=== PATIENT | female | born 1990 | race Caucasian/White ===

== ENCOUNTER 2024-04-06 14:04 | Outpatient (CLI) | payer BC, SELFPAY ==
[2024-04-06 16:03] LABS: Toxigenic C. Diff NEGATIVE (NEGATIVE)
[2024-04-13 20:09] LABS: Calprotectin, Stool 553 mcg/g
== END 2024-04-06 14:05 | disposition home or self-care (01) ==
PROVIDERS: Visit Provider Internal Medicine Gastroenterology
DX: R19.7 Diarrhea, unspecified (principal)
CPT/HCPCS: 83993; 87269; 87493

== ENCOUNTER 2024-07-29 10:24 | Emergency (ER) | payer OTHER, SELFPAY ==
--- NOTE | ~2024-07-29 | CT_ITS ---
EXAMINATION: CT abdomen pelvis w con DATE: 07/29/2024 11:33 INDICATION: Left upper quadrant abdominal pain TECHNIQUE: Computed tomography (CT) of the abdomen and pelvis was performed with 100 mL Omnipaque-350 intravenous contrast. Automated exposure control and iterative reconstruction technique were employe d. The dose-length product was 420.18 mGy-cm. COMPARISON: None FINDINGS: Lung bases are clear. Heart size is normal. No pericardial or pleural effusion. Liver, gallbladder, s pleen, pancreas, bilateral adrenal glands and right kidney are normal. Couple small regions of cortic al scarring at the posterior left kidney likely sequela prior infection or less likely infarction. Robin wels including the appendix are normal. Bladder, anteverted uterus and right adnexa are normal. 1.9 c m peripherally enhancing likely corpus luteum cyst at the left ovary. Minimal amount of likely physio logic free fluid at the cul-de-sac. No abscess or free intraperitoneal gas. Small fat-containing umbi lical hernia. No pathologically enlarged abdominal or pelvic lymphadenopathy. Small bone island at th e intratrochanteric right femur. IMPRESSION: 1. 1.9 cm likely corpus luteum cyst at the left ovary and minimal likely physiologic free fluid in th e cul-de-sac. No other acute intra-abdominal/pelvic process. Reviewed, dictated and finalized at location A. IMPRESSION: 1. 1.9 cm likely corpus luteum cyst at the left ovary and minimal likely physio logic free fluid in the cul-de-sac. No other acute intra-abdominal/pelvic proce ss.
[2024-07-29 10:27] VITALS: BP 150/84; PULSE 88; RESP 18; TEMP 36.9; O2SAT 100
[2024-07-29 10:49] LABS: BEDSIDEPREGUCG Negative (Negative)
[2024-07-29 10:57] LABS: Basophils Percent Auto 1.1 % (0.2-1.2); Eosinophils Percent Auto 0.5 % (0-4.4); Hematocrit 37.7 % (37.0-47.0); Immature Granulocyte Absolute 0.01 K/mm3 (0.00-0.031); Immature Granulocyte Percent A 0.3 % (0-0.5); Lymphocytes Absolute Auto 1.01 K/mm3 (0.9-3.2); Lymphocytes Percent Auto 27.4 % (18.3-44.2); Mean Corpuscular HGB Conc 31.8 g/dl (32-36); Mean Corpuscular Hemoglobin 25.5 pg (26-34); Mean Corpuscular Volume 80.2 fl (80-100); Mean Platelet Volume 11.5 fl (7.4-10.4); Monocytes Absolute Auto 0.3 K/mm3 (0.1-0.6); Monocytes Percent Auto 8.4 % (2.6-8.5); Neutrophils Absolute Auto 2.3 K/mm3 (1.3-6.7); Neutrophils Percent Auto 62.3 % (45.5-73.1); Platelet Count Result 230 k/mm3 (150-375); Red Cell Distribution Width 13.2 % (11.5-14.5); White Blood Count 3.7 K/mm3 (4.5-10.0)
[2024-07-29] MEDS: BELLADONNA ALK/PHENOB ELIX 10 ML, MAG HYDROX/ALUMINUM HYD/SIMETH 30 ML, LIDOCAINE 2% VI... PO (10:57)
--- NOTE | 2024-07-29 10:58 | ED_ITS ---
HPI - General Adult General Chief complaint: Abdominal Pain Stated complaint: RUQ pain Time Seen by Provider: 07/29/24 10:35 History of Present Illness HPI narrative: 34-year-old female presents to the emergency department for evaluation for left upper quadrant abdominal pain. Patient does have history of H pylori for which she was treated. Patient states that she began having some left upper quadrant abdominal pain. Patient describes nausea without vomiting. Patient denies any prior history of kidney stones and denies any pain with urination. Patient does have a prior history kidney infection. Patient is a type 1 diabetic and blood sugars are well controlled. Related Data Home Medications ?Medication ?Instructions ?Recorded ?Confirmed ?Last Taken ?Type insulin aspart U-100 100 unit/mL 1 sliding scale dose subcut 04/06/24 04/06/24 Unknown History (3 mL) subcutaneous pen (Novolog USEASDIRECTD FlexPen U-100 Insulin aspart) Allergies Allergy/AdvReac Type Severity Reaction Status Date / Time No Known Allergies Allergy Verified 07/29/24 10:24 Review of Systems 2 Review of Systems: All systems reviewed & are unremarkable except as noted in HPI and below PMFSH Past Medical History Medical History Diabetes type 1 Surgical History Surgical History H/O shoulder surgery Family History Family History Father Heart disease Hypertension Social History Social History Smoking status: Never smoker Alcohol intake: never Substance use: never Substance use type: does not use Exam 2 Narrative: APPEARANCE: Well appearing, no pain, no distress, well-nourished. HEAD: normocephalic, atraumatic. EYES: PERRLA/EOMI, conjunctivae clear. NOSE: Normal no drainage EARS:TMS clear with good light reflex. THROAT: Pharynx clear, no exudate. NECK: Supple. No adenopathy, no masses. RESPIRATORY: Airway patent, respirations nonlabored. Clear to auscultation bilaterally, no rales, rhonchi, wheezing. CARDIOVASCULAR: Regular rate and rhythm without murmurs rubs or gallops. ABDOMINAL: Mild left upper quadrant tenderness to palpation, no rebound or guarding. No epigastric tenderness, no right upper quadrant tenderness MUSCULOSKELETAL: Moves all extremities. Strength/ROM intact, No edema, No calf tenderness. NEURO: Alert. Cranial nerves II through XII intact. Grossly intact SKIN: Warm, dry. Normal Color Course Vital Signs Vital signs: Vital Signs Temperature 98.5 F 07/29/24 10: Pulse Rate 88 07/29/24 10:27 Respiratory Rate 18 07/29/24 10:27 Blood Pressure 150/84 H 07/29/24 10:27 Pulse Oximetry 100 07/29/24 10:27 Oxygen Delivery Room Air 07/29/24 10:27 Temperature 98.1 F 07/29/24 13:25 Pulse Rate 77 07/29/24 13:25 Respiratory Rate 16 07/29/24 13:25 Blood Pressure 134/87 07/29/24 13:25 Pulse Oximetry 100 07/29/24 13:25 Oxygen Delivery Room Air 07/29/24 10:27 Medical Decision Making [facility] Narrative Medical decision making narrative: 34-year-old female presents emergency department for evaluation for left upper quadrant abdominal pain. Patient is afebrile with leukocytosis hemoglobin of 12. Patient has an INR of 1.0. Patient has no anion gap a glucose of 139. Lipase is normal. No acute abnormalities on her UA. CT abdomen pelvis does show a possible luteal cyst on the left ovary but no etiology for the patient's symptoms. Patient did feel mildly improved with IV Protonix, IV famotidine and a GI cocktail. Patient was advised to avoid alcohol, avoid NSAIDs to start omeprazole and has being provided his Zofran nausea control. Patient was encouraged to have close follow-up with GI again. Differential Diagnosis Differential Diagnosis: Esophagitis, gastritis, colitis, diverticulitis, UTI, ovarian cyst Vital Signs Vital Signs: Vital Signs Temperature 98.5 F 07/29/24 10:27 Pulse Rate 88 07/29/24 10:27 Respiratory Rate 18 07/29/24 10:27 Blood Pressure 150/84 H 07/29/24 10:27 Pulse Oximetry 100 07/29/24 10:27 Oxygen Delivery Room Air 07/29/24 10:27 Temperature 98.1 F 07/29/24 13:25 Pulse Rate 77 07/29/24 13:25 Respiratory Rate 16 07/29/24 13:25 Blood Pressure 134/87 07/29/24 13:25 Pulse Oximetry 100 07/29/24 13:25 Oxygen Delivery Room Air 07/29/24 10:27 Lab Data Lab results reviewed: Yes I reviewed the patient's lab results. 07/29/24 10:42 07/29/24 10:42 Labs: Lab Results 07/29/24 07/29/24 07/29/24 Range/Units 10:42 10:46 10:49 WBC 3.7 L (4.5-10.0) K/mm3 RBC 4.70 (4.2-5.4) M/mm3 Hgb 12.0 (12.0-15.0) g/dL Hct 37.7 (37.0-47.0) % MCV 80.2 (80-100) fl MCH 25.5 L (26-34) pg MCHC 31.8 L (32-36) g/dl RDW 13.2 (11.5-14.5) % Plt Count 230 (150-375) k/mm3 MPV 11.5 H (7.4-10.4) fl Immature Gran % (Auto) 0.3 (0-0.5) % Neut % (Auto) 62.3 (45.5-73.1) % Lymph % (Auto) 27.4 (18.3-44.2) % [place] % (Auto) 8.4 (2.6-8.5) % Eos % (Auto) 0.5 (0-4.4) % Baso % (Auto) 1.1 (0.2-1.2) % Lymph # (Auto) 1.01 (0.9-3.2) K/mm3 [place] # (Auto) 0.3 (0.1-0.6) K/mm3 Eos # (Auto) 0.0 (0-0.3) K/mm3 Baso # (Auto) 0.0 (0.0-0.1) K/mm3 Abs Immat Gran (auto) 0.01 (0.00-0.031) K/mm3 Absolute Neuts (auto) 2.3 (1.3-6.7) K/mm3 Absolute Nucleated RBC 0.000 (0.0-0.012) K/mm3 Nucleated RBC % 0.0 (0.0-0.2) % PT 13.2 (11.1-14.7) Seconds INR 1.0 APTT 28.5 (22.3-36.8) Seconds Sodium 140 (137-145) mmol/L Potassium 4.1 (3.4-5.0) mmol/L Chloride 106 (98-107) mmol/L Carbon Dioxide 22 (22-30) mmol/L Anion Gap 12 (4-12) mmol/L BUN 9 (7-17) mg/dL Creatinine 0.62 L (0.7-1.0) mg/dL Estim Creat Clear Calc 105 ml/min Estimated GFR > 60 (59 - ) Glucose 139 H (65-110) mg/dL Calcium 9.1 (8.4-10.2) mg/dL Total Bilirubin 1.0 (0.2-1.3) mg/dL AST 21 (14-36) U/L ALT 15 (6-35) U/L Alkaline Phosphatase 63 (38-126) U/L Total Protein 8.0 (6.3-8.2) g/dL Albumin 4.6 (3.5-5.1) g/dL Lipase 44 (23-300) U/L Urine Color Yellow (Yellow) Urine Appearance Clear (Clear) Urine pH 6.5 (5.0-9.0) Ur Specific [place] 1.013 (1.001-1.035) Urine Protein Negative (Negative) mg/dL Urine Glucose (UA) Negative (Negative) mg/dL Urine Ketones 2+ H (Negative) mg/dL Ur Blood (Man) Negative (Negative) Urine Nitrate Negative (Negative) Urine Bilirubin Negative (Negative) Urine Urobilinogen 0.2 (<2.0) mg/dL Leukocyte Esterase Rfl Negative (Negative) WILDER/UL POC Urine HCG, Qual Negative (Negative) Discharge Plan Discharge Clinical Impression: Abdominal pain, left upper quadrant Patient Disposition: Home, Self-Care Condition: Stable Instructions: Antibiotic Form, Diet for Stomach Ulcers and Gastritis (ED) Additional Instructions: Follow a clear liquid diet or bland diet for the next few days. Avoid NSAIDs and avoid alcohol. Omeprazole as directed for the next 14 days. Zofran as needed for nausea control. Continue the have close follow-up with GI. If you have any worsening symptoms please call or return to the emergency department. Patient Language: Nauruan Prescriptions: New omeprazole 20 mg capsule,delayed release(DR/EC) 20 mg PO DAILY 14 Days Qty: 14 0RF ondansetron 4 mg tablet,disintegrating 4 mg PO Q8H PRN (Reason: nausea and vomiting) Qty: 14 0RF No Action insulin aspart U-100 [Novolog FlexPen U-100 Insulin] 100 unit/mL (3 mL) insulin pen 1 sliding scale dose subcut USEASDIRECTD Follow-up/Referrals: UNKNOWN,DOCTOR [Primary Care Provider] -
[2024-07-29] MEDS: PANTOPRAZOLE SODIUM IV 40 MG VIAL IV PUSH (11:01)
[2024-07-29] MEDS: SODIUM CHLORIDE 0.9% IV 1,000 ML 999 ML IV CONT (11:01)
[2024-07-29] MEDS: FAMOTIDINE 20 MG/2 ML VIAL IV PUSH (11:04)
[2024-07-29 11:06] LABS: Alanine Aminotransferase 15 U/L (6-35); Albumin Level 4.6 g/dL (3.5-5.1); Alkaline Phosphatase 63 U/L (38-126); Anion Gap 12 mmol/L (4-12); Aspartate Amino Transferase 21 U/L (14-36); Blood Urea Nitrogen 9 mg/dL (7-17); Calcium 9.1 mg/dL (8.4-10.2); Carbon Dioxide 22 mmol/L (22-30); Chloride 106 mmol/L (98-107); Estimated CRCL calculation 105 ml/min; Estimated Glomerular Filt Rate > 60; Glucose 139 mg/dL (65-110); Lipase 44 U/L (23-300); Potassium 4.1 mmol/L (3.4-5.0); Sodium 140 mmol/L (137-145)
--- OUTSIDE RECORDS SUMMARY | 2024-07-29 11:12 | XMS_ITS | Encounter Summary ---
Author Organization [facility] Address [address] [place] [id number] Care Team Providers Care Die Repair Machinist Name Role Phone Nas Baca DO Primary Care Provider [phone] Encounter Details Date Type Department Care Team (Late st Contact Info) Description 07/23/2023 [email or web address] Message Enc [facility] Family Medicine [facility] [address] [place] [address] [place] [address] Following Yesterday s Visit Social History Tobacco Use Types Packs/Day Years Used Date Smoking Tobacco: Former Cigarettes Smokeless Tobacco: Never Alcohol Use Standard Drinks/Week Comments Not Currently 0 (1 standard drink = 0.6 oz pur e alcohol) occas. 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
--- OUTSIDE RECORDS SUMMARY | 2024-07-29 11:12 | XMS_ITS | Encounter Summary ---
Author Organization [facility] Address [address] [place] [address] Care Team Providers Care Vehicle Body Builder Name Role Phone Nas Baca DO Primary Care Provider [phone] Encounter Details Date Type Department Care Team (Late st Contact Info) Description 12/04/2023 [employer] Message Enc [facility] Family Medicine [address] [address] Nas Baca DO [address] [place] [address] Positive Covid Social History Tobacco Use Types Packs/Day Years Used Date Smoking Tobacco: Former Cigarettes Smokeless Tobacco: Never Alcohol Use Standard Drinks/Week Comments Not Currently 0 (1 standard drink = 0.6 oz pur e alcohol) occas. 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 Baca, he spoke to this patient . No V V needed. documented in this encounter Plan of Treatment Not on file documented as of this encounter Visit Diagnoses Not on filedocumented in this encounter Care Teams Vehicle Body Builder Relationship Specialty Start Date End Date Nas Baca DO [address] [place] [address] PCP - General FAMILY PRACTICE 01/30/23 documented as of this encounter
--- OUTSIDE RECORDS SUMMARY | 2024-07-29 11:12 | XMS_ITS | Clinical Summary ---
Author Organization [facility] Address [address] [place] [address] Care Team Providers Care Statue Carver Name Role Phone Keven, Nas Anival Primary Care Provide r Allergies Active Allergy Reactions Criticality Noted Date Comments Metronidazole Itching Low 04/01/2024 Itching of face, mouth, chest and whole body per patient Succinylcholine Other (See comments) High 09/04/2018 Family history of pseudocholinesterase deficiency, so prolonged time of action with succinylcholine administration for her, if given. Medications blood-glucose meter,continuous (Dexcom G6 Japanese Professor) misc 1 Device by Not Applicable route 0 Active blood-glucose transmitter (Dexcom G6 Transmitter) device 1 Units by Not Applicable route every 3 (three) months 0 Active INSULIN SUBCUTANEOUS PUMP, HUMALOG, 100 UNITS/ML INSULIN PUMP INFUSION (HumaLOG) Active pen needle, diabetic 31 gauge x 3/16 needle 1 each 0 Active Omnipod 5 G6 Pods, Gen 5, cartridge 4 Active insulin aspart (NovoLOG) 100 unit/mL vial for injection Inject under the skin continuous (use w/insulin pump) Active colestipoL (COLESTID) 1 gram tablet Take 1 tablet (1 g total) by mouth daily with dinner Active prochlorperazine (COMPAZINE) 10 mg tablet Take 1 tablet (10 mg total) by mouth 3 (three) times a day as needed for nausea or vomiting Active metoclopramide (REGLAN) 10 mg tablet Take 1 tablet (10 mg total) by mouth every 6 (six) hours as needed (nausea) 30 tablet 4 Active scopolamine 1 mg over 3 days patch [address] 1 patch on the skin every third day 10 patch 4 Active Active Problems Problem Noted Date Diagnosed Date Intractable nausea and vomiting 04/09/2024 Nausea and vomiting 04/09/2024 Nausea & vomiting 04/09/2024 Irritable bowel syndrome with diarrhea Colitis 04/02/2024 Moderate protein-calorie malnutrition 04/02/2024 Diarrhea 04/01/2024 Nausea vomiting and diarrhea 04/01/2024 Generalized abdominal cramping 04/01/2024 Abdominal discomfort 03/30/2024 History of diarrhea 03/30/2024 Childhood asthma 08/18/2023 Overview (08/18/2023): as a toddler, none since Iron deficiency anemia 07/11/2023 Adhesive capsulitis of right shoulder 01/30/2023 Allergic rhinitis due to allergen 01/30/2023 Chronic right shoulder pain 01/30/2023 Chronic sinusitis 01/30/2023 Breast pain, right 06/29/2020 Overview (08/18/2023): Last Assessment & Plan: Exam is normal. I discussed that breast pain is nearly never the presenting complaint of breast cancer. There are no specific masses that I can palpate on exam, just normal breast tissue. Will obtain breast ultrasound to ensure no small cysts or fibroadenomas. A common cause of breast pain in her age group is fibrocystic breast disease. First line treatment is acetaminophen or ibuprofen as needed. Further recommendations based on severity of pain (currently not severe) and ultrasound findings. Insulin pump status 04/17/2018 Overview (08/18/2023): Since 2000. Since 2000. Nausea and vomiting during 04/17/2018 Overview (08/18/2023): All day nausea. 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 No 04/09/2024 Social Connection and Isolat ion Panel [NHANES] Answer Date Recorded In a typical week, how many times do you talk on the phone with family, friends, or neighbors? More than three times a week 04/09/2024 How often do you get togethe r with friends or relatives? More than three times a week 04/09/2024 How often do you attend chur ch or sikhism services? Never 04/09/2024 Do you belong to any clubs o r organizations such as quaker groups, unions, fraternal or athletic groups, or school groups? No 04/09/2024 How often do you attend meet ings of the clubs or organizations you belong to? Never 04/09/2024 Are you , , di vorced, , never , or living with a partner? 04/09/2024 Overall Financial Resource Strain (CARDIA) Answe r Date Recorded How hard is it for you to pa y for the very basics like food, housing, medical care, and heating? Not hard at all 04/09/2024 Hunger Vital Sign Answer Date Recorded Within the past 12 months, y ou worried that your food would run out before you got the money to buy more. Never true 04/09/20 24 Within the past 12 months, t he food you bought just didn't last and you didn't have money to get more. Never true 04/09/2024 PRAPARE - Transportation Answer Date Re corded In the past 12 months, has l ack of transportation kept you from medical appointments or from getting medications? No 03/28 In the past 12 months, has l ack of transportation kept you from meetings, work, or from getting things needed for daily living? No 04/09/2024 Housing Stability Vital Sign Answer Capo e Recorded In the last 12 months, was t here a time when you were not able to pay the mortgage or rent on time? No 04/09/2024 In the past 12 months, how m any times have you moved where you were living? 0 04/09/2024 At any time in the past [address] [facility], were you homeless or living in a halfway (including now)? No 04/09/2024 Personal Safety Answer Date Recorded Have you ever been in or are you currently in a harmful physical or emotional relationship or is someone making you feel afraid or unsafe? Denies 04/08/2024 Comments No Sex and Gender Information Value Date Recorded Sex Assigned at Not on file Legal Sex Female 9:33 AM CDT Gender Identity Female 05/19/2024 6:51 AM DIE REPAIR Sexual Orientation Straight 05/19/2024 6: 51 AM DIE REPAIR Obstetrics History Para Term AB IAB SAB Ectopic Multiple Livin g Live Births 2 2 1 1 Date Outcome GA Total Labor Labor/2nd/3rd Weight Sex Type Anes PTL Rosangela A1 A5 Name Clin Term 019 34w 5d 4h 56m 4h 51m/0h 05m 3.975 kg (8 lb 12.2 oz) F Vag-S pont Epidur al Y 5 9 Estrellita Ornelas MD Complications:Intraamniotic Infection Delivery Location:[facility] Comments:Heart murmur Last Filed Vital Signs Vital Sign Reading Time Taken Comments Blood Pressure 126/78 04/10/2024 4:05 AM DIE REPAIR Pulse 70 04/10/2024 4:05 AM DIE REPAIR Temperature 36.9 C (98.4 F) 04/10/2024 4:05 AM DIE REPAIR Respiratory Rate 16 04/10/2024 4:05 AM DIE REPAIR Oxygen Saturation 99% 04/10/2024 4:05 AM DIE REPAIR Inhaled Oxygen Concentration - - Weight 77.1 kg (170 lb) 04/08/2024 7:50 PM DIE REPAIR Height 170.2 cm (5' 7 ) 04/08/2024 7:50 PM DIE REPAIR Body Mass Index 26.63 04/08/2024 7:50 PM DIE REPAIR Plan of Treatment Health Maintenance Due Date Last Done Comments Albumin Creatinine Ratio, Urine 1989 Depression Screening 1989 Foot Exam 1989 Hepatitis C Screening 1989 Dilated Eye Exam 1999 Varicella Vaccines (1 of 2 - 13+ 2-dose series) 2002 Hepatitis B Screening 2007 Pneumococcal vaccine <65 (1 of 2 - PCV) 02/09/2008 Hemoglobin A1C 08/21/2020 02/21/2020 Cervical Cancer Screening 11/15/2023 11/14/2022 Regular Well Visit/Exam 18-64 11/15/2023 11/14/2022 Covid-19 Vaccine (3 - season) 2023 07/19/2020, 06/30/2020 Lipid Panel 07/27/2024 07/28/2023 TSH Level 07/27/2024 07/28/2023 Influenza Vaccine (Season Ended) 2024 05/18/2020 eGFR 04/08/2025 04/08/2024, 12/09/2023, 04/01/2024, Additional history exists DTaP/Tdap/Td Vaccine (3 - Td or Tdap) 06/02/2032 06/02/2022, 09/18/2018 HPV Vaccines Aged Out No longer eligi ble based on patient's age to complete this topic Procedures Procedure Name Priority Date/Time Associated Diagnosis Comments EGFR STAT 04/08/2024 12:59 PM DIE REPAIR PAP WITH REFLEX TO HIGH RISK HPV Routine 11/14/2022 11:49 AM CDT Well female exam with routine gynecological exam from Last 3 Months or Most Recently Relevant to Health Maintenance Results * eGFR (04/08/2024 12:59 PM DIE REPAIR) eGFR >90 >=60 mL/min/1. 73 m2 Comment: Interpretive Data Reference Interval Normal >/= 90 mL/min/1.73m2 Mildly decreased* 60 - 89 mL/min/1.73m2 Mildly to moderately decreased 45 - 59 mL/min/1.73m2 Moderately to severely decreased 30 - 44 mL/min/1.73m2 Severely decreased 15 - 29 mL/min/1.73m2 Kidney Failure < 15 mL/min/1.73m2 *Relative to young adult level Estimated glomerular filtration rate is determined by the 2020 CKD-EPI equation recommended by the National Kidney Foundation (A Unifying Approach to GFR Estimation: Recommendations of the NKF-ASK Task Force on Reassessing the Inclusion of Race in Diagnosing Kidney Disease, JASN 2020). The CKD-EPI equation should not be used for patients with unstable renal function and has not been validated in children and those over 70. Current interpretive data was last reviewed 2021. Blood 04/08/2024 12:5 9 PM DIE REPAIR 04/08/2024 1:30 PM DIE REPAIR us Michelle Pantoja MD LAB BLOOD ORDERABLES Final Result [facility] [address] Department [place] [address] * Pap with reflex to High Risk HPV and Genotyping (Cytology Component) (11/14/2022 11:49 AM CDT) Thin prep (Pap test) 11/14/2022 11:49 AM CDT 11/18/2022 11:49 AM CDT Narrative PATHOLOGY [facility] - 11/21/2022 1:17 PM CDT [facility] Department of Pathology [address] [place] [address] Final Report Note to Patients: This report may contain a detailed description of human tissue sent by a health care provider to the laboratory for pathologic evaluation. The content of this report is essential for diagnosis and may provide important critical findings. This information may be unfamiliar to patients to review without a medical professional present. It is advised that the patient review this report in the presence of a health care provider who can answer questions and explain the details. Patient Name: KHALIF RIVERA [address] [place] [address] Gender: F : 1990 (Age: 32) Service: Location: N : [id number] [facility] #: [id number] Patient Type: E SPECIMEN Taken: 11/14/2022 Received: 11/18/2022 Accessioned:: 11/19/2022 Reported: 11/21/2022 Physician(s): Jocelyn Flores, [facility] Diagnosis: SOURCE OF SPECIMEN Imaged Thinprep Pap Test w/ Reflex HPV - It Sales Consultant Cytologic Material: STATEMENT OF ADEQUACY - Satisfactory for evaluation; endocervical/transformation zone component present GENERAL CATEGORIZATION: - Negative for intraepithelial lesion or malignancy MARLINE Christianson(ASCP) Report Electronically Reviewed and Signed Out By MARLINE Christianson(ASCP) 11/21/2022 13:17:29Specimen(s) Received: A: Imaged Thinprep Pap Test w/ Reflex HPV - It Sales Consultant Cytologic Material Clinical History: Last Menstrual Period: 10/19/22 The Pap test is a screening test used to aid in the detection of cervical cancer and its precursors. It should not be the sole means by which malignant and premalignant lesions are diagnosed. Both false negative and false positive results may occur. It also has poor sensitivity for the detection of endometrial lesions and should not be used to evaluate suspected endometrial abnormalities. For these reasons it is most important to obtain Pap tests at regular intervals. The performance characteristics of some immunohistochemical stains, fluorescence in-situ hybridization tests and immunophenotyping by flow cytometry cited in this report (if any) were determined by the Surgical Pathology Department at [facility] as part of an ongoing director quality systems program and in compliance with federally mandated regulations drawn from the Clinical Laboratory Improvement Act of 1988 (CLIA '88). Some of these tests rely on the use of analyte specific reagents and are subject to specific labeling requirements by the US Food and Drug Administration. Such diagnostic tests may only be performed in a facility that is certified by the Department of Health and Human Services as a high complexity laboratory under CLIA '88. The FDA has determined that such clearance or approval is not necessary. This test is used for clinical purposes. It should not be regarded as investigational or for research. Nevertheless, federal rules concerning the medical use of analyte specific reagents require that the following disclaimer be attached to the report: This test was developed and its performance characteristics determined by the Surgical Pathology Department [facility]. It has not been cleared or approved by the U. S. Food and Drug Administration. Jocelyn Flores CNM LAB CYTOLOGY ORDERABLES Final Result [facility] from Last 3 Months or Most Recently Relevant to Health Maintenance Insurance [employer] [place] [employer] [place] Advance Directives For more information, please contact: [phone] * Full Code (Latest Code Status on File) Date Activated Date Inactivated Comments 04/08/2024 7:40 PM 04/10/2024 5:40 PM * Full Code Date Activated Date Inactivated Comments 04/01/2024 1:49 PM 04/04/2024 7:09 PM Care Teams Statue Carver Relationship Specialty Start Date End Date Nas Baca DO [address] [place] [address] PCP - General Family Medicine 06/27/23
--- OUTSIDE RECORDS SUMMARY | 2024-07-29 11:12 | XMS_ITS | Encounter Summary ---
Author Organization [facility] Health Address [address] [facility] [place] [address] Care Team Providers Care President & Founder Name Role Phone Dewayne Weathers MD Primary Care Provider [phone] Kaleb Mccurdy MD Primary Care Provider Breanna laura López Jr., MD, Willis Randle Primary Care Provid er Nas Baca DO Primary Care Provider [phone] Encounter Details Date Type Department Care Team (Late st Contact Info) Description 01/19/2008 [facility] Outpatient Visit [facility] DEFAULT [address] [place] [address] [place] [address] [place] [address] Social History Tobacco Use Types Packs/Day Years Used Date Smoking Tobacco: Never Assessed Sex and Gender Information Value Date Recorded Sex Assigned at Not on file Gender Identity Not on file Sexual Orientation Not on file documented as of this encounter Plan of Treatment Upcoming Encounters Date Type Department Care Team (Late Contact Info) Description 08/30/2024 2:20 PM CDT Office Visit [facility] Medical Group - Endocrinology [address] [facility], [address] [place] [phone] Sool Garcia MD [address] [facility] [address] [place] [address] documented as of this encounter Visit Diagnoses Not on filedocumented in this encounter Care Teams President & Founder Relationship Specialty Start Date End Date Dewayne Weathers MD [address] [place], [place] [id number] PCP - General 03/28/08 08/18/10 Kaleb Mccurdy MD PCP - General 08/19/10 05/06/17 Willis Ló[place] [address] [address] [facility] [address] [place] [address] PCP - General 03/30/18 12/03/22 Nas Baca DO [address] [phone] PCP - General Family Medicine 07/28/23 documented as of this encounter
--- OUTSIDE RECORDS SUMMARY | 2024-07-29 11:12 | XMS_ITS | Referral Summary ---
Author Organization [facility] Address [address] [place] [address] Care Team Providers Care Esthetician Spa Name Role Phone Keven, Nas Anival Primary Care Provide r Allergies Active Allergy Reactions Criticality Noted Date Comments Metronidazole Itching Low 04/01/2024 Itching of face, mouth, chest and whole body per patient Succinylcholine Other (See comments) High 09/04/2018 Family history of pseudocholinesterase deficiency, so prolonged time of action with succinylcholine administration for her, if given. Medications blood-glucose meter,continuous (Dexcom G6 Frog Catcher) misc 1 Device by Not Applicable route [...] Immunization Administration Dates Next Due Tdap 06/02/2022 Social History Tobacco Use Types Packs/Day Years Used Date Smoking Tobacco: Never Tobacco Cessation:Counseling Given: Not Answered [facility] Utilities Answer Date Recorded In the past 12 months has th e [employer], gas, oil, or water milog threatened to shut off services in your [...] often do you attend chur ch or orthodox services? Never 04/09/2024 Do you belong to any clubs o r organizations such as congregational groups, unions, fraternal or athletic groups, or [...] any time in the past 12 m [facility], were you homeless or living in a half-way (including now)? No 04/09/2024 Personal Safety Answer Date Recorded Have you ever been in or are you currently in a harmful physical or emotional relationship or is someone making you feel afraid or unsafe? Denies 04/08/2024 Comments No Sex and Gender Information Value Date Recorded Sex Assigned at Not on file Legal Sex Female 9:33 AM CDT Gender Identity Female 05/19/2024 6:51 AM SPECIAL EDUCATION SECRETARY Sexual Orientation Straight 05/19/2024 6: 51 AM SPECIAL EDUCATION SECRETARY Last Filed Vital Signs Vital Sign Reading Time Taken Comments Blood Pressure 126/78 04/10/2024 4:05 AM SPECIAL EDUCATION SECRETARY Pulse 70 04/10/2024 4:05 AM SPECIAL EDUCATION SECRETARY Temperature 36.9 C (98.4 F) 04/10/2024 4:05 AM SPECIAL EDUCATION SECRETARY Respiratory Rate 16 04/10/2024 4:05 AM SPECIAL EDUCATION SECRETARY Oxygen Saturation 99% 04/10/2024 4:05 AM SPECIAL EDUCATION SECRETARY Inhaled Oxygen Concentration - - Weight 77.1 kg (170 lb) 04/08/2024 7:50 PM SPECIAL EDUCATION SECRETARY Height 170.2 cm (5' 7 ) 04/08/2024 7:50 PM SPECIAL EDUCATION SECRETARY Body Mass Index 26.63 04/08/2024 7:50 PM SPECIAL EDUCATION SECRETARY Plan of Treatment Not on file Procedures Procedure Name Priority Date/Time Associated Diagnosis Comments EGFR STAT 04/08/2024 12:59 PM SPECIAL EDUCATION SECRETARY PAP WITH REFLEX TO HIGH RISK HPV Routine 11/14/2022 11:49 AM CDT Well female exam with routine gynecological exam from Last 3 Months or Most Recently Relevant to Health Maintenance Results * eGFR (04/08/2024 12:59 PM SPECIAL EDUCATION SECRETARY) eGFR >90 >=60 mL/min/1. 73 m2 Comment: [...] reviewed 2021. Blood 04/08/2024 12:5 9 PM SPECIAL EDUCATION SECRETARY 04/08/2024 1:30 PM SPECIAL EDUCATION SECRETARY us Michelle Pantoja MD LAB BLOOD ORDERABLES Final Result [facility] [address] Department [place] [address] * Pap with reflex to High Risk HPV and Genotyping (Cytology Component) (11/14/2022 11:49 AM CDT) Thin prep (Pap test) 11/14/2022 11:49 AM CDT 11/18/2022 11:49 AM CDT Narrative PATHOLOGY [facility] - 11/21/2022 1:17 PM CDT [facility] Department of Pathology [address] [place] [address] Final Report Note to Patients: This [...] questions and explain the details. Patient Name: INNA RIVERA Address: [facility] [address], [place] [address] Gender: F : 1990 (Age: 32) Service: Location: [facility] #: [id number] Patient Type: MHE SPECIMEN Taken: 11/14/2022 Received: 11/18/2022 Accessioned:: 11/19/2022 Reported: 11/21/2022 Physician(s): Jocelyn Flores [facility] Diagnosis: SOURCE OF SPECIMEN Imaged Thinprep Pap Test w/ Reflex HPV - Bar Tender Cytologic Material: STATEMENT OF ADEQUACY - Satisfactory for evaluation; endocervical/transformation zone component present GENERAL CATEGORIZATION: - Negative for intraepithelial lesion or malignancy MARLINE Christianson(ASCP) Report Electronically Reviewed and Signed Out By MARLINE Christianson(ASCP) 11/21/2022 13:17:29Specimen(s) Received: A: Imaged Thinprep Pap Test w/ Reflex HPV - Bar Tender Cytologic Material Clinical History: Last Menstrual Period: [...] determined by the Surgical Pathology Department at [facility] as part of an ongoing construction quality control manager program and in compliance with federally mandated [...] characteristics determined by the Surgical Pathology Department [facility]. It has not been cleared or approved by the U. S. Food and Drug Administration. Jocelyn DURON LAB CYTOLOGY ORDERABLES Final Result [facility] from Last 3 Months or Most Recently Relevant to Health Maintenance Insurance [place] [place] [place] Advance Directives For more information, please contact: [phone] * Full Code (Latest Code Status on File) Date Activated Date Inactivated Comments 04/08/2024 7:40 PM 04/10/2024 5:40 PM * Full Code Date Activated Date Inactivated Comments 04/01/2024 1:49 PM 04/04/2024 7:09 PM Care Teams Esthetician Spa Relationship Specialty Start Date End Date Nas [place] [address] [place] [address] PCP - General Family Medicine 06/27/23
--- OUTSIDE RECORDS SUMMARY | 2024-07-29 11:12 | XMS_ITS | Clinical Summary ---
Author Organization [facility] Address [facility] [place] [address] Care Team Providers Care Engineer Assistant Name Role Phone Keven, Nas Resendez DO Primary Care Provider [phone] Allergies Active Allergy Reactions Criticality Noted Date Comments Metronidazole Itching Low 04/01/2024 Itching of face, mouth, chest and whole body per patient Succinylcholine Other (see comment) High 09/04/2018 Family history of malignant hyperthermia Medications glucagon 1 mg/mL injection Inject 1 mg into the skin as needed. 1 each 1 2 Active insulin aspart (NOVOLOG) 100 UNIT/ML injection (VIAL) USE 60 UNITS DAILY PER INSULIN PUMP 3 Active Insulin Disposable Pump (OMNIPOD 5 G6 PODS, GEN 5,) [facility] 4 Active Iron, Ferrous Sulfate, 325 (65 Fe) MG TabIndications:Iron deficiency anemia, unspecified iron deficiency anemia type Take 1 tablet by mouth daily. May take every other day if constipating . 90 tablet 3 4 Active ondansetron (ZOFRAN-ODT) 4 MG disintegrating tabletIndications:A cute diverticulitis,Naus ea Take 1 tablet (4 mg total) by mouth every 8 (eight) hours as needed for Nausea. 20 tablet 4 Active metoclopramide (REGLAN) 10 MG tablet Take 1 tablet (10 mg total) by mouth every 6 (six) hours as needed. 4 Active scopolamine (TRANSDERM-SCOP) 1 MG/3DAYS patch Place 1 patch onto the skin every third day. 4 Active Active Problems Problem Noted Date Diagnosed Date Iron deficiency anemia, unsp ecified iron deficiency anemia type 07/11/2023 Chronic sinusitis, unspecified location 01/31/20 Seasonal allergic rhinitis due to other allergic trigger 01/30/2023 Adhesive capsulitis of right shoulder 01/30/2023 Chronic right shoulder pain 01/30/2023 Insulin pump status 04/17/2018 Overview (07/09/2023): Since 2000. Type 1 diabetes mellitus wit hout complication ([facility]) 05/07/2017 Overview (07/09/2023): Diagnosed at age 2 On pump since 2000 Diagnosed at age 2 On pump since 2000 Class D EKG wnl, echo not able to be done due to insurance Resolved Problems Problem Noted Date Diagnosed Date Resolved Date Type 1 diabetes mellitus wit hout complication ([facility]) 07/09/2023 07/09/2023 Encounters Date Type Department Care Team Description 07/08/2024 Telephone [facility] [address] [phone] Nas Baca, DO Information 06/18/2024 12:38 PM SULFURIC ACID PLANT OPERATOR - 06/18/2024 11:59 PM SULFURIC ACID PLANT OPERATOR Hospital Encounter [facility] [place] [address] Nas Baca, DO Discharge Disposition: Home or Self Care (Routine Discharge) 06/18/2024 Travel 06/11/2024 MyChart Message Enc [address] [phone] Nas Baca, DO FMLA Release 05/13/2024 MyChart Message Enc [address] [address] Nas Baca DO [facility] Paperwork from Last 3 Months Immunizations Name Administration Dates Next Due Influenza Adult (Generic) 05/18/2020 PFIZER COVID-19 (ORIGINAL FO RMULATION, PURPLE CAP) mRNA, LNP-S, PF, 30 MCG/0.3 ML DOSE 07/19/2020,06/30/2020 Tdap (Generic) 06/02/2022,09/18/2018 Family History Relation Status Comments Brother Alive Daughter Alive Father Alive Maternal Grandfather Maternal Grandmother Mother Alive Paternal Grandfather Paternal Grandmother Sister Alive Social History Tobacco Use Types Packs/Day Years Used Date Smoking Tobacco: Former Cigarettes Passive Smoke Exposure: Past Smokeless Tobacco: Never Tobacco Cessation:Counseling Given: No Alcohol Use Standard Drinks/Week Comments Not Currently 0 (1 standard drink = 0.6 oz pur e alcohol) occas. PHQ-2 Answer Date Recorded Patient Health Questionnaire-2 Score 0 04/16/2024 Comments No Sex and Gender Information Value Date Recorded Sex Assigned at Female 06/18/2024 12:33 PM SULFURIC ACID PLANT OPERATOR Legal Sex Female 11:47 AM CDT Gender Identity Not on file Sexual Orientation Not on file Last Filed Vital Signs Vital Sign Reading Time Taken Comments Blood Pressure 118/77 04/16/2024 1:35 PM SULFURIC ACID PLANT OPERATOR Pulse 79 04/16/2024 1:35 PM SULFURIC ACID PLANT OPERATOR Temperature 37.3 C (99.2 F) 04/16/2024 1:35 PM SULFURIC ACID PLANT OPERATOR Respiratory Rate 18 07/22/2023 11:43 AM CDT Oxygen Saturation 100% 04/16/2024 1:35 PM SULFURIC ACID PLANT OPERATOR Inhaled Oxygen Concentration - - Weight 76.5 kg (168 lb 9.6 oz) 04/16/2024 1:35 P M SULFURIC ACID PLANT OPERATOR Height 171.9 cm (5' 7.68 ) 04/16/2024 1:35 PM CS T Body Mass Index 25.88 04/16/2024 1:35 PM SULFURIC ACID PLANT OPERATOR Plan of Treatment Health Maintenance Due Date Last Done Comments Kidney Health Evaluation 1989 Annual Physical 02/09/1992 Pneumococcal Vaccine: Pediatrics (0 to 5 Years) and At-Risk Patients (6 to 64 Years) (1 of 2 - PCV) 1995 Diabetes: Retinopathy Eye Exam 2007 Hepatitis C 2007 Hepatitis B Vaccines (1 of 3 - 19+ 3-dose series) 02/09/2008 Cervical Cancer Screening Pap with HPV Testing (Age 30 to 64) Every 5 Years 2019 04/24/2018 Lipid Panel 05/22/2022 05/22/2021 COVID-19 Vaccine ( season) 2023 07/19/2020, 06/30/2020 PHQ-2 (Physician [place]) 04/28/2024 04/16/2024 Hemoglobin A1C 06/30/2024 01/01/2024, 0908/2023, 07/28/2023, Additional history exists Cervical Cancer Screening Pap Smear (Age 30 to 64) Every 3 Years 11/14/2025 11/14/2022, 04/24/2018 Cervical Cancer Screening with HPV 11/14/2025 DTaP, Tdap and Td Vaccines (3 - Td or Tdap) 06/02/2032 06/02/2022, 09/18/2018 HPV Vaccines Aged Out No longer eligi ble based on patient's age to complete this topic Meningococcal B Vaccine Aged Out No l onger eligible based on patient's age to complete this topic Meningococcal Vaccine Aged Out No norma machelle eligible based on patient's age to complete this topic RSV Immunizations Under 20 Months Aged Out No longer eligible based on patient's age to complete this topic Procedures Procedure Name Priority Date/Time Associated Diagnosis Comments H. PYLORI UREA BREATH TEST Routine 06/18/2024 12:52 PM SULFURIC ACID PLANT OPERATOR Helicobacter pylori infection HEMOGLOBIN, GLYCOSYLATED Routine 01/01/2024 from Last 3 Months or Most Recently Relevant to Health Maintenance Results * H. PYLORI UREA BREATH TEST (06/18/2024 12:52 PM SULFURIC ACID PLANT OPERATOR) H. PYLORI UREA BREATH TEST NOT DETECTED NOT DETECTED 06/21/2024 1:41 PM SULFURIC ACID PLANT OPERATOR [facility] ELSI HAYWARD Comment: Antimicrobials, proton pump inhibitors, and bismuth preparations are known to suppress H. pylori, and ingestion of these prior to H. pylori diagnostic testing may lead to false negative results. If clinically indicated, the test may be repeated on a new specimen obtained two weeks after discontinuing treatment. However, a positive result is still clinically valid. Test Performed by [facility] [employer] [place], [address] [place], [place] Jeet Thomason M.D., Ph.D., Director of Laboratories , CLIA [id number] 06/18/2024 12:5 2 PM SULFURIC ACID PLANT OPERATOR Nas Baca DO LABORATORY Final Resul t [facility] [address] [place], [place] , [place] [phone] * HEMOGLOBIN, GLYCOSYLATED (01/01/2024) HGB A1C 7.4 % 01/01/2024 [facility] Abstract LABORATORY Final Res ult from Last 3 Months or Most Recently Relevant to Health Maintenance Insurance [facility] Care Teams Engineer Assistant Relationship Specialty Start Date End Date [place] [address] [place] [address] PCP - General FAMILY PRACTICE 01/30/23
--- OUTSIDE RECORDS SUMMARY | 2024-07-29 11:12 | XMS_ITS | Encounter Summary ---
Author Organization [facility] Address [address] [place] [address] Care Team Providers Care Computator Name Role Phone Nas Baca DO Primary Care Provider [phone] Encounter Details Date Type Department Care Team (Late st Contact Info) Description 07/14/2023 MyChart Message Enc [facility] Medical Group Family Medicine [facility] [address] [place] [address] Nas Baca DO [address] [place] [address] EBV Results Social History Tobacco Use Types Packs/Day Years Used Date Smoking Tobacco: Former Cigarettes Smokeless Tobacco: Never Alcohol Use Standard Drinks/Week Comments Not Currently 0 (1 standard drink = 0.6 oz pur e alcohol) PHQ-2 Answer Date Recorded Patient Health Questionnaire-2 Score 0 01/30/2023 Comments No Sex and Gender Information Value Date Recorded Sex Assigned at Female 06/18/2024 12:33 PM CYBER SYSTEMS ADMINISTRATOR Legal Sex Female 11:47 AM CDT Gender Identity Not on file Sexual Orientation Not on file documented as of this encounter Plan of Treatment Not on file documented as of this encounter Visit Diagnoses Not on filedocumented in this encounter Care Teams Computator Relationship Specialty Start Date End Date [place] [address] PCP - General FAMILY PRACTICE 01/30/23 documented as of this encounter
--- OUTSIDE RECORDS SUMMARY | 2024-07-29 11:12 | XMS_ITS | Encounter Summary ---
Author Organization [facility] Address [address] [facility] [place] [address] Care Team Providers Care Bioassayist Name Role Phone Dewayne Weathers MD Primary Care Provider [phone] Kaleb Mccurdy MD Primary Care Provider Breanna laura López Jr., MD, Willis Randle Primary Care Provid er Nas Baca DO Primary Care Provider [phone] Encounter Details Date Type Department Care Team (Late Contact Info) Description 05/06/2007 [facility] Outpatient Visit [facility] - [address] [address] Roxanna Glover MD Social History Tobacco Use Types Packs/Day Years Used Date Smoking Tobacco: Never Assessed Sex and Gender Information Value Date Recorded Sex Assigned at Not on file Gender Identity Not on file Sexual Orientation Not on file documented as of this encounter Plan of Treatment Upcoming Encounters Date Type Department Care Team (Late Contact Info) Description 08/30/2024 2:20 PM CDT Office Visit [facility] - Endocrinology [address] [facility], [address] [place] [address] Solo Garcia MD [address] [facility] [address] [place] [address] documented as of this encounter Visit Diagnoses Not on filedocumented in this encounter Care Teams Bioassayist Relationship Specialty Start Date End Date Dewayne Weathers MD [address] [place] [address] PCP - General 03/28/08 08/18/10 Kaleb Mccurdy MD PCP - General 08/19/10 05/06/17 Willis López Jr[place] [address] [address] [facility] [address] [place] [address] PCP - General 03/30/18 12/03/22 Nas Baca DO [address] [facility] [address] [place] [phone] PCP - General Family Medicine 07/28/23 documented as of this encounter
--- OUTSIDE RECORDS SUMMARY | 2024-07-29 11:12 | XMS_ITS | Encounter Summary ---
Author Organization [facility] Address [address] [place] [address] Care Team Providers Care Tennis Racket Repairer Name Role Phone Dewayne Weathers MD Primary Care Provider Kaleb Mccurdy MD Primary Care Provider Breanna laura López Jr., MD, Willis Randle Primary Care Provid er Nas Baca DO Primary Care Provider [phone] Encounter Details Date Type Department Care Team (Late Contact Info) Description 09/25/[address] [facility] - [address] [address] Roxanna Glover MD Social History [...] Description 08/30/2024 2:20 PM CDT Office Visit [facility] - Endocrinology [address] [facility], [address] [place] [address] Solo Garcia MD [address] [facility] [address] [place] [address] documented as of this encounter Visit Diagnoses Not on filedocumented in this encounter Care Teams Tennis Racket Repairer Relationship Specialty Start Date End Date Dewayne Weathers MD [address] [place] [address] PCP - General 03/28/08 08/18/10 Kaleb Mccurdy MD PCP - General 08/19/10 05/06/17 Willis López [place] [address] [address]jand[address] [facility] [address] [place] [address] PCP - General 03/30/18 12/03/22 Nas Baca DO [address] [facility] [address] [place] [phone] PCP - General Family Medicine 07/28/23 documented as of this encounter
--- OUTSIDE RECORDS SUMMARY | 2024-07-29 11:12 | XMS_ITS | Encounter Summary ---
Author Organization [facility] Address [address] [place] [address] Care Team Providers Care Record Tester Name Role Phone Nas Baca DO Primary Care Provider [phone] Encounter Details Date Type Department Care Team (Late st Contact Info) Description 07/09/2023 MyCLogant Message Enc [facility] Medical Group Family Medicine - [place] [address] [place] [address] [place] [address] Todays Visit/Lab Visit Social History Tobacco Use Types Packs/Day Years Used Date Smoking Tobacco: Former Cigarettes Smokeless Tobacco: Never Alcohol Use Standard Drinks/Week Comments Not Currently 0 (1 standard drink = 0.6 oz pur e alcohol) PHQ-2 Answer Date Recorded Patient Health Questionnaire-2 Score 0 01/30/2023 Comments No Sex and Gender Information Value Date Recorded Sex Assigned at Female 06/18/2024 12:33 PM FREIGHT RATE ANALYST Legal Sex Female 11:47 AM CDT Gender Identity Not on file Sexual Orientation Not on file documented as of this encounter Plan of Treatment Not on file documented as of this encounter Visit Diagnoses Not on filedocumented in this encounter Care Teams Record Tester Relationship Specialty Start Date End Date Nas Baca DO [address] [place], [place] [id number] PCP - General FAMILY PRACTICE 01/30/23 documented as of this encounter
--- OUTSIDE RECORDS SUMMARY | 2024-07-29 11:12 | XMS_ITS | Encounter Summary ---
Author Organization [facility] Address [address] [facility] [place] [address] Care Team Providers Care Hob Machine Operator Name Role Phone Dewayne Weathers MD Primary Care Provider [phone] Kaleb Mccurdy MD Primary Care Provider Breanna laura López Jr., MD, Willis Randle Primary Care Provid er Nas Baca DO Primary Care Provider Encounter Details Date Type Department Care Team (Late Contact Info) Description 01/13/2008 [facility] Outpatient Visit [facility] DEFAULT [address] [place] [address] Ru Shelton MD Retired Social History Tobacco Use Types Packs/Day Years Used Date Smoking Tobacco: Never Assessed Sex and Gender Information Value Date Recorded Sex Assigned at Not on file Gender Identity Not on file Sexual Orientation Not on file documented as of this encounter Plan of Treatment Upcoming Encounters Date Type Department Care Team (Late Contact Info) Description 08/30/2024 2:20 PM CDT Office Visit [facility] Medical Group - Endocrinology [facility] [address] [place] [address] Solo Garcia MD [facility] [address] [facility] [address] [place] [address] documented as of this encounter Visit Diagnoses Not on filedocumented in this encounter Care Teams Hob Machine Operator Relationship Specialty Start Date End Date Dewayne Weathers MD [address] [place], [place] [phone] PCP - General 03/28/08 08/18/10 Kaleb Mccurdy MD PCP - General 08/19/10 05/06/17 Willis López [place] [address] Elsy Alejandre [facility] [address] [place] [address] PCP - General 03/30/18 12/03/22 Nas Baca DO 3 [facility] [address] [place] [address] PCP - General Family Medicine 07/28/23 documented as of this encounter
--- OUTSIDE RECORDS SUMMARY | 2024-07-29 11:12 | XMS_ITS | Data Portability ---
Author Organization [employer], [facility] Address [address] [address] Assessment No assessment recorded. Plan of Treatment Reminders Order Date Submit Date Provider Last Modified By Organization Details Last Modified Time Details Appointments None record ed. Lab None record ed. Referral None record ed. Procedures None record ed. Surgeries None record ed. Imaging None record ed. Medication Orders None record ed. Patient TargetsNo targets recorded. Patient InstructionsNo instructions recorded. Reason for Referral None Reported. Problems No Known Problems Medical Equipment None Reported. Allergies No known drug allergies Medications Name Sig Start Date Stop Date Status Note LastModified by Organization Details LastModified Time id now covid19 2.0 diagnostic test TEST DIRECTED TODAY 08/06 completed Not Available Not Available Not Available id now influenza a & b 2 test kit TEST DIRECTED TODAY 08/06 completed Not Available Not Available Not Available naproxen 375 mg tablet active Not Available Not Available Not Available hydrocodone 5 mg-acetamin ophen 325 mg tablet TAKE 1 TABLET BY MOUTH EVERY 6 HOURS NEEDED FOR PAIN active Not Available Not Available No t Available ondansetron HCl 4 mg tablet TAKE 1 TABLET BY MOUTH EVERY 8 HOURS FOR NAUSEA 05/08 completed Not Available Not Available Not Available prednisone 20 mg tablet TAKE 1 TABLET BY MOUTH ONCE DAILY FOR 5 DAYS 05/08 completed Not Available Not Available Not Available amoxicillin 500 mg tablet 05/08 completed Not Available Not Available Not Available amoxicillin 875 mg tablet TAKE 1 TABLET BY MOUTH TWICE DAILY FOR 10 DAYS 08/06 completed Not Available Not Available Not Available Humalog U-100 Insulin 100 unit/mL subcutaneou s solution INJECT 180 UNITS VIA INSULIM PUMP DAILY DIRECTED active Not Available Not Available No t Available benzonatate 100 mg capsule TAKE 1 CAPSULE BY MOUTH THREE TIMES DAILY FOR 10 DAYS 08/06 completed Not Available Not Available Not Available hydrocodone 7.5 mg-acetamin ophen 325 mg tablet TAKE 1 TO 2 TABLETS BY MOUTH EVERY 4 TO 6 HOURS NEEDED FOR PAIN 08/06 completed Not Available Not Available Not Available azelastine 137 mcg (0.1 %) nasal spray USE 1 SPRAY IN EACH NOSTRIL TWICE DAILY FOR 5 DAYS NEEDED 08/06 completed Not Available Not Available Not Available methylpredn isolone 4 mg tablets in a dose pack TAKE DIRECTED active Not Available Not Available No t Available albuterol sulfate HFA 90 mcg/actuati on aerosol inhaler INHALE 1 TO 2 PUFFS BY MOUTH EVERY 4 TO 6 HOURS NEEDED FOR COUGH active Not Available Not Available No t Available ondansetron 4 mg disintegrat ing tablet DISSOLVE 1 TABLET ON THE TONGUE EVERY 6 HOURS NEEDED FOR NAUSEA active Not Available Not Available No t Available amoxicillin 875 mg-potassiu m clavulanate 125 mg tablet TAKE 1 TABLET BY MOUTH EVERY 12 HOURS FOR 7 DAYS active Not Available Not Available No t Available Vitals Date Recorded Body height Body mass index (BMI) Body weight Heart rate Systolic blood pressure Diastolic blood pressure Provider Name and Address Organization Details Last Updated DateTime 3 170.18 cm 26.6 kg/m2 98682.7 g 80 /min 147 mm[Hg] 82 mm[Hg] [facility] [employer] 3 14:10:24 Date Recorded Body height Body mass index (BMI) Body weight Heart rate Systolic blood pressure Diastolic blood pressure Provider Name and Address Organization Details Last Updated DateTime 3 170.18 cm 26.6 kg/m2 64860.7 g 93 /min 148 mm[Hg] 84 mm[Hg] [employer] [facility] 3 16:10:55 Date Recorded Body height Body mass index (BMI) Body weight Heart rate Systolic blood pressure Diastolic blood pressure Provider Name and Address Organization Details Last Updated DateTime 3 170.18 cm 26.6 kg/m2 56889.7 g 73 /min 139 mm[Hg] 85 mm[Hg] Michael [facility], [facility] 12:26:33 Social History None recorded. Functional Status None recorded. Mental Status None recorded. Family History Nothing Reported. Medical History Condition Response Other Cancer N HIV or AIDS N Coronary Artery Disease N Gout N Kidney Stones N Hyperthyroidism N Breast Cancer N Hernia N Head Trauma/Injury N Lung Cancer N Hypothyroidism N Lung Disease N Depression N Blood Clots N COPD N Pacemaker N Parkinson's N Anxiety Disorder N Multiple Sprains N Arthritis N Alcohol / Substance Abuse N Kidney Cancer N Cancer N Stroke N Melanoma N Neck Injury N Leg or Foot Ulcers N High Cholesterol N Skin Cancer N Liver Disease N Rheumatoid Arthritis N Headaches N Fibromyalgia N Concussion N Kidney Disease N Heart Problems N Scoliosis N Chronic use of Pain Medication N Prostate Cancer N Migraines N Thyroid Problems N Alzheimers N Autoimmune Disorder N Anemia N Multiple Sclerosis N Tendon Tear N Ulcers N Heart Attack (CT) N Osteopenia N Diabetes Y Bleeding Disorder N Seizures/Epilepsy N Cardiac Stent N Tuberculosis N A-FIB N Lymphoma N Urinary Tract Infection N Back Problems N Diverticulitis N Asthma N Lupus N Peripheral Vascular Disease N Sleep Apnea N Sleep Disorder N GERD/Reflux N Hepatitis N Aneurysm N Thyroid Cancer N Heart Disease N Pulmonary Embolism N Hypertension N Osteoporosis N Gynecological HistoryNo gynecological history recorded. Obstetrics History GPAL:G 0 P 0 0 0 0 Past Encounters Encounter ID Performer Location Encounter Start Date Encounter Closed Date Diagnosis/Indication Diagnosis SNOMED-CT Code Diagnosis ICD10 Code Diagnosis Note [id number] [facility] [address] [place] [address] 05/08/2022 13:47:09 05/08/2022 15:50:37 [id number] [facility] [address] [place] [address] 08/06/2022 16:01:17 08/07/2022 10:28:52 [id number] [facility] [address] [place] [address] 08/27/2022 12:00:43 08/27/2022 15:23:37 Health Concerns Section Related Observation LastModified by Organization Detai ls LastModified Time None Recorded Concern Status LastModified by Organization Details LastModified Time None Recorded Advance Directives Directive None Recorded Payers Encounter Date Sequence Insurance Name Policy Number Policy Alves Covered Member ID Alves Member ID Guarantor Name 05/08/2022 1 [employer]: [employer] OF [facility] CARE BLUE (PPO) [id number] Reginald Werner [id number] Kourtny Werner 08/06/2022 1 [employer]: [employer] OF [facility] CARE BLUE (PPO) [id number] Reginald Werner [id number] Kourtny Werner 08/27/2022 1 [employer]: [employer] OF [facility] CARE BLUE (PPO) [id number] Reginald Guidow [id number] Kourtny Werner OBGyn Episode No OBEpisode recorded.
--- OUTSIDE RECORDS SUMMARY | 2024-07-29 11:12 | XMS_ITS | Clinical Summary ---
Author Organization [employer] [address] [place] [address] [place] [phone] Care Team Providers Care Calender Tender Name Role Phone Leena Mathur DO Primary Care Provid er Unavailable Allergies Active Allergy Reactions Criticality Noted Date Comments Succinylcholine Other (See Comments) High 09/04/2018 Family history of malignant hyperthermia Medications Dexcom G6 Ingot Buggy Operator USE DEVICE UTD 0 Active Blood-Glucose Meter,Continuous (Dexcom G6 Ingot Buggy Operator) 1 Device by NOT APPLICABLE route. 0 Active Insulin [place], Disposable, (Pen Needle) 31 gauge x 3/16 Needle 1 Each. 0 Active Blood-Glucose Transmitter (Dexcom G6 Transmitter) Device 1 Units by NOT APPLICABLE route every 90 days. 0 Active ferrous sulfate (SLOW RELEASE IRON ORAL) Take by mouth. Acti ve HumaLOG U-100 Insulin 100 unit/mL vial 1 Active HYDROcodone-acet aminophen (NORCO) 5-325 mg tabletIndication s:Sprain of right ankle, unspecified ligament, initial encounter,Closed avulsion fracture of right ankle, initial encounter Take 1 Tablet by mouth every 4 hours as needed for Pain. Max Daily Amount: 6 Tablets 12 Tablet 07/13/2022 7:06 PM CDT 3 Active naproxen (NAPROSYN) 375 mg tablet Take 1 Tablet (375 mg) by mouth 2 times daily with meals. 14 Tablet 07/13/2022 7:06 PM CDT 3 Active ondansetron (ZOFRAN ODT) 4 mg Tablet, Rapid Dissolve Take 1 Tablet (4 mg) by mouth every 8 hours as needed for Nausea/Emesis. Dissolve tablet on top of tongue, then swallow with saliva. 15 Tablet 07/13/2022 7:06 PM CDT 3 Active Active Problems Problem Noted Date Diagnosed Date Type 1 diabetes mellitus with other specified co mplication 05/18/2020 Immunizations Immunization Administration Dates Next Due (ADACEL/BOOSTRIX)(10 YR UP) TDAP VACCINE, 0.5ML, IM 09/18/2018 (PFIZER)(12 YR UP) COVID-19 VACCINE - EMERGENCY USE AUTHORIZATION, MRNA, [id number](PF) 30 MCG/0.3 ML IM SUSP 07/19/2020,06/30/2020 INFLUENZA VACCINE QUADRIVALENT 6 MOS UP PF IM Family History Medical History Relation Name Comments Heart Disease Father Heart Disease Maternal Grandfather Melanoma Maternal Grandfather Stroke Maternal Grandmother Healthy Mother Colon Cancer Paternal Grandfather Healthy Paternal Grandmother Relation Name Status Comments Father Alive Maternal Grandfather Maternal Grandmother Mother Alive Paternal Grandfather Alive Paternal Grandmother Alive Social History Tobacco Use Types Packs/Day Years Used Date Smoking Tobacco: Former Cigarettes 2017 Smokeless Tobacco: Never Alcohol Use Standard Drinks/Week Comments Yes 0 (1 standard drink = 0.6 oz pur e alcohol) occ Feeling Safe Answer Date Recorded Are you in a relationship wi th someone who hurts you emotionally and/or physically? No 07/13/2022 Comments No Sex and Gender Information Value Date Recorded Sex Assigned at Not on file Legal Sex Female 11:26 PM CDT Gender Identity Not on file Sexual Orientation Not on file Last Filed Vital Signs Vital Sign Reading Time Taken Comments Blood Pressure 156/80 07/13/2022 4:29 PM CDT Pulse 88 07/13/2022 4:29 PM CDT Temperature 37.1 C (98.8 F) 07/13/2022 4:29 PM CDT Respiratory Rate 17 07/13/2022 4:29 PM CDT Oxygen Saturation 100% 07/13/2022 4:29 PM CDT Inhaled Oxygen Concentration - - Weight 79.4 kg (175 lb) 07/13/2022 4:29 PM CDT Height 170.2 cm (5' 7 ) 07/13/2022 4:29 PM CDT Body Mass Index 27.41 07/13/2022 4:29 PM CDT Plan of Treatment Health Maintenance Due Date Last Done Comments DIABETES ANNUAL RETINAL EXAM 2007 DIABETES MICROALBUMIN ANNUAL SCREEN 2007 LDL CHOLESTEROL ANNUAL 2007 HEPATITIS B VACCINES (1 of 3 - 19+ 3-dose series) 02/09/2008 HPV/Cotest (30-65) 2019 CERVICAL CANCER SCREENING 04/24/2021 PAP SMEAR 04/24/2021 04/24/2018 PAP SMEAR 04/24/2021 04/24/2018 INFLUENZA VACCINE (#1) 2023 05/18/2020 COVID-19 Vaccine (2023- season) 2023 07/19/2020, 06/30/2020 DIABETES HBA1C Q 6 MONTHS 06/30/20242023, 07/28/2023, 12/04/2022, Additional history exists DIABETES ANNUAL FOOT EXAM 12/31/2024 01/01/2024 DTAP/TDAP/TD VACCINES (3 - Td or Tdap) 06/02/2032 06/02/2022, 09/18/2018 HPV VACCINES Aged Out No longer eligi ble based on patient's age to complete [place] [address] [facility] Member Subscriber Plan / Payer (Ef fective 2022-Present) Name:Inna Werner Relation to Subscriber:Self Name:Inna Werner Subscriber ID:Not on file Payer ID:Not on file Group ID:[id number] Type:RX Commercial [facility] Care Teams Calender Tender Relationship Specialty Start Date End Date Leena Mathur DO PCP - General Family Practice 05/18/20
--- OUTSIDE RECORDS SUMMARY | 2024-07-29 11:12 | XMS_ITS | Clinical Summary ---
Author Organization [facility] [employer] Address [address] [facility] [place] [address] Care Team Providers Care Project Economist Name Role Phone KevenNas DO Primary Care Provider Source Comments [facility] [employer],non-owned Affiliates and Associated Physician Practices is amultiple site organization consisting of ambulatory clinics and hospital sitesin [place], [place], [place] and [place]. This disclosure is being madepursuant to the Care Everywhere program and may not contain all information available regarding this patient. Last updated 18.[facility] [employer] Allergies No known active allergies Medications * Be aware that medications may not be up to date on this document. Alwaysverify current medications with the patient. Medication Sig Dispensed Refills Start Date End Date Status insulin glargine (LANTUS SOLOSTAR) pen Inject 16 Units subcutaneously at bedtime 2 Pen 1 11/09/2019 Active Additional Information Patient not taking.Reported on 05/04/2024 insulin pen needle (NOVOFINE 31) 31G X 5 MM needle 1 Each 4 times daily 50 Each 11/09/2019 Active Needle, Disp, (HYPODERMIC NEEDLE 26GX1/2 ) 26G X 1/2 MISCIndications:Ty pe 1 diabetes mellitus on insulin therapy (HCC),Insulin pump status Use 1 Each once daily 90 Each 3 04/30/2021 Active OneTouch Ultra test strip USE FOUR TIMES DAILY 400 strip 04/17/2022 Active Continuous Glucose Sensor (Dexcom G7 Sensor) MISCIndications:Ty pe 1 diabetes mellitus without complication (HCC) Use 1 Each every 10 days 9 Each 3 01/01/2024 Active Insulin Disposable Pump (Omnipod 5 [id number] Pods Gen 5) MISCIndications:Ty pe 1 diabetes mellitus without complication (HCC) Use 1 Each every 2 days 15 Each 2 03/18/2024 Active insulin aspart (NovoLOG) vial Inject up to 60 units daily via insulin pump 20 mL 2 06/28/2024 Active Active Problems Problem Noted Date Diagnosed Date Breast pain, right 06/29/2020 Assessment & Plan (06/29/2020 4:48 PM CLASS 1 OWNER OPERATOR): Exam is normal. I discussed that breast [...] pain (currently not severe) and ultrasound findings. Type 1 diabetes mellitus during 2017 Overview (05/08/2018): Class D EKG wnl, echo not able to be done due to insurance Personal history of asthma 04/17/2018 Overview (04/17/2018): As a child History of pyelonephritis 04/17/2018 Overview (04/17/2018): X 2 in non- state. 2018 most recent episode. Insulin pump status 04/17/2018 Overview (04/17/2018): Since 2000. Family history of anesthetic complications 04/17 Overview (04/17/2018): In mother and maternal grandfather. Not sure of name of condition - stopped their heart. Nausea and vomiting during 04/17/2018 Overview (04/17/2018): All day nausea. Type 1 diabetes mellitus 05/07/2017 Overview (05/07/2017): Diagnosed at age 2 On pump since 2000 Childhood asthma Overview (06/04/2018): as a toddler, none since Resolved Problems Problem Noted Date Diagnosed Date Resolved Date Encounter for induction of labor 10/30/2018 11/06/2018 Swelling 09/04/2018 11/06/2018 Decreased movement, antepartum 08/27/2018 11/06/2018 Tachycardia 06/04/2018 11/23/2018 Former smoker 04/17/2018 11/08/2019 Overview (04/17/2018): Quit November 2017. 5-10 cig/d x 8 years Heartburn 04/17/2018 11/23/2018 Overview (04/17/2018): Occasional, responds to Tums. Supervision of high-risk 04/17/2018 11/23/2018 Overview (05/04/2018): 04/14- pap negative Bartholin gland cyst 03/04/2008 008 Encounters Date Type Department Care Team Description 07/09/2024 Telephone [facility] - Endocrinology [address] [place] [address], [address] [place] [address] Solo Garcia MD Medication Prior Auth Request 06/28/2024 Refill [facility] - Endocrinology [address] [place] [address], [address] [place] [address] Solo Garcia MD MEDICATION REFILL 05/19/2024 10:00 AM CLASS 1 OWNER OPERATOR Clinical Support [facility] Endocrinology [address] [place] [address], [address] [place] [address] Type 1 diabetes mellitus without complication ; Insulin pump status 05/19/2024 Travel 05/04/2024 3:20 PM CLASS 1 OWNER OPERATOR Video Visit [facility] - Endocrinology [address] [facility], [address] [place] [address] Solo Garcia MD Type 1 diabetes mellitus without complication ; Insulin pump status; Dyslipidemia from Last 3 Months Immunizations Name Administration Dates Next Due Covid Pfizer primary monoval ent 12+ yr 0.3mL Purple cap 07/19/2020,06/30/2020 INFLUENZA VACCINE, QUADR. (F LUZONE; FLULAVAL; FLUARIX; AFLURIA QUADRIVALENT; 6MO+), 0.5 ML (IIV4) 05/18/2020 TDAP (7yrs+) 09/18/2018,09/18/2018 Family History Medical History Relation Name Comments CAD (Coronary Artery Disease) Father heart attack CAD (Coronary Artery Disease) Maternal Grandfather CAD (Coronary Artery Disease) Maternal Grandmother CVA Maternal Grandmother Relation Name Status Comments Father Alive Maternal Grandfather Maternal Grandmother Mother Alive Social History Tobacco Use Types Packs/Day Years Used Date Smoking Tobacco: Former Cigarettes 1 8 2 2017 Smokeless Tobacco: Never Tobacco Cessation:Counseling Given: Not Answered Alcohol Use Standard Drinks/Week Comments Yes 0 (1 standard drink = 0.6 oz pur e alcohol) once weekly Sex and Gender Information Value Date Recorded Sex Assigned at Not on file Gender Identity Not on file Sexual Orientation Not on file Last Filed Vital Signs Vital Sign Reading Time Taken Comments Blood Pressure 124/78 01/01/2024 9:44 AM CDT Pulse 88 09/02/2019 1:05 PM CDT Temperature 37.1 C (98.7 F) 11/23/2018 11:02 AM CDT Respiratory Rate 18 11/02/2018 12:05 PM CDT Oxygen Saturation 98% 11/02/2018 12:05 PM CDT Inhaled Oxygen Concentration - - Weight 83.9 kg (185 lb) 01/01/2024 9:44 AM CDT Height 170.2 cm (5' 7 ) 01/01/2024 9:44 AM CDT Body Mass Index 28.98 01/01/2024 9:44 AM CDT Plan of Treatment Upcoming Encounters Date Type Department Care Team (Late st Contact Info) Description 08/30/2024 2:20 PM CDT Office Visit [facility] - Endocrinology [address] [facility], [address] [place] [address] Solo Garcia MD [address] [place] [address] Health Maintenance Due Date Last Done Comments HEPATITIS C SCREENING 02/04/2007 HEPATITIS B VACCINE (1 of 3 - 19+ 3-dose series) 02/09/2008 PNEUMOCOCCAL VACCINE (1 of 2 - PCV) 02/09/2008 DIABETES RETINOPATHY SCREENING 05/07/2017 PAP SMEAR 04/24/2021 04/24/2018 COVID-19 VACCINE ( season) 2023 07/19/2020, 06/30/2020 DEPRESSION SCREENING 04/28/2024 DIABETES - URINE PROTEIN SCREENING 04/28/2024 07/28/2023, 05/22/2021, 02/21/2020, Additional history exists DIABETES-HGB A1C 06/30/2024 01/01/2024, 08/2023, 07/28/2023, Additional history exists INFLUENZA VACCINE (Season Ended) 2024 05/18/2020 DIABETES-FOOT EXAM WITH MONOFILAMENT 12/31/2024 01/01/2024 DIABETES-SERUM CREATININE 03/09/20252023, 03/09/2024, 07/28/2023, Additional history exists DTAP/TDAP/TD VACCINES (3 - Td or Tdap) 09/18/2028 09/18/2018, 09/18/2018 ZOSTER VACCINE (1 of 2) 2039 HIV SCREENING Completed 09/18/2018, 04/24/2018 HIB VACCINE Aged Out No longer eligi ble based on patient's age to complete this topic HPV VACCINE Aged Out No longer eligi ble based on patient's age to complete this topic MENINGOCOCCAL (Group B) VACCINE SHARED DECISION-MAKING Aged Out No longer eligible based on patient's age to complete this topic MENINGOCOCCAL GROUPS A/C/Y/W VACCINE Aged Out No longer eligible based on patient's age to complete this topic Procedures Procedure Name Priority Date/Time Associated Diagnosis Comments HEMOGLOBIN A1C - POINT OF CARE (AMB) Routine 01/01/2024 9:52 AM CDT Type 1 diabetes mellitus without complication MICROALB/CREAT RATIO URINE RANDOM PANEL Routine 07/28/2023 11:21 AM CDT Type 1 diabetes mellitus without complication COMPREHENSIVE METABOLIC PANEL Routine 07/28/2023 11:21 AM CDT Type 1 diabetes mellitus without complication HIV-1 HIV-2 ANTIBODY + HIV P24 AG PANEL Routine 09/18/2018 11:03 AM CDT , unspecified gestational age PAP IMAGE-GUIDED RFLX HPV+CT/NG Routine 04/24/2018 11:22 AM CLASS 1 OWNER OPERATOR , unspecified gestational age Screening for cervical cancer from Last 3 Months or Most Recently Relevant to Health Maintenance Results * (ABNORMAL) HEMOGLOBIN A1C - POINT OF CARE (AMB) (01/01/2024 9:52 AM CDT) Hemoglobin A1c POCT 7.4(H) % [facility] Expiration Date [address] [facility] [address] [facility] Lot # [id number] [facility] QC Verified Yes Yes [facility] Blood BLOOD SPECIMEN / Unknown 01/01/2024 9:52 AM CDT Solo Garcia MD LAB - POINT OF CARE ORDERABLES [facility] [address] [facility] [address] [phone] * MICROALB/CREAT RATIO URINE RANDOM PANEL (07/28/2023 11:21 AM CDT) Creatinine Urine 128.52 mg/dL [facility] ACCOUNT BILL Microalbumin Urine 1.1 mg/dL [facility] ACCOUNT BILL Microalbumin/Crea tinine Ratio 8 <30 mg/g [facility] ACCOUNT BILL Urine URINE SPECIMEN OBTAINED BY CLEAN CATCH PROCEDURE / Unknown 07/28/2023 11:21 AM CDT 07/28/2023 Narrative Resulting Agency Comment Lab Testing performed at: [facility] [address] [place] [phone] Solo Garcia MD LAB - URINE POLICE OFFICER RY ORDERABLES [facility] ACCOUNT BILL [address] [place] [address] * (ABNORMAL) COMPREHENSIVE METABOLIC PANEL (07/28/2023 11:21 AM CDT) Glucose 130(H) 70 - 105 mg/dL [facility] ACCOUNT BILL BUN 9 5.3 - 18.7 mg/dL [facility] ACCOUNT BILL Creatinine 0.75 0.57 - 1.11 mg/dL [facility] ACCOUNT BILL eGFR by CKD-EPI >90 >=90 mL/min/1.7 3 m2 [facility] ACCOUNT BILL Sodium 140 136 - 145 mmol/L [facility] ACCOUNT BILL Potassium 4.1 3.5 - 5.1 mmol/L [facility] ACCOUNT BILL Chloride 106 98 - 107 mmol/L [facility] ACCOUNT BILL CO2 27 22 - 29 mmol/L [facility] ACCOUNT BILL Calcium 8.9 8.4 - 10.4 mg/dL [facility] ACCOUNT BILL Protein Total 6.9 6.4 - 8.3 gm/dL [facility] ACCOUNT BILL Albumin 3.9 3.4 - 5.0 gm/dL [facility] ACCOUNT BILL Bilirubin Total 0.3 0.2 - 1.2 mg/dL [facility] ACCOUNT BILL Alkaline Phosphatase 85 40 - 150 U/L [facility] ACCOUNT BILL AST 15 5 - 34 U/L [facility] ACCOUNT BILL ALT 17 0 - 55 U/L [facility] ACCOUNT BILL Blood BLOOD SPECIMEN / Unknown 07/28/2023 11:21 AM CDT 07/28/2023 Narrative Resulting Agency Comment Lab Testing performed at: [address] [phone] Solo Garcia MD LAB - CHEMISTRY ORD ERABLES [facility] ACCOUNT BILL [address] [place] [address] * HIV-1 HIV-2 ANTIBODY + HIV P24 AG PANEL (09/18/2018 11:03 AM CDT) HIV Screen 4th Generation w Reflex NON-REACT ROSIBEL NON-REACT ROSIBEL [employer] Comment: HIV-1 antigen and HIV-1/HIV-2 antibodies were not detected. There is no laboratory evidence of HIV infection. PLEASE NOTE: This information has been disclosed to you from records whose confidentiality may be protected by state law. If your state requires such protection, then the state law prohibits you from making any further disclosure of the information without the specific written consent of the person to whom it pertains, or as otherwise permitted by law. A general authorization for the release of medical or other information is NOT sufficient for this purpose. For additional information please refer to http://education.[employer]/faq/VAR655 (This link is being provided for informational/ educational purposes only.) The performance of this assay has not been clinically validated in patients less than 2 years old. Test Performed at: [facility] [address] [place] [address] DALTON WOOD DO,MPH Blood BLOOD SPECIMEN / Unknown 09/18/2018 11:03 AM CDT 09/18/2018 11:04 AM CDT Iain Rosenbaum MD LAB - CHEMISTRY GRACY [facility] Organization Address City/State/ZIP Co de Phone Number [facility] [address] [place] [address] * PAP IMAGE-GUIDED LIQUID BASE RFLX HPV+CT/NG (04/24/2018 11:22 AM CLASS 1 OWNER OPERATOR) Pathologist [facility] Case Report Gynecologic Cytology Report Case: [id number] Authorizing Provider: Jocelyn Sharma MD Collected: 04/24/2018 11:22 AM Ordering Location: [facility] Obstetrics Received: 04/27/2018 11:22 AM [facility] First Screen: Dewayne Perez Specimen: THINPREP - IMAGE GUIDED, Cervix/Endocervix 04/29/2018 1:22 PM CLASS 1 OWNER OPERATOR [facility] LMP 04/29/2018 1:22 PM CLASS 1 OWNER OPERATOR [facility] Menstrual Status 04/29/19 19 1:22 PM CLASS 1 OWNER OPERATOR [facility] Specimen Adequacy Satisfactory for evaluation, endocervical/trans formation zone component present. 04/29/2018 1:22 PM CLASS 1 OWNER OPERATOR [facility] Categorization Negative for intraepithelial lesion or malignancy. 04/29/2018 1:22 PM CLASS 1 OWNER OPERATOR [facility] Interpretation REFINERY OPERATOR ALKYLATION Negative for intraepithelial lesion or malignancy. 04/29/2018 1:22 PM CLASS 1 OWNER OPERATOR [facility] Pap Footnote This specimen was evaluated by the [employer] [facility] along with the an additional manual rescreening by a summer intern and/or pathologist. 04/29/2018 1:22 PM [facility] Embedded Images 1:22 PM [facility] LAB Pathology/Cytolo gy MISCELLANEOUS SAMPLES / Unknown 04/24/2018 11:22 AM CLASS 1 OWNER OPERATOR 04/27/2018 11:22 AM CLASS 1 OWNER OPERATOR Jocelyn Sharma MD LAB - PATHOLOGY/CYT OLOGY ORDERABLES Performing Organization Address City/State/[facility] Co de Phone Number [facility] LAB [address] [facility]. [address] [phone] from Last 3 Months or Most Recently Relevant to Health Maintenance Advance Directives * Full Code (Latest Code Status on File) Date Activated Date Inactivated Comments 10/30/2018 12:56 PM 11/02/2018 5:30 PM * Full Code Date Activated Date Inactivated Comments 09/04/2018 3:48 PM 09/05/2018 10:56 PM Care Teams Project Economist Relationship Specialty Start Date End Date Nas Baca DO [address] [phone] PCP - General Family Medicine 07/28/23
--- OUTSIDE RECORDS SUMMARY | 2024-07-29 11:13 | XMS_ITS | Encounter Summary ---
Author Organization [facility] Address [address] [facility] [place] [address] Care Team Providers Care Junior Assistant Manager Name Role Phone Dewayne Weathers MD Primary Care Provider Kaleb Mccurdy MD Primary Care Provider Breanna laura López Jr., MD, Willis Randle Primary Care Provid er Nas Baca DO Primary Care Provider Encounter Details Date Type Department Care Team (Late Contact Info) Description 11/16/2007 [facility] Outpatient Visit [facility] - [address] [address] Roxanna Glover MD Social History [...] Description 08/30/2024 2:20 PM CDT Office Visit [facility] - Endocrinology [address] [facility], [address] [place] [address] Solo Garcia MD [address] [facility] [address] [place] [address] documented as of this encounter Visit Diagnoses Not on filedocumented in this encounter Care Teams Junior Assistant Manager Relationship Specialty Start Date End Date Dewayne Weathers MD [address] [place] [address] PCP - General 03/28/08 08/18/10 Kaleb Mccurdy MD PCP - General 08/19/10 05/06/17 Willis López [place] [address] [address] [facility] [address] [place] [address] PCP - General 03/30/18 12/03/22 Nas Baca DO 3 [facility] [address] [place] [phone] PCP - General Family Medicine 07/28/23 documented as of this encounter
--- OUTSIDE RECORDS SUMMARY | 2024-07-29 11:13 | XMS_ITS | Encounter Summary ---
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 Social History Tobacco Use Types Packs/Day Years Used Date Smoking Tobacco: Never Assessed Sex and Gender Information Value Date Recorded Sex Assigned at Not on file Gender Identity Not on file Sexual Orientation Not on file documented as of this encounter Plan of Treatment Upcoming Encounters Date Type Department Care Team (Late Contact Info) Description 08/30/2024 2:20 PM CDT Office Visit [facility] - Endocrinology [address], [address] [place] [address] Solo Garcia MD [address] [facility] [address] [place] [address] documented as of this encounter Visit Diagnoses Not on filedocumented in this encounter Care Teams Order Booker Relationship Specialty Start Date End Date Dewayne Weathers MD [address] [place], [place] [phone] PCP - General 03/28/08 08/18/10 Kaleb Mccurdy MD PCP - General 08/19/10 05/06/17 Willis López Jr[place] [address] [address] [facility] [address] [place] [address] PCP - General 03/30/18 12/03/22 Nas Baca DO [address] [phone] PCP - General Family Medicine 07/28/23 documented as of this encounter
--- OUTSIDE RECORDS SUMMARY | 2024-07-29 11:13 | XMS_ITS | Encounter Summary ---
Author Organization [facility] Address [address] [facility] [place] [address] Care Team Providers Care Stone Decorator Name Role Phone Dewayne Weathers MD Primary Care Provider [phone] Kaleb Mccurdy MD Primary Care Provider Breanna laura López Jr., MD, Willis Randle Primary Care Provid er Nas Baca DO Primary Care Provider Encounter Details Date Type Department Care Team (Late Contact Info) Description 01/13/2008 [facility] Outpatient Visit [facility] DEFAULT [address] [place] [address] Nasrin Matthews APRN-LASHAE Social History Tobacco Use Types Packs/Day Years Used Date Smoking Tobacco: Never Assessed Sex and Gender Information Value Date Recorded Sex Assigned at Not on file Gender Identity Not on file Sexual Orientation Not on file documented as of this encounter Plan of Treatment Upcoming Encounters Date Type Department Care Team (Late Contact Info) Description 08/30/2024 2:20 PM CDT Office Visit [facility] - Endocrinology [address] [place] [address], [address] [place] [phone] Solo Garcia MD [address] [facility] [address] [place] [address] documented as of this encounter Visit Diagnoses Not on filedocumented in this encounter Care Teams Stone Decorator Relationship Specialty Start Date End Date Dewayne Weathers MD [address] [place], [place] [phone] PCP - General 03/28/08 08/18/10 Kaleb Mccurdy MD PCP - General 08/19/10 05/06/17 Willis Ló[place] [address] [address] [facility] [address] [place] [address] PCP - General 03/30/18 12/03/22 Nas Baca DO 3 [facility] [address] [place] [phone] PCP - General Family Medicine 07/28/23 documented as of this encounter
[2024-07-29 11:24] LABS: Partial Thromboplastin Time 28.5 Seconds (22.3-36.8); Prothrombin Time 13.2 Seconds (11.1-14.7)
--- OUTSIDE RECORDS SUMMARY | 2024-07-29 11:39 | XMS_ITS | Encounter Summary ---
Author Organization [facility] Address [address] [place] [address] Care Team Providers Care Web Marketing Assistant Name Role Phone Nas Baca DO Primary Care Provider [phone] Encounter Details Date Type Department Care Team (Late st Contact Info) Description 12/04/2023 [employer] Message Enc [facility] Family Medicine [address] [address] Nas Baca DO [address] [place] [address] Positive Covid Social History Tobacco Use Types Packs/Day Years Used Date Smoking Tobacco: Former Cigarettes Smokeless Tobacco: Never Alcohol Use Standard Drinks/Week Comments Not Currently 0 (1 standard drink = 0.6 oz pur e alcohol) occas. 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
--- OUTSIDE RECORDS SUMMARY | 2024-07-29 11:39 | XMS_ITS | Clinical Summary ---
Author Organization [facility] [address] [place] [address] [place] [address] Care Team Providers Care Asset Protection Detective Name Role Phone Leena Mathur DO Primary Care Provid er Unavailable Allergies Active Allergy Reactions Criticality Noted Date Comments Succinylcholine Other (See Comments) High 09/04/2018 Family history of malignant hyperthermia Medications Dexcom G6 Machine Silk Screen Printer USE DEVICE UTD 0 Active Blood-Glucose Meter,Continuous (Dexcom G6 Machine Silk Screen Printer) 1 Device by NOT APPLICABLE route. 0 Active Insulin [place], Disposable, (Pen Needle) 31 gauge x 3/16 [...] COVID-19 VACCINE - EMERGENCY USE AUTHORIZATION, MRNA, [id number]) 30 MCG/0.3 ML IM SUSP 07/19/2020,06/30/2020 INFLUENZA [...] patient's age to complete [place] [address] [facility] PREFERRED RX [facility] Member Subscriber Plan / Payer (Ef fective 2022-Present) Name:Inna Werner Relation to Subscriber:Self Name:Inna Werner Subscriber ID:Not on file Payer ID:Not on file Group ID:[id number] Type:RX Commercial Address: [facility] Care Teams Asset Protection Detective Relationship Specialty Start Date End Date Leena Mathur DO PCP - General Family Practice 05/18/20
--- OUTSIDE RECORDS SUMMARY | 2024-07-29 11:39 | XMS_ITS | Clinical Summary ---
Author Organization [facility] Address [address] [place] [address] Care Team Providers Care See Supervisor Name Role Phone Keven, Nas Anival Primary Care Provide r Allergies Active Allergy Reactions Criticality Noted Date Comments Metronidazole Itching Low 04/01/2024 Itching of face, mouth, chest and whole body per patient Succinylcholine Other (See comments) High 09/04/2018 Family history of pseudocholinesterase deficiency, so prolonged time of action with succinylcholine administration for her, if given. Medications blood-glucose meter,continuous (Dexcom G6 Housekeeping Coordinator) misc 1 Device by Not Applicable route [...] Tobacco: Never Tobacco Cessation:Counseling Given: Not Answered [facility] Utilities Answer Date Recorded In the past 12 months has [employer], gas, oil, or water [employer] threatened to shut off services in your [...] often do you attend chur ch or sabianist services? Never 04/09/2024 Do you belong to any clubs o r organizations such as mosque groups, unions, fraternal or athletic groups, or [...] any time in the past 12 m [facility], were you homeless or living in a nursing home (including now)? No 04/09/2024 Personal Safety Answer Date Recorded Have you ever been in or are you currently in a harmful physical or emotional relationship or is someone making you feel afraid or unsafe? Denies 04/08/2024 Comments No Sex and Gender Information Value Date Recorded Sex Assigned at Not on file Legal Sex Female 9:33 AM CDT Gender Identity Female 05/19/2024 6:51 AM ELECTRICAL TECHNOLOGY INSTRUCTOR Sexual Orientation Straight 05/19/2024 6: 51 AM ELECTRICAL TECHNOLOGY INSTRUCTOR Obstetrics History Para Term AB IAB SAB Ectopic Multiple Livin g Live Births 2 2 1 1 Date Outcome GA Total Labor Labor/2nd/3rd Weight Sex Type Anes PTL Rosangela A1 A5 Name Clin Term 019 34w 5d 4h 56m 4h 51m/0h 05m 3.975 kg (8 lb 12.2 oz) F Vag-S pont Epidur al Y 5 9 Estrellita Ornelas MD Complications:Intraamniotic Infection Delivery Location:[facility] Comments:Heart murmur Last Filed Vital Signs Vital Sign Reading Time Taken Comments Blood Pressure 126/78 04/10/2024 4:05 AM ELECTRICAL TECHNOLOGY INSTRUCTOR Pulse 70 04/10/2024 4:05 AM ELECTRICAL TECHNOLOGY INSTRUCTOR Temperature 36.9 C (98.4 F) 04/10/2024 4:05 AM ELECTRICAL TECHNOLOGY INSTRUCTOR Respiratory Rate 16 04/10/2024 4:05 AM ELECTRICAL TECHNOLOGY INSTRUCTOR Oxygen Saturation 99% 04/10/2024 4:05 AM ELECTRICAL TECHNOLOGY INSTRUCTOR Inhaled Oxygen Concentration - - Weight 77.1 kg (170 lb) 04/08/2024 7:50 PM ELECTRICAL TECHNOLOGY INSTRUCTOR Height 170.2 cm (5' 7 ) 04/08/2024 7:50 PM ELECTRICAL TECHNOLOGY INSTRUCTOR Body Mass Index 26.63 04/08/2024 7:50 PM ELECTRICAL TECHNOLOGY INSTRUCTOR Plan of Treatment Health Maintenance Due Date [...] Diagnosis Comments EGFR STAT 04/08/2024 12:59 PM ELECTRICAL TECHNOLOGY INSTRUCTOR PAP WITH REFLEX TO HIGH RISK HPV Routine 11/14/2022 11:49 AM CDT Well female exam with routine gynecological exam from Last 3 Months or Most Recently Relevant to Health Maintenance Results * eGFR (04/08/2024 12:59 PM ELECTRICAL TECHNOLOGY INSTRUCTOR) eGFR >90 >=60 mL/min/1. 73 m2 Comment: [...] reviewed 2021. Blood 04/08/2024 12:5 9 PM ELECTRICAL TECHNOLOGY INSTRUCTOR 04/08/2024 1:30 PM ELECTRICAL TECHNOLOGY INSTRUCTOR us Michelle Pantoja MD LAB BLOOD ORDERABLES Final Result [facility] [address] Department [place] [address] * Pap with reflex to High Risk HPV and Genotyping (Cytology Component) (11/14/2022 11:49 AM CDT) Thin prep (Pap test) 11/14/2022 11:49 AM CDT 11/18/2022 11:49 AM CDT Narrative PATHOLOGY [facility] - 11/21/2022 1:17 PM CDT [facility] Department of Pathology [address] [place] [address] Final Report Note to Patients: [...] the details. Patient Name: KHALIF RIVERA [address] [place] [address] Gender: F : 1990 (Age: 32) Service: Location: N : [id number] [facility] #: [id number] Patient Type: E SPECIMEN Taken: 11/14/2022 Received: 11/18/2022 Accessioned:: 11/19/2022 Reported: 11/21/2022 Physician(s): Jocelyn Flores, [facility] Diagnosis: SOURCE OF SPECIMEN Imaged Thinprep Pap Test w/ Reflex HPV - Passenger Service Agent Cytologic Material: STATEMENT OF ADEQUACY - Satisfactory for evaluation; endocervical/transformation zone component present GENERAL CATEGORIZATION: - Negative for intraepithelial lesion or malignancy MARLINE Christianson(ASCP) Report Electronically Reviewed and Signed Out By MARLINE Christianson(ASCP) 11/21/2022 13:17:29Specimen(s) Received: A: Imaged Thinprep Pap Test w/ Reflex HPV - Passenger Service Agent Cytologic Material Clinical History: Last Menstrual Period: [...] determined by the Surgical Pathology Department at [facility] as part of an ongoing air quality manager program and in compliance with federally [...] characteristics determined by the Surgical Pathology Department [facility]. It has not been cleared or approved by the U. S. Food and Drug Administration. Jocelyn Flores CNM LAB CYTOLOGY ORDERABLES Final Result [facility] from Last 3 Months or Most Recently Relevant to Health Maintenance Insurance [employer] [place] [employer] [place] Advance Directives For more information, please contact: [phone] * Full Code (Latest Code Status on File) Date Activated Date Inactivated Comments 04/08/2024 7:40 PM 04/10/2024 5:40 PM * Full Code Date Activated Date Inactivated Comments 04/01/2024 1:49 PM 04/04/2024 7:09 PM Care Teams See Supervisor Relationship Specialty Start Date End Date Nas Baca DO [address] [place] [address] PCP - General Family Medicine 06/27/23
--- OUTSIDE RECORDS SUMMARY | 2024-07-29 11:39 | XMS_ITS | Encounter Summary ---
Author Organization [facility] Address [address] [place] [address] Care Team Providers Care Lockstitch Tunnel Elastic Operator Name Role Phone Nas Baca DO Primary Care Provider [phone] Encounter Details Date Type Department Care Team (Late st Contact Info) Description 07/23/2023 MyCWeather Decision Technologiest Message Enc [facility] Family Medicine [facility] [address] [place] [address] [place] [address] Following Yesterday s Visit Social History Tobacco [...] Sex Assigned at Female 06/18/2024 12:33 PM CLINIC ADMINISTRATOR Legal Sex Female 11:47 AM CDT Gender Identity Not on file Sexual Orientation Not on file documented as of this encounter Plan of Treatment Not on file documented as of this encounter Visit Diagnoses Not on filedocumented in this encounter Care Teams Lockstitch Tunnel Elastic Operator Relationship Specialty Start Date End Date Nas Baca DO [address] [place], [place] [id number] PCP - General FAMILY PRACTICE 01/30/23 documented as of this encounter
--- OUTSIDE RECORDS SUMMARY | 2024-07-29 11:39 | XMS_ITS | Encounter Summary ---
Author Organization [facility] Address [address] [place] [address] Care Team Providers Care Hydrodynamics Professor Name Role Phone Nas Baca DO Primary Care Provider [phone] Encounter Details Date Type Department Care Team (Late st Contact Info) Description 07/14/2023 MyChart Message Enc [facility] Family Medicine [facility] [address] [place] [address] Nas Baca DO [address] [place] [address] EBV Results Social History Tobacco Use Types Packs/Day Years Used Date Smoking Tobacco: Former Cigarettes Smokeless Tobacco: Never Alcohol Use Standard Drinks/Week Comments Not Currently 0 (1 standard drink = 0.6 oz pur e alcohol) PHQ-2 Answer Date Recorded Patient Health Questionnaire-2 Score 0 01/30/2023 Comments No Sex and Gender Information Value Date Recorded Sex Assigned at Female 06/18/2024 12:33 PM BOWLING ALLEY MECHANIC Legal Sex Female 11:47 AM CDT Gender Identity Not on file Sexual Orientation Not on file documented as of this encounter Plan of Treatment Not on file documented as of this encounter Visit Diagnoses Not on filedocumented in this encounter Care Teams Hydrodynamics Professor Relationship Specialty Start Date End Date [place] [address] PCP - General FAMILY PRACTICE 01/30/23 documented as of this encounter
--- OUTSIDE RECORDS SUMMARY | 2024-07-29 11:39 | XMS_ITS | Clinical Summary ---
Author Organization [facility] Address [facility] [place] [address] Care Team Providers Care Mixed Crop And Livestock Farmer Name Role Phone Keven, Nas Resendez DO Primary Care Provider [phone] Allergies Active Allergy Reactions Criticality Noted Date [...] Pump (OMNIPOD 5 G6 PODS, GEN 5,) [facility] Active Iron, Ferrous Sulfate, 325 (65 [...] Type 1 diabetes mellitus wit hout complication ([facility]) 05/07/2017 Overview (07/09/2023): Diagnosed at age 2 On pump since 2000 Diagnosed at age 2 On pump since 2000 Class D EKG wnl, echo not able to be done due to insurance Resolved Problems Problem Noted Date Diagnosed Date Resolved Date Type 1 diabetes mellitus wit hout complication ([facility]) 07/09/2023 07/09/2023 Encounters Date Type Department Care Team Description 07/08/2024 Telephone [facility] Family [address] [phone] Nas Baca, DO Information 06/18/2024 12:38 PM REGISTERED PHYSICAL THERAPIST - 06/18/2024 11:59 PM REGISTERED PHYSICAL THERAPIST Hospital Encounter [facility] [place] [address] Nas Baca, DO Discharge Disposition: Home or Self Care (Routine Discharge) 06/18/2024 Travel 06/11/2024 MyChart Message Enc [address] [phone] Nas Baca, DO FMLA Release 05/13/2024 MyChart Message Enc [address] [address] Nas Baca DO [facility] Paperwork from Last 3 Months Immunizations [...] Sex Assigned at Female 06/18/2024 12:33 PM REGISTERED PHYSICAL THERAPIST Legal Sex Female 11:47 AM CDT Gender Identity Not on file Sexual Orientation Not on file Last Filed Vital Signs Vital Sign Reading Time Taken Comments Blood Pressure 118/77 04/16/2024 1:35 PM REGISTERED PHYSICAL THERAPIST Pulse 79 04/16/2024 1:35 PM REGISTERED PHYSICAL THERAPIST Temperature 37.3 C (99.2 F) 04/16/2024 1:35 PM REGISTERED PHYSICAL THERAPIST Respiratory Rate 18 07/22/2023 11:43 AM CDT Oxygen Saturation 100% 04/16/2024 1:35 PM REGISTERED PHYSICAL THERAPIST Inhaled Oxygen Concentration - - Weight 76.5 kg (168 lb 9.6 oz) 04/16/2024 1:35 P M REGISTERED PHYSICAL THERAPIST Height 171.9 cm (5' 7.68 ) 04/16/2024 1:35 PM CS T Body Mass Index 25.88 04/16/2024 1:35 PM REGISTERED PHYSICAL THERAPIST Plan of Treatment Health Maintenance Due Date [...] ( season) 2023 07/19/2020, 06/30/2020 PHQ-2 (Physician Buchanan) 04/28/2024 04/16/2024 Hemoglobin A1C 06/30/2024 01/01/2024, 0908/2023, [...] UREA BREATH TEST Routine 06/18/2024 12:52 PM REGISTERED PHYSICAL THERAPIST Helicobacter pylori infection HEMOGLOBIN, GLYCOSYLATED Routine 01/01/2024 from Last 3 Months or Most Recently Relevant to Health Maintenance Results * H. PYLORI UREA BREATH TEST (06/18/2024 12:52 PM REGISTERED PHYSICAL THERAPIST) H. PYLORI UREA BREATH TEST NOT DETECTED NOT DETECTED 06/21/2024 1:41 PM REGISTERED PHYSICAL THERAPIST [employer] [facility] ELSI HAYWARD Comment: Antimicrobials, proton pump inhibitors, and bismuth preparations are known to suppress H. pylori, and ingestion of these prior to H. pylori diagnostic testing may lead to false negative results. If clinically indicated, the test may be repeated on a new specimen obtained two weeks after discontinuing treatment. However, a positive result is still clinically valid. Test Performed by [facility] [place], [facility] [place], [address] [place], [place] Jeet Thomason M.D., Ph.D., Director of Laboratories , CLIA [id number] 06/18/2024 12:5 2 PM REGISTERED PHYSICAL THERAPIST Nas Baca DO LABORATORY Final Resul t [facility] [address] [place], [place] , [place] [phone] * HEMOGLOBIN, GLYCOSYLATED (01/01/2024) HGB A1C 7.4 % 01/01/2024 us [facility] Abstract LABORATORY Final Res ult from Last 3 Months or Most Recently Relevant to Health Maintenance Insurance [facility] Care Teams Mixed Crop And Livestock Farmer Relationship Specialty Start Date End Date Nas [place] [place] [address] PCP - General FAMILY PRACTICE 01/30/23
--- OUTSIDE RECORDS SUMMARY | 2024-07-29 11:39 | XMS_ITS | Encounter Summary ---
Author Organization [facility] Address [address] [place] [address] Care Team Providers Care Steward Racetrack Name Role Phone Nas Baca DO Primary Care Provider [phone] Encounter Details Date Type Department Care Team (Late st Contact Info) Description 07/09/2023 MyCLatest Medicalt Message Enc [facility] Family Medicine - [facility] [address] [place] [address] [place] [address] Todays Visit/Lab Visit Social History Tobacco Use Types Packs/Day Years Used Date Smoking Tobacco: Former Cigarettes Smokeless Tobacco: Never Alcohol Use Standard Drinks/Week Comments Not Currently 0 (1 standard drink = 0.6 oz pur e alcohol) PHQ-2 Answer Date Recorded Patient Health Questionnaire-2 Score 0 01/30/2023 Comments No Sex and Gender Information Value Date Recorded Sex Assigned at Female 06/18/2024 12:33 PM MANAGEMENT TRAINEE MARKETING Legal Sex Female 11:47 AM CDT Gender Identity Not on file Sexual Orientation Not on file documented as of this encounter Plan of Treatment Not on file documented as of this encounter Visit Diagnoses Not on filedocumented in this encounter Care Teams Steward Racetrack Relationship Specialty Start Date End Date Nas Baca DO [address] [place], [place] [phone] PCP - General FAMILY PRACTICE 01/30/23 documented as of this encounter
--- OUTSIDE RECORDS SUMMARY | 2024-07-29 11:39 | XMS_ITS | Referral Summary ---
Author Organization [facility] Address [address] [place] [address] Care Team Providers Care Cloth Checker Name Role Phone Keven, Nas Anival Primary Care Provide r Allergies Active Allergy Reactions Criticality Noted Date Comments Metronidazole Itching Low 04/01/2024 Itching of face, mouth, chest and whole body per patient Succinylcholine Other (See comments) High 09/04/2018 Family history of pseudocholinesterase deficiency, so prolonged time of action with succinylcholine administration for her, if given. Medications blood-glucose meter,continuous (Dexcom G6 Mallet And Die Cutter) misc 1 Device by Not Applicable route [...] Tobacco: Never Tobacco Cessation:Counseling Given: Not Answered [facility] Utilities Answer Date Recorded In the past 12 months has th e [employer], gas, oil, or water [employer] threatened to shut off services in your [...] often do you attend chur ch or episcopal services? Never 04/09/2024 Do you belong to any clubs o r organizations such as baptist groups, unions, fraternal or athletic groups, or [...] any time in the past 12 m [facility], were you homeless or living in a skilled nursing (including now)? No 04/09/2024 Personal Safety Answer Date Recorded Have you ever been in or are you currently in a harmful physical or emotional relationship or is someone making you feel afraid or unsafe? Denies 04/08/2024 Comments No Sex and Gender Information Value Date Recorded Sex Assigned at Not on file Legal Sex Female 9:33 AM CDT Gender Identity Female 05/19/2024 6:51 AM DOWNSTAIRS MAID Sexual Orientation Straight 05/19/2024 6: 51 AM DOWNSTAIRS MAID Last Filed Vital Signs Vital Sign Reading Time Taken Comments Blood Pressure 126/78 04/10/2024 4:05 AM DOWNSTAIRS MAID Pulse 70 04/10/2024 4:05 AM DOWNSTAIRS MAID Temperature 36.9 C (98.4 F) 04/10/2024 4:05 AM DOWNSTAIRS MAID Respiratory Rate 16 04/10/2024 4:05 AM DOWNSTAIRS MAID Oxygen Saturation 99% 04/10/2024 4:05 AM DOWNSTAIRS MAID Inhaled Oxygen Concentration - - Weight 77.1 kg (170 lb) 04/08/2024 7:50 PM DOWNSTAIRS MAID Height 170.2 cm (5' 7 ) 04/08/2024 7:50 PM DOWNSTAIRS MAID Body Mass Index 26.63 04/08/2024 7:50 PM DOWNSTAIRS MAID Plan of Treatment Not on file Procedures Procedure Name Priority Date/Time Associated Diagnosis Comments EGFR STAT 04/08/2024 12:59 PM DOWNSTAIRS MAID PAP WITH REFLEX TO HIGH RISK HPV Routine 11/14/2022 11:49 AM CDT Well female exam with routine gynecological exam from Last 3 Months or Most Recently Relevant to Health Maintenance Results * eGFR (04/08/2024 12:59 PM DOWNSTAIRS MAID) eGFR >90 >=60 mL/min/1. 73 m2 Comment: [...] reviewed 2021. Blood 04/08/2024 12:5 9 PM DOWNSTAIRS MAID 04/08/2024 1:30 PM DOWNSTAIRS MAID us Michelle Pantoja MD LAB BLOOD ORDERABLES Final Result [facility] [address] Department [place] [address] * Pap with reflex to High Risk HPV and Genotyping (Cytology Component) (11/14/2022 11:49 AM CDT) Thin prep (Pap test) 11/14/2022 11:49 AM CDT 11/18/2022 11:49 AM CDT Narrative PATHOLOGY [facility] - 11/21/2022 1:17 PM CDT [facility] Department of Pathology [address] [place] [address] Final Report Note to Patients: This [...] the details. Patient Name: INNA RIVERA Address: [facility] [address], [place] [address] Gender: F : 1990 (Age: 32) Service: Location: [facility] #: [id number] Patient Type: MHE SPECIMEN Taken: 11/14/2022 Received: 11/18/2022 Accessioned:: 11/19/2022 Reported: 11/21/2022 Physician(s): Jocelyn Flores [facility] Diagnosis: SOURCE OF SPECIMEN Imaged Thinprep Pap Test w/ Reflex HPV - Clay Dry Press Mixer Operator Cytologic Material: STATEMENT OF ADEQUACY - Satisfactory for evaluation; endocervical/transformation zone component present GENERAL CATEGORIZATION: - Negative for intraepithelial lesion or malignancy MARLINE Christianson(ASCP) Report Electronically Reviewed and Signed Out By MARLINE Christianson(ASCP) 11/21/2022 13:17:29Specimen(s) Received: A: Imaged Thinprep Pap Test w/ Reflex HPV - Clay Dry Press Mixer Operator Cytologic Material Clinical History: Last Menstrual Period: [...] determined by the Surgical Pathology Department at [facility] as part of an ongoing type disk quality control supervisor program and in compliance with federally mandated [...] determined by the Surgical Pathology Department [facility]. It has not been cleared or approved by the U. S. Food and Drug Administration. Jocelyn DURON LAB CYTOLOGY ORDERABLES Final Result [facility] from Last 3 Months or Most Recently Relevant to Health Maintenance Insurance [employer] [place] [employer] Advance Directives For more information, please contact: [phone] * Full Code (Latest Code Status on File) Date Activated Date Inactivated Comments 04/08/2024 7:40 PM 04/10/2024 5:40 PM * Full Code Date Activated Date Inactivated Comments 04/01/2024 1:49 PM 04/04/2024 7:09 PM Care Teams Cloth Checker Relationship Specialty Start Date End Date Nas [place] [address] PCP - General Family Medicine 06/27/23
--- OUTSIDE RECORDS SUMMARY | 2024-07-29 11:40 | XMS_ITS | Encounter Summary ---
Author Organization [facility] Address [address] [facility] [address] Care Team Providers Care Client Portfolio Manager Name Role Phone Dewayne Weathers MD Primary Care Provider Kaleb Mccurdy MD Primary Care Provider Breanna laura López Jr., MD, Willis Randle Primary Care Provid er Nas Baca DO Primary Care Provider Encounter Details Date Type Department Care Team (Late Contact Info) Description 09/25/2006 SS Outpatient Visit [facility] - [address] [address] Roxanna Glover MD Social History [...] Description 08/30/2024 2:20 PM CDT Office Visit [facility] - Endocrinology [address] [facility], [address] [place] [address] Solo Garcia MD [address] [facility] [address] [place] [address] documented as of this encounter Visit Diagnoses Not on filedocumented in this encounter Care Teams Client Portfolio Manager Relationship Specialty Start Date End Date Dewayne Weathers MD [address] [place] [address] PCP - General 03/28/08 08/18/10 Kaleb Mccurdy MD PCP - General 08/19/10 05/06/17 Willis Ló[place] [address] [address] [facility] [address] [place] [address] PCP - General 03/30/18 12/03/22 Nas Baca DO [address] [facility] [address] [place] [phone] PCP - General Family Medicine 07/28/23 documented as of this encounter
--- OUTSIDE RECORDS SUMMARY | 2024-07-29 11:40 | XMS_ITS | Clinical Summary ---
Author Organization [facility] ServiceRelated Address [address] [place] [address] Care Team Providers Care Oceanic Sciences Professor Name Role Phone KevenNas DO Primary Care Provider Source Comments [facility] ServiceRelated,non-owned Affiliates and Associated Physician Practices is amultiple site organization consisting of ambulatory clinics and hospital sitesin [place], [place], [place] and [place]. This disclosure is being madepursuant to the Care Everywhere program and may not contain all information available regarding this patient. Last updated 18.[facility] ServiceRelated Allergies No known active allergies Medications * [...] 01/01/2024 Active Insulin Disposable Pump (Omnipod 5 NcpB1C8 Pods Gen 5) MISCIndications:Ty pe 1 diabetes mellitus without complication (HCC) Use 1 Each every 2 days 15 Each 2 03/18/2024 Active insulin aspart (NovoLOG) vial Inject up to 60 units daily via insulin pump 20 mL 2 06/28/2024 Active Active Problems Problem Noted Date Diagnosed Date Breast pain, right 06/29/2020 Assessment & Plan (06/29/2020 4:48 PM MARINE CHRONOMETER ASSEMBLER): Exam is normal. I discussed that breast [...] Type Department Care Team Description 07/09/2024 Telephone [facility] - Endocrinology [address] [place] [address], [address] [place] [address] Solo Garcia MD Medication Prior Auth Request 06/28/2024 Refill [facility] - Endocrinology [address] [place] [address], [address] [place] [address] Solo Garcia MD MEDICATION REFILL 05/19/2024 10:00 AM MARINE CHRONOMETER ASSEMBLER Clinical Support [facility] Endocrinology [address] [place] [address], [address] [place] [address] Type 1 diabetes mellitus without complication ; Insulin pump status 05/19/2024 Travel 05/04/2024 3:20 PM MARINE CHRONOMETER ASSEMBLER Video Visit [facility] - Endocrinology [address] [facility], [address] [place] [address] Solo Garcia MD Type 1 [...] 2:20 PM CDT Office Visit [facility] - Endocrinology [address] [facility], [address] [place] [address] Solo Garcia MD [address] [place] [address] Health Maintenance Due Date Last [...] IMAGE-GUIDED RFLX HPV+CT/NG Routine 04/24/2018 11:22 AM MARINE CHRONOMETER ASSEMBLER , unspecified gestational age Screening for cervical cancer from Last 3 Months or Most Recently Relevant to Health Maintenance Results * (ABNORMAL) HEMOGLOBIN A1C - POINT OF CARE (AMB) (01/01/2024 9:52 AM CDT) Hemoglobin A1c POCT 7.4(H) % [facility] Expiration Date [address] [facility] Lot # [id number] [facility] QC Verified Yes Yes [facility] Blood BLOOD SPECIMEN / Unknown 01/01/2024 9:52 AM CDT Solo Garcia MD LAB - POINT OF CARE ORDERABLES [facility] [address] [facility] [address] [phone] * MICROALB/CREAT RATIO URINE RANDOM PANEL (07/28/2023 11:21 AM CDT) Creatinine Urine 128.52 mg/dL [facility] ACCOUNT BILL Microalbumin Urine 1.1 mg/dL [facility] ACCOUNT BILL Microalbumin/Crea tinine Ratio 8 <30 mg/g [facility] ACCOUNT BILL Urine URINE SPECIMEN OBTAINED BY CLEAN CATCH PROCEDURE / Unknown 07/28/2023 11:21 AM CDT 07/28/2023 Narrative Resulting Agency Comment Lab Testing performed at: [facility] [address] [place] [phone] Solo Garcia MD LAB - URINE SPLICER HELPER RY ORDERABLES [facility] ACCOUNT BILL [address] [place] [address] * (ABNORMAL) COMPREHENSIVE METABOLIC PANEL (07/28/2023 11:21 [...] Resulting Agency Comment Lab Testing performed at: [address] [phone] Solo Garcia MD LAB - CHEMISTRY ORD ERABLES [facility] ACCOUNT BILL [address] [place] [address] * HIV-1 HIV-2 ANTIBODY + HIV P24 AG PANEL (09/18/2018 11:03 AM CDT) HIV Screen 4th Generation w Reflex NON-REACT ROSIBEL NON-REACT ROSIBEL [employer] Comment: HIV-1 antigen and HIV-1/HIV-2 antibodies were [...] purpose. For additional information please refer to http://education.Rentables/faq/VSY906 (This link is being provided for informational/ educational purposes only.) The performance of this assay has not been clinically validated in patients less than 2 years old. Test Performed at: [facility] [address] [place] [address] DALTON WOOD DO,MPH Blood BLOOD SPECIMEN / Unknown 09/18/2018 11:03 AM CDT 09/18/2018 11:04 AM CDT Iain Rosenbaum MD LAB - CHEMISTRY GRACY [facility] Organization Address City/State/ZIP Co de Phone Number [facility] [address] [place] [address] * PAP IMAGE-GUIDED LIQUID BASE RFLX HPV+CT/NG (04/24/2018 11:22 AM MARINE CHRONOMETER ASSEMBLER) Pathologist [facility] Case Report Gynecologic Cytology Report Case: [id number] Authorizing Provider: Jocelyn Sharma MD Collected: 04/24/2018 11:22 AM Ordering Location: [facility] Obstetrics Received: 04/27/2018 11:22 AM [facility] Screen: Dewayne Perez Specimen: THINPREP - IMAGE GUIDED, Cervix/Endocervix 04/29/2018 1:22 PM MARINE CHRONOMETER ASSEMBLER [facility] LMP 04/29/2018 1:22 PM MARINE CHRONOMETER ASSEMBLER [facility] Menstrual Status 04/29/19 19 1:22 PM MARINE CHRONOMETER ASSEMBLER [facility] Specimen Adequacy Satisfactory for evaluation, endocervical/trans formation zone component present. 04/29/2018 1:22 PM MARINE CHRONOMETER ASSEMBLER [facility] Categorization Negative for intraepithelial lesion or malignancy. 04/29/2018 1:22 PM MARINE CHRONOMETER ASSEMBLER [facility] Interpretation ADDING MACHINE OPERATOR Negative for intraepithelial lesion or malignancy. 04/29/2018 1:22 PM MARINE CHRONOMETER ASSEMBLER [facility] Pap Footnote This specimen was evaluated by the Absolute Antibody Imaging System along with the an additional manual rescreening by a director college and/or pathologist. 04/29/2018 1:22 PM [facility] Embedded Images 1:22 PM [facility] Pathology/Cytolo gy MISCELLANEOUS SAMPLES / Unknown 04/24/2018 11:22 AM MARINE CHRONOMETER ASSEMBLER 04/27/2018 11:22 AM MARINE CHRONOMETER ASSEMBLER Jocelyn Sharma MD LAB - PATHOLOGY/CYT OLOGY ORDERABLES Performing Organization Address City/State/[facility] Co de Phone Number [facility] [address] [facility] ([place], [place]). [address] [phone] from Last 3 Months or Most Recently Relevant to Health Maintenance Advance Directives * Full Code (Latest Code Status on File) Date Activated Date Inactivated Comments 10/30/2018 12:56 PM 11/02/2018 5:30 PM * Full Code Date Activated Date Inactivated Comments 09/04/2018 3:48 PM 09/05/2018 10:56 PM Care Teams Oceanic Sciences Professor Relationship Specialty Start Date End Date Nas Baca DO [address] [phone] PCP - General Family Medicine 07/28/23
--- OUTSIDE RECORDS SUMMARY | 2024-07-29 11:40 | XMS_ITS | Encounter Summary ---
Author Organization [facility] Address [address] [place] [address] Care Team Providers Care Director Of Strategic Marketing Name Role Phone Dewayne Weathers MD Primary Care Provider Kaleb Mccurdy MD Primary Care Provider Breanna laura López Jr., MD, Willis Randle Primary Care Provid er Nas Baca DO Primary Care Provider Encounter Details Date Type Department Care Team (Late Contact Info) Description 11/16/2007 [facility] Outpatient Visit [facility] - [address] [address] Roxanna Glover MD Social History [...] 2:20 PM CDT Office Visit [facility] - Endocrinology [address] [facility], [address] [place] [address] Solo Garcia MD [address] [facility] [address] [place] [address] documented as of this encounter Visit Diagnoses Not on filedocumented in this encounter Care Teams Director Of Strategic Marketing Relationship Specialty Start Date End Date Dewayne Weathers MD [address] [place] [address] PCP - General 03/28/08 08/18/10 Kaleb Mccurdy MD PCP - General 08/19/10 05/06/17 Willis López [place] [address] [address] [facility] [address] [place] [address] PCP - General 03/30/18 12/03/22 Nas Baca DO 3 [facility] [address] [place] [phone] PCP - General Family Medicine 07/28/23 documented as of this encounter
--- OUTSIDE RECORDS SUMMARY | 2024-07-29 11:40 | XMS_ITS | Encounter Summary ---
Author Organization [facility] Address [address] [facility] [place] [address] Care Team Providers Care Technical Business Analyst Name Role Phone Dewayne Weathers MD Primary Care Provider Kaleb Mccurdy MD Primary Care Provider Breanna laura López Jr., MD, Willis Randle Primary Care Provid er Nas Baca DO Primary Care Provider [phone] Encounter Details Date Type Department Care Team (Late Contact Info) Description 01/13/2008 [facility] Outpatient Visit [facility] DEFAULT [address] [place] [address] Nasrin Matthews APRN-LASHAE Social History Tobacco Use [...] Description 08/30/2024 2:20 PM CDT Office Visit [facility] - Endocrinology [address] [place] [address], [address] [place] [phone] Solo Garcia MD [address] [facility] 206 [place] [address] documented as of this encounter Visit Diagnoses Not on filedocumented in this encounter Care Teams Technical Business Analyst Relationship Specialty Start Date End Date Dewayne Weathers MD [address] [place], [place] [phone] PCP - General 03/28/08 08/18/10 Kaleb Mccurdy MD PCP - General 08/19/10 05/06/17 Willis Ló[place] [address] [address] [facility] 100 [place] [address] PCP - General 03/30/18 12/03/22 Nas Baca DO 3 [facility] [address] [place] [address] PCP - General Family Medicine 07/28/23 documented as of this encounter
--- OUTSIDE RECORDS SUMMARY | 2024-07-29 11:40 | XMS_ITS | Encounter Summary ---
Author Organization [facility] Address [address] [facility] [place] [address] Care Team Providers Care Postdoctoral Research Fellow Name Role Phone Dewayne Weathers MD Primary Care Provider Kaleb Mccurdy MD Primary Care Provider Breanna laura López Jr., MD, Willis Randle Primary Care Provid er Nas Baca DO Primary Care Provider Encounter Details Date Type Department Care Team (Late Contact Info) Description 05/29/[address] [facility] Outpatient Visit [facility] - [address] [address] Kandace Billingsley, MOLDED GRID AND PARTS INSPECTOR-INSIDE SALES CONSULTANT Retired Social History Tobacco Use Types Packs/Day Years Used Date Smoking Tobacco: Never Assessed Sex and Gender Information Value Date Recorded Sex Assigned at Not on file Gender Identity Not on file Sexual Orientation Not on file documented as of this encounter Plan of Treatment Upcoming Encounters Date Type Department Care Team (Late Contact Info) Description 08/30/2024 2:20 PM CDT Office Visit [facility] - Endocrinology [address], [address] [place] [address] Solo Garcia MD [address] [facility] [address] [place] [address] documented as of this encounter Visit Diagnoses Not on filedocumented in this encounter Care Teams Postdoctoral Research Fellow Relationship Specialty Start Date End Date Dewayne Weathers MD [address] [place], [place] [phone] PCP - General 03/28/08 08/18/10 Kaleb Mccurdy MD PCP - General 08/19/10 05/06/17 Willis Ló[place] [address] [address] [facility] 100 [place] [address] PCP - General 03/30/18 12/03/22 Nas Baca DO [address] [phone] PCP - General Family Medicine 07/28/23 documented as of this encounter
--- OUTSIDE RECORDS SUMMARY | 2024-07-29 11:40 | XMS_ITS | Encounter Summary ---
Author Organization [facility] Address [address] [facility] [place] [address] Care Team Providers Care Special Delivery Clerk Name Role Phone Dewayne Weathers MD Primary Care Provider Kaleb Mccurdy MD Primary Care Provider Breanna laura López Jr., MD, Willis Randle Primary Care Provid er Nas Baca DO Primary Care Provider Encounter Details Date Type Department Care Team (Late Contact Info) Description 05/06/2007 [facility] Outpatient Visit [facility] - [address] [address] Roxanna Glover MD Social History [...] Description 08/30/2024 2:20 PM CDT Office Visit [facility] - Endocrinology [address] [facility], [address] [place] [address] Solo Garcia MD [address] [facility] 206 [place] [address] documented as of this encounter Visit Diagnoses Not on filedocumented in this encounter Care Teams Special Delivery Clerk Relationship Specialty Start Date End Date Dewayne Weathers MD [address] [place] [address] PCP - General 03/28/08 08/18/10 Kaleb Mccurdy MD PCP - General 08/19/10 05/06/17 Willis Ló[place] [address] [address] [facility] 100 [place] [address] PCP - General 03/30/18 12/03/22 Nas Baca DO 3 [facility] [address] [place] [phone] PCP - General Family Medicine 07/28/23 documented as of this encounter
--- OUTSIDE RECORDS SUMMARY | 2024-07-29 11:40 | XMS_ITS | Encounter Summary ---
Author Organization [facility] Address [address] [place] [address] Care Team Providers Care Validation Analyst Name Role Phone Dewayne Weathers MD Primary Care Provider [phone] Kaleb Mccurdy MD Primary Care Provider Breanna laura López Jr., MD, Willis Randle Primary Care Provid er Nas Baca DO Primary Care Provider Encounter Details Date Type Department Care Team (Late Contact Info) Description 01/13/2008 [facility] Outpatient Visit [facility] DEFAULT [address] [place] [address] Ru Shelton MD Retired Social History Tobacco [...] Description 08/30/2024 2:20 PM CDT Office Visit [facility] - Endocrinology [facility] [address], [address] [place] [address] Solo Garcia MD [facility] [address] JEFFRIES [facility] [address] [place] [address] documented as of this encounter Visit Diagnoses Not on filedocumented in this encounter Care Teams Validation Analyst Relationship Specialty Start Date End Date Dewayne Weathers MD [address] [place], [place] [phone] PCP - General 03/28/08 08/18/10 Kaleb Mccurdy MD PCP - General 08/19/10 05/06/17 Willis Ló[place] [address] El[address]re [facility] 100 [place] [address] PCP - General 03/30/18 12/03/22 Nas Baca DO 3 [facility] [address] [place] [address] PCP - General Family Medicine 07/28/23 documented as of this encounter
--- OUTSIDE RECORDS SUMMARY | 2024-07-29 11:40 | XMS_ITS | Encounter Summary ---
Author Organization [facility] Address [address] [facility] [place] [address] Care Team Providers Care Dock Coordinator Name Role Phone Dewayne Weathers MD Primary Care Provider [phone] Kaleb Mccurdy MD Primary Care Provider Breanna laura López Jr., MD, Willis Randle Primary Care Provid er Nas Baca DO Primary Care Provider Encounter Details Date Type Department Care Team (Late st Contact Info) Description 01/19/2008 [facility] Outpatient Visit [facility] DEFAULT [address] [place] [address] [place] [address] [place] [address] Social History Tobacco Use Types Packs/Day Years Used Date Smoking Tobacco: Never Assessed Sex and Gender Information Value Date Recorded Sex Assigned at Not on file Gender Identity Not on file Sexual Orientation Not on file documented as of this encounter Plan of Treatment Upcoming Encounters Date Type Department Care Team (Late Contact Info) Description 08/30/2024 2:20 PM CDT Office Visit [facility] - Endocrinology [address] [facility], [address] [place] [address] Solo Garcia MD [address] [facility] 206 [place] [address] documented as of this encounter Visit Diagnoses Not on filedocumented in this encounter Care Teams Dock Coordinator Relationship Specialty Start Date End Date Dewayne Weathers MD [address] [place], [place] [phone] PCP - General 03/28/08 08/18/10 Kaleb Mccurdy MD PCP - General 08/19/10 05/06/17 Willis López [place] [address] Elsy Alejandre [facility] 100 [place] [address] PCP - General 03/30/18 12/03/22 Nas Baca DO [address] [phone] PCP - General Family Medicine 07/28/23 documented as of this encounter
[2024-07-29 11:45] LABS: Add Urine Microscopic? NO; Appearance Urine Clear (Clear); Bilirubin Urine Negative (Negative); Blood Urine Negative (Negative); Color Urine Yellow (Yellow); Glucose Urine UA Negative (Negative); Ketones Urine 2+ mg/dL (Negative); Leukocyte Esterase Ur Negative LEU/UL (Negative); Nitrate Urine Negative (Negative); Protein Urine Negative (Negative); Specific Grav Ur 1.013 (1.001-1.035); Urobilinogen Urine 0.2 mg/dL (<2.0); pH Urine 6.5 (5.0-9.0)
[2024-07-29 13:25] VITALS: BP 134/87; PULSE 77; RESP 16; TEMP 36.7; O2SAT 100
== END 2024-07-29 13:25 | disposition home or self-care (01) ==
PROVIDERS: Emergency Provider Emergency Medicine
DX: R10.12 Left upper quadrant pain (principal); E10.9 Type 1 diabetes mellitus without complications; Z79.4 Long term (current) use of insulin
CPT/HCPCS: 36415; 74177; 80053; 81003; 81025; 83690; 85025; 85610; 85730; 96361; 96374; 96375; 99284; A9270; J2470; J7030; Q9967

== ENCOUNTER 2024-08-25 11:16 | Outpatient (CLI) | payer OTHER, SELFPAY ==
[2024-08-25 12:09] LABS: Iron 35 ug/dL (37-170)
[2024-08-25 12:13] LABS: CRP < 0.5 mg/dL (<1.0)
[2024-08-25 12:27] LABS: Percent Iron Saturation 8 % (20-50)
[2024-08-25 12:38] LABS: Erythrocyte Sedimentation Rate 15 mm/hr (0-20)
--- OUTSIDE RECORDS SUMMARY | 2024-08-25 12:48 | XMS_ITS | Encounter Summary ---
Author Organization [facility] Address [address] [place] [address] Care Team Providers Care Blend Plant Operator Name Role Phone Nas Baca DO Primary Care Provider [phone] Encounter Details Date Type Department Care Team (Late st Contact Info) Description 07/23/2023 [employer] Message Enc [facility] Medical Group Family Medicine [facility] [address] [place] [address] [place] [address] Following Yesterday s Visit Social History Tobacco [...] Sex Assigned at Female 06/18/2024 12:33 PM ENROLLMENT SERVICES DEAN Legal Sex Female 11:47 AM CDT Gender Identity Not on file Sexual Orientation Not on file documented as of this encounter Plan of Treatment Not on file documented as of this encounter Visit Diagnoses Not on filedocumented in this encounter Care Teams Blend Plant Operator Relationship Specialty Start Date End Date Nas Baca DO [address] [place], [place] [phone] PCP - General FAMILY PRACTICE 01/30/23 documented as of this encounter
--- OUTSIDE RECORDS SUMMARY | 2024-08-25 12:48 | XMS_ITS | Clinical Summary ---
Author Organization [email or web address] [address] [place] [address] [place] [address] Care Team Providers Care Portfolio Consultant Name Role Phone Leena Mathur DO Primary Care Provid er Unavailable Allergies Active Allergy Reactions Criticality Noted Date Comments Succinylcholine Other (See Comments) High 09/04/2018 Family history of malignant hyperthermia Medications Dexcom G6 Economic History Teacher USE DEVICE UTD 0 Active Blood-Glucose Meter,Continuous (Dexcom G6 Economic History Teacher) 1 Device by NOT APPLICABLE route. 0 Active Insulin [place], Disposable, (Pen Needle) 31 gauge x 3/16 [...] COVID-19 VACCINE - EMERGENCY USE AUTHORIZATION, MRNA, [id number](PF) 30 MCG/0.3 ML IM SUSP 07/19/2020,06/30/2020 INFLUENZA [...] 3 - 19+ 3-dose series) 02/09/2008 HPV/Cotest (21-29) 2010 HPV/Cotest (30-65) 2019 CERVICAL CANCER SCREENING 04/24/2021 PAP SMEAR 04/24/2021 04/24/2018 INFLUENZA VACCINE (#1) 2023 05/18/2020 COVID-19 Vaccine (3 - 2023- season) 2023 07/19/2020, 06/30/2020 DIABETES HBA1C Q 6 MONTHS 06/30/20242023, 07/28/2023, 12/04/2022, Additional history exists DIABETES ANNUAL FOOT EXAM 12/31/2024 01/01/2024 DTAP/TDAP/TD VACCINES (3 - Td or Tdap) 06/02/2032 06/02/2022, 09/18/2018 HPV VACCINES Aged Out No longer eligi ble based on patient's age to complete [place] [address] [facility] PREFERRED RX [facility] Member Subscriber Plan / Payer (Ef fective 2022-Present) Name:Inna Werner Relation to Subscriber:Self Name:Inna Werner Subscriber ID:Not on file Payer ID:Not on file Group ID:[id number] Type:RX Commercial Address: [address] Care Teams Portfolio Consultant Relationship Specialty Start Date End Date Leena Mathur DO PCP - General Family Practice 05/18/20
--- OUTSIDE RECORDS SUMMARY | 2024-08-25 12:48 | XMS_ITS | Encounter Summary ---
Author Organization [facility] Address [address] [place] [address] Care Team Providers Care Manager Six Sigma Name Role Phone Nas Baca DO Primary Care Provider [phone] Encounter Details Date Type Department Care Team (Late st Contact Info) Description 07/14/2023 MyChart Message Enc [facility] Medical Group Family Medicine [facility] 5 [place] [address] Nas Baca DO [address] [place] [address] EBV Results Social History Tobacco Use Types Packs/Day Years Used Date Smoking Tobacco: Former Cigarettes Smokeless Tobacco: Never Alcohol Use Standard Drinks/Week Comments Not Currently 0 (1 standard drink = 0.6 oz pur e alcohol) PHQ-2 Answer Date Recorded Patient Health Questionnaire-2 Score 0 01/30/2023 Comments No Sex and Gender Information Value Date Recorded Sex Assigned at Female 06/18/2024 12:33 PM OPERATOR WEAPON LOCATING RADAR Legal Sex Female 11:47 AM CDT Gender Identity Not on file Sexual Orientation Not on file documented as of this encounter Plan of Treatment Not on file documented as of this encounter Visit Diagnoses Not on filedocumented in this encounter Care Teams Manager Six Sigma Relationship Specialty Start Date End [place] [address] PCP - General FAMILY PRACTICE 01/30/23 documented as of this encounter
--- OUTSIDE RECORDS SUMMARY | 2024-08-25 12:48 | XMS_ITS | Encounter Summary ---
Author Organization [facility] Address [address] [place] [address] Care Team Providers Care Agricultural Labor Camp Manager Name Role Phone Nas Baca DO Primary Care Provider [phone] Encounter Details Date Type Department Care Team (Late st Contact Info) Description 07/09/2023 MyCQubellt Message Enc [facility] Family Medicine - [place] [address] [place] [address] [place] [address] Todays Visit/Lab Visit Social History Tobacco Use Types Packs/Day Years Used Date Smoking Tobacco: Former Cigarettes Smokeless Tobacco: Never Alcohol Use Standard Drinks/Week Comments Not Currently 0 (1 standard drink = 0.6 oz pur e alcohol) PHQ-2 Answer Date Recorded Patient Health Questionnaire-2 Score 0 01/30/2023 Comments No Sex and Gender Information Value Date Recorded Sex Assigned at Female 06/18/2024 12:33 PM CHALK CUTTER Legal Sex Female 11:47 AM CDT Gender Identity Not on file Sexual Orientation Not on file documented as of this encounter Plan of Treatment Not on file documented as of this encounter Visit Diagnoses Not on filedocumented in this encounter Care Teams Agricultural Labor Camp Manager Relationship Specialty Start Date End Date Nas Baca DO [address] [place], [place] [phone] PCP - General FAMILY PRACTICE 01/30/23 documented as of this encounter
--- OUTSIDE RECORDS SUMMARY | 2024-08-25 12:48 | XMS_ITS | Encounter Summary ---
Author Organization [facility] Address [address] [place] [address] Care Team Providers Care Fiberglass Boat Finisher Name Role Phone Nas Baca DO Primary Care Provider [phone] Encounter Details Date Type Department Care Team (Late st Contact Info) Description 12/04/2023 Streaming Erat Message Enc [facility] Medical Group Family Medicine [address] [address] Nas Baca DO [address] [place] [address] Positive Covid Social History Tobacco Use Types Packs/Day Years Used Date Smoking Tobacco: Former Cigarettes Smokeless Tobacco: Never Alcohol Use Standard Drinks/Week Comments Not Currently 0 (1 standard drink = 0.6 oz pur e alcohol) occas. PHQ-2 Answer Date Recorded Patient Health Questionnaire-2 Score 0 07/22/2023 Comments No Sex and Gender Information Value Date Recorded Sex Assigned at Female 06/18/2024 12:33 PM MEDICAL GENETICS DIRECTOR Legal Sex Female 11:47 AM CDT Gender [...] on filedocumented in this encounter Care Teams Fiberglass Boat Finisher Relationship Specialty Start Date End Date Nas Baca DO [address] [place] [address] PCP - General FAMILY PRACTICE 01/30/23 documented as of this encounter
--- OUTSIDE RECORDS SUMMARY | 2024-08-25 12:48 | XMS_ITS | Clinical Summary ---
Author Organization [facility] Address [address] [place] [address] Care Team Providers Care Shopping Inspector Name Role Phone Keven, Nas Anival Primary Care Provide r Solo Garcia MD Unavailable [phone] Allergies Active Allergy Reactions Criticality Noted Date Comments Metronidazole Itching Low 04/01/2024 Itching of face, mouth, chest and whole body per patient Succinylcholine Other (See comments) High 09/04/2018 Family history of pseudocholinesterase deficiency, so prolonged time of action with succinylcholine administration for her, if given. 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) misc 1 Device by Not Applicable route [...] (six) hours as needed (nausea) 30 tablet Active scopolamine 1 mg over 3 days [...] 2000 Immunizations Immunization Administration Dates Next Due Influenza, Quadrivalent, Spl it, Preservative Free, Intramuscular 05/18/2020 Tdap 06/02/2022,09/18/2018 Surgical History Surgery Date Site/Laterality Comments SHOULDER [...] Tobacco: Never Tobacco Cessation:Counseling Given: Not Answered [facility] Utilities Answer Date Recorded In the past 12 months has [employer] electric, gas, oil, or water [place] threatened to shut off services in your [...] often do you attend chur ch or latter-day services? Never 04/09/2024 Do you belong to any clubs o r organizations such as yazidism groups, unions, fraternal or athletic groups, or [...] [facility] in the [facility], were you homeless or living in a [facility] (including now)? No 04/09/2024 Personal Safety Answer Date Recorded Have you ever been in or are you currently in a harmful physical or emotional relationship or is someone making you feel afraid or unsafe? Denies 04/08/2024 Comments No Sex and Gender Information Value Date Recorded Sex Assigned at Not on file Legal Sex Female 9:33 AM CDT Gender Identity Female 05/19/2024 6:51 AM COLD STORAGE SUPERINTENDENT Sexual Orientation Straight 05/19/2024 6: 51 AM COLD STORAGE SUPERINTENDENT Obstetrics History Para Term AB IAB SAB Ectopic Multiple Livin g Live Births 2 2 1 1 Date Outcome GA Total Labor Labor/2nd/3rd Weight Sex Type Anes PTL Rosangela A1 A5 Name Clin Term 019 34w 5d 4h 56m 4h 51m/0h 05m 3.975 kg (8 lb 12.2 oz) F Vag-S pont Epidur al Y 5 9 Estrellita Ornelas MD Complications:Intraamniotic Infection Delivery Location:[facility] Comments:Heart murmur Last Filed Vital Signs Vital Sign Reading Time Taken Comments Blood Pressure 126/78 04/10/2024 4:05 AM COLD STORAGE SUPERINTENDENT Pulse 70 04/10/2024 4:05 AM COLD STORAGE SUPERINTENDENT Temperature 36.9 C (98.4 F) 04/10/2024 4:05 AM COLD STORAGE SUPERINTENDENT Respiratory Rate 16 04/10/2024 4:05 AM COLD STORAGE SUPERINTENDENT Oxygen Saturation 99% 04/10/2024 4:05 AM COLD STORAGE SUPERINTENDENT Inhaled Oxygen Concentration - - Weight 77.1 kg (170 lb) 04/08/2024 7:50 PM COLD STORAGE SUPERINTENDENT Height 170.2 cm (5' 7 ) 04/08/2024 7:50 PM COLD STORAGE SUPERINTENDENT Body Mass Index 26.63 04/08/2024 7:50 PM COLD STORAGE SUPERINTENDENT Plan of Treatment Health Maintenance Due Date [...] Well Visit/Exam 18-64 11/15/2023 11/14/2022 Covid-19 Vaccine ( - season) 2023 07/19/2020, 06/30/2020 Lipid Panel [...] Diagnosis Comments EGFR STAT 04/08/2024 12:59 PM COLD STORAGE SUPERINTENDENT PAP WITH REFLEX TO HIGH RISK HPV Routine 11/14/2022 11:49 AM CDT Well female exam with routine gynecological exam from Last 3 Months or Most Recently Relevant to Health Maintenance Results * eGFR (04/08/2024 12:59 PM COLD STORAGE SUPERINTENDENT) eGFR >90 >=60 mL/min/1. 73 m2 Comment: [...] reviewed 2021. Blood 04/08/2024 12:5 9 PM COLD STORAGE SUPERINTENDENT 04/08/2024 1:30 PM COLD STORAGE SUPERINTENDENT us Michelle Pantoja MD LAB BLOOD ORDERABLES Final Result [facility] [address] Department [place] [address] * Pap with reflex to High Risk HPV and Genotyping (Cytology Component) (11/14/2022 11:49 AM CDT) Thin prep (Pap test) 11/14/2022 11:49 AM CDT 11/18/2022 11:49 AM CDT Narrative PATHOLOGY [facility] - 11/21/2022 1:17 PM CDT [facility] Department of Pathology [address] [place] [address] Final Report Note to Patients: [...] the details. Patient Name: KHALIF RIVERA Address: [address] [place] [address] Gender: F : 1990 (Age: 32) Service: Location: N : [id number] [facility] #: [id number] Patient Type: [facility] SPECIMEN Taken: 11/14/2022 Received: 11/18/2022 Accessioned:: 11/19/2022 Reported: 11/21/2022 Physician(s): Jocelyn Flores [facility] Diagnosis: SOURCE OF SPECIMEN Imaged Thinprep Pap Test w/ Reflex HPV - Tie Puller Cytologic Material: STATEMENT OF ADEQUACY - Satisfactory for evaluation; endocervical/transformation zone component present GENERAL CATEGORIZATION: - Negative for intraepithelial lesion or malignancy MARLINE Christianson(ASCP) Report Electronically Reviewed and Signed Out By MARLINE Christianson(ASCP) 11/21/2022 13:17:29Specimen(s) Received: A: Imaged Thinprep Pap Test w/ Reflex HPV - Tie Puller Cytologic Material Clinical History: Last Menstrual Period: [...] determined by the Surgical Pathology Department at [facility] as part of an ongoing quality assurance test program manager program and in compliance with federally [...] characteristics determined by the Surgical Pathology Department [facility]. It has not been cleared or approved by the [place]. S. Food and Drug Administration. Jocelyn Flores CNM LAB CYTOLOGY ORDERABLES Final Result [facility] from Last 3 Months or Most Recently Relevant to Health [place] [address] [facility] [address] [place] [place] [address] [place] [place] [phone] Advance Directives For more information, please contact: [phone] * Full Code (Latest Code Status on File) Date Activated Date Inactivated Comments 04/08/2024 7:40 PM 04/10/2024 5:40 PM * Full Code Date Activated Date Inactivated Comments 04/01/2024 1:49 PM 04/04/2024 7:09 PM Care Teams Shopping Inspector Relationship Specialty Start Date End Date Nas Baca DO [address] [place] [address] PCP - General Family Medicine 06/27/23 Solo Garcia MD [address] [address] Referring Physician Endocrinology Diabetes & Metabolism 08/11/24
--- OUTSIDE RECORDS SUMMARY | 2024-08-25 12:49 | XMS_ITS | Encounter Summary ---
Author Organization [facility] Address [address] [facility] [place] [address] Care Team Providers Care Pathological Technician Name Role Phone Dewayne Weathers MD Primary Care Provider Kaleb Mccurdy MD Primary Care Provider Breanna laura López Jr., MD, Willis Randle Primary Care Provid er Nas Baca DO Primary Care Provider Encounter Details Date Type Department Care Team (Late Contact Info) Description 11/16/2007 [facility] Outpatient Visit [address] [phone] Roxanna Glover MD Social History Tobacco Use Types Packs/Day Years Used Date Smoking Tobacco: Never Assessed Comments Unknown Sex and Gender Information Value Date Recorded Sex Assigned at Not on file Legal Sex Female 6:55 AM ENVELOPE ADJUSTER Gender Identity Not on file Sexual Orientation Not on file documented as of this encounter Plan of Treatment Upcoming Encounters Date Type Department Care Team (Late Contact Info) Description 08/30/2024 2:20 PM CDT Office Visit [facility] - Endocrinology [address], [address] [place] [phone] Solo Garcia MD [address] [facility] [address] [place] [address] documented as of this encounter Visit Diagnoses Not on filedocumented in this encounter Care Teams Pathological Technician Relationship Specialty Start Date End Date Dewayne Weathers MD [address] [place], [place] [phone] PCP - General 03/28/08 08/18/10 Kaleb Mccurdy MD PCP - General 08/19/10 05/06/17 Willis López [place] [address] [address] [facility] [address] [place] [address] PCP - General 03/30/18 12/03/22 Nas Baca DO [address] [phone] PCP - General Family Medicine 07/28/23 documented as of this encounter
--- OUTSIDE RECORDS SUMMARY | 2024-08-25 12:49 | XMS_ITS | Encounter Summary ---
Author Organization [facility] Address [address] [facility] [place] [address] Care Team Providers Care Car Whacker Name Role Phone Dewayne Weathers MD Primary Care Provider Kaleb Mccurdy MD Primary Care Provider Breanna laura López Jr., MD, Willis Randle Primary Care Provid er Nas Baca DO Primary Care Provider [phone] Encounter Details Date Type Department Care Team (Late Contact Info) Description 09/25/2006 [facility] Outpatient Visit [address] [phone] Roxanna Glover MD Social History Tobacco Use Types Packs/Day Years Used Date Smoking Tobacco: Never Assessed Comments Unknown Sex and Gender Information Value Date Recorded Sex Assigned at Not on file Legal Sex Female 6:55 AM 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 Gender Identity Not on file Sexual Orientation Not on file documented as of this encounter Plan of Treatment Upcoming Encounters Date Type Department Care Team (Late Contact Info) Description 08/30/2024 2:20 PM CDT Office Visit [facility] - Endocrinology [address] [place] [phone] Solo Garcia MD [address] [facility] [address] [place] [address] documented as of this encounter Visit Diagnoses Not on filedocumented in this encounter Care Teams Car Whacker Relationship Specialty Start Date End Date Dewayne Weathers MD [address] [place], [place] [phone] PCP - General 03/28/08 08/18/10 Kaleb Mccurdy MD PCP - General 08/19/10 05/06/17 Willis López [place] [address] [address] [facility] [address] [place] [address] PCP - General 03/30/18 12/03/22 Nas Baca DO [address] [phone] PCP - General Family Medicine 07/28/23 documented as of this encounter
--- OUTSIDE RECORDS SUMMARY | 2024-08-25 12:49 | XMS_ITS | Encounter Summary ---
Author Organization [facility] Address [address] [place] [address] Care Team Providers Care Welt Trimming Machine Operator Name Role Phone Dewayne Weathers MD Primary Care Provider [phone] Kaleb Mccurdy MD Primary Care Provider Breanna laura López Jr., MD, Willis Randle Primary Care Provid er Nas Baca DO Primary Care Provider [phone] Encounter Details Date Type Department Care Team (Late Contact Info) Description 01/13/2008 [facility] Outpatient Visit [facility] DEFAULT [address] [place] [address] Nasrin Matthews APRN-CNP Social History Tobacco Use Types Packs/Day Years Used Date Smoking Tobacco: Never Assessed Comments Unknown Sex and Gender Information Value Date Recorded Sex Assigned at Not on file Legal Sex Female 6:55 AM 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 Gender Identity Not on file Sexual Orientation Not on file documented as of this encounter Plan of Treatment Upcoming Encounters Date Type Department Care Team (Late Contact Info) Description 08/30/2024 2:20 PM CDT Office Visit [facility] - Endocrinology [address] [place] [address], [address] [place] [address] Solo Garcia MD [address] [facility] [address] [place] [address] documented as of this encounter Visit Diagnoses Not on filedocumented in this encounter Care Teams Welt Trimming Machine Operator Relationship Specialty Start Date End Date Dewayne eWathers MD [address] [place], [place] [phone] PCP - General 03/28/08 08/18/10 Kaleb Mccurdy MD PCP - General 08/19/10 05/06/17 Willis López [place] [address] [facility] [address] [place] [address] PCP - General 03/30/18 12/03/22 Nas Baca DO [address] [facility] [address] [place] [phone] PCP - General Family Medicine 07/28/23 documented as of this encounter
--- OUTSIDE RECORDS SUMMARY | 2024-08-25 12:49 | XMS_ITS | Encounter Summary ---
Author Organization [facility] Address [address] [facility] [place] [address] Care Team Providers Care C.O.D. Audit Clerk Name Role Phone Dewayne Weathers MD Primary Care Provider [phone] Kaleb Mccurdy MD Primary Care Provider Breanna laura López Jr., MD, Willis Randle Primary Care Provid er Nas Baca DO Primary Care Provider Encounter Details Date Type Department Care Team (Late Contact Info) Description 01/19/2008 [facility] Outpatient Visit [facility] DEFAULT [address] [place], [place] [phone] [place] [address] [place] [address] Social History Tobacco Use Types Packs/Day Years Used Date Smoking Tobacco: Never Assessed Comments Unknown Sex and Gender Information Value Date Recorded Sex Assigned at Not on file Legal Sex Female 6:55 AM DISPENSING LEAD Gender Identity Not on file Sexual Orientation Not on file documented as of this encounter Plan of Treatment Upcoming Encounters Date Type Department Care Team (Late Contact Info) Description 08/30/2024 2:20 PM CDT Office Visit [facility] - Endocrinology [address], [address] [place] [phone] Solo Garcia MD [address] [place] [address] documented as of this encounter Visit Diagnoses Not on filedocumented in this encounter Care Teams C.O.D. Audit Clerk Relationship Specialty Start Date End Date Dewayne Weathers MD [address] [place], [place] [phone] PCP - General 03/28/08 08/18/10 Kaleb Mccurdy MD PCP - General 08/19/10 05/06/17 Willis López [place] [address] [address] [facility] [address] [place] [phone] PCP - General 03/30/18 12/03/22 Nas Baca DO [address] [phone] PCP - General Family Medicine 07/28/23 documented as of this encounter
--- OUTSIDE RECORDS SUMMARY | 2024-08-25 12:49 | XMS_ITS | Encounter Summary ---
Author Organization [facility] Address [address] [facility] [place] [address] Care Team Providers Care Physical Fitness Teacher Name Role Phone Dewayne Weathers MD Primary Care Provider Kaleb Mccurdy MD Primary Care Provider Breanna luara López Jr., MD, Willis Randle Primary Care Provid er Nas Baca DO Primary Care Provider Encounter Details Date Type Department Care Team (Late Contact Info) Description 01/13/2008 [facility] Outpatient Visit 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 PATROL DRIVER Gender Identity Not on file Sexual Orientation Not on file documented as of this encounter Plan of Treatment Upcoming Encounters Date Type Department Care Team (Late Contact Info) Description 08/30/2024 2:20 PM CDT Office Visit [facility] - Endocrinology [address] [place] [address], [address] [place] [address] Solo Garcia MD [address] [facility] [address] [place] [address] documented as of this encounter Visit Diagnoses Not on filedocumented in this encounter Care Teams Physical Fitness Teacher Relationship Specialty Start Date End Date Dewayne Weathers MD [address] [place], [place] [phone] PCP - General 03/28/08 08/18/10 Kaleb Mccurdy MD PCP - General 08/19/10 05/06/17 Willis López [place] [address] [address] [facility] [address] [place] [address] PCP - General 03/30/18 12/03/22 Nas Baca DO [address] [phone] PCP - General Family Medicine 07/28/23 documented as of this encounter
--- OUTSIDE RECORDS SUMMARY | 2024-08-25 12:49 | XMS_ITS | Clinical Summary ---
Author Organization [facility] Address [address] [facility] [place] [address] Care Team Providers Care Spiral Spring Winder Name Role Phone KevenNas DO Primary Care Provider Source Comments [facility],non-owned Affiliates and Associated Physician Practices is amultiple site organization consisting of ambulatory clinics and hospital sitesin [place], [place], [place] and [place]. This disclosure is being madepursuant to the Care Everywhere program and may not contain all information available regarding this patient. Last updated 18.[facility] [employer] Allergies No known active allergies Medications * Be aware that medications may not be up to date on this document. Alwaysverify current medications with the patient. insulin glargine (LANTUS SOLOSTAR) pen Inject 16 Units subcutaneously at bedtime 2 Pen 1 11/09/19 20 Active Additional Information Patient not taking.Reported on 05/04/2024 insulin pen needle (NOVOFINE 31) 31G X 5 MM needle 1 Each 4 times daily 50 Each 11/09/19 20 Active Needle, Disp, (HYPODERMIC NEEDLE 26GX1/2 ) 26G X 1/2 MISCIndications: Type 1 diabetes mellitus on insulin therapy (HCC),Insulin pump status Use 1 Each once daily 90 Each 3 04/30/19 22 Active OneTouch Ultra test strip USE FOUR TIMES DAILY 400 strip 04/17/20 22 Active Continuous Glucose Sensor (Dexcom G7 Sensor) MISCIndications: Type 1 diabetes mellitus without complication (HCC) Use 1 Each every 10 days 9 Each 3 01/01/20 24 Active Insulin Disposable Pump (Omnipod 5 [id number] Pods Gen 5) MISCIndications: Type 1 diabetes mellitus without complication (HCC) Use 1 Each every 2 days 15 Each 2 03/18/20 24 Active insulin aspart (NovoLOG) vial Inject up to 60 units daily via insulin pump 20 mL 2 06/29/19 25 Active Active Problems Problem Noted Date Diagnosed Date Breast pain, right 06/29/2020 Assessment & Plan (06/29/2020 4:48 PM COMMODITY TRADER): Exam is normal. I discussed that breast [...] Type Department Care Team Description 07/09/2024 Telephone [facility] - Endocrinology [address] [place] [address], [address] [place] [address] Solo Garcia MD Medication Prior Auth Request 06/28/2024 Refill [facility] - Endocrinology [address] [place] [address], [address] [place] [phone] Solo Garcia MD MEDICATION REFILL from Last 3 Months Immunizations Immunization Administration Dates Next Due KochAbo primary monoval ent 12+ yr 0.3mL Purple [...] Smoking Tobacco: Former Cigarettes 1 8 2 010 - 2017 Smokeless Tobacco: Never Tobacco Cessation:Counseling Given: Not Answered Alcohol Use Standard Drinks/Week Comments Yes 0 (1 standard drink = 0.6 oz pur e alcohol) once weekly Comments No Sex and Gender Information Value Date Recorded Sex Assigned at Not on file Legal Sex Female 6:55 AM COMMODITY TRADER Gender Identity Not on file Sexual Orientation Not on file 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 Not on file Not on file Last Filed Vital Signs [...] 08/30/2024 2:20 PM CDT Office Visit [facility] - Endocrinology [address], [address] [place] [address] Solo Garcia MD [address] [place] [address] Health Maintenance Due Date Last Done Comments HEPATITIS C SCREENING 02/04/2007 HEPATITIS B VACCINE (1 of 3 - 19+ 3-dose series) 02/09/2008 PNEUMOCOCCAL VACCINE (1 of 2 - PCV) 02/09/2008 DIABETES RETINOPATHY SCREENING 05/07/2017 PAP SMEAR 04/24/2021 04/24/2018 COVID-19 VACCINE (3 - 2023- season) 2023 07/19/2020, 06/30/2020 DEPRESSION SCREENING 04/28/2024 [...] IMAGE-GUIDED RFLX HPV+CT/NG Routine 04/24/2018 11:22 AM COMMODITY TRADER , unspecified gestational age Screening for cervical cancer from Last 3 Months or Most Recently Relevant to Health Maintenance Results * (ABNORMAL) HEMOGLOBIN A1C - POINT OF CARE (AMB) (01/01/2024 9:52 AM CDT) Hemoglobin A1c POCT 7.4(H) % [facility] Expiration Date [address] [facility] Lot # [id number] [facility] QC Verified Yes Yes [facility] Blood BLOOD SPECIMEN / Unknown 01/01/2024 9:52 AM CDT Solo Garcia MD LAB - POINT OF CARE ORDERAB LES Final Result [facility] [address], [place] [address], [facility] [phone] * MICROALB/CREAT RATIO URINE RANDOM PANEL (07/28/2023 11:21 AM CDT) Creatinine Urine 128.52 mg/dL [facility] ACCOUNT BILL Microalbumin Urine 1.1 mg/dL [facility] ACCOUNT BILL Microalbumin/Crea tinine Ratio 8 <30 mg/g [facility] ACCOUNT BILL Urine URINE SPECIMEN OBTAINED BY CLEAN CATCH PROCEDURE / Unknown 07/28/2023 11:21 AM CDT 07/28/2023 Narrative Resulting Agency Comment Lab Testing performed at: [facility] [address] [facility] [phone] Solo Garcia MD LAB - URINE CHEMISTRY ORDER MATHIEU Final Result [facility] ACCOUNT BILL [address] [place] [address] * (ABNORMAL) COMPREHENSIVE METABOLIC PANEL (07/28/2023 11:21 AM CDT) Pathologist [facility] Glucose 130(H) 70 - 105 mg/dL [facility] [...] Resulting Agency Comment Lab Testing performed at: [address] [phone] [place] Solo Garcia MD LAB - CHEMISTRY ORDERABLES Final Result [facility] ACCOUNT BILL [address] [place] [address] * HIV-1 HIV-2 ANTIBODY + HIV P24 AG PANEL (09/18/2018 11:03 AM CDT) [facility] HIV Screen 4th Generation w Reflex NON-REACT ROSIBEL NON-REACT ROSIBEL QUEST Comment: HIV-1 antigen and HIV-1/HIV-2 antibodies were [...] purpose. For additional information please refer to http://education.Bloglovin/faq/LKX972 (This link is being provided for informational/ educational purposes only.) The performance of this assay has not been clinically validated in patients less than 2 years old. Test Performed at: [facility] [address] [place] [address] DALTON WOOD DO,MPH Blood BLOOD SPECIMEN / Unknown 09/18/2018 11:03 AM CDT 09/18/2018 11:04 AM CDT Iain Rosenbaum MD LAB - CHEMISTRY ORDERABLES Fin al Result [facility] [address] [id number] * PAP IMAGE-GUIDED LIQUID BASE RFLX HPV+CT/NG (04/24/2018 11:22 AM COMMODITY TRADER) Case Report Gynecologic Cytology Report Case: [id number] Authorizing Provider: Jocelyn Sharma MD Collected: 04/24/2018 11:22 AM Ordering Location: [facility] Obstetrics Received: 04/27/2018 11:22 AM [facility] First Screen: Dewayne Perez Specimen: THINPREP - IMAGE GUIDED, Cervix/Endocervix 04/29/2018 1:22 PM COMMODITY TRADER [facility] LMP 04/29/2018 1:22 PM COMMODITY TRADER [facility] Menstrual Status 04/29/19 1:22 PM COMMODITY TRADER [facility] Specimen Adequacy Satisfactory for evaluation, endocervical/trans formation zone component present. 04/29/2018 1:22 PM COMMODITY TRADER [facility] Categorization Negative for intraepithelial lesion or malignancy. 04/29/2018 1:22 PM COMMODITY TRADER [facility] Interpretation COMPRESSION MOLDING MACHINE OPERATOR Negative for intraepithelial lesion or malignancy. 04/29/2018 1:22 PM COMMODITY TRADER [facility] Pap Footnote This specimen was evaluated by the [employer]to[employer] Imaging System along with the an additional manual rescreening by a embossing clerk and/or pathologist. 04/29/2018 1:22 PM [facility] Embedded Images 9 1:22 PM [facility] Pathology/Cytolo gy MISCELLANEOUS SAMPLES / Unknown 04/24/2018 11:22 AM COMMODITY TRADER 04/27/2018 11:22 AM COMMODITY TRADER Jocelyn Sharma MD LAB - PATHOLOGY/CYTOLOGY OR DERABLES Final Result Performing Organization Address City/State/[facility] Co de Phone Number [facility] [address] [place] [address], [facility] [phone] from Last 3 Months or Most Recently Relevant to Health Maintenance Insurance [facility] Advance Directives * Full Code (Latest Code Status on File) Date Activated Date Inactivated Comments 10/30/2018 12:56 PM 11/02/2018 5:30 PM * Full Code Date Activated Date Inactivated Comments 09/04/2018 3:48 PM 09/05/2018 10:56 PM Care Teams Spiral Spring Winder Relationship Specialty Start Date End Date Nas Baca DO [address] [phone] PCP - General Family Medicine 07/28/23
--- OUTSIDE RECORDS SUMMARY | 2024-08-25 12:49 | XMS_ITS | Referral Summary ---
Author Organization [facility] Address [address] [place] [address] Care Team Providers Care Senior Editor Name Role Phone Keven, Nas Anival Primary Care Provide r Solo Garcia MD Unavailable [phone] Allergies Active Allergy Reactions Criticality Noted Date Comments Metronidazole Itching Low 04/01/2024 Itching of face, mouth, chest and whole body per patient Succinylcholine Other (See comments) High 09/04/2018 Family history of pseudocholinesterase deficiency, so prolonged time of action with succinylcholine administration for her, if given. Medications blood-glucose meter,continuous (Dexcom G6 Deoiling Machine Operator) misc 1 Device by Not Applicable route [...] it, Preservative Free, Intramuscular 05/18/2020 Tdap 06/02/2022,09/18/2018 Social History Tobacco Use Types Packs/Day Years Used Date Smoking Tobacco: Never Tobacco Cessation:Counseling Given: Not Answered [facility] Utilities Answer Date Recorded In the past 12 months has e Rece[employer], gas, oil, or water [employer] threatened to shut off services in your [...] often do you attend chur ch or cheondoism services? Never 04/09/2024 Do you belong to any clubs o r organizations such as restorationist groups, unions, fraternal or athletic groups, or [...] any time in the past 12 [place], were you homeless or living in a long term (including now)? No 04/09/2024 Personal Safety Answer Date Recorded Have you ever been in or are you currently in a harmful physical or emotional relationship or is someone making you feel afraid or unsafe? Denies 04/08/2024 Comments No Sex and Gender Information Value Date Recorded Sex Assigned at Not on file Legal Sex Female 9:33 AM CDT Gender Identity Female 05/19/2024 6:51 AM NEWBORN HEARING SCREENER Sexual Orientation Straight 05/19/2024 6: 51 AM NEWBORN HEARING SCREENER Last Filed Vital Signs Vital Sign Reading Time Taken Comments Blood Pressure 126/78 04/10/2024 4:05 AM NEWBORN HEARING SCREENER Pulse 70 04/10/2024 4:05 AM NEWBORN HEARING SCREENER Temperature 36.9 C (98.4 F) 04/10/2024 4:05 AM NEWBORN HEARING SCREENER Respiratory Rate 16 04/10/2024 4:05 AM NEWBORN HEARING SCREENER Oxygen Saturation 99% 04/10/2024 4:05 AM NEWBORN HEARING SCREENER Inhaled Oxygen Concentration - - Weight 77.1 kg (170 lb) 04/08/2024 7:50 PM NEWBORN HEARING SCREENER Height 170.2 cm (5' 7 ) 04/08/2024 7:50 PM NEWBORN HEARING SCREENER Body Mass Index 26.63 04/08/2024 7:50 PM NEWBORN HEARING SCREENER Plan of Treatment Not on file Procedures Procedure Name Priority Date/Time Associated Diagnosis Comments EGFR STAT 04/08/2024 12:59 PM NEWBORN HEARING SCREENER PAP WITH REFLEX TO HIGH RISK HPV Routine 11/14/2022 11:49 AM CDT Well female exam with routine gynecological exam from Last 3 Months or Most Recently Relevant to Health Maintenance Results * eGFR (04/08/2024 12:59 PM NEWBORN HEARING SCREENER) eGFR >90 >=60 mL/min/1. 73 m2 Comment: [...] reviewed 2021. Blood 04/08/2024 12:5 9 PM NEWBORN HEARING SCREENER 04/08/2024 1:30 PM NEWBORN HEARING SCREENER us Michelle Pantoja MD LAB BLOOD ORDERABLES Final Result [facility] [address] [place] [address] * Pap with reflex to High Risk HPV and Genotyping (Cytology Component) (11/14/2022 11:49 AM CDT) Thin prep (Pap test) 11/14/2022 11:49 AM CDT 11/18/2022 11:49 AM CDT Narrative PATHOLOGY [facility] - 11/21/2022 1:17 PM CDT [facility] Department of Pathology [address] [place] [address] Final Report Note to Patients: This [...] the details. Patient Name: INNA RIVERA Address: [address] [place] [address] Gender: F : 1990 (Age: 32) Service: Location: N : [id number] [facility] #: [id number] Patient Type: [facility] SPECIMEN Taken: 11/14/2022 Received: 11/18/2022 Accessioned:: 11/19/2022 Reported: 11/21/2022 Physician(s): Jocelyn Flores [facility] Diagnosis: SOURCE OF SPECIMEN Imaged Thinprep Pap Test w/ Reflex HPV - Sales Floor Team Leader Cytologic Material: STATEMENT OF ADEQUACY - Satisfactory for evaluation; endocervical/transformation zone component present GENERAL CATEGORIZATION: - Negative for intraepithelial lesion or malignancy MARLINE Christianson(ASCP) Report Electronically Reviewed and Signed Out By MARLINE Christianson(ASCP) 11/21/2022 13:17:29Specimen(s) Received: A: Imaged Thinprep Pap Test w/ Reflex HPV - Sales Floor Team Leader Cytologic Material Clinical History: Last Menstrual Period: [...] determined by the Surgical Pathology Department at [facility] as part of an ongoing director of quality control program and in compliance with federally mandated [...] characteristics determined by the Surgical Pathology Department [facility]. It has not been cleared or approved by the U. S. Food and Drug Administration. Jocelyn DURON LAB CYTOLOGY ORDERABLES Final Result [facility] from Last 3 Months or Most Recently Relevant to Health Maintenance Insurance [facility] [place] [id number] [facility] [place] [id number] [address] [place] [id number] Advance Directives For more information, please contact: [phone] * Full Code (Latest Code Status on File) Date Activated Date Inactivated Comments 04/08/2024 7:40 PM 04/10/2024 5:40 PM * Full Code Date Activated Date Inactivated Comments 04/01/2024 1:49 PM 04/04/2024 7:09 PM Care Teams Senior Editor Relationship Specialty Start Date End Date Nas Baca DO [address] [place] [address] PCP - General Family Medicine 06/27/23 Solo Garcia MD [address] [address] Referring Physician Endocrinology Diabetes & Metabolism 08/11/24
--- OUTSIDE RECORDS SUMMARY | 2024-08-25 12:49 | XMS_ITS | Encounter Summary ---
Author Organization [facility] Address [address] [place] [address] Care Team Providers Care Charger Tester Name Role Phone Dewayne Weathers MD Primary Care Provider Kaleb Mccurdy MD Primary Care Provider Breanna laura óLpez Jr., MD, Willis Randle Primary Care Provid er Nas Baca DO Primary Care Provider Encounter Details Date Type Department Care Team (Late Contact Info) Description 05/06/2007 [facility] Outpatient Visit [address] [phone] Roxanna Glover MD Social History Tobacco Use Types Packs/Day Years Used Date Smoking Tobacco: Never Assessed Comments Unknown Sex and Gender Information Value Date Recorded Sex Assigned at Not on file Legal Sex Female 6:55 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 Gender Identity Not on file Sexual Orientation Not on file documented as of this encounter Plan of Treatment Upcoming Encounters Date Type Department Care Team (Late Contact Info) Description 08/30/2024 2:20 PM CDT Office Visit [facility] - Endocrinology [address], [address] [place] [phone] Solo Garcia MD [address] [facility] [address] [place] [address] documented as of this encounter Visit Diagnoses Not on filedocumented in this encounter Care Teams Charger Tester Relationship Specialty Start Date End Date Dewayne Weathers MD [address] [place], [place] [phone] PCP - General 03/28/08 08/18/10 Kaleb Mccurdy MD PCP - General 08/19/10 05/06/17 Willis López [place] [address] [address] Alejandre [facility] [address] [place] [address] PCP - General 03/30/18 12/03/22 Nas Baca DO [address] [phone] PCP - General Family Medicine 07/28/23 documented as of this encounter
--- OUTSIDE RECORDS SUMMARY | 2024-08-25 12:49 | XMS_ITS | Encounter Summary ---
Author Organization [facility] Address [address] [facility] [place] [address] Care Team Providers Care Production Planning Manager Name Role Phone Dewayne Weathers MD Primary Care Provider [phone] Kaleb Mccurdy MD Primary Care Provider Breanna laura López Jr., MD, Willis Randle Primary Care Provid er Nas Baca DO Primary Care Provider [phone] Encounter Details Date Type Department Care Team (Late Contact Info) Description 05/29/2006 [facility] Outpatient Visit [address] [address] Kandace Billingsley, CONCILIATOR-VOCATIONAL NURSE LVN Retired Social History Tobacco Use Types Packs/Day Years Used Date Smoking Tobacco: Never Assessed Comments Unknown Sex and Gender Information Value Date Recorded Sex Assigned at Not on file Legal Sex Female 6:55 AM 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 MESS ATTENDANT Gender Identity Not on file Sexual Orientation Not on file documented as of this encounter Plan of Treatment Upcoming Encounters Date Type Department Care Team (Late Contact Info) Description 08/30/2024 2:20 PM CDT Office Visit [facility] - Endocrinology [address] [place] [address], [address] [place] [phone] Solo Garcia MD [address] [facility] [address] [place] [address] documented as of this encounter Visit Diagnoses Not on filedocumented in this encounter Care Teams Production Planning Manager Relationship Specialty Start Date End Date Dewayne Weathers MD [address] [place], [place] [phone] PCP - General 03/28/08 08/18/10 Kaleb Mccurdy MD PCP - General 08/19/10 05/06/17 Willis López [place] [address] Elsy Alejandre [facility] [address] [place] [address] PCP - General 03/30/18 12/03/22 Nas Baca DO [address] [address] PCP - General Family Medicine 07/28/23 documented as of this encounter
--- OUTSIDE RECORDS SUMMARY | 2024-08-25 12:49 | XMS_ITS | Clinical Summary ---
Author Organization [facility] Address Formerly [facility] [place] [address] Care Team Providers Care Electronic Funds Transfer Coordinator Name Role Phone Keven, Nas Resendez DO Primary Care Provider [phone] Allergies Active Allergy Reactions Criticality Noted Date [...] Pump (OMNIPOD 5 G6 PODS, GEN 5,) [facility] 4 Active Iron, Ferrous Sulfate, 325 (65 [...] 1 diabetes mellitus wit hout complication ([facility]) 05/07/2017 Overview (07/09/2023): Diagnosed at age 2 On pump since 2000 Diagnosed at age 2 On pump since 2000 Class D EKG wnl, echo not able to be done due to insurance Resolved Problems Problem Noted Date Diagnosed Date Resolved Date Type 1 diabetes mellitus wit hout complication ([facility]) 07/09/2023 07/09/2023 Encounters Date Type Department Care Team Description 07/08/2024 Telephone [facility] Family [facility] [address] [place] [address] Nas Baca, Information 06/18/2024 12:38 PM CLINICAL TRAINER - 06/18/2024 11:59 PM CLINICAL TRAINER Hospital Encounter [facility] [place] [address] Nas Baca, DO Discharge Disposition: Home or Self Care (Routine Discharge) 06/18/2024 Travel 06/11/2024 MyChart Message Enc [facility] [address] [place] [address] Nas Baca, DO FMLA Release from Last 3 Months Immunizations Immunization Administration Dates Next Due Influenza Adult (Generic) [...] Sex Assigned at Female 06/18/2024 12:33 PM CLINICAL TRAINER Legal Sex Female 11:47 AM CDT Gender Identity Not on file Sexual Orientation Not on file Last Filed Vital Signs Vital Sign Reading Time Taken Comments Blood Pressure 118/77 04/16/2024 1:35 PM CLINICAL TRAINER Pulse 79 04/16/2024 1:35 PM CLINICAL TRAINER Temperature 37.3 C (99.2 F) 04/16/2024 1:35 PM CLINICAL TRAINER Respiratory Rate 18 07/22/2023 11:43 AM CDT Oxygen Saturation 100% 04/16/2024 1:35 PM CLINICAL TRAINER Inhaled Oxygen Concentration - - Weight 76.5 kg (168 lb 9.6 oz) 04/16/2024 1:35 P M CLINICAL TRAINER Height 171.9 cm (5' 7.68 ) 04/16/2024 1:35 PM CS T Body Mass Index 25.88 04/16/2024 1:35 PM CLINICAL TRAINER Plan of Treatment Health Maintenance Due Date Last Done Comments Kidney Health Evaluation 1989 Annual Physical 02/09/1992 Diabetes: Retinopathy Eye Exam 2007 Hepatitis C 2007 Hepatitis B Vaccines (1 of 3 - 19+ 3-dose series) 02/09/2008 Pneumococcal Vaccine: Pediatrics (0 to 5 Years) and At-Risk Patients (6 to 49 Years) (1 of 2 - PCV) 02/09/2008 Cervical Cancer Screening Pap with HPV Testing (Age 30 to 64) Every 5 Years 2019 04/24/2018 Lipid Panel 05/22/2022 05/22/2021 COVID-19 Vaccine ( season) 2023 07/19/2020, 06/30/2020 PHQ-2 (Physician [facility]) 04/28/2024 04/16/2024 Hemoglobin A1C 06/30/2024 01/01/2024, 0908/2023, [...] UREA BREATH TEST Routine 06/18/2024 12:52 PM CLINICAL TRAINER Helicobacter pylori infection HEMOGLOBIN, GLYCOSYLATED Routine 01/01/2024 from Last 3 Months or Most Recently Relevant to Health Maintenance Results * H. PYLORI UREA BREATH TEST (06/18/2024 12:52 PM CLINICAL TRAINER) H. PYLORI UREA BREATH TEST NOT DETECTED NOT DETECTED 06/21/2024 1:41 PM CLINICAL TRAINER [facility] ELSI HAYWARD Comment: Antimicrobials, proton pump inhibitors, and bismuth preparations are known to suppress H. pylori, and ingestion of these prior to H. pylori diagnostic testing may lead to false negative results. If clinically indicated, the test may be repeated on a new specimen obtained two weeks after discontinuing treatment. However, a positive result is still clinically valid. Test Performed by Katelyn Noland, [employer] [facility], [address] [place], [place] Jeet Thomason M.D., Ph.D., Director of Laboratories , CLIA [id number] 06/18/2024 12:5 2 PM CLINICAL TRAINER Nas Baca DO LABORATORY Final Resul t [facility] [address] [place], [place] , [place] [phone] * HEMOGLOBIN, GLYCOSYLATED (01/01/2024) HGB A1C 7.4 % 01/01/2024 [facility] LABORATORY Final Res ult from Last 3 Months or Most Recently Relevant to Health Maintenance Insurance [facility] Care Teams Electronic Funds Transfer Coordinator Relationship Specialty Start Date End Date Nas Baca [place] [address] PCP - General FAMILY PRACTICE 01/30/23
[2024-08-25 13:15] LABS: Folic Acid 9.1 ng/mL (2.76->20)
== END 2024-08-25 11:17 | disposition home or self-care (01) ==
LOC: ANHLAB 11:20
PROVIDERS: Visit Provider Nurse Practitioner
DX: R19.7 Diarrhea, unspecified (principal); R11.2 Nausea with vomiting, unspecified
CPT/HCPCS: 36415; 82607; 82746; 83540; 83550; 84443; 85652; 86140

== ENCOUNTER 2024-08-26 08:11 | Outpatient (NON) | payer OTHER, SELFPAY ==
--- OUTSIDE RECORDS SUMMARY | 2024-08-26 08:15 | XMS_ITS | Encounter Summary ---
Author Organization [facility] Address [address] [facility] [place] [address] Care Team Providers Care Service Station Manager Name Role Phone Dewayne Weathers MD Primary Care Provider Kaleb Mccurdy MD Primary Care Provider Breanna laura López Jr., MD, Willis Randle Primary Care Provid er Nas Baca DO Primary Care Provider [phone] Encounter Details Date Type Department Care Team (Late Contact Info) Description 05/29/2006 [facility] Outpatient Visit [address] [address] Kandace Billingsley, ENDOCRINOLOGY NURSE-GETTERER Retired Social History Tobacco Use Types Packs/Day Years Used Date Smoking Tobacco: Never Assessed Comments Unknown Sex and Gender Information Value Date Recorded Sex Assigned at Not on file Legal Sex Female 6:55 AM FIELD CARE MANAGER Gender Identity Not on file Sexual Orientation Not on file documented as of this encounter Plan of Treatment Upcoming Encounters Date Type Department Care Team (Late Contact Info) Description 08/30/2024 2:20 PM CDT Office Visit [facility] - Endocrinology [address] [place] [address], [address] [place] [phone] Solo Garcia MD [address] [place] [address] documented as of this encounter Visit Diagnoses Not on filedocumented in this encounter Care Teams Service Station Manager Relationship Specialty Start Date End Date Dewayne Weathers MD [address] [place], [place] [phone] PCP - General 03/28/08 08/18/10 Kaleb Mccurdy MD PCP - General 08/19/10 05/06/17 Willis López [place] [address] [address] [facility] [address] [place] [address] PCP - General 03/30/18 12/03/22 Nas Baca DO [address] [address] PCP - General Family Medicine 07/28/23 documented as of this encounter
--- OUTSIDE RECORDS SUMMARY | 2024-08-26 08:15 | XMS_ITS | Encounter Summary ---
Author Organization [facility] Address [address] [place] [address] Care Team Providers Care Loss Prevention And Safety Manager Name Role Phone Dewayne Weathers MD Primary Care Provider [phone] Kaleb Mccurdy MD Primary Care Provider Breanna laura López Jr., MD, Willis Randle Primary Care Provid er Nas Baca DO Primary Care Provider Encounter Details Date Type Department Care Team (Late Contact Info) Description 05/06/2007 [facility] Outpatient Visit [address] [phone] Roxanna Glover MD Social History Tobacco Use Types Packs/Day Years Used Date Smoking Tobacco: Never Assessed Comments Unknown Sex and Gender Information Value Date Recorded Sex Assigned at Not on file Legal Sex Female 6:55 AM QUALITY ASSURANCE AUDITOR Gender Identity Not on file Sexual Orientation Not on file documented as of this encounter Plan of Treatment Upcoming Encounters Date Type Department Care Team (Late Contact Info) Description 08/30/2024 2:20 PM CDT Office Visit [facility] - Endocrinology [address] [place] [phone] Solo Garcia MD [address] [facility] [address] [place] [address] documented as of this encounter Visit Diagnoses Not on filedocumented in this encounter Care Teams Loss Prevention And Safety Manager Relationship Specialty Start Date End Date Dewayne Weathers MD [address] [place], [place] [phone] PCP - General 03/28/08 08/18/10 Kaleb Mccurdy MD PCP - General 08/19/10 05/06/17 Willis Ló[place] [address] [address] [place] [address] PCP - General 03/30/18 12/03/22 Nas Baca DO [address] [phone] PCP - General Family Medicine 07/28/23 documented as of this encounter
--- OUTSIDE RECORDS SUMMARY | 2024-08-26 08:15 | XMS_ITS | Encounter Summary ---
Author Organization [facility] Address [address] [place] [address] Care Team Providers Care Avp Name Role Phone Nas Baca DO Primary Care Provider [phone] Encounter Details Date Type Department Care Team (Late st Contact Info) Description 07/09/[address] [facility] Family Medicine - [place] [address] [place] [address] [place] [address] Todays Visit/Lab Visit Social History Tobacco Use Types Packs/Day Years Used Date Smoking Tobacco: Former Cigarettes Smokeless Tobacco: Never Alcohol Use Standard Drinks/Week Comments Not Currently 0 (1 standard drink = 0.6 oz pur e alcohol) PHQ-2 Answer Date Recorded Patient Health Questionnaire-2 Score 0 01/30/2023 Comments No Sex and Gender Information Value Date Recorded Sex Assigned at Female 06/18/2024 12:33 PM HOME OFFICE REPRESENTATIVE Legal Sex Female 11:47 AM CDT Gender Identity Not on file Sexual Orientation Not on file documented as of this encounter Plan of Treatment Not on file documented as of this encounter Visit Diagnoses Not on filedocumented in this encounter Care Teams Avp Relationship Specialty Start Date End Date Nas Baca DO [address] [place], [place] [phone] PCP - General FAMILY PRACTICE 01/30/23 documented as of this encounter
--- OUTSIDE RECORDS SUMMARY | 2024-08-26 08:15 | XMS_ITS | Encounter Summary ---
Author Organization [facility] Address [address] [facility] [place] [address] Care Team Providers Care Final Assembly And Packing Supervisor Name Role Phone Dewayne Weathers MD Primary Care Provider Kaleb Mccurdy MD Primary Care Provider Breanna laura López Jr., MD, Willis Randle Primary Care Provid er Nas Baca DO Primary Care Provider [phone] Encounter Details Date Type Department Care Team (Late Contact Info) Description 11/16/2007 [facility] Outpatient Visit [address] [phone] Roxanna Glover MD Social History Tobacco Use Types Packs/Day Years Used Date Smoking Tobacco: Never Assessed Comments Unknown Sex and Gender Information Value Date Recorded Sex Assigned at Not on file Legal Sex Female 6:[address] ENG[address]ER Gender Identity Not on file Sexual Orientation Not on file documented as of this encounter Plan of Treatment Upcoming Encounters Date Type Department Care Team (Late Contact Info) Description 08/30/2024 2:20 PM CDT Office Visit [facility] - Endocrinology [address], [address] [place] [phone] Solo Garcia MD [address] [facility] [address] [place] [address] documented as of this encounter Visit Diagnoses Not on filedocumented in this encounter Care Teams Final Assembly And Packing Supervisor Relationship Specialty Start Date End Date Dewayne Weathers MD [address] [place], [place] [phone] PCP - General 03/28/08 08/18/10 Kaleb Mccurdy MD PCP - General 08/19/10 05/06/17 Willis Ló[place] [address] [address] [facility] 100 [place] [address] PCP - General 03/30/18 12/03/22 Nas Baca DO [address] [phone] PCP - General Family Medicine 07/28/23 documented as of this encounter
--- OUTSIDE RECORDS SUMMARY | 2024-08-26 08:15 | XMS_ITS | Encounter Summary ---
Author Organization [facility] Address [address] [facility] [place] [address] Care Team Providers Care Composing Machine Operator/Tender Name Role Phone Dewayne Weathers MD Primary Care Provider [phone] Kaleb Mccurdy MD Primary Care Provider Breanna laura López Jr., MD, Willis Randle Primary Care Provid er Nas Baca DO Primary Care Provider [phone] Encounter Details Date Type Department Care Team (Late Contact Info) Description 09/25/2006 [facility] Outpatient Visit [address] [phone] Roxanna Glover MD Social History Tobacco Use Types Packs/Day Years Used Date Smoking Tobacco: Never Assessed Comments Unknown Sex and Gender Information Value Date Recorded Sex Assigned at Not on file Legal Sex Female 6:55 AM INTEGRATION SPECIALIST Gender Identity Not on file Sexual Orientation Not on file documented as of this encounter Plan of Treatment Upcoming Encounters Date Type Department Care Team (Late Contact Info) Description 08/30/2024 2:20 PM CDT Office Visit [facility] - Endocrinology [address], [address] [place] [phone] Solo Garcia MD [address] [facility] [address] [place] [address] documented as of this encounter Visit Diagnoses Not on filedocumented in this encounter Care Teams Composing Machine Operator/Tender Relationship Specialty Start Date End Date Dewayne Weathers MD [address] [place], [place] [phone] PCP - General 03/28/08 08/18/10 Kaleb Mccurdy MD PCP - General 08/19/10 05/06/17 Willis Ló[place] [address] [address] [facility] 100 [place] [address] PCP - General 03/30/18 12/03/22 Nas Baca DO [address] [phone] PCP - General Family Medicine 07/28/23 documented as of this encounter
--- OUTSIDE RECORDS SUMMARY | 2024-08-26 08:15 | XMS_ITS | Encounter Summary ---
Author Organization [facility] Address [address] [place] [address] Care Team Providers Care Unisaw Operator Name Role Phone Dewayne Weathers MD Primary Care Provider [phone] Kaleb Mccurdy MD Primary Care Provider Breanna laura López Jr., MD, Willis aRndle Primary Care Provid er Nas Baca DO Primary Care Provider Encounter Details Date Type Department Care Team (Late Contact Info) Description 01/13/2008 [facility] Outpatient Visit [facility] DEFAULT [address] [place], [place] [phone] Ru Shelton MD Retired Social History Tobacco Use Types Packs/Day Years Used Date Smoking Tobacco: Never Assessed Comments Unknown Sex and Gender Information Value Date Recorded Sex Assigned at Not on file Legal Sex Female 6:55 AM PICK UP DRIVER Gender Identity Not on file Sexual Orientation Not on file documented as of this encounter Plan of Treatment Upcoming Encounters Date Type Department Care Team (Late Contact Info) Description 08/30/2024 2:20 PM CDT Office Visit [facility] - Endocrinology [address] [place] [address], [address] [place] [address] Solo Garcia MD [address] [facility] [address] [place] [address] documented as of this encounter Visit Diagnoses Not on filedocumented in this encounter Care Teams Unisaw Operator Relationship Specialty Start Date End Date Dewayne Weathers MD [address] [place], [place] [phone] PCP - General 03/28/08 08/18/10 Kaleb Mccurdy MD PCP - General 08/19/10 05/06/17 Willis López [place] [address] [address] [facility] [address] [place] [address] PCP - General 03/30/18 12/03/22 Nas Baca DO [address] [phone] PCP - General Family Medicine 07/28/23 documented as of this encounter
--- OUTSIDE RECORDS SUMMARY | 2024-08-26 08:15 | XMS_ITS | Clinical Summary ---
Author Organization [facility] [address] [place] [address] [place] [address] Care Team Providers Care Director Workers Compensation Name Role Phone Leena Mathur DO Primary Care Provid er Unavailable Allergies Active Allergy Reactions Criticality Noted Date Comments Succinylcholine Other (See Comments) High 09/04/2018 Family history of malignant hyperthermia Medications Dexcom G6 Associate Designer USE DEVICE UTD 0 Active Blood-Glucose Meter,Continuous (Dexcom G6 Associate Designer) 1 Device by NOT APPLICABLE route. 0 Active Insulin [place], Disposable, (Pen Needle) 31 gauge x 3/16 [...] COVID-19 VACCINE - EMERGENCY USE AUTHORIZATION, MRNA, [id number](PF) 30 MCG/0.3 ML IM SUSP 07/19/2020,06/30/2020 INFLUENZA [...] patient's age to complete [place] [address] [facility] PREFERRED RX [facility] Member Subscriber Plan / Payer (Ef fective 2022-Present) Name:Inna Werner Relation to Subscriber:Self Name:Inna Werner Subscriber ID:Not on file Payer ID:Not on file Group ID:[id number] Type:RX Commercial Address: [address] Care Teams Director Workers Compensation Relationship Specialty Start Date End Date Leena Mathur DO PCP - General Family Practice 05/18/20
--- OUTSIDE RECORDS SUMMARY | 2024-08-26 08:15 | XMS_ITS | Encounter Summary ---
Author Organization [facility] Address [address] [facility] [place] [address] Care Team Providers Care Associate Professor Of Communication Name Role Phone Dewayne Weathers MD Primary Care Provider Kaleb Mccurdy MD Primary Care Provider Breanna laura López Jr., MD, Willis Randle Primary Care Provid er Nas Baca DO Primary Care Provider Encounter Details Date Type Department Care Team (Late Contact Info) Description 01/19/[address] [facility] Outpatient Visit [facility] DEFAULT [address] [place], [place] [phone] [place] [address] [place] [address] Social History Tobacco Use Types Packs/Day Years Used Date Smoking Tobacco: Never Assessed Comments Unknown Sex and Gender Information Value Date Recorded Sex Assigned at Not on file Legal Sex Female 6:55 AM PROVIDER ENGAGEMENT EXECUTIVE Gender Identity Not on file Sexual Orientation Not on file documented as of this encounter Plan of Treatment Upcoming Encounters Date Type Department Care Team (Late Contact Info) Description 08/30/2024 2:20 PM CDT Office Visit [facility] - Endocrinology [address], [address] [place] [phone] Solo Garcia MD [address] [facility] [address] [place] [address] documented as of this encounter Visit Diagnoses Not on filedocumented in this encounter Care Teams Associate Professor Of Communication Relationship Specialty Start Date End Date Dewayne Weathers MD [address] [place], [place] [phone] PCP - General 03/28/08 08/18/10 Kaleb Mccurdy MD PCP - General 08/19/10 05/06/17 Willis López [place] [address] Elsy [address]andre [facility] 100 [place] [phone] PCP - General 03/30/18 12/03/22 Nas Baca DO [address] [phone] PCP - General Family Medicine 07/28/23 documented as of this encounter
--- OUTSIDE RECORDS SUMMARY | 2024-08-26 08:15 | XMS_ITS | Clinical Summary ---
Author Organization [facility] Address [address] [place] [address] Care Team Providers Care Manager Strategic Name Role Phone KevenNas DO Primary Care Provider Source Comments [facility],non-owned Affiliates and Associated Physician Practices is amultiple site organization consisting of ambulatory clinics and hospital sitesin [place], [place], [place]. This disclosure is being madepursuant to the Care Everywhere program and may not contain all information available regarding this patient. Last updated 18.[facility] Allergies No known active allergies Medications * [...] 24 Active Insulin Disposable Pump (Omnipod 5 [id number] Pods Gen 5) MISCIndications: Type 1 diabetes mellitus without complication (HCC) Use 1 Each every 2 days 15 Each 2 03/18/20 24 Active insulin aspart (NovoLOG) vial Inject up to 60 units daily via insulin pump 20 mL 2 06/29/19 25 Active Active Problems Problem Noted Date Diagnosed Date Breast pain, right 06/29/2020 Assessment & Plan (06/29/2020 4:48 PM APPAREL PATTERN MAKER): Exam is normal. I discussed that breast [...] Type Department Care Team Description 07/09/2024 Telephone [facility] - Endocrinology [address] [place] [address], [address] [place] [address] Solo Garcia MD Medication Prior Auth Request 06/28/2024 Refill [facility] - Endocrinology [address] [place] [address], [address] [place] [phone] Solo Garcia MD MEDICATION REFILL from Last 3 Months Immunizations Immunization Administration Dates Next Due GoodThreads primary monoval ent 12+ yr 0.3mL Purple [...] on file Legal Sex Female 6:55 AM APPAREL PATTERN MAKER Gender Identity Not on file Sexual Orientation [...] 08/30/2024 2:20 PM CDT Office Visit [facility] - Endocrinology [address], [address] [place] [address] Solo Garcia MD [address] [place] [address] Health Maintenance Due Date Last [...] IMAGE-GUIDED RFLX HPV+CT/NG Routine 04/24/2018 11:22 AM APPAREL PATTERN MAKER , unspecified gestational age Screening for cervical cancer from Last 3 Months or Most Recently Relevant to Health Maintenance Results * (ABNORMAL) HEMOGLOBIN A1C - POINT OF CARE (AMB) (01/01/2024 9:52 AM CDT) Hemoglobin A1c POCT 7.4(H) % [facility] Expiration Date [address] [facility] [address] [facility] Lot # [id number] [facility] QC Verified Yes Yes [facility] Blood BLOOD SPECIMEN / Unknown 01/01/2024 9:52 AM CDT Solo Garcia MD LAB - POINT OF CARE ORDERAB LES Final Result [facility] [address], [place] [address], [facility] [phone] * MICROALB/CREAT RATIO URINE RANDOM PANEL (07/28/2023 11:21 AM CDT) Creatinine Urine 128.52 mg/dL LAB [facility] ACCOUNT BILL Microalbumin Urine 1.1 mg/dL [facility] ACCOUNT BILL Microalbumin/Crea tinine Ratio 8 <30 mg/g [facility] ACCOUNT BILL Urine URINE SPECIMEN OBTAINED BY CLEAN CATCH PROCEDURE / Unknown 07/28/2023 11:21 AM CDT 07/28/2023 Narrative Resulting Agency Comment Lab Testing performed at: [facility] [address] [facility] [phone] Solo Garcia MD LAB - URINE CHEMISTRY ORDER MATHIEU Final Result [facility] ACCOUNT BILL [address] [place] [address] * (ABNORMAL) COMPREHENSIVE METABOLIC PANEL (07/28/2023 11:21 AM CDT) Pathologist [facility] Glucose 130(H) 70 - 105 [...] Resulting Agency Comment Lab Testing performed at: [address] [phone] [place] Solo Garcia MD LAB - CHEMISTRY ORDERABLES Final Result [facility] ACCOUNT BILL [address] [place] [address] * HIV-1 HIV-2 ANTIBODY + HIV P24 AG PANEL (09/18/2018 11:03 AM CDT) [facility] HIV Screen 4th Generation w Reflex [...] purpose. For additional information please refer to http://education.brand eins Verlag/faq/VYH747 (This link is being provided for informational/ educational purposes only.) The performance of this assay has not been clinically validated in patients less than 2 years old. Test Performed at: [facility] [address] [place] [address] DALTON WOOD DO,MPH Blood BLOOD SPECIMEN / Unknown 09/18/2018 11:03 AM CDT 09/18/2018 11:04 AM CDT Iain Rosenbaum MD LAB - CHEMISTRY ORDERABLES Fin al Result [facility] [address] [place] [id number] * PAP IMAGE-GUIDED LIQUID BASE RFLX HPV+CT/NG (04/24/2018 11:22 AM APPAREL PATTERN MAKER) Case Report Gynecologic Cytology Report Case: [id number] Authorizing Provider: Jocelyn Sharma MD Collected: 04/24/2018 11:22 AM Ordering Location: [facility] Obstetrics Received: 04/27/2018 11:22 AM [facility] Screen: Dewayne Perez Specimen: THINPREP - IMAGE GUIDED, Cervix/Endocervix 04/29/2018 1:22 PM APPAREL PATTERN MAKER [facility] LMP 04/29/2018 1:22 PM APPAREL PATTERN MAKER [facility] Menstrual Status 04/29/19 1:22 PM APPAREL PATTERN MAKER [facility] Specimen Adequacy Satisfactory for evaluation, endocervical/trans formation zone component present. 04/29/2018 1:22 PM APPAREL PATTERN MAKER [facility] Categorization Negative for intraepithelial lesion or malignancy. 04/29/2018 1:22 PM APPAREL PATTERN MAKER [facility] Interpretation INFRASTRUCTURE PROJECT MANAGER Negative for intraepithelial lesion or malignancy. 04/29/2018 1:22 PM APPAREL PATTERN MAKER [facility] Pap Footnote This specimen was evaluated by the [employer] System along with the an additional manual rescreening by a health and safety advisor and/or pathologist. 04/29/2018 1:[address] [facility] Embedded Images 9 1:[address] [facility] Pathology/Cytolo gy MISCELLANEOUS SAMPLES / Unknown 04/24/2018 11:22 AM APPAREL PATTERN MAKER 04/27/2018 11:22 AM APPAREL PATTERN MAKER Jocelyn Sharma MD LAB - PATHOLOGY/CYTOLOGY OR DERABLES Final Result Performing Organization Address City/State/[facility] Co de Phone Number [facility] [address] [place] [address], [facility] [phone] from Last 3 Months or Most Recently Relevant to Health Maintenance Insurance [facility] ANTHEM Advance Directives * Full Code (Latest Code Status on File) Date Activated Date Inactivated Comments 10/30/2018 12:56 PM 11/02/2018 5:30 PM * Full Code Date Activated Date Inactivated Comments 09/04/2018 3:48 PM 09/05/2018 10:56 PM Care Teams Manager Strategic Relationship Specialty Start Date End Date Nas Baca DO [address] [phone] PCP - General Family Medicine 07/28/23
--- OUTSIDE RECORDS SUMMARY | 2024-08-26 08:15 | XMS_ITS | Encounter Summary ---
Author Organization [facility] Address [address] [place] [address] Care Team Providers Care Cook Sauce Name Role Phone Nas Baca DO Primary Care Provider [phone] Encounter Details Date Type Department Care Team (Late st Contact Info) Description 07/23/2023 MyCQuan[employer]platet Message Enc [facility] Family Medicine [facility] 5 [place] [address] [place] [address] Following Yesterday s Visit Social History Tobacco [...] Sex Assigned at Female 06/18/2024 12:33 PM TRACTOR TRAILER TECHNICIAN Legal Sex Female 11:47 AM CDT Gender Identity Not on file Sexual Orientation Not on file documented as of this encounter Plan of Treatment Not on file documented as of this encounter Visit Diagnoses Not on filedocumented in this encounter Care Teams Cook Sauce Relationship Specialty Start Date End Date Nas Baca DO [address] [place], [place] [phone] PCP - General FAMILY PRACTICE 01/30/23 documented as of this encounter
--- OUTSIDE RECORDS SUMMARY | 2024-08-26 08:15 | XMS_ITS | Encounter Summary ---
Author Organization [facility] Address [address] [place] [address] Care Team Providers Care Development Professional Name Role Phone Dewayne Weathers MD Primary Care Provider [phone] Klaeb Mccurdy MD Primary Care Provider Breanna laura López Jr., MD, Willis Randle Primary Care Provid er Nas Baca DO Primary Care Provider [phone] Encounter Details Date Type Department Care Team (Late Contact Info) Description 01/13/2008 [facility] Outpatient Visit [facility] DEFAULT [address] [place] [address] Nasrin Matthews APRN-CNP Social History Tobacco Use Types Packs/Day Years Used Date Smoking Tobacco: Never Assessed Comments Unknown Sex and Gender Information Value Date Recorded Sex Assigned at Not on file Legal Sex Female 6:55 AM INTERNAL RECRUITER Gender Identity Not on file Sexual Orientation Not on file documented as of this encounter Plan of Treatment Upcoming Encounters Date Type Department Care Team (Late Contact Info) Description 08/30/2024 2:20 PM CDT Office Visit [facility] - Endocrinology [address] [place] [address], [address] [place] [address] Solo Garcia MD [address] [facility] [address] [place] [address] documented as of this encounter Visit Diagnoses Not on filedocumented in this encounter Care Teams Development Professional Relationship Specialty Start Date End Date Dewayne Weathers MD [address] [place], [place] [id number] PCP - General 03/28/08 08/18/10 Kaleb Mccurdy MD PCP - General 08/19/10 05/06/17 Willis López [place] [address] [address] Alej[address]re [facility] [address] [place] [address] PCP - General 03/30/18 12/03/22 Nas Baca DO [address] [facility] [address] [place] [phone] PCP - General Family Medicine 07/28/23 documented as of this encounter
--- OUTSIDE RECORDS SUMMARY | 2024-08-26 08:15 | XMS_ITS | Encounter Summary ---
Author Organization [facility] Address [address] [place] [address] Care Team Providers Care Inpatient Services Director Name Role Phone Nas Baca DO Primary Care Provider [phone] Encounter Details Date Type Department Care Team (Late st Contact Info) Description 12/04/2023 CAXAt Message Enc [facility] Family Medicine [address] [address] Nas Baca DO [address] [place] [address] Positive Covid Social History Tobacco Use Types Packs/Day Years Used Date Smoking Tobacco: Former Cigarettes Smokeless Tobacco: Never Alcohol Use Standard Drinks/Week Comments Not Currently 0 (1 standard drink = 0.6 oz pur e alcohol) occas. PHQ-2 Answer Date Recorded Patient Health Questionnaire-2 Score 0 07/22/2023 Comments No Sex and Gender Information Value Date Recorded Sex Assigned at Female 06/18/2024 12:33 PM ENTRY LEVEL ACCOUNT REPRESENTATIVE Legal Sex Female 11:47 AM CDT [...] on filedocumented in this encounter Care Teams Inpatient Services Director Relationship Specialty Start Date End Date Nas Baca DO [address] [place] [address] PCP - General FAMILY PRACTICE 01/30/23 documented as of this encounter
--- OUTSIDE RECORDS SUMMARY | 2024-08-26 08:15 | XMS_ITS | Clinical Summary ---
Author Organization [facility] Address [address] [place] [address] Care Team Providers Care Tow Truck Driver Name Role Phone Keven, Nas Anival Primary Care Provide r Solo Garcia MD Unavailable [phone] Allergies Active Allergy Reactions Criticality Noted Date Comments Metronidazole Itching Low 04/01/2024 Itching of face, mouth, chest and whole body per patient Succinylcholine Other (See comments) High 09/04/2018 Family history of pseudocholinesterase deficiency, so prolonged time of action with succinylcholine administration for her, if given. Medications blood-glucose meter,continuous (Dexcom G6 Station Cook) misc 1 Device by Not Applicable route [...] Tobacco: Never Tobacco Cessation:Counseling Given: Not Answered [facility] Utilities Answer Date Recorded In the past 12 months has [employer], gas, oil, or water [employer] threatened to shut off services in your [...] often do you attend chur ch or lutheran services? Never 04/09/2024 Do you belong to any clubs o r organizations such as holiness groups, unions, fraternal or athletic groups, or [...] any time in the past [facility], were you homeless or living in a detention (including now)? No 04/09/2024 Personal Safety Answer Date Recorded Have you ever been in or are you currently in a harmful physical or emotional relationship or is someone making you feel afraid or unsafe? Denies 04/08/2024 Comments No Sex and Gender Information Value Date Recorded Sex Assigned at Not on file Legal Sex Female 9:33 AM CDT Gender Identity Female 05/19/2024 6:51 AM BULLDOZER PRESS OPERATOR Sexual Orientation Straight 05/19/2024 6: 51 AM BULLDOZER PRESS OPERATOR Obstetrics History Para Term AB IAB SAB Ectopic Multiple Livin g Live Births 2 2 1 1 Date Outcome GA Total Labor Labor/2nd/3rd Weight Sex Type Anes PTL Rosangela A1 A5 Name Clin Term 019 34w 5d 4h 56m 4h 51m/0h 05m 3.975 kg (8 lb 12.2 oz) F Vag-S pont Epidur al Y 5 9 Estrellita Ornelas MD Complications:Intraamniotic Infection Delivery Location:[facility] Comments:Heart murmur Last Filed Vital Signs Vital Sign Reading Time Taken Comments Blood Pressure 126/78 04/10/2024 4:05 AM BULLDOZER PRESS OPERATOR Pulse 70 04/10/2024 4:05 AM BULLDOZER PRESS OPERATOR Temperature 36.9 C (98.4 F) 04/10/2024 4:05 AM BULLDOZER PRESS OPERATOR Respiratory Rate 16 04/10/2024 4:05 AM BULLDOZER PRESS OPERATOR Oxygen Saturation 99% 04/10/2024 4:05 AM BULLDOZER PRESS OPERATOR Inhaled Oxygen Concentration - - Weight 77.1 kg (170 lb) 04/08/2024 7:50 PM BULLDOZER PRESS OPERATOR Height 170.2 cm (5' 7 ) 04/08/2024 7:50 PM BULLDOZER PRESS OPERATOR Body Mass Index 26.63 04/08/2024 7:50 PM BULLDOZER PRESS OPERATOR Plan of Treatment Health Maintenance Due [...] Diagnosis Comments EGFR STAT 04/08/2024 12:59 PM BULLDOZER PRESS OPERATOR PAP WITH REFLEX TO HIGH RISK HPV Routine 11/14/2022 11:49 AM CDT Well female exam with routine gynecological exam from Last 3 Months or Most Recently Relevant to Health Maintenance Results * eGFR (04/08/2024 12:59 PM BULLDOZER PRESS OPERATOR) eGFR >90 >=60 mL/min/1. 73 m2 Comment: [...] reviewed 2021. Blood 04/08/2024 12:5 9 PM BULLDOZER PRESS OPERATOR 04/08/2024 1:30 PM BULLDOZER PRESS OPERATOR us Michelle Pantoja MD LAB BLOOD ORDERABLES Final Result [facility] [address] Department [place] [address] * Pap with reflex to High Risk HPV and Genotyping (Cytology Component) (11/14/2022 11:49 AM CDT) Thin prep (Pap test) 11/14/2022 11:49 AM CDT 11/18/2022 11:49 AM CDT Narrative PATHOLOGY [facility] - 11/21/2022 1:[address] [facility] Department of Pathology [address] [place] [address] Final Report Note to Patients: [...] the details. Patient Name: KHALIF RIVERA Address: [address] [place] [address] Gender: F : 1990 (Age: 32) Service: Location: N : [id number] [facility] #: [id number] Patient Type: [facility] SPECIMEN Taken: 11/14/2022 Received: 11/18/2022 Accessioned:: 11/19/2022 Reported: 11/21/2022 Physician(s): Jocelyn Floers [facility] Diagnosis: SOURCE OF SPECIMEN Imaged Thinprep Pap Test w/ Reflex HPV - Picture Hanger Cytologic Material: STATEMENT OF ADEQUACY - Satisfactory for evaluation; endocervical/transformation zone component present GENERAL CATEGORIZATION: - Negative for intraepithelial lesion or malignancy MARLINE Christianson(ASCP) Report Electronically Reviewed and Signed Out By MARLINE Christianson(ASCP) 11/21/2022 13:17:29Specimen(s) Received: A: Imaged Thinprep Pap Test w/ Reflex HPV - Picture Hanger Cytologic Material Clinical History: Last Menstrual Period: [...] determined by the Surgical Pathology Department at [facility] as part of an ongoing quality improvement consultant program and in compliance with federally mandated [...] characteristics determined by the Surgical Pathology Department [facility]. It has not been cleared or approved by the U. S. Food and Drug Administration. Jocelyn Flores CNM LAB CYTOLOGY ORDERABLES Final Result [facility] from Last 3 Months or Most Recently Relevant to Health [place] [address] [facility] [address] [place] [place] [id number] [place] [place] [address] Advance Directives For more information, please contact: [phone] * Full Code (Latest Code Status on File) Date Activated Date Inactivated Comments 04/08/2024 7:40 PM 04/10/2024 5:40 PM * Full Code Date Activated Date Inactivated Comments 04/01/2024 1:49 PM 04/04/2024 7:09 PM Care Teams Tow Truck Driver Relationship Specialty Start Date End Date Nas Baca DO [address] [place] [address] PCP - General Family Medicine 06/27/23 Solo Garcia MD [address] [address] Referring Physician Endocrinology Diabetes & Metabolism 08/11/24
--- OUTSIDE RECORDS SUMMARY | 2024-08-26 08:15 | XMS_ITS | Referral Summary ---
Author Organization [facility] Address [address] [place] [address] Care Team Providers Care Potato Chip Sorter Name Role Phone Keven, Nas Anival Primary Care Provide r Solo Garcia MD Unavailable [phone] Allergies Active Allergy Reactions Criticality Noted Date Comments Metronidazole Itching Low 04/01/2024 Itching of face, mouth, chest and whole body per patient Succinylcholine Other (See comments) High 09/04/2018 Family history of pseudocholinesterase deficiency, so prolonged time of action with succinylcholine administration for her, if given. Medications blood-glucose meter,continuous (Dexcom G6 Education Program Associate) misc 1 Device by Not Applicable route [...] Tobacco: Never Tobacco Cessation:Counseling Given: Not Answered [facility] Utilities Answer Date Recorded In the past 12 months has e [employer], gas, oil, or water [employer] threatened to shut off services in your [...] often do you attend chur ch or congregational services? Never 04/09/2024 Do you belong to any clubs o r organizations such as hinduism groups, unions, fraternal or athletic groups, or [...] any time in the past 12 m [facility], were you homeless or living in [...] CDT Gender Identity Female 05/19/2024 6:51 AM DUPLICATING MACHINE OPERATOR Sexual Orientation Straight 05/19/2024 6: 51 AM DUPLICATING MACHINE OPERATOR Last Filed Vital Signs Vital Sign Reading Time Taken Comments Blood Pressure 126/78 04/10/2024 4:05 AM DUPLICATING MACHINE OPERATOR Pulse 70 04/10/2024 4:05 AM DUPLICATING MACHINE OPERATOR Temperature 36.9 C (98.4 F) 04/10/2024 4:05 AM DUPLICATING MACHINE OPERATOR Respiratory Rate 16 04/10/2024 4:05 AM DUPLICATING MACHINE OPERATOR Oxygen Saturation 99% 04/10/2024 4:05 AM DUPLICATING MACHINE OPERATOR Inhaled Oxygen Concentration - - Weight 77.1 kg (170 lb) 04/08/2024 7:50 PM DUPLICATING MACHINE OPERATOR Height 170.2 cm (5' 7 ) 04/08/2024 7:50 PM DUPLICATING MACHINE OPERATOR Body Mass Index 26.63 04/08/2024 7:50 PM DUPLICATING MACHINE OPERATOR Plan of Treatment Not on file Procedures Procedure Name Priority Date/Time Associated Diagnosis Comments EGFR STAT 04/08/2024 12:59 PM DUPLICATING MACHINE OPERATOR PAP WITH REFLEX TO HIGH RISK HPV Routine 11/14/2022 11:49 AM CDT Well female exam with routine gynecological exam from Last 3 Months or Most Recently Relevant to Health Maintenance Results * eGFR (04/08/2024 12:59 PM DUPLICATING MACHINE OPERATOR) eGFR >90 >=60 mL/min/1. 73 m2 [...] reviewed 2021. Blood 04/08/2024 12:5 9 PM DUPLICATING MACHINE OPERATOR 04/08/2024 1:30 PM DUPLICATING MACHINE OPERATOR us Michelle Pantoja MD LAB BLOOD ORDERABLES Final Result [facility] [address] Department [place] [address] * Pap with reflex to High Risk HPV and Genotyping (Cytology Component) (11/14/2022 11:49 AM CDT) Thin prep (Pap test) 11/14/2022 11:49 AM CDT 11/18/2022 11:49 AM CDT Narrative PATHOLOGY [facility] - 11/21/2022 1:17 PM CDT [facility] Department of Pathology [address] [place] [address] Final Report Note to Patients: This [...] the details. Patient Name: INNA RIVERA Address: [address] [place] [address] Gender: F : 1990 (Age: 32) Service: Location: N : [id number] [facility] #: [id number] Patient Type: [facility] SPECIMEN Taken: 11/14/2022 Received: 11/18/2022 Accessioned:: 11/19/2022 Reported: 11/21/2022 Physician(s): Jocelyn Flores [facility] Diagnosis: SOURCE OF SPECIMEN Imaged Thinprep Pap Test w/ Reflex HPV - Plastic Extrusion Operator Cytologic Material: STATEMENT OF ADEQUACY - Satisfactory for evaluation; endocervical/transformation zone component present GENERAL CATEGORIZATION: - Negative for intraepithelial lesion or malignancy MARLINE Christianson(ASCP) Report Electronically Reviewed and Signed Out By MARLINE Christianson(ASCP) 11/21/2022 13:17:29Specimen(s) Received: A: Imaged Thinprep Pap Test w/ Reflex HPV - Plastic Extrusion Operator Cytologic Material Clinical History: Last Menstrual [...] by the Surgical Pathology Department at [facility] as part of an ongoing quality liaison program and in compliance with federally mandated [...] determined by the Surgical Pathology Department [facility]. It has not been cleared or approved by the U. S. Food and Drug Administration. Jocelyn DURON LAB CYTOLOGY ORDERABLES Final Result [facility] from Last 3 Months or Most Recently Relevant to Health Maintenance Insurance [facility] [place] [address] [facility] [place] [place] [address] [address] [place] [address] Advance Directives For more information, please contact: [phone] * Full Code (Latest Code Status on File) Date Activated Date Inactivated Comments 04/08/2024 7:40 PM 04/10/2024 5:40 PM * Full Code Date Activated Date Inactivated Comments 04/01/2024 1:49 PM 04/04/2024 7:09 PM Care Teams Potato Chip Sorter Relationship Specialty Start Date End Date Nas Baca DO [address] [place] [address] PCP - General Family Medicine 06/27/23 Solo Garcia MD [address] [address] Referring Physician Endocrinology Diabetes & Metabolism 08/11/24
--- OUTSIDE RECORDS SUMMARY | 2024-08-26 08:15 | XMS_ITS | Encounter Summary ---
Author Organization [facility] Address [address] [place] [address] Care Team Providers Care Janitorial Tech Name Role Phone Nas Baca DO Primary Care Provider [phone] Encounter Details Date Type Department Care Team (Late st Contact Info) Description 07/14/2023 MyChart Message Enc [facility] Family Medicine [facility] [address] [place] [address] Nas Baca DO [address] [place] [address] EBV Results Social History Tobacco Use Types Packs/Day Years Used Date Smoking Tobacco: Former Cigarettes Smokeless Tobacco: Never Alcohol Use Standard Drinks/Week Comments Not Currently 0 (1 standard drink = 0.6 oz pur e alcohol) PHQ-2 Answer Date Recorded Patient Health Questionnaire-2 Score 0 01/30/2023 Comments No Sex and Gender Information Value Date Recorded Sex Assigned at Female 06/18/2024 12:33 PM DIGITAL TECH Legal Sex Female 11:47 AM CDT Gender Identity Not on file Sexual Orientation Not on file documented as of this encounter Plan of Treatment Not on file documented as of this encounter Visit Diagnoses Not on filedocumented in this encounter Care Teams Janitorial Tech Relationship Specialty Start Date End Date [place] [address] PCP - General FAMILY PRACTICE 01/30/23 documented as of this encounter
--- OUTSIDE RECORDS SUMMARY | 2024-08-26 08:15 | XMS_ITS | Clinical Summary ---
Author Organization [facility] Address [facility] [place] [address] Care Team Providers Care Tank Filler Name Role Phone Keven, Nas Resendez DO Primary Care Provider [phone] Allergies Active Allergy Reactions Criticality Noted Date [...] 5 G6 PODS, GEN 5,) [facility] 4 Active Iron, Ferrous Sulfate, 325 (65 [...] Type 1 diabetes mellitus wit hout complication ([facility]) 05/07/2017 Overview (07/09/2023): Diagnosed at age 2 On pump since 2000 Diagnosed at age 2 On pump since 2000 Class D EKG wnl, echo not able to be done due to insurance Resolved Problems Problem Noted Date Diagnosed Date Resolved Date Type 1 diabetes mellitus wit hout complication ([facility]) 07/09/2023 07/09/2023 Encounters Date Type Department Care Team Description 07/08/2024 Telephone [facility] Family [facility] [address] [place] [address] Nas Baca, Information 06/18/2024 12:38 PM MOLDER HELPER - 06/18/2024 11:59 PM MOLDER HELPER Hospital Encounter [facility] [place] [address] Nas Baca, DO Discharge Disposition: Home or Self Care (Routine Discharge) 06/18/2024 Travel 06/11/2024 MyChart Message Enc [facility] [address] [place] [address] Nas Baca, DO FMLA Release [...] Sex Assigned at Female 06/18/2024 12:33 PM MOLDER HELPER Legal Sex Female 11:47 AM CDT Gender Identity Not on file Sexual Orientation Not on file Last Filed Vital Signs Vital Sign Reading Time Taken Comments Blood Pressure 118/77 04/16/2024 1:35 PM MOLDER HELPER Pulse 79 04/16/2024 1:35 PM MOLDER HELPER Temperature 37.3 C (99.2 F) 04/16/2024 1:35 PM MOLDER HELPER Respiratory Rate 18 07/22/2023 11:43 AM CDT Oxygen Saturation 100% 04/16/2024 1:35 PM MOLDER HELPER Inhaled Oxygen Concentration - - Weight 76.5 kg (168 lb 9.6 oz) 04/16/2024 1:35 P M MOLDER HELPER Height 171.9 cm (5' 7.68 ) 04/16/2024 1:35 PM CS T Body Mass Index 25.88 04/16/2024 1:35 PM MOLDER HELPER Plan of Treatment Health Maintenance Due Date [...] ( season) 2023 07/19/2020, 06/30/2020 PHQ-2 (Physician [place]) 04/28/2024 04/16/2024 Hemoglobin A1C 06/30/2024 01/01/2024, 0908/2023, [...] UREA BREATH TEST Routine 06/18/2024 12:52 PM MOLDER HELPER Helicobacter pylori infection HEMOGLOBIN, GLYCOSYLATED Routine 01/01/2024 from Last 3 Months or Most Recently Relevant to Health Maintenance Results * H. PYLORI UREA BREATH TEST (06/18/2024 12:52 PM MOLDER HELPER) H. PYLORI UREA BREATH TEST NOT DETECTED NOT DETECTED 06/21/2024 1:41 PM MOLDER HELPER [facility] ELSI HAYWARD Comment: Antimicrobials, proton pump [...] clinically valid. Test Performed by Katelyn Noland, Audanika Manasa [facility], [address] [place], [place] Jeet Thomason M.D., Ph.D., Director of Laboratories , CLIA [id number] 06/18/2024 12:5 2 PM MOLDER HELPER Nas Baca DO LABORATORY Final Resul t Social [employer] [facility] [address] [place], [place] , [place] [phone] * HEMOGLOBIN, GLYCOSYLATED (01/01/2024) HGB A1C 7.4 % 01/01/2024 [facility] Abstract LABORATORY Final Res ult from Last 3 Months or Most Recently Relevant to Health Maintenance Insurance [facility] Care Teams Tank Filler Relationship Specialty Start Date End Date Nas [place] [address] PCP - General FAMILY PRACTICE 01/30/23
[2024-08-26 09:59] LABS: Toxigenic C. Diff NEGATIVE (NEGATIVE)
[2024-08-31 21:29] LABS: Pancreatic Elastase, Stool >800 mcg/g (>200)
== END 2024-08-26 08:12 | disposition home or self-care (01) ==
PROVIDERS: Visit Provider Nurse Practitioner
DX: R19.7 Diarrhea, unspecified (principal); R11.2 Nausea with vomiting, unspecified
CPT/HCPCS: 82653; 83993; 87045; 87177; 87209; 87269; 87427; 87449; 87493

== ENCOUNTER 2024-11-16 11:16 | Emergency (ER) | payer OTHER, SELFPAY ==
--- NOTE | ~2024-11-16 | CT_ITS ---
CLINICAL INDICATION: Recurrent left upper quadrant and epigastric pain COMPARISON: 07/29/2024. TECHNIQUE: Multiple contiguous axial images of the abdomen and pelvis were performed following the ad ministration of with 100 mL Omnipaque-350 intravenous contrast The dose-length product (DLP) was 479.68 mGy-cm. Automated exposure control and iterative reconstruction technique were employed. FINDINGS/OBSERVATIONS: Visualized lower thorax: The bilateral lung bases are clear. The heart is of normal size, without pericardial effusion. Liver: The liver demonstrates homogeneous enhancement and is not enlarged. Gallbladder and biliary system: The gallbladder is only minimally distended, and otherwise unremarkable. Pancreas: The pancreas enhances homogeneously without ductal dilatation. Spleen: The spleen enhances homogeneously and is not enlarged measuring 8 cm in longitudinal dimension. Kidneys: The bilateral kidneys enhance symmetrically without hydronephrosis or renal calculi. Adrenal glands: Unremarkable. Gastrointestinal tract: Fecal stasis within the colon. Appendix: The appendix is not definitively visualized. However, no pericecal inflammatory change is identified suggest the presence of acute appendicitis. Vasculature: Unremarkable. Lymph nodes: No pathologically enlarged or morphologically suspicious lymph nodes within the retroperitoneum or at the root of the mesentery. Pelvic structures: The bladder is distended, and otherwise unremarkable. 2 centimeter involuting cyst within the left ovary. Free fluid within the pelvis, likely physiologic. The uterus is anteverted and anteflexed, and otherwise unremarkable. Body wall and musculoskeletal: Small complex fat-containing umbilical hernia. No significant degenerative disease within the lower thoracic or lumbosacral spine. IMPRESSION: 2 cm involuting cyst within the left ovary, as detailed above. Small complex fat-containing umbilical hernia. Reviewed, dictated and finalized at location A.
--- OUTSIDE RECORDS SUMMARY | 2024-11-16 11:18 | XMS_ITS | Encounter Summary ---
Author Organization [facility] Address [address] [place] [address] Care Team Providers Care First Cook Name Role Phone Nas Baca DO Primary Care Provider [phone] Encounter Details Date Type Department Care Team (Late st Contact Info) Description 07/23/2023 MyCPulaski Bankt Message Enc [facility] Family Medicine [facility] [address] [place] [address] [place] [address] Following Yesterday s Visit Social History Tobacco [...] Sex Assigned at Female 06/18/2024 12:33 PM LITERATURE PROFESSOR Legal Sex Female 11:47 AM CDT Gender Identity Not on file Sexual Orientation Not on file documented as of this encounter Plan of Treatment Not on file documented as of this encounter Visit Diagnoses Not on filedocumented in this encounter Care Teams First Cook Relationship Specialty Start Date End Date Nas Baca DO [address] [place], [place] [id number] PCP - General FAMILY PRACTICE 01/30/23 documented as of this encounter
--- OUTSIDE RECORDS SUMMARY | 2024-11-16 11:18 | XMS_ITS | Encounter Summary ---
Author Organization [facility] Address [address] [place] [address] Care Team Providers Care Catering Truck Operator Name Role Phone Nas Baca DO Primary Care Provider [phone] Encounter Details Date Type Department Care Team (Late st Contact Info) Description 07/09/2023 MyCE-Health Records Internationalt Message Enc [facility] Family Medicine - [place] [address] [place] [address] [place] [address] Todays Visit/Lab Visit Social History Tobacco Use Types Packs/Day Years Used Date Smoking Tobacco: Former Cigarettes Smokeless Tobacco: Never Alcohol Use Standard Drinks/Week Comments Not Currently 0 (1 standard drink = 0.6 oz pur e alcohol) PHQ-2 Answer Date Recorded Patient Health Questionnaire-2 Score 0 01/30/2023 Comments No Sex and Gender Information Value Date Recorded Sex Assigned at Female 06/18/2024 12:33 PM PLASTER MOLD MAKER Legal Sex Female 11:47 AM CDT Gender Identity Not on file Sexual Orientation Not on file documented as of this encounter Plan of Treatment Not on file documented as of this encounter Visit Diagnoses Not on filedocumented in this encounter Care Teams Catering Truck Operator Relationship Specialty Start Date End Date Nas Baca DO [address] [place], [place] [id number] PCP - General FAMILY PRACTICE 01/30/23 documented as of this encounter
--- OUTSIDE RECORDS SUMMARY | 2024-11-16 11:18 | XMS_ITS | Encounter Summary ---
Author Organization [facility] Address [address] [place] [address] Care Team Providers Care Shoe Lay Out Planner Name Role Phone Nas Baca DO Primary Care Provider [phone] Encounter Details Date Type Department Care Team (Late st Contact Info) Description 07/14/2023 MyChart Message Enc [facility] Medical Group Family Medicine [facility] 5 [place] [address] Nas Baca DO [address] [place] [address] EBV Results Social History Tobacco Use Types Packs/Day Years Used Date Smoking Tobacco: Former Cigarettes Smokeless Tobacco: Never Alcohol Use Standard Drinks/Week Comments Not Currently 0 (1 standard drink = 0.6 oz pur e alcohol) PHQ-2 Answer Date Recorded Patient Health Questionnaire-2 Score 0 01/30/2023 Comments No Sex and Gender Information Value Date Recorded Sex Assigned at Female 06/18/2024 12:33 PM MOTION PICTURE PRINTER Legal Sex Female 11:47 AM CDT Gender Identity Not on file Sexual Orientation Not on file documented as of this encounter Plan of Treatment Not on file documented as of this encounter Visit Diagnoses Not on filedocumented in this encounter Care Teams Shoe Lay Out Planner Relationship Specialty Start Date End Date [place] [address] PCP - General FAMILY PRACTICE 01/30/23 documented as of this encounter
--- OUTSIDE RECORDS SUMMARY | 2024-11-16 11:18 | XMS_ITS | Encounter Summary ---
Author Organization [facility] Address [address] [place] [address] Care Team Providers Care Hand Inspector Name Role Phone Nas Baca DO Primary Care Provider [phone] Encounter Details Date Type Department Care Team (Late st Contact Info) Description 12/04/2023 Artesian Solutionst Message Enc [facility] Family Medicine [address] [address] Nas Baca DO [address] [place] [address] Positive Covid Social History Tobacco Use Types Packs/Day Years Used Date Smoking Tobacco: Former Cigarettes Smokeless Tobacco: Never Alcohol Use Standard Drinks/Week Comments Not Currently 0 (1 standard drink = 0.6 oz pur e alcohol) occas. PHQ-2 Answer Date Recorded Patient Health Questionnaire-2 Score 0 07/22/2023 Comments No Sex and Gender Information Value Date Recorded Sex Assigned at Female 06/18/2024 12:33 PM GRANULATING BLENDER Legal Sex Female 11:47 AM CDT Gender [...] on filedocumented in this encounter Care Teams Hand Inspector Relationship Specialty Start Date End Date Nas Baca DO [address] [place] [address] PCP - General FAMILY PRACTICE 01/30/23 documented as of this encounter
[2024-11-16 11:19] VITALS: BP 164/91; PULSE 104; RESP 16; TEMP 36.6; O2SAT 100
--- OUTSIDE RECORDS SUMMARY | 2024-11-16 11:19 | XMS_ITS | Encounter Summary ---
Author Organization [facility] Address [address] [facility] [place] [address] Care Team Providers Care Air Chief Marshal Name Role Phone Dewayne Weathers MD Primary Care Provider [phone] Kaleb Mccurdy MD Primary Care Provider Breanna laura López Jr., MD, Willis Randle Primary Care Provid er Nas Baca DO Primary Care Provider Encounter Details Date Type Department Care Team (Late st Contact Info) Description 09/25/2006 [facility] Outpatient Visit [address] [phone] Roxanna Glover MD Social History Tobacco Use Types Packs/Day Years Used Date Smoking Tobacco: Never Assessed Comments Unknown Sex and Gender Information Value Date Recorded Sex Assigned at Not on file Legal Sex Female 6:55 AM MISDRAW HAND Gender Identity Not on file Sexual Orientation Not on file documented as of this encounter Plan of Treatment Upcoming Encounters Date Type Department Care Team (Late Contact Info) Description 12/08/2024 11:20 AM CDT Office Visit [facility] - Endocrinology [address] [place] [phone] Solo Garcia MD [address] [facility] [address] [place] [address] documented as of this encounter Visit Diagnoses Not on filedocumented in this encounter Care Teams Air Chief Marshal Relationship Specialty Start Date End Date Dewayne Weathers MD [address] [place], [place] [phone] PCP - General 03/28/08 08/18/10 Kaleb Mccurdy MD PCP - General 08/19/10 05/06/17 Willis López [place] [address] Elsy Alejandre [facility] [address] [place] [address] PCP - General 03/30/18 12/03/22 Nas Baca DO [address] [phone] PCP - General Family Medicine 07/28/23 documented as of this encounter
--- OUTSIDE RECORDS SUMMARY | 2024-11-16 11:19 | XMS_ITS | Clinical Summary ---
Author Organization [facility] [address] [place] [address] [place] [phone] Care Team Providers Care Candle Wrapping Machine Operator Name Role Phone Leena Mathur DO Primary Care Provid er Unavailable Allergies Active Allergy Reactions Criticality Noted Date Comments Succinylcholine Other (See Comments) High 09/04/2018 Family history of malignant hyperthermia Medications Dexcom G6 Planetarium Sky Show Technician USE DEVICE UTD 0 Active Blood-Glucose Meter,Continuous (Dexcom G6 Planetarium Sky Show Technician) 1 Device by NOT APPLICABLE route. 0 Active Insulin [place], Disposable, (Pen Needle) 31 gauge x 3/16 [...] COVID-19 VACCINE - EMERGENCY USE AUTHORIZATION, MRNA, [id number](PF) 30 MCG/0.3 ML IM SUSP 07/19/2020,06/30/2020 INFLUENZA [...] = 0.6 oz pur e alcohol) occ Comments No Sex and Gender Information Value [...] 4:29 PM CDT Height 170.2 cm (5' 7) 07/13/2022 4:29 PM CDT Body Mass Index 27.41 07/13/2022 4:29 PM CDT Plan of Treatment Health Maintenance Due Date Last Done Comments HPV VACCINES (1 - 3-dose series) 02/09/2004 DIABETES ANNUAL RETINAL EXAM 2007 DIABETES MICROALBUMIN ANNUAL SCREEN 2007 LDL CHOLESTEROL ANNUAL 2007 HEPATITIS B VACCINES (1 of 3 - 19+ 3-dose series) 02/09/2008 HPV/Cotest (21-29) 2010 HPV/Cotest (30-65) 2019 CERVICAL CANCER SCREENING 04/24/2021 PAP SMEAR 04/24/2021 04/24/2018 COVID-19 Vaccine (3 - 2023-2 5 season) 2023 07/19/2020, 06/30/2020 INFLUENZA VACCINE (#1) 2024 05/18/2020 DIABETES HBA1C Q 6 MONTHS 03/02/20252024, 01/01/2024, 07/28/2023, Additional history exists DIABETES ANNUAL FOOT EXAM 08/30/2025 08/30/2024 DTAP/TDAP/TD VACCINES (3 - T d or Tdap) 06/02/2032 06/02/2022, 09/18/2018 Insurance [facility] Member Subscriber Plan / Payer (Ef fective 2022-Present) Name:Nikki Wernerbart Dipti Relation to Subscriber:Self Name:Inna Werner Subscriber ID:Not on file Payer ID:Not on file Group ID:[id number] Type:RX Commercial Address: [place] [address] [place] [address] Care Teams Candle Wrapping Machine Operator Relationship Specialty Start Date End Date Leena Mathur DO PCP - General Family Practice 05/18/20
--- OUTSIDE RECORDS SUMMARY | 2024-11-16 11:19 | XMS_ITS | Encounter Summary ---
Author Organization [facility] Address [address] [facility] [place] [address] Care Team Providers Care Cribber Name Role Phone Dewayne Weathers MD Primary Care Provider Kaleb Mccurdy MD Primary Care Provider Breanna laura López Jr., MD, Willis Randle Primary Care Provid er Nas Baca DO Primary Care Provider [phone] Encounter Details Date Type Department Care Team (Late Contact Info) Description 01/13/2008 [facility] Outpatient Visit [facility] DEFAULT [address] [place], [place] [phone] Ru Shelton MD Retired Social History Tobacco Use Types Packs/Day Years Used Date Smoking Tobacco: Never Assessed Comments Unknown Sex and Gender Information Value Date Recorded Sex Assigned at Not on file Legal Sex Female 6:55 AM SHUTTLE FITTING SUPERVISOR Gender Identity Not on file Sexual Orientation Not on file documented as of this encounter Plan of Treatment Upcoming Encounters Date Type Department Care Team (Late Contact Info) Description 12/08/2024 11:20 AM CDT Office Visit [facility] - Endocrinology [address] [place] [address], [address] [place] [address] Solo Garcia MD [address] [facility] [address] [place] [address] documented as of this encounter Visit Diagnoses Not on filedocumented in this encounter Care Teams Cribber Relationship Specialty Start Date End Date Dewayne Weathers MD [address] [place], [place] [phone] PCP - General 03/28/08 08/18/10 Kaleb Mccurdy MD PCP - General 08/19/10 05/06/17 Willis López [place] [address] Elsy Alejandre [facility] 100 [place] [address] PCP - General 03/30/18 12/03/22 Nas Baca DO [address] [phone] PCP - General Family Medicine 07/28/23 documented as of this encounter
--- OUTSIDE RECORDS SUMMARY | 2024-11-16 11:19 | XMS_ITS | Encounter Summary ---
Author Organization [facility] Address [address] [facility] [place] [address] Care Team Providers Care Fourth Mate Name Role Phone Dewayne Weathers MD Primary Care Provider [phone] Kaleb Mccurdy MD Primary Care Provider Breanna laura López Jr., MD, Willis Randle Primary Care Provid er Nas Baca DO Primary Care Provider Encounter Details Date Type Department Care Team (Late st Contact Info) Description 05/06/2007 [facility] Outpatient Visit [address] [phone] Roxanna Glover MD Social History Tobacco Use Types Packs/Day Years Used Date Smoking Tobacco: Never Assessed Comments Unknown Sex and Gender Information Value Date Recorded Sex Assigned at Not on file Legal Sex Female 6:55 AM GEOSPATIAL SCIENTIST Gender Identity Not on file Sexual Orientation Not on file documented as of this encounter Plan of Treatment Upcoming Encounters Date Type Department Care Team (Late Contact Info) Description 12/08/2024 11:20 AM CDT Office Visit [facility] - [facility]ocrinology [address] [place] [phone] Solo Garcia MD [address] [facility] [address] [place] [address] documented as of this encounter Visit Diagnoses Not on filedocumented in this encounter Care Teams Fourth Mate Relationship Specialty Start Date End Date Dewayne Weathers MD [address] [place], [place] [phone] PCP - General 03/28/08 08/18/10 Kaleb Mccurdy MD PCP - General 08/19/10 05/06/17 Willis López Jr[place] [address] Elsy Alejandre [facility] [address] [place] [address] PCP - General 03/30/18 12/03/22 Nas Baca DO [address] [phone] PCP - General Family Medicine 07/28/23 documented as of this encounter
--- OUTSIDE RECORDS SUMMARY | 2024-11-16 11:19 | XMS_ITS | Encounter Summary ---
Author Organization [facility] Address [address] [facility] [place] [address] Care Team Providers Care Learning Development Specialist Name Role Phone Dewayne Weathers MD Primary Care Provider [phone] Kaleb Mccurdy MD Primary Care Provider Breanna laura López Jr., MD, Willis Randle Primary Care Provid er Nas Baca DO Primary Care Provider Encounter Details Date Type Department Care Team (Late Contact Info) Description 01/13/2008 [facility] Outpatient Visit [facility] DEFAULT [address] [place] [address] Nasrin Matthews APRN-CNP Social History Tobacco Use Types Packs/Day Years Used Date Smoking Tobacco: Never Assessed Comments Unknown Sex and Gender Information Value Date Recorded Sex Assigned at Not on file Legal Sex Female 6:55 AM ICE CREAM FREEZER HELPER Gender Identity Not on file Sexual Orientation Not on file documented as of this encounter Plan of Treatment Upcoming Encounters Date Type Department Care Team (Late st Contact Info) Description 12/08/2024 11:20 AM CDT Office Visit [facility] - Endocrinology [address] [place] [address], [address] [place] [address] Solo Garcia MD [address] [facility] [address] [place] [address] documented as of this encounter Visit Diagnoses Not on filedocumented in this encounter Care Teams Learning Development Specialist Relationship Specialty Start Date End Date Dewayne Weathers MD [address] [place], [place] [phone] PCP - General 03/28/08 08/18/10 Kaleb Mccurdy MD PCP - General 08/19/10 05/06/17 Willis López [place] [address] Elsy Alejandre [facility] 100 [place] [address] PCP - General 03/30/18 12/03/22 Nas Baca DO [address] [facility] [address] [place] [phone] PCP - General Family Medicine 07/28/23 documented as of this encounter
--- OUTSIDE RECORDS SUMMARY | 2024-11-16 11:19 | XMS_ITS | Encounter Summary ---
Author Organization [facility] Address [address] [facility] [address] Care Team Providers Care Paper Cup Handle Machine Operator Name Role Phone Dewayen Weathers MD Primary Care Provider [phone] Kaleb Mccurdy MD Primary Care Provider Breanna laura López Jr., MD, Willis Randle Primary Care Provid er Nas Baca DO Primary Care Provider [phone] Encounter Details Date Type Department Care Team (Late Contact Info) Description 05/29/2006 [facility] Outpatient Visit [address] [address] Kandace Billingsley, PLASTIC SURGERY SPECIALIST-INSTRUCTOR SUBSTITUTE COSMETOLOGY Retired Social History Tobacco Use Types Packs/Day Years Used Date Smoking Tobacco: Never Assessed Comments Unknown Sex and Gender Information Value Date Recorded Sex Assigned at Not on file Legal Sex Female 6:55 AM CHILD ADOLESCENT PSYCHIATRIST Gender Identity Not on file Sexual Orientation Not on file documented as of this encounter Plan of Treatment Upcoming Encounters Date Type Department Care Team (Late Contact Info) Description 12/08/2024 11:20 AM CDT Office Visit [facility] - Endocrinology [address] [place] [address], [address] [place] [phone] Solo Garcia MD [address] [facility] 206 [place] [address] documented as of this encounter Visit Diagnoses Not on filedocumented in this encounter Care Teams Paper Cup Handle Machine Operator Relationship Specialty Start Date End Date Dewayne Weathers MD [address] [place], [place] [phone] PCP - General 03/28/08 08/18/10 Kaleb Mccurdy MD PCP - General 08/19/10 05/06/17 Willis López Jr[place] [address] Elsy Alejandre [facility] 100 [place] [address] PCP - General 03/30/18 12/03/22 Nas Baca DO [address] [address] PCP - General Family Medicine 07/28/23 documented as of this encounter
--- OUTSIDE RECORDS SUMMARY | 2024-11-16 11:19 | XMS_ITS | Encounter Summary ---
Author Organization [facility] Address [address] [facility] [place] [address] Care Team Providers Care Lanolin Plant Operator Name Role Phone Dewayne Weathers MD Primary Care Provider [phone] Kaleb Mccurdy MD Primary Care Provider Breanna laura López Jr., MD, Willis Randle Primary Care Provid er Nas Baca DO Primary Care Provider Encounter Details Date Type Department Care Team (Late st Contact Info) Description 11/16/2007 [facility] Outpatient Visit [address] [phone] Roxanna Glover MD Social History Tobacco Use Types Packs/Day Years Used Date Smoking Tobacco: Never Assessed Comments Unknown Sex and Gender Information Value Date Recorded Sex Assigned at Not on file Legal Sex Female 6:55 AM MANUAL MACHINIST Gender Identity Not on file Sexual Orientation Not on file documented as of this encounter Plan of Treatment Upcoming Encounters Date Type Department Care Team (Late Contact Info) Description 12/08/2024 11:20 AM CDT Office Visit [facility] - Endocrinology [address], [address] [place] [phone] Sool Garcia MD [address] [facility] [address] [place] [address] documented as of this encounter Visit Diagnoses Not on filedocumented in this encounter Care Teams Lanolin Plant Operator Relationship Specialty Start Date End Date Dewayne Weathers MD [address] [place], [place] [phone] PCP - General 03/28/08 08/18/10 Kaleb Mccurdy MD PCP - General 08/19/10 05/06/17 Willis López Jr[place] [address] Elsy Alejandre [facility] 100 [place] [address] PCP - General 03/30/18 12/03/22 Nas Baca DO [address] [phone] PCP - General Family Medicine 07/28/23 documented as of this encounter
--- OUTSIDE RECORDS SUMMARY | 2024-11-16 11:19 | XMS_ITS | Clinical Summary ---
Author Organization [facility] Address Formerly [facility] [place] [address] Care Team Providers Care Addiction Professional Name Role Phone Keven, Nas Resendez DO Primary Care Provider [phone] Allergies Active Allergy Reactions Criticality Noted Date [...] Pump (OMNIPOD 5 G6 PODS, GEN 5,) [facility] 4 Active Iron, Ferrous Sulfate, 325 (65 [...] type 07/11/2023 Chronic sinusitis, unspecified location 01/31/20 23 Seasonal allergic rhinitis due to other allergic trigger 01/30/2023 Adhesive capsulitis of right shoulder 01/30/2023 Chronic right shoulder pain 01/30/2023 Insulin pump status 04/17/2018 Overview (07/09/2023): Since 2000. Type 1 diabetes mellitus wit hout complication ([facility]) 05/07/2017 Overview (07/09/2023): Diagnosed at age 2 On pump since 2000 Diagnosed at age 2 On pump since 2000 Class D EKG wnl, echo not able to be done due to insurance Resolved Problems Problem Noted Date Diagnosed Date Resolved Date Type 1 diabetes mellitus wit hout complication ([facility]) 07/09/2023 07/09/2023 Encounters Date Type Department Care Team Description 09/19/2024 Scan HEALTH INFO SRVCS Scanned, [facility] from Last 3 Months Immunizations Immunization Administration [...] Sex Assigned at Female 06/18/2024 12:33 PM CAN CLOSING MACHINE OPERATOR Legal Sex Female 11:47 AM CDT Gender Identity Not on file Sexual Orientation Not on file Last Filed Vital Signs Vital Sign Reading Time Taken Comments Blood Pressure 118/77 04/16/2024 1:35 PM CAN CLOSING MACHINE OPERATOR Pulse 79 04/16/2024 1:35 PM CAN CLOSING MACHINE OPERATOR Temperature 37.3 C (99.2 F) 04/16/2024 1:35 PM CAN CLOSING MACHINE OPERATOR Respiratory Rate 18 07/22/2023 11:43 AM CDT Oxygen Saturation 100% 04/16/2024 1:35 PM CAN CLOSING MACHINE OPERATOR Inhaled Oxygen Concentration - - Weight 76.5 kg (168 lb 9.6 oz) 04/16/2024 1:35 P M CAN CLOSING MACHINE OPERATOR Height 171.9 cm (5' 7.68) 04/16/2024 1:35 PM CS T Body Mass Index 25.88 04/16/2024 1:35 PM CAN CLOSING MACHINE OPERATOR Plan of Treatment Health Maintenance Due Date Last Done Comments Kidney Health Evaluation 1989 Annual Physical 02/09/1992 Diabetes: Retinopathy Eye Exam 2007 Hepatitis C 2007 Hepatitis B Vaccines (1 of 3 - 19+ 3-dose series) 02/09/2008 Pneumococcal Vaccine: Pediatrics (0 to 5 Years) and At-Risk Patients (6 to 49 Years) (1 of 2 - PCV) 02/09/2008 HPV Vaccines (1 - 3-dose SCDM series) 02/09/2016 Cervical Cancer Screening Pap with HPV Testing (Age 30 to 64) Every 5 Years 2019 04/24/2018 Lipid Panel 05/22/2022 05/22/2021 COVID-19 Vaccine ( season) 2023 07/19/2020, 06/30/2020 PHQ-2 (Physician [place]) 04/28/2024 04/16/2024 Hemoglobin A1C 06/30/2024 01/01/2024, 09/0 08/2023, 07/28/2023, Additional history exists Cervical Cancer Screening Pap Smear (Age 30 to 64) Every 3 Years 11/14/2025 11/14/2022, 04/24/2018 Cervical Cancer Screening with HPV 11/14/2025 DTaP, Tdap and Td Vaccines (3 - Td or Tdap) 06/02/2032 06/02/2022, 09/18/2018 Meningococcal B Vaccine Aged Out No l onger eligible based on patient's age to complete this topic Meningococcal Vaccine Aged Out No norma machelle eligible based on patient's age to complete this topic RSV Immunizations Under 20 Months Aged Out No longer eligible based on patient's age to complete this topic Procedures Procedure Name Priority Date/Time Associated Diagnosis Comments HEMOGLOBIN, GLYCOSYLATED Routine 01/01/2024 from Last 3 Months or Most Recently Relevant to Health Maintenance Results * HEMOGLOBIN, GLYCOSYLATED (01/01/2024) HGB A1C 7.4 % 01/01/2024 [facility] Abstract LABORATORY Final Res ult from Last 3 Months or Most Recently Relevant to Health Maintenance Insurance [facility] Care Teams Addiction Professional Relationship Specialty Start Date End Date [place] [address] [place] [address] PCP - General FAMILY PRACTICE 01/30/23
--- OUTSIDE RECORDS SUMMARY | 2024-11-16 11:19 | XMS_ITS | Referral Summary ---
Author Organization [facility] ospital Address [address] [place] [address] Care Team Providers Care Intelligence Consultant Name Role Phone Keven, Nas Anival Primary Care Provide r Solo Garcia MD Unavailable [phone] Encounters Date Type Department Care Team Description 09/18/2024 10:12 PM CDT - 09/19/2024 12:30 AM T Emergency [address] [address] Laceration of left lower extremity, initial encounter (Primary Dx) Discharge Disposition: Discharge to home or self care 09/18/2024 8:13 PM CDT - 09/18/2024 8:51 PM T Emergency [facility] Emergency Department [address] [place] [address] Discharge Disposition: Left without being seen from Last 3 Months Allergies Active Allergy Reactions Criticality Noted Date Comments Metronidazole Itching Low 04/01/2024 Itching of face, mouth, chest and whole body per patient Succinylcholine Other (See comments) High 09/04/2018 Family history of pseudocholinesterase deficiency, so prolonged time of action with succinylcholine administration for her, if given. Medications blood-glucose meter,continuous (Dexcom G6 Casing Crew) misc 1 Device by Not Applicable route [...] vomiting 04/09/2024 Irritable bowel syndrome with diarrhea 4 Colitis 04/02/2024 Moderate protein-calorie malnutrition 04/02/2024 Diarrhea [...] Tobacco: Never Tobacco Cessation:Counseling Given: Not Answered [facility] Utilities Answer Date Recorded In the past 12 months has [employer], gas, oil, or water [employer] threatened to shut off services in your [...] often do you attend chur ch or mu-ism services? Never 04/09/2024 Do you belong to any clubs o r organizations such as christianity groups, unions, fraternal or athletic groups, or [...] any time in the past 12 m [facility], were you homeless or living in a alf (including now)? No 04/09/2024 Personal Safety Answer Date Recorded Have you ever been in or are you currently in a harmful physical or emotional relationship or is someone making you feel afraid or unsafe? Denies 09/18/2024 Comments No Sex and Gender Information Value Date Recorded Sex Assigned at Not on file Legal Sex Female 9:33 AM CDT Gender Identity Female 05/19/2024 6:51 AM STOCK SPECULATOR Sexual Orientation Straight 05/19/2024 6: 51 AM STOCK SPECULATOR Last Filed Vital Signs Vital Sign Reading Time Taken Comments Blood Pressure 170/95 09/18/2024 9:14 PM CDT Pulse 86 09/18/2024 9:14 PM CDT Temperature 36.6 C (97.9 F) 09/18/2024 9:14 PM CDT Respiratory Rate 17 09/18/2024 9:14 PM CDT Oxygen Saturation 100% 09/18/2024 9:14 PM CDT Inhaled Oxygen Concentration - - Weight 79.4 kg (175 lb 0.7 oz) 09/18/2024 9:22 P M CDT Height 170.2 cm (5' 7) 04/08/2024 7:50 PM STOCK SPECULATOR Body Mass Index 27.42 04/08/2024 7:50 PM STOCK SPECULATOR Plan of Treatment Not on file Procedures Procedure Name Priority Date/Time Associated Diagnosis Comments ED LACERATION REPAIR Routine 09/19/2024 1:13 AM CDT EGFR STAT 04/08/2024 12:59 PM STOCK SPECULATOR PAP WITH REFLEX TO HIGH RISK HPV Routine 11/14/2022 11:49 AM CDT Well female exam with routine gynecological exam from Last 3 Months or Most Recently Relevant to Health Maintenance Results * Laceration Repair (09/19/2024 1:13 AM CDT) Narrative Joenlle Cifuentes PA - 09/19/2024 1:13 AM CDT Jonelle Cifuentes PA 09/19/2024 1:14 AM Laceration Repair Date/Time: 09/19/2024 1:13 AM Performed by: Jonelle Cifuentes PA Authorized by: Martin Pinto MD Anesthesia method: Local infiltration Local anesthetic: Lidocaine 1% Location: Leg Leg location: L lower leg Length (cm): 3 Repair method: Sutures Suture size: 4-0 Suture material: Prolene Number of sutures: 2 us Martin Pinto MD IN CLINIC/BEDSIDE ORDER MATHIEU Final Result * eGFR (04/08/2024 12:59 PM STOCK SPECULATOR) eGFR >90 >=60 mL/min/1. 73 m2 Comment: [...] reviewed 2021. Blood 04/08/2024 12:5 9 PM STOCK SPECULATOR 04/08/2024 1:30 PM STOCK SPECULATOR us Michelle Pantoja MD LAB BLOOD ORDERABLES Final Result [facility] [address] Department [place] [address] * Pap with reflex to High Risk HPV and Genotyping (Cytology Component) (11/14/2022 11:49 AM CDT) Thin prep (Pap test) 11/14/2022 11:49 AM CDT 11/18/2022 11:49 AM CDT Narrative PATHOLOGY [facility] - 11/21/2022 1:17 PM CDT [facility] Department of Pathology [address] [place] [address] Final Report Note to Patients: This [...] the details. Patient Name: KHALIF RIVERA Address: [facility] [place] [address] Gender: F : 1990 (Age: 32) Service: Location: [facility] #: [id number] Patient Type: [facility] SPECIMEN Taken: 11/14/2022 Received: 11/18/2022 Accessioned:: 11/19/2022 Reported: 11/21/2022 [facility] Diagnosis: SOURCE OF SPECIMEN Imaged Thinprep Pap Test w/ Reflex HPV - Hot Stick Man Cytologic Material: STATEMENT OF ADEQUACY - Satisfactory for evaluation; endocervical/transformation zone component present GENERAL CATEGORIZATION: - Negative for intraepithelial lesion or malignancy MARLINE Christianson(ASCP) Report Electronically Reviewed and Signed Out By MARLINE Christianson(ASCP) 11/21/2022 13:17:29Specimen(s) Received: A: Imaged Thinprep Pap Test w/ Reflex HPV - Hot Stick Man Cytologic Material Clinical History: Last Menstrual Period: [...] the Surgical Pathology Department at [facility] as part of an ongoing corporate quality manager program and in compliance with [...] Jocelyn DURON LAB CYTOLOGY ORDERABLES Final Result PATHOLOGY [facility] from Last 3 Months or Most Recently Relevant to Health Maintenance Insurance [facility] [place]AN [place] [facility]ALTH [facility] Advance Directives For more information, please contact: [phone] * Full Code (Latest Code Status on File) Date Activated Date Inactivated Comments 04/08/2024 7:40 PM 04/10/2024 5:40 PM * Full Code Date Activated Date Inactivated Comments 04/01/2024 1:49 PM 04/04/2024 7:09 PM Care Teams Intelligence Consultant Relationship Specialty Start Date End Date Nas Baca DO [address] [place] [address] PCP - General Family Medicine 06/27/23 Solo Garcia MD [address] [address] Referring Physician Endocrinology Diabetes & Metabolism 08/11/24
--- OUTSIDE RECORDS SUMMARY | 2024-11-16 11:19 | XMS_ITS | Clinical Summary ---
Author Organization [facility] o[facility] Address [address] [place] [address] Care Team Providers Care Collator Operator Name Role Phone Keven, Nas Anival Primary Care Provide r Solo Garcia MD Unavailable [phone] Allergies Active Allergy Reactions Criticality Noted Date Comments Metronidazole Itching Low 04/01/2024 Itching of face, mouth, chest and whole body per patient Succinylcholine Other (See comments) High 09/04/2018 Family history of pseudocholinesterase deficiency, so prolonged time of action with succinylcholine administration for her, if given. Medications blood-glucose meter,continuous (Dexcom G6 Bricklayer Apprentice) misc 1 Device by Not Applicable route [...] at age 2 On pump since 2000 Encounters Date Type Department Care Team Description 09/18/2024 10:12 PM CDT - 09/19/2024 12:30 AM CDT [address] [address] Laceration of left lower extremity, initial encounter (Primary Dx) Discharge Disposition: Discharge to home or self care 09/18/2024 8:13 PM CDT - 09/18/2024 8:51 PM T [facility] Emergency Department [address] [place] [address] Discharge Disposition: Left without being seen from Last 3 Months Immunizations Immunization Administration Dates Next Due Influenza, [...] Tobacco: Never Tobacco Cessation:Counseling Given: Not Answered [facility] Utilities Answer Date Recorded In the past 12 months has [employer], gas, oil, or water company threatened to shut off services in your [...] often do you attend chur ch or jewish services? Never 04/09/2024 Do you belong to any clubs o r organizations such as spiritism groups, unions, fraternal or athletic groups, or [...] time in the past 12 m [facility], were you homeless or living in a care home (including now)? No 04/09/2024 Personal Safety [...] CDT Gender Identity Female 05/19/2024 6:51 AM WELLNESS AMBASSADOR Sexual Orientation Straight 05/19/2024 6: 51 AM WELLNESS AMBASSADOR Obstetrics History Para Term AB IAB SAB Ectopic Multiple Livin g Live Births 2 2 1 1 Date Outcome GA Total Labor Labor/2nd/3rd Weight Sex Type Anes PTL Rosangela A1 A5 Name Clin Term 019 34w 5d 4h 56m 4h 51m/0h 05m 3.975 kg (8 lb 12.2 oz) F Vag-S pont Epidur al Y 5 9 Estrellita Sarai Ornelas MD Complications:Intraamniotic Infection Delivery Location:[facility] Comments:Heart murmur Last Filed Vital Signs Vital [...] 170.2 cm (5' 7) 04/08/2024 7:50 PM WELLNESS AMBASSADOR Body Mass Index 27.42 04/08/2024 7:50 PM WELLNESS AMBASSADOR Plan of Treatment Health Maintenance Due Date [...] Visit/Exam 18-64 11/15/2023 11/14/2022 Covid-19 Vaccine ( season) 2023 07/19/2020, 06/30/2020 Influenza Vaccine (Season Ended) 2024 05/18/2020 eGFR 04/08/2025 04/08/2024, 12/0 09/2023, 04/01/2024, Additional history exists Lipid Panel 08/30/2025 08/30/2024, 07/28/2023 TSH Level 08/30/2025 08/30/2024, 07/28/2023 DTaP/Tdap/Td Vaccine (3 - Td or Tdap) 06/02/2032 06/02/2022, 09/18/2018 HPV Vaccines Aged Out No longer eligi ble based on patient's age to complete this topic Procedures Procedure Name Priority Date/Time Associated Diagnosis Comments ED LACERATION REPAIR Routine 09/19/2024 1:13 AM CDT EGFR STAT 04/08/2024 12:59 PM WELLNESS AMBASSADOR PAP WITH REFLEX TO HIGH RISK HPV Routine 11/14/2022 11:49 AM CDT Well female exam with routine gynecological exam from Last 3 Months or Most Recently Relevant to Health Maintenance Results * Laceration Repair (09/19/2024 1:13 AM CDT) Narrative Jonelle Cifuentes PA - 09/19/2024 1:13 AM CDT [...] Final Result * eGFR (04/08/2024 12:59 PM WELLNESS AMBASSADOR) eGFR >90 >=60 mL/min/1. 73 m2 Comment: [...] reviewed 2021. Blood 04/08/2024 12:5 9 PM WELLNESS AMBASSADOR 04/08/2024 1:30 PM WELLNESS AMBASSADOR us Michelle Pantoja MD LAB BLOOD ORDERABLES Final Result [facility] [address] Department of Laboratories [place], [place] [id number] * Pap with reflex to High Risk HPV and Genotyping (Cytology Component) (11/14/2022 11:49 AM CDT) Thin prep (Pap test) 11/14/2022 11:49 AM CDT 11/18/2022 11:49 AM CDT Narrative PATHOLOGY [facility] - 11/21/2022 1:17 PM CDT [facility] Department of Pathology [address] [place] [id number] Final Report Note to Patients: This [...] the details. Patient Name: KHALIF RIVERA Address: [facility] [address], [place] [address] Gender: F : 1990 (Age: 32) Service: Location: [facility] #: [id number] Patient Type: E SPECIMEN Taken: 11/14/2022 Received: 11/18/2022 Accessioned:: 11/19/2022 Reported: 11/21/2022 Physician(s): Jocelyn Flores [facility] Diagnosis: SOURCE OF SPECIMEN Imaged Thinprep Pap Test w/ Reflex HPV - Services Engineer Cytologic Material: STATEMENT OF ADEQUACY - Satisfactory for evaluation; endocervical/transformation zone component present GENERAL CATEGORIZATION: - Negative for intraepithelial lesion or malignancy MARLINE Christianson(ASCP) Report Electronically Reviewed and Signed Out By MARLINE Christianson(ASCP) 11/21/2022 13:17:29Specimen(s) Received: A: Imaged Thinprep Pap Test w/ Reflex HPV - Services Engineer Cytologic Material Clinical History: Last Menstrual Period: [...] determined by the Surgical Pathology Department at [facility] as part of an ongoing associate quality engineer program and in compliance with federally mandated [...] characteristics [facility] It has not been cleared or approved by the U. S. Food and Drug Administration. Jocelyn DURON LAB CYTOLOGY ORDERABLES Final Result [facility] from Last 3 Months or Most Recently Relevant to Health Maintenance Insurance [facility] IN [facility] [place] Advance Directives For more information, please contact: [phone] * Full Code (Latest Code Status on File) Date Activated Date Inactivated Comments 04/08/2024 7:40 PM 04/10/2024 5:40 PM * Full Code Date Activated Date Inactivated Comments 04/01/2024 1:49 PM 04/04/2024 7:09 PM Care Teams Collator Operator Relationship Specialty Start Date End Date Nas Baca DO [address] [place] [address] PCP - General Family Medicine 06/27/23 Solo Garcia MD [address] [address] Referring Physician Endocrinology Diabetes & Metabolism 08/11/24
--- OUTSIDE RECORDS SUMMARY | 2024-11-16 11:19 | XMS_ITS | Encounter Summary ---
Author Organization [facility] Health Address [address] [facility] [place] [address] Care Team Providers Care Mineral Resources Inspector Name Role Phone Dewayne Weathers MD Primary Care Provider Kaleb cMcurdy MD Primary Care Provider Breanna laura López Jr., MD, Willis Randle Primary Care Provid er Nas Baca DO Primary Care Provider Encounter Details Date Type Department Care Team (Late Contact Info) Description 01/19/2008 [facility] Outpatient Visit [facility] [address] [place], [place] [id number] [place] [address] [place] [address] Social History Tobacco Use Types Packs/Day Years Used Date Smoking Tobacco: Never Assessed Comments Unknown Sex and Gender Information Value Date Recorded Sex Assigned at Not on file Legal Sex Female 6:55 AM PERSONAL COUNSELOR Gender Identity Not on file Sexual Orientation Not on file documented as of this encounter Plan of Treatment Upcoming Encounters Date Type Department Care Team (Late Contact Info) Description 12/08/2024 11:20 AM CDT Office Visit [facility] - Endocrinology [address], [address] [place] [phone] Solo Garcia MD [address] [place] [address] documented as of this encounter Visit Diagnoses Not on filedocumented in this encounter Care Teams Mineral Resources Inspector Relationship Specialty Start Date End Date Dewayne Weathers MD [address] [place], [place] [phone] PCP - General 03/28/08 08/18/10 Kaleb Mccurdy MD PCP - General 08/19/10 05/06/17 [place] [address] [address] [facility] [address] [place] [phone] PCP - General 03/30/18 12/03/22 Nas Baca DO [address] [phone] PCP - General Family Medicine 07/28/23 documented as of this encounter
--- OUTSIDE RECORDS SUMMARY | 2024-11-16 11:19 | XMS_ITS | Clinical Summary ---
Author Organization [facility] [employer] Address [address] [place] [address] Care Team Providers Care Corporate Technical Recruiter Name Role Phone KevenNas DO Primary Care Provider [phone] Source Comments [facility] [employer],non-owned Affiliates and Associated Physician Practices is amultiple site organization consisting of ambulatory clinics and hospital sitesin [place], [place], [place] and [place]. This disclosure is being madepursuant to the Care Everywhere program and may not contain all information available regarding this patient. Last updated 18.[facility] [employer] Allergies No known active allergies Medications * Be aware that medications may not be up to date on this document. Alwaysverify current medications with the patient. insulin glargine (LANTUS SOLOSTAR) pen Inject 16 Units subcutaneously at bedtime 2 Pen 1 11/09/19 20 Active Additional Information Patient not taking.Reported on 08/30/2024 insulin pen needle (NOVOFINE 31) 31G X 5 MM needle 1 Each 4 times daily 50 Each 11/09/19 20 Active Needle, Disp, (HYPODERMIC NEEDLE 26GX1/2) 26G X 1/2 MISCIndications: Type 1 diabetes mellitus on insulin therapy (HCC),Insulin pump status Use 1 Each once daily 90 Each 3 04/30/19 22 Active OneTouch Ultra test strip USE FOUR TIMES DAILY 400 strip 04/17/20 22 Active insulin aspart (NovoLOG) vial Inject up to 60 units daily via insulin pump 20 mL 2 06/29/19 25 Active Insulin Infusion Pump Supplies (Tandem Mobi AutoSoft 30 Kit) MISCIndications: Type 1 diabetes mellitus without complication (HCC) Use 1 Each once daily 90 Each 3 09/02/19 25 Active Continuous Glucose Sensor (Dexcom G7 Sensor) MISCIndications: Type 1 diabetes mellitus without complication (HCC) Use 1 Each every 10 days 9 Each 3 09/02/19 25 Active insulin lispro (HumaLOG) 100 UNIT/ML vial Inject up to 60 units daily via insulin pump 20 mL 3 09/09/19 25 Active Active Problems Problem Noted Date Diagnosed Date Breast pain, right 06/29/2020 Assessment & Plan (06/29/2020 4:48 PM CARBIDE TOOL MAKER): Exam is normal. I discussed that [...] All day nausea. Type 1 diabetes mellitus without complication Overview (05/07/2017): Diagnosed at age 2 On [...] Encounters Date Type Department Care Team Description 09/08/2024 Refill [facility] - Endocrinology [facility] [address], [address] [place] [address] Solo Garcia MD MEDICATION REFILL 09/02/2024 Telephone [facility] - Endocrinology [facility] [address], [address] [place] [address] Solo Garcia MD Medication Prior Auth Request 08/31/2024 Results Follow-Up [facility] - Endocrinology [facility] [address], [address] [place] [address] Solo Garcia MD 08/30/2024 2:20 PM CDT Office Visit [facility] - Endocrinology [address] [place] [address], [address] [place] [address] Solo Garcia MD Type 1 diabetes mellitus without complication (HCC) (Primary Dx); Insulin pump status; Dyslipidemia 08/30/2024 Travel from Last 3 Months Immunizations Immunization Administration Dates Next Due Covid [employer] primary monoval ent 12+ yr 0.3mL Purple [...] on file Legal Sex Female 6:55 AM CARBIDE TOOL MAKER Gender Identity Not on file Sexual Orientation Not on file 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 Not on file Not on file Last Filed Vital Signs Vital Sign Reading Time Taken Comments Blood Pressure 132/82 08/30/2024 2:29 PM CDT Pulse 88 09/02/2019 1:05 PM CDT Temperature 37.1 C (98.7 F) 11/23/2018 11:02 AM CDT Respiratory Rate 18 11/02/2018 12:05 PM CDT Oxygen Saturation 98% 11/02/2018 12:05 PM CDT Inhaled Oxygen Concentration - - Weight 77.6 kg (171 lb) 08/30/2024 2:29 PM CDT Height 170.2 cm (5' 7) 08/30/2024 2:29 PM CDT Body Mass Index 26.78 08/30/2024 2:29 PM CDT Plan of Treatment Upcoming Encounters Date Type Department Care Team (Late st Contact Info) Description 12/08/2024 11:20 AM CDT Office Visit [facility] - Endocrinology [address] [address] [facility], [address] [place] [address] Solo Garcia MD [address] [facility] [address] [place] [address] Health Maintenance Due Date Last Done Comments HEPATITIS C SCREENING 02/04/2007 HEPATITIS B VACCINE (1 of 3 - 19+ 3-dose series) 02/09/2008 PNEUMOCOCCAL VACCINE (1 of 2 - PCV) 02/09/2008 HPV VACCINE (1 - 3-dose SCDM series) 02/09/2016 DIABETES RETINOPATHY SCREENING 05/07/2017 COVID-19 VACCINE (3 - season) 2023 07/19/2020, 06/30/2020 DEPRESSION SCREENING 04/28/2024 INFLUENZA VACCINE (#1) 2024 05/18/2020 DIABETES-HGB A1C 03/02/2025 08/30/2024, 08/2023, 01/01/2024, Additional history exists DIABETES - URINE PROTEIN SCREENING 08/30/2025 08/30/2024, 07/28/2023, 05/22/2021, Additional history exists DIABETES-FOOT EXAM WITH MONOFILAMENT 08/30/2025 08/30/2024 DIABETES-SERUM CREATININE 08/30/20252024, 03/09/2024, 03/09/2024, Additional history exists PAP SMEAR 11/14/2025 11/14/2022, 04/24/2018 DTAP/TDAP/TD VACCINES (3 - Td or Tdap) [...] Procedure Name Priority Date/Time Associated Diagnosis Comments TSH Routine 08/30/2024 3:09 PM CDT Type 1 diabetes mellitus without complication (HCC) MICROALB/CREAT RATIO URINE RANDOM PANEL Routine 08/30/2024 3:09 PM CDT Type 1 diabetes mellitus without complication (HCC) LIPID PROFILE REFLEX LDL DIRECT Routine 08/30/2024 3:09 PM CDT Type 1 diabetes mellitus without complication (HCC) COMPREHENSIVE METABOLIC PANEL Routine 08/30/2024 3:09 PM CDT Type 1 diabetes mellitus without complication (HCC) HEMOGLOBIN A1C - POINT OF CARE (AMB) Routine 08/30/2024 2:36 PM CDT Type 1 diabetes mellitus without complication (HCC) GLUCOSE - POINT OF CARE (AMB) STL Routine 08/30/2024 2:32 PM CDT Type 1 diabetes mellitus without complication (HCC) HIV-1 HIV-2 ANTIBODY + HIV P24 AG PANEL Routine 09/18/2018 11:03 AM CDT , unspecified gestational age PAP IMAGE-GUIDED RFLX HPV+CT/NG Routine 04/24/2018 11:22 AM CARBIDE TOOL MAKER , unspecified gestational age Screening for cervical cancer from Last 3 Months or Most Recently Relevant to Health Maintenance Results * LIPID PROFILE REFLEX LDL DIRECT (08/30/2024 3:09 PM CDT) Cholesterol 188 <200 mg/dL [facility] ACCOUNT BILL Triglycerides 61 <150 mg/dL [facility] ACCOUNT BILL HDL Cholesterol 60 >40 mg/dL [facility] ACCOUNT BILL VLDL Calculated 12 <=30 mg/dL [facility] ACCOUNT BILL LDL Calculated 116 <130 mg/dL [facility] ACCOUNT BILL Cholesterol/HDL Ratio 3.1 <4.5 [facility] ACCOUNT BILL LDL/HDL Ratio 1.9 <5.0 [facility] ACCOUNT BILL Blood BLOOD SPECIMEN / Unknown 08/30/2024 3:09 PM CDT 08/30/2024 Narrative [facility] ACCOUNT BILL - 08/31/2024 3:06 AM CDT Performed at: [address] [place] [id number] Pediatric Neuropsychologist: Jack Hernandez Dr, Phone: [phone] us Solo Garcia MD LAB - CHEMISTRY ORDERABLES Final Result Performing Organization Address City/[facility]/ZIP Co de Phone Number [facility] ACCOUNT BILL [address] [place] [address] * MICROALB/CREAT RATIO URINE RANDOM PANEL (08/30/2024 3:09 PM CDT) Creatinine Urine 93.26 mg/dL [facility] ACCOUNT BILL Microalbumin Urine 0.9 mg/dL [facility] ACCOUNT BILL Microalbumin/Crea tinine Ratio 9 <30 mg/g [facility] ACCOUNT BILL Urine URINE SPECIMEN OBTAINED BY CLEAN CATCH PROCEDURE / Unknown 08/30/2024 3:09 PM CDT 08/30/2024 Narrative [facility] ACCOUNT BILL - 08/31/2024 3:06 AM CDT Performed at: [address] [place] [id number] Pediatric Neuropsychologist: Jack Hernandez Dr, Phone: [phone] us Solo Garcia MD LAB - URINE CHEMISTRY ORDER MATHIEU Final Result Performing Organization Address City/[facility]/ZIP Co de Phone Number [facility] ACCOUNT BILL [address] [place] [address] * (ABNORMAL) COMPREHENSIVE METABOLIC PANEL (08/30/2024 3:09 PM CDT) Glucose 135(H) 70 - 99 mg/dL [facility] ACCOUNT BILL BUN 10 5.3 - 18.7 mg/dL [facility] ACCOUNT BILL Creatinine 0.88 0.57 - 1.11 mg/dL [facility] ACCOUNT BILL eGFR by CKD-EPI 88(L) >=90 mL/min/1.7 3 m2 [facility] ACCOUNT BILL Sodium 140 136 - 145 mmol/L [facility] ACCOUNT BILL Potassium 3.9 3.5 - 5.1 mmol/L [facility] ACCOUNT BILL Chloride 107 98 - 107 mmol/L [facility] ACCOUNT BILL CO2 25 22 - 29 mmol/L [facility] ACCOUNT BILL Calcium 8.7 8.4 - 10.4 mg/dL [facility] ACCOUNT BILL Protein Total 7.2 6.4 - 8.3 gm/dL [facility] ACCOUNT BILL Albumin 4.2 3.4 - 5.0 gm/dL [facility] ACCOUNT BILL Bilirubin Total 0.5 0.2 - 1.2 mg/dL [facility] ACCOUNT BILL Alkaline Phosphatase 65 40 - 150 U/L [facility] ACCOUNT BILL AST 19 10 - 48 U/L [facility] ACCOUNT BILL ALT 19 6 - 57 U/L [facility] ACCOUNT BILL Blood BLOOD SPECIMEN / Unknown 08/30/2024 3:09 PM CDT 08/30/2024 Narrative [facility] ACCOUNT BILL - 08/31/2024 3:06 AM CDT Performed at: [address] [place] [address] [id number] Pediatric Neuropsychologist: Jack Hernandez Dr, Phone: [phone] us Solo Garcia MD LAB - CHEMISTRY ORDERABLES Final Result Performing Organization Address City/State/[facility] Co de Phone Number [facility] ACCOUNT BILL [address] [place] [address] * TSH (08/30/2024 3:09 PM CDT) TSH 1.1096 0.35 - 4.94 uIU/mL [facility] ACCOUNT BILL Blood BLOOD SPECIMEN / Unknown 08/30/2024 3:09 PM CDT 08/30/2024 Narrative [facility] ACCOUNT BILL - 08/31/2024 3:06 AM CDT Performed at: [address] [place] [address] [id number] Pediatric Neuropsychologist: Jack Hernandez Dr, Phone: [phone] Solo Garcia MD LAB - CHEMISTRY ORDERABLES Final Result [facility] ACCOUNT [place] [place] [address] * HEMOGLOBIN A1C - POINT OF CARE (AMB) (08/30/2024 2:36 PM CDT) Hemoglobin A1c POCT 6.2 % [facility] Expiration Date [address] [facility] Lot # [id number] [facility] QC Verified Yes Yes [facility] Blood BLOOD SPECIMEN / Unknown 08/30/2024 2:36 PM CDT Solo Garcia MD LAB - POINT OF CARE ORDERAB LES Final Result Performing Organization Address City/[facility]/ZIP Co de Phone Number [facility] [address] [place], [address] [phone] * (ABNORMAL) GLUCOSE - POINT OF CARE (AMB) STL (08/30/2024 2:32 PM CDT) Pathologist [facility] Glucose 227(A) 60 - 100 mg/dL [facility] Lot # [id number] [facility] Expiration Date [address] [facility] [address] [facility] QC Verified Yes Yes [facility] Blood BLOOD SPECIMEN / Unknown 08/30/2024 2:32 PM CDT Solo Garcia MD LAB - POINT OF CARE ORDERAB LES Final Result [facility] [address] [place], [address] [phone] * HIV-1 HIV-2 ANTIBODY + HIV P24 AG PANEL (09/18/2018 11:03 AM CDT) Pathologist [facility] HIV Screen 4th Generation w Reflex NON-REACT [...] purpose. For additional information please refer to http://education.Visual Networks/faq/MTD177 (This link is being provided for informational/ educational purposes only.) The performance of this assay has not been clinically validated in patients less than 2 years old. Test Performed at: [facility] [address] [place] [address] DALTON WOOD DO,MPH Blood BLOOD SPECIMEN / Unknown 09/18/2018 11:03 AM CDT 09/18/2018 11:04 AM CDT Iain Rosenbaum MD LAB - CHEMISTRY ORDERABLES Fin al Result Performing Organization Address City/State/[facility] Co de Phone Number [facility] [address] [place] [address] * PAP IMAGE-GUIDED LIQUID BASE RFLX HPV+CT/NG (04/24/2018 11:22 AM CARBIDE TOOL MAKER) Case Report Gynecologic Cytology Report Case: [id number] Authorizing Provider: Jocelyn Sharma MD Collected: 04/24/2018 11:22 AM Ordering Location: [facility] Received: 04/27/2018 11:22 AM [facility]necology [facility] First Screen: Dewayne Perez Specimen: THINPREP - IMAGE GUIDED, Cervix/Endocervix 04/29/2018 1:22 PM CARBIDE TOOL MAKER [facility] LMP 04/29/2018 1:22 PM CARBIDE TOOL MAKER [facility] Menstrual Status 04/29/19 1:22 PM CARBIDE TOOL MAKER [facility] Specimen Adequacy Satisfactory for evaluation, endocervical/trans formation zone component present. 04/29/2018 1:22 PM CARBIDE TOOL MAKER [facility] Categorization Negative for intraepithelial lesion or malignancy. 04/29/2018 1:22 PM [facility] Interpretation MUSIC DEPARTMENT CHAIR Negative for intraepithelial lesion or malignancy. 04/29/2018 1:22 PM [facility] at [address] CARBIDE TOOL MAKER Pap Footnote This specimen was evaluated by the ThinPrep Imaging System along with the an additional manual rescreening by a financial dealers and/or pathologist. 04/29/2018 1:22 PM [facility] Embedded Images 1:22 PM [facility] Pathology/Cytolo gy MISCELLANEOUS SAMPLES / Unknown 04/24/2018 11:22 AM CARBIDE TOOL MAKER 04/27/2018 11:22 AM CARBIDE TOOL MAKER Jocelyn Sharma MD LAB - PATHOLOGY/CYTOLOGY OR DERABLES Final Result Performing Organization Address City/State/[facility] Co de Phone Number [facility] [address] [facility] [phone] from Last 3 Months or Most Recently Relevant to Health Maintenance Insurance [facility] Advance Directives * Full Code (Latest Code Status on File) Date Activated Date Inactivated Comments 10/30/2018 12:56 PM 11/02/2018 5:30 PM * Full Code Date Activated Date Inactivated Comments 09/04/2018 3:48 PM 09/05/2018 10:56 PM Care Teams Corporate Technical Recruiter Relationship Specialty Start Date End Date Nas Baca DO [address] [phone] PCP - General Family Medicine 07/28/23
[2024-11-16 12:46] VITALS: BP 145/84; PULSE 83; RESP 17; TEMP 36.4; O2SAT 100
[2024-11-16 12:47] LABS: Add Urine Microscopic? NO; Appearance Urine Clear (Clear); Glucose Urine UA 3+ mg/dL (Negative); Leukocyte Esterase Ur Negative LEU/UL (Negative); Nitrate Urine Negative (Negative); Specific Grav Ur 1.013 (1.001-1.035)
[2024-11-16 12:50] LABS: BEDSIDEPREGUCG Negative (Negative)
[2024-11-16 12:54] LABS: Hematocrit 35.8 % (37.0-47.0); Hemoglobin 11.1 g/dL (12.0-15.0); Immature Granulocyte Percent A 0.4 % (0-0.5); Lymphocytes Absolute Auto 1.17 K/mm3 (0.9-3.2); Mean Corpuscular HGB Conc 31.0 g/dl (32-36); Mean Corpuscular Hemoglobin 23.8 pg (26-34); Mean Corpuscular Volume 76.8 fl (80-100); Nucleated Red Blood Cells Absolute Auto 0.000 K/mm3 (0.0-0.012); Nucleated Red Blood Cells Perc 0.0 % (0.0-0.2); Platelet Count Result 213 k/mm3 (150-375); Red Blood Count 4.66 M/mm3 (4.2-5.4); White Blood Count 5.1 K/mm3 (4.5-10.0)
[2024-11-16 13:15] LABS: Alanine Aminotransferase 16 U/L (6-35); Albumin Level 4.2 g/dL (3.5-5.1); Alkaline Phosphatase 76 U/L (38-126); Anion Gap 6 mmol/L (4-12); Aspartate Amino Transferase 22 U/L (14-36); Bilirubin,Total 0.5 mg/dL (0.2-1.3); Blood Urea Nitrogen 12 mg/dL (7-17); Calcium 9.0 mg/dL (8.4-10.2); Carbon Dioxide 25 mmol/L (22-30); Chloride 101 mmol/L (98-107); Estimated CRCL calculation 94 ml/min; Estimated Glomerular Filt Rate > 60; Glucose 250 mg/dL (65-110); Lipase 54 U/L (23-300); Potassium 4.2 mmol/L (3.4-5.0); Sodium 132 mmol/L (137-145); Total Protein 7.3 g/dL (6.3-8.2)
--- NOTE | 2024-11-16 13:20 | ED_ITS ---
HPI - Abdominal Pain General Chief Complaint: Abdominal Pain Stated Complaint: abd pain Time Seen by Provider: 11/16/24 12:42 Source: patient and family () Mode of arrival: ambulatory Limitations: no limitations History of Present Illness HPI narrative: 34-year-old female who is menstrual period was 11/14/2024 presents left upper quadrant/epigastric abdominal pain. She has a history of type 1 diabetes mellitus states that blood glucose has been relatively controlled recently. Patient does a history E coli in February followed by testing positive for H pylori based on biopsy during EGD in either February or March of 2024 (colonoscopy performed at same time). Her GI team is Dr Dewey and Carolyn Minor. Yesterday she took her hyoscyamine as well as Pepcid. Patient is status post 1 round of Xifaxan. There were insurance issues dealing her 2nd round this medication but this was recently prescribed and she picked it up last night. Patient reports she has history left ovarian cyst does not this might also be complicating. Patient states she cannot take Advil did take Aleve back pain. She denies any, fevers, chills. No dysuria, urinary urgency, frequency, hematuria. She denies any vaginal bleeding or discharge. No previous invasive abdominal surgeries/organ removal. She reports the pain has been constant seems to be getting worse. It started on Friday. It is associated nausea but vomiting. Her bowel was this morning and she denies any constipation, diarrhea, bloody stools. Related Data Home Medications ?Medication ?Instructions ?Recorded ?Confirmed ?Last Taken ?Type insulin aspart U-100 100 unit/mL 1 sliding scale dose subcut 04/06/24 08/31/24 Unknown History (3 mL) subcutaneous pen (Novolog USEASDIRECTD FlexPen U-100 Insulin aspart) Allergies Allergy/AdvReac Type Severity Reaction Status Date / Time No Known Allergies Allergy Verified 08/31/24 10:30 [facility] Past Medical History Medical History Ovarian cyst Left History of Helicobacter pylori infection Positive stool culture E coli Diabetes type 1 Surgical History Surgical History History of colonoscopy 2023 History of esophagogastroduodenoscopy (EGD) 2023 H/O shoulder surgery Family History Family History Father Heart disease Hypertension Social History Social History Smoking status: Never smoker Alcohol intake: never Substance use: never Substance use type: does not use Living arrangements: with family Additional living arrangements comments: and child Exam 2 Narrative: GENERAL: Well-appearing, well-nourished, and in no acute distress. HEAD: Normocephalic, atraumatic. EYES: Non injected, non icteric ENT: Nares clear, no rhinorrhea or epistaxis. Gross auditory acuity intact. NECK: Supple. No meningismus. CHEST: Speaking in full sentences. No respiratory distress. HEART: Regular rate and rhythm. . ABDOMEN: Soft, nondistended. No rigidity or guarding. Not peritoneal. No tenderness to palpation throughout. EXTREMITIES: Normal range of motion. No lower extremity edema. SKIN: Warm, dry, no rash. NEURO: No focal deficits. Alert and oriented. Answering questions. Following commands. Normal speech without aphasia or dysarthria. PSYCH: Normal mood and affect. Course Vital Signs Vital signs: Vital Signs Temperature 97.9 F 11/16/24 11:19 Pulse Rate 104 H 11/16/24 11:19 Respiratory Rate 16 11/16/24 11:19 Blood Pressure 164/91 H 11/16/24 11:19 Pulse Oximetry 100 11/16/24 11:19 Oxygen Delivery Room Air 11/16/24 11:19 Temperature 97.5 F L 11/16/24 12:46 Pulse Rate 89 11/16/24 15:50 Respiratory Rate 16 11/16/24 15:50 Blood Pressure 156/89 H 11/16/24 15:50 Pulse Oximetry 100 11/16/24 15:50 Oxygen Delivery Room Air 11/16/24 11:19 MDM - Abdominal Pain MDM Narrative Medical decision making narrative: 34-year-old being presents with report left upper quadrant abdominal pain starting Friday. She states it has been constant but seems to be getting worse. Associated with nausea. History of E coli followed by H pylori. Takes hyoscyamine and is status post 1 round Xifaxan (2nd round prescribed and picked up last night but not yet taken). Followed by Dr Dewey and Carolyn Minor. In the emergency department she is afebrile with vital signs notable for hypertension and tachycardia. The tachycardia or resolves on repeat assessment without interval intervention. The blood pressure also improves although remains mildly hypertensive. test negative. Patient has a microcytic anemia though represents <1g drop from previous per review of EMR. Patient has +1 ketonuria +3 glucosuria. Morphine IV fluids ordered although it appears that patient declined the morphine. She did tell the nurse that she was requesting pain medicine that was less strong. Acetaminophen ordered in addition to Zofran. She has hyperglycemia without anion gap acidosis. There is a degree of pseudo hyponatremia as her sodium corrects to 134/136 in the setting of hyperglycemia. Patient reassessed but continues to feel the same. Will proceed with CT imaging and give Bentyl. Patient reassessed after CT imaging. She is feeling much better. We discussed the findings of CT including the presence of the ovarian cyst. She states previously was 1 cm. Discussed that sometimes hormonally mediated, OBGyn typically follows. Slightly increased risk torsion but typically with cysts of a much larger size. She is in the process of trying to establish with an OB Gyne but there are insurance issues. She is given a referral to 1, especially as she states she and her are considering trying to have a 2nd child. She is given Rx for prental vitamins. We also discussed the presence of a small umbilical hernia however this has been asymptomatic and we discussed this as an incidental finding. She is given a dose of ketorolac for its anti-inflammatory properties and discussed the continued usage of NSAIDs for pain and inflammation. Given the Bentyl also seem to help, she is prescribed short course as well. Differential Diagnosis Differential diagnosis: Likely abdominal pain, calculus of kidney, constipation, diverticulitis, endometriosis, pancreatitis and other (Considered , lobar pneumonia; gastritis; peptic/gastric ulcer disease) Medical Records Attestation: I reviewed the patient's medical records. Medical records narrative: Reviewed some of GI notes Lab Data Attestation: I reviewed the patient's lab results. 11/16/24 12:45 11/16/24 12:45 Labs: Lab Results 11/16/24 11/16/24 11/16/24 Range/Units 12:41 12:45 12:46 WBC 5.1 (4.5-10.0) K/mm3 RBC 4.66 (4.2-5.4) M/mm3 Hgb 11.1 L (12.0-15.0) g/dL Hct 35.8 L (37.0-47.0) % MCV 76.8 L (80-100) fl MCH 23.8 L (26-34) pg MCHC 31.0 L (32-36) g/dl RDW 14.7 H (11.5-14.5) % Plt Count 213 (150-375) k/mm3 MPV 10.9 H (7.4-10.4) fl Immature Gran % (Auto) 0.4 (0-0.5) % Neut % (Auto) 66.6 (45.5-73.1) % Lymph % (Auto) 22.8 (18.3-44.2) % Wright % (Auto) 8.2 (2.6-8.5) % Eos % (Auto) 1.2 (0-4.4) % Baso % (Auto) 0.8 (0.2-1.2) % Lymph # (Auto) 1.17 (0.9-3.2) K/mm3 Wright # (Auto) 0.4 (0.1-0.6) K/mm3 Eos # (Auto) 0.1 (0-0.3) K/mm3 Baso # (Auto) 0.0 (0.0-0.1) K/mm3 Abs Immat Gran (auto) 0.02 (0.00-0.031) K/mm3 Absolute Neuts (auto) 3.4 (1.3-6.7) K/mm3 Absolute Nucleated RBC 0.000 (0.0-0.012) K/mm3 Nucleated RBC % 0.0 (0.0-0.2) % Sodium 132 L (137-145) mmol/L Potassium 4.2 (3.4-5.0) mmol/L Chloride 101 (98-107) mmol/L Carbon Dioxide 25 (22-30) mmol/L Anion Gap 6 (4-12) mmol/L BUN 12 (7-17) mg/dL Creatinine 0.70 (0.7-1.0) mg/dL Estim Creat Clear Calc 94 ml/min Estimated GFR > 60 (59 - ) Glucose 250 H (65-110) mg/dL Calcium 9.0 (8.4-10.2) mg/dL Total Bilirubin 0.5 (0.2-1.3) mg/dL AST 22 (14-36) U/L ALT 16 (6-35) U/L Alkaline Phosphatase 76 (38-126) U/L Total Protein 7.3 (6.3-8.2) g/dL Albumin 4.2 (3.5-5.1) g/dL Lipase 54 (23-300) U/L Urine Color Yellow (Yellow) Urine Appearance Clear (Clear) Urine pH 6.5 (5.0-9.0) Ur Specific Malo 1.013 (1.001-1.035) Urine Protein Negative (Negative) mg/dL Urine Glucose (UA) 3+ H (Negative) mg/dL Urine Ketones 1+ H (Negative) mg/dL Ur Blood (Man) Negative (Negative) Urine Nitrate Negative (Negative) Urine Bilirubin Negative (Negative) Urine Urobilinogen 0.2 (<2.0) mg/dL Leukocyte Esterase Rfl Negative (Negative) WILDER/UL POC Urine HCG, Qual Negative (Negative) Imaging Data Radiologist's impression: ITS Impressions Abdomen/Pelvis CT 11/16/24 14:57 IMPRESSION: 2 cm involuting cyst within the left ovary, as detailed above. Small complex fat-containing umbilical hernia. Discharge Plan Discharge Clinical Impression: Abdominal pain, LUQ, Microcytic anemia, Glucosuria, Hyperglycemia due to type 1 diabetes mellitus, Left ovarian cyst, Hernia, umbilical Patient Disposition: Home Condition: Stable Instructions: Antibiotic Form, Ovarian Cyst (ED), Umbilical Hernia (ED), Abdominal Pain (ED), Anemia (ED), Diabetic Hyperglycemia (ED) Additional Instructions: As we discussed, you can continue to take NSAIDs which help with both the pain and inflammation related to ovarian cyst. The name of an Ob Gyne is listed below for follow-up since you do not currently have 1 and are discussing possible in the future. In the interim continue to take vitamins. Continue your follow-up with gastroenterology. Return to the emergency department with any new or worsening symptoms. You are being prescribed dicyclomine/Bentyl since that seemed to help while you are in the emergency department this works on the smooth muscle of the GI tract. Continue taking your other medications as prescribed include diabetic medications. Patient Language: Sinhala Prescriptions: New 400 mcg tablet,chewable 1 tablet PO DAILY Qty: 30 0RF dicyclomine 10 mg capsule 10 mg PO BID PRN (Reason: abdominal pain) Qty: 20 0RF No Action insulin aspart U-100 [Novolog FlexPen U-100 Insulin] 100 unit/mL (3 mL) insulin pen 1 sliding scale dose subcut USEASDIRECTD omeprazole 20 mg capsule,delayed release(DR/EC) 20 mg PO DAILY Qty: 30 3RF hyoscyamine sulfate [Levsin/SL] 0.125 mg tablet, sublingual 0.125 mg sublingual QID PRN (Reason: abdominal pain) Qty: 60 3RF Xifaxan 550 mg tablet 550 mg PO TID 14 Days Qty: 42 0RF Follow-up/Referrals: Carolyn Minor, MARKETING COMMUNICATIONS MANAGER [Advanced Practice Nurse] - Delmy Duque MD [Physician] - (STAFFING MGR) PHYSICIAN NOT ON STAFF,NONSTAFF [Non-Staff] - Ryan Dewey MD [Physician] - Stand Alone Forms: Work/School Release IP Time of Disposition: 15:33
--- OUTSIDE RECORDS SUMMARY | 2024-11-16 13:46 | XMS_ITS | Encounter Summary ---
Author Organization [facility] Address [address] [place] [address] Care Team Providers Care Sewing Machine Repairer Helper Name Role Phone Nas Baca DO Primary Care Provider [phone] Encounter Details Date Type Department Care Team (Late st Contact Info) Description 12/04/2023 GuestCentric Systemst Message Enc [facility] Family Medicine [address] [address] Nas Baca DO [address] [place] [address] Positive Covid Social History Tobacco Use Types Packs/Day Years Used Date Smoking Tobacco: Former Cigarettes Smokeless Tobacco: Never Alcohol Use Standard Drinks/Week Comments Not Currently 0 (1 standard drink = 0.6 oz pur e alcohol) occas. PHQ-2 Answer Date Recorded Patient Health Questionnaire-2 Score 0 07/22/2023 Comments No Sex and Gender Information Value Date Recorded Sex Assigned at Female 06/18/2024 12:33 PM UNEMPLOYMENT EXAMINER Legal Sex Female 11:47 AM CDT Gender [...] on filedocumented in this encounter Care Teams Sewing Machine Repairer Helper Relationship Specialty Start Date End Date Nas Baca DO [address] [place] [address] PCP - General FAMILY PRACTICE 01/30/23 documented as of this encounter
--- OUTSIDE RECORDS SUMMARY | 2024-11-16 13:46 | XMS_ITS | Clinical Summary ---
Author Organization [facility] Address [facility] [place] [address] Care Team Providers Care Supervisor Pipeline Name Role Phone Keven, Nas Resendez DO Primary Care Provider [phone] Allergies Active Allergy Reactions Criticality Noted Date [...] Pump (OMNIPOD 5 G6 PODS, GEN 5,) [facility] Active Iron, Ferrous Sulfate, 325 (65 [...] Type 1 diabetes mellitus wit hout complication ([facility] 05/07/2017 Overview (07/09/2023): Diagnosed at age 2 On pump since 2000 Diagnosed at age 2 On pump since 2000 Class D EKG wnl, echo not able to be done due to insurance Resolved Problems Problem Noted Date Diagnosed Date Resolved Date Type 1 diabetes mellitus wit hout complication ([facility]) 07/09/2023 07/09/2023 Encounters Date [...] Sex Assigned at Female 06/18/2024 12:33 PM MANNEQUIN REFINISHER Legal Sex Female 11:47 AM CDT Gender Identity Not on file Sexual Orientation Not on file Last Filed Vital Signs Vital Sign Reading Time Taken Comments Blood Pressure 118/77 04/16/2024 1:35 PM MANNEQUIN REFINISHER Pulse 79 04/16/2024 1:35 PM MANNEQUIN REFINISHER Temperature 37.3 C (99.2 F) 04/16/2024 1:35 PM MANNEQUIN REFINISHER Respiratory Rate 18 07/22/2023 11:43 AM CDT Oxygen Saturation 100% 04/16/2024 1:35 PM MANNEQUIN REFINISHER Inhaled Oxygen Concentration - - Weight 76.5 kg (168 lb 9.6 oz) 04/16/2024 1:35 P M MANNEQUIN REFINISHER Height 171.9 cm (5' 7.68) 04/16/2024 1:35 PM CS T Body Mass Index 25.88 04/16/2024 1:35 PM MANNEQUIN REFINISHER Plan of Treatment Health Maintenance Due Date [...] ( season) 2023 07/19/2020, 06/30/2020 PHQ-2 (Physician Anton) 04/28/2024 04/16/2024 Hemoglobin A1C 06/30/2024 01/01/2024, 09/0 [...] Most Recently Relevant to Health Maintenance Insurance [facility] Care Teams Supervisor Pipeline Relationship Specialty Start Date End Date Nas [place] [address] [place] [address] PCP - General FAMILY PRACTICE 01/30/23
--- OUTSIDE RECORDS SUMMARY | 2024-11-16 13:46 | XMS_ITS | Data Portability ---
Author Organization [employer], [facility] Address [address] [address] Assessment No assessment recorded. Plan of Treatment [...] index (BMI) Body weight Heart rate Systolic And Diastolic Provider Name and Address Organization Details Last Updated DateTime 05/08/2022 170.18 cm 26.6 kg/m2 45239.7 g 80 /min 147/82 mm[Hg] [employer] 05/08/2022 14:10:24 Date Recorded Body height Body mass index (BMI) Body weight Heart rate Systolic And Diastolic Provider Name and Address Organization Details Last Updated DateTime 08/06/2022 170.18 cm 26.6 kg/m2 15077.7 g 93 /min 148/84 mm[Hg] [employer], [facility] 08/06/2022 16:10:55 Date Recorded Body height Body mass index (BMI) Body weight Heart rate Systolic And Diastolic Provider Name and Address Organization Details Last Updated DateTime 08/27/2022 170.18 cm 26.6 kg/m2 67137.7 g 73 /min 139/85 mm[Hg] Michael [email or web address] [facility] 08/27/2022 12:26:33 Social History None recorded. Functional Status None recorded. Mental Status None recorded. Family History Nothing Reported. Medical History Condition Response Coronary Artery Disease N HIV or AIDS N Other Cancer N Gout N Kidney Stones N Hyperthyroidism [...] Tendon Tear N Ulcers N Heart Attack ([place]) N Osteopenia N Diabetes Y Bleeding Disorder [...] SNOMED-CT Code Diagnosis ICD10 Code Diagnosis Note [id number] Bruno Moses MD [facility] [address] [place] [address] 05/08/2022 13:47:09 05/08/2022 15:50:37 [id number] Bruno Moses MD [facility] [address] [place] [address] 08/06/2022 16:01:17 08/07/2022 10:28:52 [id number] Bruno Moses MD [facility] [address] [place] [address] 08/27/2022 12:00:43 08/27/2022 15:23:37 Health Concerns Section Related Observation LastModified by Organization Detai ls LastModified Time None Recorded Concern Status LastModified by Organization Details LastModified Time None Recorded Advance Directives Directive None Recorded Payers Insurance Date Sequence Insurance Name Policy Number Policy Alves Covered Member ID Alves Member ID Guarantor Name 09/03/2022 1 [facility] BS [facility] (PPO) [id number] Reginald Werner [id number] Inna Werner OBDarrion Episode No OBEpisode recorded.
--- OUTSIDE RECORDS SUMMARY | 2024-11-16 13:46 | XMS_ITS | Encounter Summary ---
Author Organization [facility] Address [address] [place] [address] Care Team Providers Care Ballpoint Pen Assembly Machine Operator Name Role Phone Nas Baca DO Primary Care Provider [phone] Encounter Details Date Type Department Care Team (Late st Contact Info) Description 07/14/2023 MyChart Message Enc [facility] Family Medicine [facility] [address] [place] [address] Nas Baca DO [address] [place] [address] EBV Results Social History Tobacco Use Types Packs/Day Years Used Date Smoking Tobacco: Former Cigarettes Smokeless Tobacco: Never Alcohol Use Standard Drinks/Week Comments Not Currently 0 (1 standard drink = 0.6 oz pur e alcohol) PHQ-2 Answer Date Recorded Patient Health Questionnaire-2 Score 0 01/30/2023 Comments No Sex and Gender Information Value Date Recorded Sex Assigned at Female 06/18/2024 12:33 PM GIFT PACKER Legal Sex Female 11:47 AM CDT Gender Identity Not on file Sexual Orientation Not on file documented as of this encounter Plan of Treatment Not on file documented as of this encounter Visit Diagnoses Not on filedocumented in this encounter Care Teams Ballpoint Pen Assembly Machine Operator Relationship Specialty Start Date End [place] [address] PCP - General FAMILY PRACTICE 01/30/23 documented as of this encounter
--- OUTSIDE RECORDS SUMMARY | 2024-11-16 13:46 | XMS_ITS | Clinical Summary ---
Author Organization [facility] Address [address] [place] [address] Care Team Providers Care Director Emergency Services Name Role Phone Keven, Nas Anival Primary Care Provide r Solo Garcia MD Unavailable [phone] Allergies Active Allergy Reactions Criticality Noted Date Comments Metronidazole Itching Low 04/01/2024 Itching of face, mouth, chest and whole body per patient Succinylcholine Other (See comments) High 09/04/2018 Family history of pseudocholinesterase deficiency, so prolonged time of action with succinylcholine administration for her, if given. Medications blood-glucose meter,continuous (Dexcom G6 Relationship Management Lead) misc 1 Device by Not Applicable route [...] PM CDT - 09/19/2024 12:30 AM CDT [address] [address] Laceration of left lower extremity, initial encounter (Primary Dx) Discharge Disposition: Discharge to home or self care 09/18/2024 8:13 PM CDT - 09/18/2024 8:51 PM T [facility] Emergency Department [address] [place] [address] Discharge Disposition: Left without being seen from [...] Tobacco: Never Tobacco Cessation:Counseling Given: Not Answered [facility] Utilities Answer Date Recorded In the past 12 months has [employer], gas, oil, or water company threatened to [...] often do you attend chur ch or taoist services? Never 04/09/2024 Do you belong to any clubs o r organizations such as christian groups, unions, fraternal or athletic groups, or [...] any time in the past 12 m [facility], were you homeless or living in a residential (including now)? No 04/09/2024 Personal Safety Answer Date Recorded Have you ever been in or are you currently in a harmful physical or emotional relationship or is someone making you feel afraid or unsafe? Denies 09/18/2024 Comments No Sex and Gender Information Value Date Recorded Sex Assigned at Not on file Legal Sex Female 9:33 AM CDT Gender Identity Female 05/19/2024 6:51 AM CONTACT LENS LATHE OPERATOR Sexual Orientation Straight 05/19/2024 6: 51 AM CONTACT LENS LATHE OPERATOR Obstetrics History Para Term AB IAB [...] Estrellita Sarai Ornelas MD Complications:Intraamniotic Infection Delivery Location:[facility] Comments:Heart murmur Last Filed Vital [...] 170.2 cm (5' 7) 04/08/2024 7:50 PM CONTACT LENS LATHE OPERATOR Body Mass Index 27.42 04/08/2024 7:50 PM CONTACT LENS LATHE OPERATOR Plan of Treatment Health Maintenance Due [...] AM CDT EGFR STAT 04/08/2024 12:59 PM CONTACT LENS LATHE OPERATOR PAP WITH REFLEX TO HIGH RISK [...] Final Result * eGFR (04/08/2024 12:59 PM CONTACT LENS LATHE OPERATOR) eGFR >90 >=60 mL/min/1. 73 m2 [...] reviewed 2021. Blood 04/08/2024 12:5 9 PM CONTACT LENS LATHE OPERATOR 04/08/2024 1:30 PM CONTACT LENS LATHE OPERATOR us Michelle Pantoja MD LAB BLOOD ORDERABLES Final Result [facility] [address] Department of Laboratories [place], [place] [id number] * Pap with reflex to High Risk HPV and Genotyping (Cytology Component) (11/14/2022 11:49 AM CDT) Thin prep (Pap test) 11/14/2022 11:49 AM CDT 11/18/2022 11:49 AM CDT Narrative PATHOLOGY [facility] - 11/21/2022 1:17 PM CDT [facility] Department of Pathology [address] [place] [address] Final Report Note to Patients: This [...] the details. Patient Name: KHALIF RIVERA Address: [facility] [address], [place] [address] Gender: F : 1990 (Age: 32) Service: Location: [facility] #: [id number] Patient Type: E SPECIMEN Taken: 11/14/2022 Received: 11/18/2022 Accessioned:: 11/19/2022 Reported: 11/21/2022 Physician(s): Jocelyn Flores [facility] Diagnosis: SOURCE OF SPECIMEN Imaged Thinprep Pap Test w/ Reflex HPV - Slip Cover Estimator Cytologic Material: STATEMENT OF ADEQUACY - Satisfactory for evaluation; endocervical/transformation zone component present GENERAL CATEGORIZATION: - Negative for intraepithelial lesion or malignancy MARLINE Christianson(ASCP) Report Electronically Reviewed and Signed Out By MARLINE Christianson(ASCP) 11/21/2022 13:17:29Specimen(s) Received: A: Imaged Thinprep Pap Test w/ Reflex HPV - Slip Cover Estimator Cytologic Material Clinical History: Last Menstrual Period: [...] determined by the Surgical Pathology Department at [facility] as part of an ongoing quality control tester program and in compliance with federally mandated [...] Jocelyn DURON LAB CYTOLOGY ORDERABLES Final Result [facility] from Last 3 Months or Most Recently Relevant to Health Maintenance Insurance [facility] [place] [facility] [place] Advance Directives For more information, please contact: [phone] * Full Code (Latest Code Status on File) Date Activated Date Inactivated Comments 04/08/2024 7:40 PM 04/10/2024 5:40 PM * Full Code Date Activated Date Inactivated Comments 04/01/2024 1:49 PM 04/04/2024 7:09 PM Care Teams Director Emergency Services Relationship Specialty Start Date End Date Nas Baca DO [address] [place] [address] PCP - General Family Medicine 06/27/23 Solo Garcia MD [address] [address] Referring Physician Endocrinology Diabetes & Metabolism 08/11/24
--- OUTSIDE RECORDS SUMMARY | 2024-11-16 13:46 | XMS_ITS | Referral Summary ---
Author Organization [facility] Address [address] [place] [address] Care Team Providers Care Chief Operator Reformer Name Role Phone Keven, Nas Anival Primary Care Provide r Solo Garcia MD Unavailable [phone] Encounters Date Type Department Care Team Description 09/18/2024 10:12 PM CDT - 09/19/2024 12:30 AM T Emergency [address] [address] Laceration of left lower extremity, initial encounter (Primary Dx) Discharge Disposition: Discharge to home or self care 09/18/2024 8:13 PM CDT - 09/18/2024 8:51 PM T Emergency [facility] Emergency Department [address] [place] [address] Discharge Disposition: Left without being seen from Last 3 Months Allergies Active Allergy Reactions Criticality Noted Date Comments Metronidazole Itching Low 04/01/2024 Itching of face, mouth, chest and whole body per patient Succinylcholine Other (See comments) High 09/04/2018 Family history of pseudocholinesterase deficiency, so prolonged time of action with succinylcholine administration for her, if given. Medications blood-glucose meter,continuous ([employer] G6 Oil Bay Technician) misc 1 Device by Not Applicable route [...] Tobacco: Never Tobacco Cessation:Counseling Given: Not Answered [facility] Utilities Answer Date Recorded In the past 12 months has e [employer], gas, oil, or water [employer] threatened to shut off services in your [...] often do you attend chur ch or bahai services? Never 04/09/2024 Do you belong to any clubs o r organizations such as hoahaoism groups, unions, fraternal or athletic groups, or [...] any time in the past 12 m [facility], were you homeless or living in a jail (including now)? No 04/09/2024 Personal Safety Answer Date Recorded Have you ever been in or are you currently in a harmful physical or emotional relationship or is someone making you feel afraid or unsafe? Denies 09/18/2024 Comments No Sex and Gender Information Value Date Recorded Sex Assigned at Not on file Legal Sex Female 9:33 AM CDT Gender Identity Female 05/19/2024 6:51 AM DIRECTOR SERVICE Sexual Orientation Straight 05/19/2024 6: 51 AM DIRECTOR SERVICE Last Filed Vital Signs Vital Sign Reading [...] 170.2 cm (5' 7) 04/08/2024 7:50 PM DIRECTOR SERVICE Body Mass Index 27.42 04/08/2024 7:50 PM DIRECTOR SERVICE Plan of Treatment Not on file Procedures Procedure Name Priority Date/Time Associated Diagnosis Comments ED LACERATION REPAIR Routine 09/19/2024 1:13 AM CDT EGFR STAT 04/08/2024 12:59 PM DIRECTOR SERVICE PAP WITH REFLEX TO HIGH RISK HPV [...] Final Result * eGFR (04/08/2024 12:59 PM DIRECTOR SERVICE) eGFR >90 >=60 mL/min/1. 73 m2 Comment: [...] reviewed 2021. Blood 04/08/2024 12:5 9 PM DIRECTOR SERVICE 04/08/2024 1:30 PM DIRECTOR SERVICE us Michelle Pantoja MD LAB BLOOD ORDERABLES Final Result [facility] [address] Department [place] [address] * Pap with reflex to High Risk HPV and Genotyping (Cytology Component) (11/14/2022 11:49 AM CDT) Thin prep (Pap test) 11/14/2022 11:49 AM CDT 11/18/2022 11:49 AM CDT Narrative PATHOLOGY [facility] - 11/21/2022 1:17 PM CDT [facility] Department of Pathology [address] [place] [address] Final Report Note to Patients: This [...] the details. Patient Name: KHALIF RIVERA Address: [facility] [place] [address] Gender: F : 1990 (Age: 32) Service: Location: [facility] #: [id number] Patient Type: [facility] SPECIMEN Taken: 11/14/2022 Received: 11/18/2022 Accessioned:: 11/19/2022 Reported: 11/21/2022 Physician(s): OLIVERIO [facility] Diagnosis: SOURCE OF SPECIMEN Imaged Thinprep Pap Test w/ Reflex HPV - Professor Of Music Cytologic Material: STATEMENT OF ADEQUACY - Satisfactory for evaluation; endocervical/transformation zone component present GENERAL CATEGORIZATION: - Negative for intraepithelial lesion or malignancy MARLINE Christianson(ASCP) Report Electronically Reviewed and Signed Out By MARLINE Christianson(ASCP) 11/21/2022 13:17:29Specimen(s) Received: A: Imaged Thinprep Pap Test w/ Reflex HPV - Professor Of Music Cytologic Material Clinical History: Last Menstrual Period: [...] determined by the Surgical Pathology Department at [facility] as part of an ongoing supplier quality specialist program and in compliance with federally mandated [...] determined by the Surgical Pathology Department [facility]. It has not been cleared or approved by the U. S. Food and Drug Administration. Jocelyn DURON LAB CYTOLOGY ORDERABLES Final Result PATHOLOGY [facility] from Last 3 Months or Most Recently Relevant to Health Maintenance Insurance [facility] Advance Directives For more information, please contact: [phone] * Full Code (Latest Code Status on File) Date Activated Date Inactivated Comments 04/08/2024 7:40 PM 04/10/2024 5:40 PM * Full Code Date Activated Date Inactivated Comments 04/01/2024 1:49 PM 04/04/2024 7:09 PM Care Teams Chief Operator Reformer Relationship Specialty Start Date End Date Nas Baca DO [address] [place] [address] PCP - General Family Medicine 06/27/23 Solo Garcia MD [address] [address] Referring Physician Endocrinology Diabetes & Metabolism 08/11/24
--- OUTSIDE RECORDS SUMMARY | 2024-11-16 13:46 | XMS_ITS | Encounter Summary ---
Author Organization [facility] Address [address] [place] [address] Care Team Providers Care Entry Level Sales Consultant Name Role Phone Nas Baca DO Primary Care Provider [phone] Encounter Details Date Type Department Care Team (Late st Contact Info) Description 07/23/2023 [email or web address] Message Enc [facility] Medical [facility] Family Medicine [facility] [address] [place] [address] [place] [address] Following Yesterday s Visit Social History Tobacco [...] Sex Assigned at Female 06/18/2024 12:33 PM MANUFACTURERS REPRESENTATIVE Legal Sex Female 11:47 AM CDT Gender Identity Not on file Sexual Orientation Not on file documented as of this encounter Plan of Treatment Not on file documented as of this encounter Visit Diagnoses Not on filedocumented in this encounter Care Teams Entry Level Sales Consultant Relationship Specialty Start Date End Date Nas Baca DO [address] [place], [place] [phone] PCP - General FAMILY PRACTICE 01/30/23 documented as of this encounter
--- OUTSIDE RECORDS SUMMARY | 2024-11-16 13:46 | XMS_ITS | Encounter Summary ---
Author Organization [facility] Address [address] [place] [address] Care Team Providers Care Executive Admin Name Role Phone Nas Baca DO Primary Care Provider [phone] Encounter Details Date Type Department Care Team (Late st Contact Info) Description 07/09/2023 [email or web address] Message Enc [facility] Medical Group Family Medicine - [place] [address] [place] [address] [place] [address] Todays Visit/Lab Visit Social History Tobacco Use Types Packs/Day Years Used Date Smoking Tobacco: Former Cigarettes Smokeless Tobacco: Never Alcohol Use Standard Drinks/Week Comments Not Currently 0 (1 standard drink = 0.6 oz pur e alcohol) PHQ-2 Answer Date Recorded Patient Health Questionnaire-2 Score 0 01/30/2023 Comments No Sex and Gender Information Value Date Recorded Sex Assigned at Female 06/18/2024 12:33 PM RECREATION ATTENDANT SUPERVISOR Legal Sex Female 11:47 AM CDT Gender Identity Not on file Sexual Orientation Not on file documented as of this encounter Plan of Treatment Not on file documented as of this encounter Visit Diagnoses Not on filedocumented in this encounter Care Teams Executive Admin Relationship Specialty Start Date End Date Nas Baca DO [address] [place], [place] [phone] PCP - General FAMILY PRACTICE 01/30/23 documented as of this encounter
--- OUTSIDE RECORDS SUMMARY | 2024-11-16 13:47 | XMS_ITS | Encounter Summary ---
Author Organization [facility] Address [address] [facility] [place] [address] Care Team Providers Care Ice Delivery Driver Name Role Phone Dewayne Weathers MD Primary Care Provider Kaleb Mccurdy MD Primary Care Provider Breanna laura López Jr., MD, Willis Randle Primary Care Provid er Nas Baca DO Primary Care Provider Encounter Details Date Type Department Care Team (Late Contact Info) Description 01/13/2008 [facility] Outpatient Visit [facility] [address] [place], [place] [id number] Ru Shelton MD Retired Social History Tobacco Use Types Packs/Day Years Used Date Smoking Tobacco: Never Assessed Comments Unknown Sex and Gender Information Value Date Recorded Sex Assigned at Not on file Legal Sex Female 6:55 AM CHILD PROTECTIVE SERVICES SPECIALIST Gender Identity Not on file Sexual Orientation Not on file documented as of this encounter Plan of Treatment Upcoming Encounters Date Type Department Care Team (Late Contact Info) Description 12/08/2024 11:20 AM CDT Office Visit [facility] - Endocrinology [address] [place] [address], [address] [place] [address] Solo Garcia MD [address] [facility] [address] [place] [address] documented as of this encounter Visit Diagnoses Not on filedocumented in this encounter Care Teams Ice Delivery Driver Relationship Specialty Start Date End Date Dewayne Weathers MD [address] [place], [place] [phone] PCP - General 03/28/08 08/18/10 Kaleb Mccurdy MD PCP - General 08/19/10 05/06/17 Willis López Jr[place] [address] [address] [facility] [address] [place] [address] PCP - General 03/30/18 12/03/22 Nas Baca DO [address] [phone] PCP - General Family Medicine 07/28/23 documented as of this encounter
--- OUTSIDE RECORDS SUMMARY | 2024-11-16 13:47 | XMS_ITS | Encounter Summary ---
Author Organization [facility] Address [address] [place] [address] Care Team Providers Care Supervisor Agricultural Education Name Role Phone Dewayne Weathers MD Primary Care Provider Kaleb Mccurdy MD Primary Care Provider Breanna laura López Jr., MD, Willis Randle Primary Care Provid er Nas Baca DO Primary Care Provider Encounter Details Date Type Department Care Team (Late Contact Info) Description 01/13/2008 [facility] Outpatient Visit [facility] DEFAULT [address] [place] [address] Nasrin Matthews APRN-CNP Social History Tobacco Use Types Packs/Day Years Used Date Smoking Tobacco: Never Assessed Comments Unknown Sex and Gender Information Value Date Recorded Sex Assigned at Not on file Legal Sex Female 6:55 AM RETAIL OPERATIONS MANAGER Gender Identity Not on file Sexual Orientation Not on file documented as of this encounter Plan of Treatment Upcoming Encounters Date Type Department Care Team (Late st Contact Info) Description 12/08/2024 11:20 AM CDT Office Visit [facility] - Endocrinology [address] [place] [address], [address] [place] [address] Solo Garcia MD [address] [facility] [address] [place] [address] documented as of this encounter Visit Diagnoses Not on filedocumented in this encounter Care Teams Supervisor Agricultural Education Relationship Specialty Start Date End Date Dewayne Weathers MD [address] [place], [place] [phone] PCP - General 03/28/08 08/18/10 Kaleb Mccurdy MD PCP - General 08/19/10 05/06/17 Willis López Jr[place] [address] [address] [facility] [address] [place] [address] PCP - General 03/30/18 12/03/22 Nas Baca DO [address] [facility] [address] [place] [phone] PCP - General Family Medicine 07/28/23 documented as of this encounter
--- OUTSIDE RECORDS SUMMARY | 2024-11-16 13:47 | XMS_ITS | Encounter Summary ---
Author Organization [facility] Address [address] [facility] [place] [address] Care Team Providers Care Golf Ball Marker Name Role Phone Dewayne Weathers MD Primary Care Provider Kaleb Mcucrdy MD Primary Care Provider Breanna laura López Jr., MD, Willis Randle Primary Care Provid er Nas Baca DO Primary Care Provider Encounter Details Date Type Department Care Team (Late Contact Info) Description 01/19/2008 [facility] Outpatient Visit [facility] DEFAULT [address] [place], [place] [phone] [place] [address] [place] [address] Social History Tobacco Use Types Packs/Day Years Used Date Smoking Tobacco: Never Assessed Comments Unknown Sex and Gender Information Value Date Recorded Sex Assigned at Not on file 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 Gender Identity Not on file Sexual Orientation Not on file documented as of this encounter Plan of Treatment Upcoming Encounters Date Type Department Care Team (Late Contact Info) Description 12/08/2024 11:20 AM CDT Office Visit [facility] - Endocrinology [address], [address] [place] [phone] Solo Garcia MD [address] [place] [address] documented as of this encounter Visit Diagnoses Not on filedocumented in this encounter Care Teams Golf Ball Marker Relationship Specialty Start Date End Date Dewayne Weathers MD [address] [place], [place] [phone] PCP - General 03/28/08 08/18/10 Kaleb Mccurdy MD PCP - General 08/19/10 05/06/17 Willis López [place] [address] Elsy Ale[address] [facility] [address] [place] [phone] PCP - General 03/30/18 12/03/22 Nas Baca DO [address] [phone] PCP - General Family Medicine 07/28/23 documented as of this encounter
--- OUTSIDE RECORDS SUMMARY | 2024-11-16 13:47 | XMS_ITS | Encounter Summary ---
Author Organization [facility] Address [address] [facility] [place] [address] Care Team Providers Care Installation And Service Technician Name Role Phone Dewayne Weathers MD Primary Care Provider [phone] Kaleb Mccurdy MD Primary Care Provider Breanna laura López Jr., MD, Willis Randle Primary Care Provid er Nas Baca DO Primary Care Provider [phone] Encounter Details Date Type Department Care Team (Late st Contact Info) Description 11/16/2007 [facility] Outpatient Visit [address] [phone] Roxanna Glover MD Social History Tobacco Use Types Packs/Day Years Used Date Smoking Tobacco: Never Assessed Comments Unknown Sex and Gender Information Value Date Recorded Sex Assigned at Not on file 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 Gender Identity Not on file Sexual Orientation Not on file documented as of this encounter Plan of Treatment Upcoming Encounters Date Type Department Care Team (Late Contact Info) Description 12/08/2024 11:20 AM CDT Office Visit [facility] - Endocrinology [address], [address] [place] [phone] Solo Garcia MD [address] [facility] [address] [place] [address] documented as of this encounter Visit Diagnoses Not on filedocumented in this encounter Care Teams Installation And Service Technician Relationship Specialty Start Date End Date Dewayne Weathers MD [address] [place], [place] [phone] PCP - General 03/28/08 08/18/10 Kaleb Mccurdy MD PCP - General 08/19/10 05/06/17 Willis López [place] [address] El[address] [facility] [address] [place] [address] PCP - General 03/30/18 12/03/22 Nas Baca DO [address] [phone] PCP - General Family Medicine 07/28/23 documented as of this encounter
--- OUTSIDE RECORDS SUMMARY | 2024-11-16 13:47 | XMS_ITS | Clinical Summary ---
Author Organization [facility] Keep Me Cert[facility] Address [address] [facility] [place] [address] Care Team Providers Care Rcis Name Role Phone KevenNas DO Primary Care Provider Source Comments [facility],non-owned Affiliates and Associated Physician Practices is amultiple site organization consisting of ambulatory clinics and hospital sitesin [place], [place], [place] and [place]. This disclosure is being madepursuant to the Care Everywhere program and may not contain all information available regarding this patient. Last updated 18.[facility] Allergies No known active allergies Medications * [...] 06/29/2020 Assessment & Plan (06/29/2020 4:48 PM OUTSOLE CUTTER MACHINE): Exam is normal. I discussed that breast [...] Type Department Care Team Description 09/08/2024 Refill [facility] - Endocrinology [facility] [address], [address] [place] [address] Solo Garcia MD MEDICATION REFILL 09/02/2024 Telephone [facility] - Endocrinology [facility] [address], [address] [place] [address] Solo Garcia MD Medication Prior Auth Request 08/31/2024 Results Follow-Up [facility] - Endocrinology [facility] [address], [address] [place] [address] Solo Garcia MD 08/30/2024 2:20 PM CDT Office Visit [facility] - Endocrinology [address] [place] [address], [address] [place] [address] Solo Garcia MD Type 1 diabetes mellitus without complication (HCC) (Primary Dx); Insulin pump status; Dyslipidemia 08/30/2024 Travel from Last 3 Months Immunizations Immunization Administration Dates Next Due Covid Jobvite primary monoval ent 12+ yr 0.3mL Purple [...] on file Legal Sex Female 6:55 AM OUTSOLE CUTTER MACHINE Gender Identity Not on file Sexual Orientation [...] [facility] - Endocrinology [address] [facility], [address] [place] [address] Solo Garcia MD [address] [facility] [address] [place] [address] Health Maintenance Due Date Last [...] IMAGE-GUIDED RFLX HPV+CT/NG Routine 04/24/2018 11:22 AM OUTSOLE CUTTER MACHINE , unspecified gestational age Screening for cervical [...] - 08/31/2024 3:06 AM CDT Performed at: [address] [place] [address] [id number] Hard Tile Setter: Jack Hernandez Dr, Phone: [phone] us Solo Garcia MD LAB - CHEMISTRY ORDERABLES Final Result Performing Organization Address City/[facility]/ZIP Co de Phone Number [facility] ACCOUNT BILL [address] [place] [address] * MICROALB/CREAT RATIO URINE RANDOM PANEL (08/30/2024 3:09 PM CDT) Creatinine Urine 93.26 mg/dL LAB [facility] ACCOUNT BILL Microalbumin Urine 0.9 mg/dL [facility] ACCOUNT BILL Microalbumin/Crea tinine Ratio 9 <30 mg/g [facility] ACCOUNT BILL Urine URINE SPECIMEN OBTAINED BY CLEAN CATCH PROCEDURE / Unknown 08/30/2024 3:09 PM CDT 08/30/2024 Narrative [facility] ACCOUNT BILL - 08/31/2024 3:06 AM CDT Performed at: [address] [place] [address] [id number] Hard Tile Setter: Jack Hernandez Dr, Phone: [phone] us Solo Garcia MD LAB - URINE CHEMISTRY ORDER MATHIEU Final Result Performing Organization Address City/[facility]/ZIP Co de Phone Number [facility] ACCOUNT BILL [address] [place] [address] * (ABNORMAL) COMPREHENSIVE METABOLIC PANEL (08/30/2024 3:09 [...] - 08/31/2024 3:06 AM CDT Performed at: [address] [place] [address] [id number] Hard Tile Setter: Jack Hernandez Dr, Phone: [phone] us Solo Garcia MD LAB - CHEMISTRY ORDERABLES Final Result Performing Organization Address City/State/[facility] Co de Phone Number [facility] ACCOUNT BILL [address] [place] [address] * TSH (08/30/2024 3:09 PM CDT) TSH 1.1096 0.35 - 4.94 uIU/mL [facility] ACCOUNT BILL Blood BLOOD SPECIMEN / Unknown 08/30/2024 3:09 PM CDT 08/30/2024 Narrative [facility] ACCOUNT BILL - 08/31/2024 3:06 AM CDT Performed at: [address] [place] [address] [id number] Hard Tile Setter: Jack Hernandez Dr, Phone: [phone] Solo Garcia MD LAB - CHEMISTRY ORDERABLES Final Result [facility] ACCOUNT [place] [address] * HEMOGLOBIN A1C - POINT OF CARE (AMB) (08/30/2024 2:36 PM CDT) Hemoglobin A1c POCT 6.2 % [facility] Expiration Date [address] [facility] Lot # [id number] [facility] QC Verified Yes Yes [facility] Blood BLOOD SPECIMEN / Unknown 08/30/2024 2:36 PM CDT Solo Garcia MD LAB - POINT OF CARE ORDERAB LES Final Result Performing Organization Address City/[facility]/ZIP Co de Phone Number [facility] [address], [address] [phone] * (ABNORMAL) GLUCOSE - POINT OF CARE (AMB) STL (08/30/2024 2:32 PM CDT) Pathologist [facility] Glucose 227(A) 60 - 100 mg/dL [facility] Lot # [id number] [facility] Expiration Date [address] [facility] [address] [facility] QC Verified Yes Yes [facility] Blood BLOOD SPECIMEN / Unknown 08/30/2024 2:32 PM CDT Solo Garcia MD LAB - POINT OF CARE ORDERAB LES Final Result [facility] [address], [address] [phone] * HIV-1 HIV-2 ANTIBODY + HIV P24 AG PANEL (09/18/2018 11:03 AM CDT) Pathologist [facility] HIV Screen 4th Generation w Reflex NON-REACT [...] purpose. For additional information please refer to http://education.Bitspark/faq/TSL960 (This link is being provided for informational/ educational purposes only.) The performance of this assay has not been clinically validated in patients less than 2 years old. Test Performed at: [facility] [address] [place] [address] DALTON WOOD DO,MPH Blood BLOOD SPECIMEN / Unknown 09/18/2018 11:03 AM CDT 09/18/2018 11:04 AM CDT Iain Rosenbaum MD LAB - CHEMISTRY ORDERABLES Fin al Result Performing Organization Address City/State/[facility] Co de Phone Number [facility] [address] [place] [address] * PAP IMAGE-GUIDED LIQUID BASE RFLX HPV+CT/NG (04/24/2018 11:22 AM OUTSOLE CUTTER MACHINE) Case Report Gynecologic Cytology Report Case: [id number] Authorizing Provider: Jocelyn Sharma MD Collected: 04/24/2018 11:22 AM Ordering Location: [facility] Received: 04/27/2018 11:22 AM [facility] Screen: Dewayne Perez Specimen: THINPREP - IMAGE GUIDED, Cervix/Endocervix 04/29/2018 1:22 PM OUTSOLE CUTTER MACHINE [facility] LMP 04/29/2018 1:22 PM OUTSOLE CUTTER MACHINE [facility] Menstrual Status 04/29/19 1:22 PM OUTSOLE CUTTER MACHINE [facility] Specimen Adequacy Satisfactory for evaluation, endocervical/trans formation zone component present. 04/29/2018 1:22 PM OUTSOLE CUTTER MACHINE [facility] Categorization Negative for intraepithelial lesion or malignancy. 04/29/2018 1:22 PM [facility] Interpretation BOBTAILER Negative for intraepithelial lesion or malignancy. 04/29/2018 1:22 PM [facility] at [address] OUTSOLE CUTTER MACHINE Pap Footnote This specimen was evaluated by the ThinPrep Imaging System along with the an additional manual rescreening by a clinical science liaison and/or pathologist. 04/29/2018 1:22 PM [facility] Embedded Images 1:22 PM [facility] Pathology/Cytolo gy MISCELLANEOUS SAMPLES / Unknown 04/24/2018 11:22 AM OUTSOLE CUTTER MACHINE 04/27/2018 11:22 AM OUTSOLE CUTTER MACHINE Jocelyn Sharma MD LAB - PATHOLOGY/CYTOLOGY OR DERABLES Final Result Performing Organization Address City/State/[facility] Co de Phone Number [facility] [address] [facility] [phone] from Last 3 Months or Most Recently Relevant to Health Maintenance Insurance [facility] Advance Directives * Full Code (Latest Code Status on File) Date Activated Date Inactivated Comments 10/30/2018 12:56 PM 11/02/2018 5:30 PM * Full Code Date Activated Date Inactivated Comments 09/04/2018 3:48 PM 09/05/2018 10:56 PM Care Teams Rcis Relationship Specialty Start Date End Date Nas Baca DO [address] [address] PCP - General Family Medicine 07/28/23
--- OUTSIDE RECORDS SUMMARY | 2024-11-16 13:47 | XMS_ITS | Encounter Summary ---
Author Organization [facility] Address [address] [facility] [place] [address] Care Team Providers Care Phys Asst Name Role Phone Dewayne Weathers MD Primary Care Provider Kaleb Mccurdy MD Primary Care Provider Breanna laura López Jr., MD, Willis Randle Primary Care Provid er Nas Baca DO Primary Care Provider Encounter Details Date Type Department Care Team (Late st Contact Info) Description 09/25/[address] 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 Gender Identity Not on file Sexual Orientation Not on file documented as of this encounter Plan of Treatment Upcoming Encounters Date Type Department Care Team (Late Contact Info) Description 12/08/2024 11:20 AM CDT Office Visit [facility] - [facility] [address] [facility] [place] [address] Solo Garcia MD [address] [facility] [address] [place] [address] documented as of this encounter Visit Diagnoses Not on filedocumented in this encounter Care Teams Phys Asst Relationship Specialty Start Date End Date Dewayne Weathers MD [address] [place], [place] [id number] PCP - General 03/28/08 08/18/10 Kaleb Mccurdy MD PCP - General 08/19/10 05/06/17 Willis Ló[place] [address] [address] [facility] [address] [place] [address] PCP - General 03/30/18 12/03/22 Nas Baca DO [address] [phone] PCP - General Family Medicine 07/28/23 documented as of this encounter
--- OUTSIDE RECORDS SUMMARY | 2024-11-16 13:47 | XMS_ITS | Encounter Summary ---
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 Social History Tobacco Use Types Packs/Day Years Used Date Smoking Tobacco: Never Assessed Comments Unknown Sex and Gender Information Value Date Recorded Sex Assigned at Not on file Legal Sex Female 6:55 AM NCA CERTIFIED CONCIERGE Gender Identity Not on file Sexual Orientation Not on file documented as of this encounter Plan of Treatment Upcoming Encounters Date Type Department Care Team (Late Contact Info) Description 12/08/2024 11:20 AM CDT Office Visit [facility] - Endocrinology [address] [address], [address] [place] [phone] Solo Garcia MD [address] [facility] [address] [place] [address] documented as of this encounter Visit Diagnoses Not on filedocumented in this encounter Care Teams Station Mechanic Helper Relationship Specialty Start Date End Date Dewayne Weathers MD [address] [place], [place] [phone] PCP - General 03/28/08 08/18/10 Kaleb Mccurdy MD PCP - General 08/19/10 05/06/17 Willis Ló[place] [address] [address] [facility] [address] [place] [address] PCP - General 03/30/18 12/03/22 Nas Baca DO [address] [address] PCP - General Family Medicine 07/28/23 documented as of this encounter
--- OUTSIDE RECORDS SUMMARY | 2024-11-16 13:47 | XMS_ITS | Encounter Summary ---
Author Organization [facility] Address [address] [facility] [place] [address] Care Team Providers Care Multigraph Operator Name Role Phone Dewayne Weathers MD Primary Care Provider Kaleb Mccurdy MD Primary Care Provider Breanna laura López Jr., MD, Willis Randle Primary Care Provid er Nas Baca DO Primary Care Provider Encounter Details Date Type Department Care Team (Late st Contact Info) Description 05/06/2007 [facility] Outpatient Visit [address] [phone] Roxanna Glover MD Social History Tobacco Use Types Packs/Day Years Used Date Smoking Tobacco: Never Assessed Comments Unknown Sex and Gender Information Value Date Recorded Sex Assigned at Not on file Legal Sex Female 6:55 AM DIRECTOR OF PROCUREMENT Gender Identity Not on file Sexual Orientation Not on file documented as of this encounter Plan of Treatment Upcoming Encounters Date Type Department Care Team (Late Contact Info) Description 12/08/2024 11:20 AM CDT Office Visit [facility] - [facility] [address] [facility] [place] [address] Solo Garcia MD [address] [facility] [address] [place] [address] documented as of this encounter Visit Diagnoses Not on filedocumented in this encounter Care Teams Multigraph Operator Relationship Specialty Start Date End Date Dewayne Weathers MD [address] [place], [place] [phone] PCP - General 03/28/08 08/18/10 Kaleb Mccurdy MD PCP - General 08/19/10 05/06/17 Willis Ló[place] [address] [address] [facility] [address] [place] [address] PCP - General 03/30/18 12/03/22 Nas Baca DO [address] [phone] PCP - General Family Medicine 07/28/23 documented as of this encounter
[2024-11-16] MEDS: ACETAMINOPHEN 500 MG TABLET 1000 MG PO (13:48)
[2024-11-16] MEDS: SODIUM CHLORIDE 0.9% IV 1,000 ML 999 ML IV CONT (13:48)
[2024-11-16] MEDS: ONDANSETRON INJ 4 MG/2 ML VIAL IV PUSH (13:49)
[2024-11-16] MEDS: DICYCLOMINE HCL 10 MG CAPSULE 20 MG PO (14:38)
[2024-11-16] MEDS: KETOROLAC 15 MG/ML VIAL (*BKC) IV PUSH (15:24)
[2024-11-16 15:50] VITALS: BP 156/89; PULSE 89; RESP 16; O2SAT 100
== END 2024-11-16 15:52 | disposition home or self-care (01) ==
PROVIDERS: Emergency Provider Student in an Organized Health Care Education/Training Program
DX: R10.32 Left lower quadrant pain (principal); E10.65 Type 1 diabetes mellitus with hyperglycemia; R81 Glycosuria; D50.9 Iron deficiency anemia, unspecified; N83.202 Unspecified ovarian cyst, left side; K42.9 Umbilical hernia without obstruction or gangrene; Z79.4 Long term (current) use of insulin
CPT/HCPCS: 36415; 74177; 80053; 81003; 81025; 83690; 85025; 96361; 96374; 96375; 99284; A9270; J1885; J2405; J7030; Q9967

== ENCOUNTER 2024-12-15 04:15 | Day surgery (SDC) | payer OTHER, SELFPAY ==
[2024-12-14 10:06] VITALS: BMI 26.6
[2024-12-15 08:12] VITALS: BP 138/88; PULSE 105; RESP 20; TEMP 36.7; O2SAT 100; BMI 27.3
--- NOTE | 2024-12-15 08:26 | WPDANESEPPF ---
Anes - Initial Pre Proc Eval Procedure: Operation Date: 12/15/24 08:30 Proposed Procedures p Esophagogastroduodenoscopy - Neymar Martinez MD Date/Time: 12/15/24 08:26 Surgeon: Neymar Martinez MD Pre Op Diagnosis: Personal history of other infectious and parasitic Patient Data Age: 34 Gender: F Height: 1.7 m Weight: 79.1 kg Last Vital Signs Temp 36.7 C 12/15/24 08:12 Pulse 105 H 12/15/24 08:12 Resp 20 12/15/24 08:12 BP 138/88 12/15/24 08:12 Pulse Ox 100 12/15/24 08:12 O2 Del Method Room Air 12/15/24 08:12 Allergies Allergy/AdvReac Type Severity Reaction Status Date / Time No Known Allergies Allergy Verified 12/15/24 08:11 Home Medications ?Medication ?Instructions ?Recorded ?Confirmed ?Type insulin aspart U-100 100 unit/mL 1 sliding scale dose subcut 04/06/24 12/15/24 History (3 mL) subcutaneous pen (Novolog USEASDIRECTD FlexPen U-100 Insulin aspart) vitamins no.144-folic 1 tablet PO DAILY #30 tabs 11/16/24 12/15/24 Rx acid 400 mcg chewable tablet () famotidine 40 mg tablet (Pepcid) 40 mg PO BID #60 tabs 11/26/24 12/15/24 Rx linaclotide 72 mcg capsule 72 mcg Capsule#4 Samples 11/26/24 12/15/24 Sample (Linzess) Patient hx anesthesia problems: none Family hx anesthesia problems: none Results Review: All pre-operative results and documents have been reviewed as part of the pre-operative evaluation. [facility] Past Medical History Medical History (Updated 12/15/24 @ 08:27 by Neto Benson MD) Succinylcholine adverse reaction positive blood test and multiple family members positive Ovarian cyst Left History of Helicobacter pylori infection Positive stool culture E coli Diabetes type 1 Surgical History Surgical History History of colonoscopy 2023 History of esophagogastroduodenoscopy (EGD) 2023 H/O shoulder surgery Family History Family History Father Heart disease Hypertension Social History Social History Smoking status: Never smoker Alcohol intake: never Substance use: never Substance use type: does not use Living arrangements: with family Additional living arrangements comments: and child Anes - Evshon Final PreProcedure Day of Procedure 12/15/24 08:26 Patient weight: overweight Heart: regular rate and rhythm Lungs: clear to auscultation Airway: Mallampati scale class II Neurological: alert and oriented Last oral intake: >/= 8 hours ASA classification: II Emergent: no Anesthetic plan: proceed Anesthesia type and monitoring: general GIVS and standard monitoring Results Review: All pre-operative results and documents have been reviewed as part of the pre-operative evaluation. Informed Consent: The patient's anesthetic plan and its attendant risks and benefits were discussed with the patient/family/POA. Questions were solicited and answers provided to the satisfaction of the patient/family/POA.
[2024-12-15] MEDS: LACTATED RINGERS 1,000 ML 150 ML IV CONT (08:42)
[2024-12-15 08:47] LABS: BEDSIDEPREGUCG Negative (Negative)
[2024-12-15] MEDS: DEXTROSE 50% 25 GM/50 ML SYRINGE IV PUSH (09:08)
--- NOTE | 2024-12-15 09:12 | SUR.PREOP ---
This patients blood glucose via dexcom was 113 on admission and dropped to 77 in pre-op, pt. reports feeling like it was dropping. Dr. Benson notified, verbal order to give 0.5 amp Dextrose 50% IVP now and continue to monitor. Blood glucose 82 prior to going back to procedure room.
--- NOTE | 2024-12-15 09:12 | WPDHPUPDATE1 ---
History and Physical Update Update Date/Time: 12/15/24 09:12 History and Physical has been reviewed, including an updated exam of the patient. There are NO changes in the patient's condition. Risks, benefits, and alternatives have been discussed and questions answered. Patient agrees to proceed with procedure.
[2024-12-15] MEDS: BENZOCAINE (*SP) 60 ML SPRAY CAN (HURRICAINE) 1 SPRAY MUCOUS MEM (09:16)
[2024-12-15 09:23] VITALS: BP 132/82; PULSE 92; RESP 23; O2SAT 99
--- NOTE | 2024-12-15 09:24 | S_PTH ---
PATIENT: Inna Werner LOC: [facility] Awad#:[id number] AGE/SX: 34/F ROOM: RE12/15/[address]: Neymar Martinez MD : 1990 BED: DIS: 12/15/2024 SPEC #: [id number] RECD: 12/15/24 10:17 STATUS: MAGALY QUINTERO #: [id number] ABIGAIL: 12/15/24 09:[address]: Neymar Martinez DEPT: [facility] Surgical RECD BY: Bethany Fofana ENTERED: 12/15/24 10:17 SP TYPE: Surgical OTHR DR: SCAFFOLD WORKER PHYSICIAN Tissues: A - Gastric Biopsy B - Small Bowel Bx Procedures: Hematoxylin and Eosin Stain Gross and Microscopic Level 4 H.Pylori
--- NOTE | 2024-12-15 09:29 | SUR.PHASEII ---
Patient has an insulin pumps he uses with a glucose meter that shows current glucose readings. Glucose at this time is 185. Visualized number on phone by RN.
[2024-12-15 09:33] VITALS: BP 139/83; PULSE 94; RESP 19; O2SAT 100
[2024-12-15 09:49] VITALS: BP 136/86; PULSE 82; RESP 18; O2SAT 100
[2024-12-15 10:29] LABS: HPYLORIRESULT Negative (Negative)
== END 2024-12-15 09:55 | disposition home or self-care (01) ==
PROVIDERS: Anesthesiology; Referring Provider Nurse Practitioner; Visit Provider Internal Medicine Gastroenterology
PROC: 0DJ08ZZ Inspection of Upper Intestinal Tract, Via Natural or Artificial Opening Endoscopic (ICD-10-PCS; CPT 43239; principal; 2024-12-15 08:30)
DX: K29.50 Unspecified chronic gastritis without bleeding (principal); K82.8 Other specified diseases of gallbladder; K58.9 Irritable bowel syndrome, unspecified; E10.9 Type 1 diabetes mellitus without complications; Z79.4 Long term (current) use of insulin; Z98.890 Other specified postprocedural states; Z86.19 Personal history of other infectious and parasitic diseases; Z82.49 Family history of ischemic heart disease and other diseases of the circulatory system
CPT/HCPCS: 43239; 87081; 88305; 88342; J2003; J2704; J7120

== ENCOUNTER 2025-02-17 02:29 | Day surgery (SDC) | payer OTHER, SELFPAY ==
[2025-02-11 14:07] VITALS: BMI 26.6
--- OUTSIDE RECORDS SUMMARY | 2025-02-15 14:00 | XMS_ITS | Encounter Summary ---
Author Organization [facility] Address Formerly [facility] [place] [address] Care Team Providers Care Strainer Mill Operator Name Role Phone Nas Baca DO Primary Care Provider [phone] Reason for Visit * Reason Comments General Illness Patient c/o nausea, L side flank pain, and L side abdominal pain, and feeling feverish at night x2 days. Patient denies dysuria, frequency, decreased urine output, hematuria. Encounter Details Date Type Department Care Team (Late st Contact Info) Description 02/15/2025 2:00 PM CDT Office Visit [facility] Family Medicine - [place] [address] [place] [address] Kenyon Marin, AIRCRAFT ASSEMBLER [address] [place] [address] General Illness (Patient c/o nausea, L side flank pain, and L side abdominal pain, and feeling feverish at night x2 days. Patient denies dysuria, frequency, decreased urine output, hematuria.) Social History Tobacco Use Types Packs/Day Years Used Date Smoking Tobacco: Former Cigarettes Passive Smoke Exposure: Past Smokeless Tobacco: Never Tobacco Cessation:Counseling Given: No Alcohol Use Standard Drinks/Week Comments Yes 0 (1 standard drink = 0.6 oz pur e alcohol) occas. PHQ-2 Answer Date Recorded Patient Health Questionnaire-2 Score 0 2025 Comments No Sex and Gender Information Value Date Recorded Sex Assigned at Female 06/18/2024 12:33 PM WELFARE SUPERVISOR Legal Sex Female 11:47 AM CDT Gender Identity Female 01/20/2025 9:20 AM CDT Sexual Orientation Not on file documented as of this encounter Last Filed Vital Signs Vital Sign Reading Time Taken Comments Blood Pressure 126/72 02/15/2025 2:55 PM CDT Pulse 91 02/15/2025 2:10 PM CDT Temperature 37 C (98.6 F) 02/15/2025 2:10 PM CDT Respiratory Rate - - Oxygen Saturation 99% 02/15/2025 2:10 PM CDT Inhaled Oxygen Concentration - - Weight 79.7 kg (175 lb 9.6 oz) 02/15/2025 2:10 P M CDT Height 170.2 cm (5' 7) 02/15/2025 2:10 PM CDT Body Mass Index 27.5 02/15/2025 2:10 PM CDT documented in this encounter Progress Notes * Keynon Marin NP - 02/15/2025 2:00 PM CDT Images from the original note were not included. GENERAL OFFICE VISIT Encounter Date: 02/15/2025 Chief Complaint: 35-year-old female presents for General Illness (Patient c/o nausea, L side flank pain, and L side abdominal pain, and feeling feverish at night x2 days. Patient denies dysuria, frequency, decreased urine output, hematuria.) History of Present Illness The patient is a 39-year-old female who presents for evaluation of back pain, left abdominal pain, difficulty sleeping, nausea, and sore throat. She has been experiencing back pain, left abdominal pain, difficulty sleeping, and nausea for the past 2 nights. The pain intensifies when she twists or sits down, and it was particularly severe during her drive to work today. She has been managing the pain with Tylenol, which provides minimal relief. She is unable to take Advil due to its adverse effects on her stomach. She took Tylenol at 8:00 AM today. She reports no diarrhea but has not had a bowel movement today and only a small one yesterday. She is scheduled for a flexible sigmoidoscopy on to address her hemorrhoid. She has consulted agastroenterologist and is currently on omeprazole. She was diagnosed with a hemorrhoid. She also reports sore throat and general malaise. She experienced sweating last night and has been feeling cold throughout the day, but she does not have a fever. 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 PAST GYNECOLOGIC HISTORY: She has a history of a 1 cm ovarian cyst on her left side, which was discovered during her E. coli treatment. The cyst was initially almost 2 cm but later reduced to 1 cm. Review of Systems Constitutional: Positive for chills, diaphoresis and malaise/fatigue. HENT: Positive for sore throat. Gastrointestinal: Positive for abdominal pain and nausea. Genitourinary: Negative. Musculoskeletal: Positive for back pain. Patient Active Problem List Diagnosis Type 1 diabetes mellitus without complication ([facility]) Chronic sinusitis, unspecified location Seasonal allergic rhinitis due to other allergic trigger Insulin pump status Iron deficiency anemia, unspecified iron deficiency anemia type Past Medical History[1] Past Surgical History[2] Family History[3] Social History Socioeconomic History Marital status: Spouse name: Not on file Number of children: Not on file Years of education: Not on file Highest education level: Not on file Occupational History Not on file Tobacco Use Smoking status: Former Types: Cigarettes Passive exposure: Past Smokeless tobacco: Never Vaping Use Vaping status: Never Used Substance and Sexual Activity Alcohol use: Yes Comment: occas. Drug use: Never Sexual activity: Not on file Other Topics Concern Not on file Social History Narrative Patient lives at home with her and daughter Social Drivers of Health Financial Resource Strain: Low Risk (04/09/2024) Received from [facility] Overall Financial Resource Strain (CARDIA) Difficulty of Paying Living Expenses: Not hard at all Food Insecurity: No Food Insecurity (04/09/2024) Received from [facility] Hunger Vital Sign Within the past 12 months, you worried that your food would run out before you got the money to buymore.: Never true Within the past 12 months, the food you bought just didn't last and you didn't have money to get more.: Never true Transportation Needs: No Transportation Needs (04/09/2024) Received from [facility] PRAPARE - Transportation Lack of Transportation (Medical): No Lack of Transportation (Non-Medical): No Physical Activity: Not on file Stress: Not on file Social Connections: Not on file Intimate Partner Violence: Not At Risk (07/13/2022) Received from [place] [place] [facility] Intimate Partner Violence Are you in a relationship with someone who hurts you emotionally and/or physically?: No Housing Stability: Low Risk (04/09/2024) Received from [facility] Housing Stability Vital Sign In the last 12 months, was there a time when you were not able to pay the mortgage or rent on time?: No In the past 12 months, how many times have you moved where you were living?: 0 At any time in the past 12 months, were you homeless or living in a detention (including now)?: No Immunization History Administered Date(s) Administered Influenza Adult (Generic) 05/18/2020 PFIZER COVID-19 (ORIGINAL FORMULATION, PURPLE CAP) mRNA, LNP-S, PF, 30 MCG/0.3 ML DOSE 06/30/2020, 07/19/2020 Protein Derivative (Purified) 01/26/2025 Tdap (Generic) 09/18/2018, 06/02/2022 Current Outpatient Medications Medication Sig Dispense Refill Continuous Glucose Sensor (DEXCOM G7 SENSOR) Misc glucagon 1 mg/mL injection Inject 1 mg into the skin as needed. 1 each 1 insulin aspart (NOVOLOG) 100 UNIT/ML injection (VIAL) USE 60 UNITS DAILY PER INSULIN PUMP nystatin (MYCOSTATIN) 089367 UNIT/ML suspension Take 5 mLs (500,000 Units total) by mouth 4 (four) times daily for 12 days. 240 mL 0 Iron, Ferrous Sulfate, 325 (65 Fe) MG Tab Take 1 tablet by mouth daily. May take every other day ifconstipating. (Patient not taking: Reported on 02/15/2025) 90 tablet 3 No current facility-administered medications for this visit. Current Outpatient Medications on File Prior to Visit Medication Sig Continuous Glucose Sensor (DEXCOM G7 SENSOR) Misc glucagon 1 mg/mL injection Inject 1 mg into the skin as needed. insulin aspart (NOVOLOG) 100 UNIT/ML injection (VIAL) USE 60 UNITS DAILY PER INSULIN PUMP nystatin (MYCOSTATIN) [id number] UNIT/ML suspension Take 5 mLs (500,000 Units total) by mouth 4 (four) times daily for 12 days. Iron, Ferrous Sulfate, 325 (65 Fe) MG Tab Take 1 tablet by mouth daily. May take every other day ifconstipating. (Patient not taking: Reported on 02/15/2025) No current facility-administered medications on file prior to visit. Allergies Allergen Reactions Succinylcholine Other (see comment) Family history of malignant hyperthermia Metronidazole Itching Itching of face, mouth, chest and whole body per patient Objective: Filed Vitals: 02/15/25 1410 BP: (!) 143/87 Pulse: 91 Temp: 98.6 ??F (37 ??C) TempSrc: Core SpO2: 99% Weight: 79.7 kg (175 lb 9.6 oz) Height: 1.702 m (5' 7) Physical Exam Constitutional: Appearance: Normal appearance. HENT: Mouth/Throat: Pharynx: Posterior oropharyngeal erythema present. Comments: Mild Petechia present Cardiovascular: Rate and Rhythm: Normal rate and regular rhythm. Pulses: Normal pulses. Heart sounds: Normal heart sounds. Pulmonary: Effort: Pulmonary effort is normal. Breath sounds: Normal breath sounds. Abdominal: General: Bowel sounds are normal. Palpations: Abdomen is soft. Tenderness: There is abdominal tenderness in the suprapubic area and left lower quadrant. There is no right CVA tenderness or left CVA tenderness. Musculoskeletal: Lumbar back: No swelling, spasms or bony tenderness. Negative left straight leg raise test. Neurological: Mental Status: She is alert. Psychiatric: Mood and Affect: Mood normal. Encounter Diagnose(s) ICD-10-CM SNOMED CT(R) 1. Acute low back pain, unspecified back pain laterality, unspecified whether sciatica present M54.50 ACUTE LOW BACK PAIN URINALYSIS AUTO DIP XR ABD KUB 2. Left flank pain R10.A2 LEFT FLANK PAIN 3. Nausea R11.0 NAUSEA URINALYSIS AUTO DIP XR ABD KUB TEST URINE 4. Abnormal urine findings R82.90 ABNORMAL URINE URINE BACTERIA CULTURE URINE BACTERIA CULTURE 5. Sore throat J02.9 SORE THROAT STREP A RAPID CULTURE STREP A CULTURE STREP A 6. Malaise R53.81 MALAISE Assessment & Plan: Assessment & Plan 1. Left-sided back pain: - The patient reports back pain, nausea, and difficulty sleeping. Tylenol provides minimal relief. - The urine dipstick test returned negative results, will send for culture. - A KUB x-ray will be ordered to further investigate the cause of the left low back/flank pain and pain in LLQ and suprapubic region. test completed for XR testing. test is negative - Tylenol is advised, not exceeding a daily dosage of 4000 mg. Increase fluid intake and avoid soda. Seek immediate medical attention if experiencing excessive vomiting, hematochezia, melena, or unmanageable pain. 2. Left abdominal pain: - The patient reports left abdominal pain and nausea. No diarrhea or constipation. - Scheduled for a flexible sigmoidoscopy on to address the hemorrhoid. - Proceed with the procedure as planned. Increase water intake and fiber consumption. Use MiraLAX if necessary for constipation 3. Sore throat: - The patient reports a sore throat and irritation. - The strep test returned negative results. - Monitor temperature and seek medical attention if symptoms worsen or if a fever develops. 4. Elevated blood pressure: - The patient's blood pressure was slightly elevated during the visit. - Blood pressure improved upon recheck to 126/78. - Continue to monitor blood pressure. Follow-up: Flexible sigmoidoscopy scheduled for 02/17/2025. Will report KUB results once received. Discussion/Summary: 1. Acute low back pain, unspecified back pain laterality, unspecified whether sciatica present - URINALYSIS AUTO DIP 2. Nausea - URINALYSIS AUTO DIP Orders Placed This Encounter URINALYSIS AUTO DIP Cannot display discharge medications since this is not an admission. PCP: Kenyon Marin NP 02/15/2025 Time spent on this encounter: 25 This document was created in part by using voice recognition software and was reviewed by the author. If errors are present, please bring them to your provider's attention. [1] Past Medical History: Diagnosis Date Diabetes mellitus ([facility]) [2] Past Surgical History: Procedure Laterality Date EGD 04/09/2024 HC COLONSCOPY SCRN LOW RISK 04/03/2024 INCISION AND DRAINAGE [3] No family history on file. documented in this encounter Plan of Treatment Pending Results Name Type Priority Associated Diagnoses Date /Time URINE BACTERIA CULTURE Microbiology Routine Abnormal urine findings 02/15/2025 2:19 PM CDT Scheduled Orders Name Type Priority Associated Diagnoses Orde r Schedule URINE BACTERIA CULTURE Microbiology Routine Abnormal urine findings Expected: 02/15/2025, Expires: 02/15/2026 STREP A RAPID Microbiology Routine Sore throat Ordered: 02/15/2025 documented as of this encounter Procedures Procedure Name Priority Date/Time Associated Diagnosis Comments CULTURE STREP A Routine 02/15/2025 2:47 PM CDT Sore throat TEST URINE Routine 02/15/2025 Nausea URINALYSIS AUTO DIP Routine 02/15/2025 Acute low back pain, unspecified back pain laterality, unspecified whether sciatica present Nausea documented in this encounter Results * XR ABD KUB (02/15/2025 3:53 PM CDT) Anatomical Region Laterality Modality Abdomen Radiographic Aidee ging 02/15/2025 3:55 PM CDT Impressions 02/15/2025 3:55 PM CDT IMPRESSION: No acute findings Ordered By: KENYON MARIN Interpreted By: Tanner Hall MD, 02/15/2025 3:55 PM Narrative 02/15/2025 3:55 PM CDT [place] [address] Two VIEW(s) OF THE ABDOMEN History: Pain Comparison:None 2 views of the abdomen demonstrate a normal overall bowel gas pattern. No pathologic intra-abdominal calcifications are seen. The bony elements appear normal Procedure Note Tanner Hall MD - 02/15/2025 [place] [address] Two VIEW(s) OF THE ABDOMEN History: Pain Comparison:None 2 views of the abdomen demonstrate a normal overall bowel gas pattern. Nopathologic intra-abdominal calcifications are seen. The bony elementsappear normal IMPRESSION: No acute findings Ordered By: KENYON MARIN Interpreted By: Tanner Hall MD, 02/15/2025 3:55 PM Kenyon Marin AIRCRAFT ASSEMBLER GENERAL IMAGING Final Resul t * CULTURE STREP A (02/15/2025 2:47 PM CDT) THROAT CULTURE STREP A ONLY Negative for Group A Streptococci Negative for Group A Streptococci 02/16/2025 6:16 PM CDT [facility] STRUCTURE OF ANTERIOR REGION OF NECK / Unknown 02/15/2025 2:47 PM CDT us Kenyon Marin AIRCRAFT ASSEMBLER MICROBIOLOGY - GENERAL ORDE RABLES Final Result Performing Organization Address [place] Co de Phone Number [facility] [address] [place] [address], [place] [phone] * TEST URINE (02/15/2025) URINE HCG TEST NEGATIVE NEGATIVE [facility] Internal Control: VALID VALID [facility] URINE SPECIMEN FROM URETHRA / Unknown 02/15/2025 Kenyon Marin AIRCRAFT ASSEMBLER URINE ORDERABLES Final Resu lt Performing Organization Address [place] Co de Phone Number [facility] [address] [place] [address], [place] [phone] * (ABNORMAL) URINALYSIS AUTO DIP (02/15/2025) COLOR (U) PALE YELLOW [facility]LLOW [facility] [place] TRANSPARENCY CLEAR CLEAR -EntomoW IG [facility] [place] GLUCOSE (U) NEGATIVE NEGATIVE MG/DL [facility] BILIRUBIN (U) NEGATIVE NEGATIVE [employer] WIG [facility] [place] KETONES MG/DL (U) 5 (TRACE)(A) NEGATIVE MG/DL -[facility] [place] SPECIFIC GRAVITY (U) 1.010 1.001 - 1.035 [facility] BLOOD (U) NEGATIVE NEGATIVE -[facility] U PH 6.5 5.0 - 9.0 [facility] PROTEIN (U) NEGATIVE NEGATIVE mg/dL [facility] UROBILINOGEN 0.2 0.2 - 1.0 EU/dL = mg/dL -[facility] [place] NITRITES NEGATIVE NEGATIVE MG/DL [facility] [place] LEUKOCYTES (U) NEGATIVE NEGATIVE [facility] URINE SPECIMEN OBTAINED BY CLEAN CATCH PROCEDURE / Unknown 02/15/2025 us Kenyon Marin AIRCRAFT ASSEMBLER URINE ORDERABLES Final Resu lt Performing Organization Address City/State/[facility] Co de Phone Number [facility] [address] [place] [address], documented in this encounter Visit Diagnoses Diagnosis Acute low back pain, unspecified back pain laterality, unspecified whether sciatica present- Primary Left flank pain Abdominal pain, unspecified site Nausea Nausea alone Abnormal urine findings Other nonspecific finding on examination of urine Sore throat Acute pharyngitis Malaise Other malaise and fatigue Acute low back pain, unspecified back pain laterality, unspecified whether sciatica present Nausea Nausea alone documented in this encounter Additional Health Concerns Assessment Noted Time PHQ-9 Depression Total Score: 0 04/16/20 24 1:39 PM WELFARE SUPERVISOR documented as of this encounter Care Teams Strainer Mill Operator Relationship Specialty Start Date End Date Nas Baca [place] [address] PCP - General FAMILY PRACTICE 01/30/23 documented as of this encounter
--- OUTSIDE RECORDS SUMMARY | 2025-02-15 15:42 | XMS_ITS | Encounter Summary ---
Author Organization [facility] Address [facility] [place] [address] Care Team Providers Care Photoengraving Finisher Name Role Phone Keven Nas Resendez DO Primary Care Provider [phone] Encounter Details Date Type Department Care Team (Latest Contact Info) Description 02/15/2025 3:42 PM CDT - 02/15/2025 11:59 PM CDT Hospital Encounter [facility] Diagnostic Imaging [address] [address] Kenyon Marin, CLOTH SHRINKER [address] [place] [address] Arrived Discharge Disposition: Home or Self Care (Routine Discharge) Social History Tobacco Use Types Packs/Day Years Used Date Smoking Tobacco: Former Cigarettes Passive Smoke Exposure: Past Smokeless Tobacco: Never Alcohol Use Standard Drinks/Week Comments Yes 0 (1 standard drink = 0.6 oz pur e alcohol) occas. PHQ-2 Answer Date Recorded Patient Health Questionnaire-2 Score 0 2025 Comments No Sex and Gender Information Value Date Recorded Sex Assigned at Female 06/18/2024 12:33 PM WIPING RAG WASHER Legal Sex Female 11:47 AM CDT Gender Identity Female 01/20/2025 9:20 AM CDT Sexual Orientation Not on file documented as of this encounter Medications at Time of Discharge Continuous Glucose Sensor (DEXCOM G7 SENSOR) Misc 01/28/2025 glucagon 1 mg/mL injection Inject 1 mg into the skin as needed. 1 each 1 08/05/2021 insulin aspart (NOVOLOG) 100 UNIT/ML injection (VIAL) USE 60 UNITS DAILY PER INSULIN PUMP 01/21/2023 Iron, Ferrous Sulfate, 325 (65 Fe) MG TabIndications:Ir on deficiency anemia, unspecified iron deficiency anemia type Take 1 tablet by mouth daily. May take every other day if constipating. 90 tablet 3 07/11/2023 nystatin (MYCOSTATIN) [id number] UNIT/ML suspensionIndicat ions:Thrush, oral Take 5 mLs (500,000 Units total) by mouth 4 (four) times daily for 12 days. 240 mL 2025 02/20/2025 documented as of this encounter Plan of Treatment Not on file documented as of this encounter Procedures Procedure Name Priority Date/Time Associated Diagnosis Comments XR ABD KUB Routine 02/15/2025 3:53 PM CDT Acute low back pain, unspecified back pain [...] 3:55 PM Narrative 02/15/2025 3:55 PM CDT [address] [address] Two VIEW(s) OF THE ABDOMEN History: Pain Comparison:None 2 views of the abdomen demonstrate a normal overall bowel gas pattern. No pathologic intra-abdominal calcifications are seen. The bony elements appear normal Procedure Note Tanner Hall MD - 02/15/[address] [address] Two VIEW(s) OF THE ABDOMEN History: Pain Comparison:None 2 views of the abdomen demonstrate a normal overall bowel gas pattern. Nopathologic intra-abdominal calcifications are seen. The bony elementsappear normal IMPRESSION: No acute findings Ordered By: KENYON MARIN Interpreted By: Tanner Hall MD, 02/15/2025 3:55 PM us Kenyon Marin CLOTH SHRINKER GENERAL IMAGING Final Resul t documented in this encounter Visit Diagnoses Diagnosis Acute low back pain, unspecified back pain laterality, unspecified whether sciatica present Nausea Nausea alone documented in this encounter Additional Health Concerns Assessment Noted Time PHQ-9 Depression Total Score: 0 04/16/20 24 1:39 PM WIPING RAG WASHER documented as of this encounter Care Teams Photoengraving Finisher Relationship Specialty Start Date End Date [place] [address] [address] [place] [address] PCP - General FAMILY PRACTICE 01/30/23 documented as of this encounter
--- OUTSIDE RECORDS SUMMARY | 2025-02-17 02:32 | XMS_ITS | Encounter Summary ---
Author Organization [facility] Address [address] [place] [address] Care Team Providers Care Miner Assistant Name Role Phone Nas Baca DO Primary Care Provider [phone] Encounter Details Date Type Department Care Team (Late st Contact Info) Description 07/23/2023 MyChart Message Enc [facility] Family Medicine [facility] [address] [place] [phone] Nas Baca DO [address] [place] [id number] Following Yesterday s Visit Social History Tobacco [...] Sex Assigned at Female 06/18/2024 12:33 PM LADLE POURER Legal Sex Female 11:47 AM CDT Gender Identity Female 01/20/2025 9:20 AM CDT Sexual Orientation Not on file documented as of this encounter Plan of Treatment Not on file documented as of this encounter Visit Diagnoses Not on filedocumented in this encounter Care Teams Miner Assistant Relationship Specialty Start Date End Date Nas Baca DO [address] [place] [address] PCP - General FAMILY PRACTICE 01/30/23 documented as of this encounter
--- OUTSIDE RECORDS SUMMARY | 2025-02-17 02:32 | XMS_ITS | Encounter Summary ---
Author Organization [facility] Address [address] [place] [address] Care Team Providers Care Portable Power Tool Repairer Name Role Phone Nas Baca DO Primary Care Provider [phone] Encounter Details Date Type Department Care Team (Late st Contact Info) Description 07/09/2023 MyChart Message Enc [facility] Family Medicine [facility] [address] [place] [address] Nas Baca DO [address] [place] [address] Todays Visit/Lab Visit Social History Tobacco Use Types Packs/Day Years Used Date Smoking Tobacco: Former Cigarettes Smokeless Tobacco: Never Alcohol Use Standard Drinks/Week Comments Not Currently 0 (1 standard drink = 0.6 oz pur e alcohol) PHQ-2 Answer Date Recorded Patient Health Questionnaire-2 Score 0 01/30/2023 Comments No Sex and Gender Information Value Date Recorded Sex Assigned at Female 06/18/2024 12:33 PM DRYWALL APPLICATION SUPERVISOR Legal Sex Female 11:47 AM CDT Gender Identity Female 01/20/2025 9:20 AM CDT Sexual Orientation Not on file documented as of this encounter Plan of Treatment Not on file documented as of this encounter Visit Diagnoses Not on filedocumented in this encounter Care Teams Portable Power Tool Repairer Relationship Specialty Start Date End Date Nas Baca DO [address] [place] [address] PCP - General FAMILY PRACTICE 01/30/23 documented as of this encounter
--- OUTSIDE RECORDS SUMMARY | 2025-02-17 02:32 | XMS_ITS | Encounter Summary ---
Author Organization [facility] Address [address] [place] [address] Care Team Providers Care Fabrication Engineer Name Role Phone Nas Baca DO Primary Care Provider [phone] Encounter Details Date Type Department Care Team (Late st Contact Info) Description 01/26/2025 Results Follow-Up [facility] Medical Group Family Medicine - [address] [address] Nas Baca DO [place], [place] [id number] TB INTRADERMAL TEST (BACK OFFICE) Social History Tobacco Use Types Packs/Day Years Used Date Smoking Tobacco: Former Cigarettes Passive Smoke Exposure: Past Smokeless Tobacco: Never Alcohol Use Standard Drinks/Week Comments Not Currently 0 (1 standard drink = 0.6 oz pur e alcohol) occas. PHQ-2 Answer Date Recorded Patient Health Questionnaire-2 Score 0 01/20/2025 Comments No Sex and Gender Information Value Date Recorded Sex Assigned at Female 06/18/2024 12:33 PM GUNNER'S MATE Legal Sex Female 11:47 AM CDT Gender Identity Female 01/20/2025 9:20 AM CDT Sexual Orientation Not on file documented as of this encounter Plan of Treatment Not on file documented as of this encounter Visit Diagnoses Not on filedocumented in this encounter Additional Health Concerns Assessment Noted Time PHQ-9 Depression Total Score: 0 04/16/20 24 1:39 PM GUNNER'S MATE documented as of this encounter Care Teams Fabrication Engineer Relationship Specialty Start Date End Date Nas [place] [address] PCP - General FAMILY PRACTICE 01/30/23 documented as of this encounter
--- OUTSIDE RECORDS SUMMARY | 2025-02-17 02:32 | XMS_ITS | Encounter Summary ---
Author Organization [facility] Address [address] [place] [address] Care Team Providers Care Civil Engineering Manager Name Role Phone Nas Baca DO Primary Care Provider [phone] Encounter Details Date Type Department Care Team (Late st Contact Info) Description 07/14/2023 MyChart Message Enc [facility] Medical Group Family Medicine [facility] [address] [place] [address] Nas Baca DO [address] [place] [address] EBV Results Social History Tobacco Use Types Packs/Day Years Used Date Smoking Tobacco: Former Cigarettes Smokeless Tobacco: Never Alcohol Use Standard Drinks/Week Comments Not Currently 0 (1 standard drink = 0.6 oz pur e alcohol) PHQ-2 Answer Date Recorded Patient Health Questionnaire-2 Score 0 01/30/2023 Comments No Sex and Gender Information Value Date Recorded Sex Assigned at Female 06/18/2024 12:33 PM HANGERSMITH Legal Sex Female 11:47 AM CDT Gender Identity Female 01/20/2025 9:20 AM CDT Sexual Orientation Not on file documented as of this encounter Plan of Treatment Not on file documented as of this encounter Visit Diagnoses Not on filedocumented in this encounter Care Teams Civil Engineering Manager Relationship Specialty Start Date End Date Nas Baca DO [address] [place], [place] [id number] PCP - General FAMILY PRACTICE 01/30/23 documented as of this encounter
--- OUTSIDE RECORDS SUMMARY | 2025-02-17 02:32 | XMS_ITS | Encounter Summary ---
Author Organization [facility] Address [address] [place] [address] Care Team Providers Care Assistant Business Manager Name Role Phone Nas Baca DO Primary Care Provider [phone] Encounter Details Date Type Department Care Team (Late st Contact Info) Description 12/04/2023 BPA Solutionst Message Enc [facility] Medical Group Family Medicine [address] [address] Nas Baca DO [address] [place] [address] Positive Covid Social History Tobacco Use Types Packs/Day Years Used Date Smoking Tobacco: Former Cigarettes Smokeless Tobacco: Never Alcohol Use Standard Drinks/Week Comments Not Currently 0 (1 standard drink = 0.6 oz pur e alcohol) occas. PHQ-2 Answer Date Recorded Patient Health Questionnaire-2 Score 0 07/22/2023 Comments No Sex and Gender Information Value Date Recorded Sex Assigned at Female 06/18/2024 12:33 PM WATERMASTER Legal Sex Female 11:47 AM CDT Gender [...] on filedocumented in this encounter Care Teams Assistant Business Manager Relationship Specialty Start Date End Date Nas [place] [address] [place] [address] PCP - General FAMILY PRACTICE 01/30/23 documented as of this encounter
--- OUTSIDE RECORDS SUMMARY | 2025-02-17 02:33 | XMS_ITS | Encounter Summary ---
Author Organization [facility] Address [facility]ly [facility] [place] [address] Care Team Providers Care Cold Strip Feeder Name Role Phone Nas Baca DO Primary Care Provider [phone] Encounter Details Date Type Department Care Team (Late st Contact Info) Description 02/16/2025 Results Follow-Up [facility] Medical Group Family Medicine - [place] [address] [place] [phone] Ivonne Marin NP [address] [place] [address] XR ABD KUB Social History Tobacco Use Types Packs/Day Years Used Date Smoking Tobacco: Former Cigarettes Passive Smoke Exposure: Past Smokeless Tobacco: Never Alcohol Use Standard Drinks/Week Comments Yes 0 (1 standard drink = 0.6 oz pur e alcohol) occas. PHQ-2 Answer Date Recorded Patient Health Questionnaire-2 Score 0 2025 Comments No Sex and Gender Information Value Date Recorded Sex Assigned at Female 06/18/2024 12:33 PM WHOLESALE ACCOUNT EXECUTIVE Legal Sex Female 11:47 AM CDT Gender Identity Female 01/20/2025 9:20 AM CDT Sexual Orientation Not on file documented as of this encounter Plan of Treatment Not on file documented as of this encounter Visit Diagnoses Not on filedocumented in this encounter Additional Health Concerns Assessment Noted Time PHQ-9 Depression Total Score: 0 04/16/20 24 1:39 PM WHOLESALE ACCOUNT EXECUTIVE documented as of this encounter Care Teams Cold Strip Feeder Relationship Specialty Start Date End Date Nas Baca DO [address] [place] [id number] PCP - General FAMILY PRACTICE 01/30/23 documented as of this encounter
--- OUTSIDE RECORDS SUMMARY | 2025-02-17 02:33 | XMS_ITS | Clinical Summary ---
Author Organization [facility] [address] [place] [address] [place] [address] Care Team Providers Care Car Driver Name Role Phone Leena Mathurth Primary Care Provid er Allergies Active Allergy Reactions Criticality Noted Date Comments Succinylcholine Other (See Comments) High 09/04/2018 Family history of malignant hyperthermia Medications Dexcom G6 Rn Sane USE DEVICE UTD 0 Active Blood-Glucose Meter,Continuous (Dexcom G6 Rn Sane) 1 Device by NOT APPLICABLE route. 0 Active Insulin [place], Disposable, (Pen Needle) 31 gauge x 3/16 [...] COVID-19 VACCINE - EMERGENCY USE AUTHORIZATION, MRNA, [id number](PF) 30 MCG/0.3 ML IM SUSP 07/19/2020,06/30/2020 INFLUENZA [...] 19+ 3-dose series) 02/09/2008 HPV/Cotest (21-29) 2010 HPV VACCINES (1 - 3-dose SCD M series) 02/09/2016 HPV/Cotest (30-65) 2019 CERVICAL CANCER SCREENING 04/24/2021 PAP SMEAR 04/24/2021 04/24/2018 INFLUENZA VACCINE (#1) 2024 05/18/2020 COVID-19 Vaccine (3 - 2024-2 6 season) 2024 07/19/2020, 06/30/2020 DIABETES HBA1C Q 6 MONTHS 06/23/20252024, 08/30/2024, 01/01/2024, Additional history exists DIABETES ANNUAL FOOT EXAM 12/21/2025 12/21/2024 DTAP/TDAP/TD VACCINES (3 - T d or Tdap) 06/02/2032 06/02/2022, 09/18/[address] [place] [place] [address] PREFERRED RX [facility] Member Subscriber Plan / Payer (Ef fective 2022-Present) Name:Inna Werner Relation to Subscriber:Self Name:Inna Werner Subscriber ID:Not on file Payer ID:Not on file Group ID:[id number] Type:RX Commercial Address: [address] Care Teams Car Driver Relationship Specialty Start Date End Date Leena Mathur DO PCP - General Family Practice 05/18/20
--- OUTSIDE RECORDS SUMMARY | 2025-02-17 02:34 | XMS_ITS | Clinical Summary ---
Author Organization [facility] Address [facility]ly [facility] [place] [address] Care Team Providers Care Manager Maintenance Name Role Phone Keven, Nas Dipti DO Primary Care Provider [phone] Allergies Active Allergy Reactions Criticality Noted Date Comments Metronidazole Itching Low 04/01/2024 Itching of face, mouth, chest and whole body per patient Succinylcholine Other (see comment) High 09/04/2018 Family history of malignant hyperthermia Medications glucagon 1 mg/mL injection Inject 1 mg into the skin as needed. 1 each 1 022 Active insulin aspart (NOVOLOG) 100 UNIT/ML injection (VIAL) USE 60 UNITS DAILY PER INSULIN PUMP 023 Active Iron, Ferrous Sulfate, 325 (65 Fe) MG TabIndications:Ir on deficiency anemia, unspecified iron deficiency anemia type Take 1 tablet by mouth daily. May take every other day if constipating. 90 tablet 3 024 Active Additional Information Patient not taking.Reason: Side effects, Reported on 02/15/2025 Continuous Glucose Sensor (DEXCOM G7 SENSOR) [facility] 025 Active nystatin (MYCOSTATIN) 505339 UNIT/ML suspensionIndicat ions:Thrush, oral Take 5 mLs (500,000 Units total) by mouth 4 (four) times daily for 12 days. 240 mL 025 2024 Active Insulin Disposable Pump (OMNIPOD 5 G6 PODS, GEN 5,) [facility] 024 2024 Discontinued ondansetron (ZOFRAN-ODT) 4 MG disintegrating tabletIndications :Acute diverticulitis,Na usea Take 1 tablet (4 mg total) by mouth every 8 (eight) hours as needed for Nausea. 20 tablet 2024 Discontinued metoclopramide (REGLAN) 10 MG tablet Take 1 tablet (10 mg total) by mouth every 6 (six) hours as needed. 2024 Discontinued scopolamine (TRANSDERM-SCOP) 1 MG/3DAYS patch Place 1 patch onto the skin every third day. 2024 Discontinued Active Problems Problem Noted Date Diagnosed Date Iron deficiency anemia, unsp ecified iron deficiency anemia type 07/11/2023 Chronic sinusitis, unspecified location 01/31/20 Seasonal allergic rhinitis due to other allergic trigger 01/30/2023 Insulin pump status 04/17/2018 Overview (01/20/2025): Since 2000. Since 2000. Since 2000. Type 1 diabetes mellitus without complication Overview (07/09/2023): Diagnosed at age 2 On pump since 2000 Diagnosed at age 2 On pump since 2000 Class D EKG wnl, echo not able to be done due to insurance Resolved Problems Problem Noted Date Diagnosed Date Resolved Date Type 1 diabetes mellitus without complication 07/09/19 24 07/09/2023 Adhesive capsulitis of right shoulder 01/30/2023 01/20/2025 Chronic right shoulder pain 01/30/2023 01/20/2025 Encounters Date Type Department Care Team Description 02/16/2025 Results Follow-Up [facility] Medical Group Family Medicine - [address] [address] Ivonne Marin, GOOD XR ABD KUB 02/15/2025 3:42 PM CDT - 02/15/2025 11:59 PM CDT Hospital Encounter [facility] Diagnostic Imaging [place] [address] Ivonne Marin, GOOD Arrived Discharge Disposition: Home or Self Care (Routine Discharge) 02/15/2025 2:00 PM CDT Office Visit [address] [phone] Ivonne Marin, GOOD General Illness (Patient c/o nausea, L side flank pain, and L side abdominal pain, and feeling feverish at night x2 days. Patient denies dysuria, frequency, decreased urine output, hematuria.) 02/15/2025 Travel 2025 10:20 AM CDT Office Visit [address] [address] Ivonne Marin, GOOD Mouth/Lip Problem (Patient presents today with a sore on her lip and a white coating on tongue since starting omeprazole 3 days ago. ) 2025 Travel 01/26/2025 8:20 AM CDT Allied Health/Nurse Visit [address] [address] Nas Baca, DO Tuberculosis (TB reading/) 01/26/2025 Results Follow-Up [address] [address] Nas Baca, DO TB INTRADERMAL TEST (BACK OFFICE) 01/26/2025 Travel 01/24/2025 8:20 AM CDT Allied Health/Nurse Visit [address] [address] Nas Baca, DO Tuberculosis (Testing to be foster foster parents\) 01/24/2025 Travel 01/20/2025 9:20 AM CDT Office Visit [address] [address] Nas Baca, DO Physical; Wrist Pain (Pt states she had some testing done that messed up her veins on the right wrist) 01/20/2025 Travel 12/20/2024 Scan [facility] Scanned, [facility] 12/15/2024 Scan [facility] Scanned, [facility] EGD (SCAN) from Last 3 Months Immunizations Immunization Administration [...] Sex Assigned at Female 06/18/2024 12:33 PM INSURANCE SALES PROFESSIONAL Legal Sex Female 11:47 AM CDT Gender Identity Female 01/20/2025 9:20 AM CDT Sexual Orientation Not on file Last Filed Vital Signs Vital Sign Reading Time Taken Comments Blood Pressure 126/72 02/15/2025 2:55 PM CDT Pulse 91 02/15/2025 2:10 PM CDT Temperature 37 C (98.6 F) 02/15/2025 2:10 PM CDT Respiratory Rate 18 2025 10:23 AM CDT Oxygen Saturation 99% 02/15/2025 2:10 PM CDT Inhaled Oxygen Concentration - - Weight 79.7 kg (175 lb 9.6 oz) 02/15/2025 2:10 P M CDT Height 170.2 cm (5' 7) 02/15/2025 2:10 PM CDT Body Mass Index 27.5 02/15/2025 2:10 PM CDT Plan of Treatment Health Maintenance Due Date Last Done Comments Kidney Health Evaluation 1989 Diabetes: Retinopathy Eye Exam 2007 Hepatitis C [...] Lipid Panel 05/22/2022 05/22/2021 COVID-19 Vaccine ( - 2024- season) 2024 07/19/2020, 06/30/2020 Influenza Adult (#1) 2025 05/18/2020 Hemoglobin A1C 06/23/2025 12/21/2024, 05/0 08/2024, 01/01/2024, Additional history exists Cervical Cancer Screening Pap Smear (Age 30 to 64) Every 3 Years 11/14/2025 11/14/2022, 04/24/2018 Cervical Cancer Screening with HPV 11/14/2025 Annual Physical 01/20/2026 01/20/2025 DTaP, Tdap and Td Vaccines (3 - Td or Tdap) 06/02/2032 06/02/2022, 09/18/2018 PHQ-2 (Physician [place]) Completed 2025 Hepatitis A Vaccines Aged Out No long er eligible based on patient's age to complete [...] pain laterality, unspecified whether sciatica present Nausea CULTURE STREP A Routine 02/15/2025 2:47 PM CDT Sore throat TEST URINE Routine 02/15/2025 Nausea URINALYSIS AUTO DIP Routine 02/15/2025 Acute low back pain, unspecified back pain laterality, unspecified whether sciatica present Nausea TB INTRADERMAL TEST (BACK OFFICE) Routine 01/24/2025 8:32 AM CDT TB (pulmonary tuberculosis) EGD GENERIC (SCAN ORDER) 12/15/2024 HEMOGLOBIN, GLYCOSYLATED Routine 01/01/2024 from Last 3 Months or Most Recently Relevant to Health Maintenance Results * XR ABD KUB (02/15/2025 3:53 PM CDT) Anatomical Region Laterality Modality Abdomen Radiographic Aidee ging 02/15/2025 3:55 PM CDT Impressions 02/15/2025 3:55 PM CDT IMPRESSION: No acute findings Ordered By: IVONNE MARIN Interpreted By: Tanner Hall MD, 02/15/2025 3:55 PM Narrative 02/15/2025 3:55 PM CDT [place] [address] Two VIEW(s) OF THE ABDOMEN History: Pain Comparison:None 2 views of the abdomen demonstrate a normal overall bowel gas pattern. No pathologic intra-abdominal calcifications are seen. The bony elements appear normal Procedure Note Tanner Hall MD - 02/15/2025 [place] [address] Two VIEW(s) OF THE ABDOMEN History: Pain Comparison:None 2 views of the abdomen demonstrate a normal overall bowel gas pattern. Nopathologic intra-abdominal calcifications are seen. The bony elementsappear normal IMPRESSION: No acute findings Ordered By: IVONNE MARIN Interpreted By: Tanner Hall MD, 02/15/2025 3:55 PM Ivonne Marin DOOR TO DOOR SELLING DISTRIBUTOR GENERAL IMAGING Final Resul t * CULTURE STREP A (02/15/2025 2:47 PM CDT) THROAT CULTURE STREP A ONLY Negative for Group A Streptococci Negative for Group A Streptococci 02/16/2025 6:16 PM CDT [facility] STRUCTURE OF ANTERIOR REGION OF NECK / Unknown 02/15/2025 2:47 PM CDT Ivonne Marin DOOR TO DOOR SELLING DISTRIBUTOR MICROBIOLOGY - GENERAL ORDE [facility] Final Result [facility] [address] [place] [address], [place] [phone] * TEST URINE (02/15/2025) URINE HCG TEST NEGATIVE NEGATIVE [facility] Internal Control: VALID VALID [facility] URINE SPECIMEN FROM URETHRA / Unknown 02/15/2025 Ivonne Marin DOOR TO DOOR SELLING DISTRIBUTOR URINE ORDERABLES Final Resu lt Performing Organization Address City/[facility]/ZIP Co de Phone Number [facility] [address] [place] [address], [place] [phone] * (ABNORMAL) URINALYSIS AUTO DIP (02/15/2025) COLOR (U) PALE YELLOW YELLOW -Review TrackersWI G [facility] TRANSPARENCY CLEAR CLEAR MG-LUDW IG [facility] GLUCOSE (U) NEGATIVE NEGATIVE MG/DL [facility] BILIRUBIN (U) NEGATIVE NEGATIVE -EDE WIG [facility] KETONES MG/DL (U) 5 (TRACE)(A) NEGATIVE MG/DL [facility] SPECIFIC GRAVITY (U) 1.010 1.001 - 1.035 [facility] BLOOD (U) NEGATIVE NEGATIVE [facility] U PH 6.5 5.0 - 9.0 [facility] PROTEIN (U) NEGATIVE NEGATIVE mg/dL [facility] UROBILINOGEN 0.2 0.2 - 1.0 EU/dL = mg/dL [facility] NITRITES NEGATIVE NEGATIVE MG/DL [facility] LEUKOCYTES (U) NEGATIVE NEGATIVE [facility] URINE SPECIMEN OBTAINED BY CLEAN CATCH PROCEDURE / Unknown 02/15/2025 Ivonne Marin DOOR TO DOOR SELLING DISTRIBUTOR URINE ORDERABLES Final Resu lt [facility] [address] [place] [address], * TB INTRADERMAL TEST (BACK OFFICE) (01/24/2025 8:32 AM CDT) PPD SKIN TEST negative NOT REQUIRED 01/24/2025 8:32 AM CDT Nas Baca DO MICROBIOLOGY - GENERAL ORDE RABLES Final Result * EGD GENERIC (SCAN ORDER) (12/15/2024) 12/15/2024 [facility] Scanned SCANNING Final Resu lt from Last 3 Months [facility] Care [facility] Manager Maintenance Relationship Specialty Start Date End Date Nas Baca DO [address] [place] [address] PCP - General FAMILY PRACTICE 01/30/23
--- OUTSIDE RECORDS SUMMARY | 2025-02-17 02:34 | XMS_ITS | Patient Health Record ---
Author Organization 1 OF Santy pepe [facility] Address [address] [facility] [address] [place] [address] Care Team Providers Care Harness Builder Name Role Phone Dr. Nas Baca DO Primary Care Provider Un available Keyur Mala Unavailable [phone] Allergies No Known Allergies Reason For Referral No Information Medications Medication SIG (Take, Route, Fr equency, Duration) Notes Start Date End Date Status Insulin Lispro Activ e Social History Tobacco Use: Social History Observation Description Date Details (start date - stop date) Former Smoker NA - NA Social History Tobacco Use: Social Info Question Answer Notes Tobacco Control (Standard) Tobacco use: Former smoker How long has it been since you last smoked? 5-10 years Additional Details Category Social Info Options Details Drugs/Alcohol: Alcohol use: Denies curren t alcohol use Recreational drugs Patient denie s recreational drug use Problems Problem Type SNOMED Code ICD Code Onset Dates Problem Status W/U Status Risk Notes Problem Type I diabetes mellitus without complication (424347917) Type 1 diabetes mellitus without complication (E10.9) Active confirmed Vital Signs Height 67 in 12/20/2024 Weight 170 lbs 12/20/2024 BMI 26.62 kg/m2 12/20/2024 Encounters Encounter Location Date Provider Diagnosis [address] [facility] [address] [facility] [address] [place] [address] 12/20/2024 Mala Baer Type 1 diabetes mellitus without complication E10.9 ; Closed nondisplaced fracture of proximal phalanx of lesser toe of right foot, initial encounter S92.514A and Right foot pain M79.671 1 OF Santy Borges [facility] [address] [facility] [address] [place] [address] 12/08/2024 Mala Baer Assessments Encounter Date Diagnosis (ICD Code) Assessment Notes Treatment Notes Treatment Clinical Notes Section Notes 12/20/2024 Closed nondisplaced fracture of proximal phalanx of lesser toe of right foot, initial encounter (ICD-10 - S92.514A) Patient visit today included a review of medical history, review of systems, physical exam and discussion of exam findings, diagnostic test results, and discussion of diagnoses and treatment options. Recommended initial treatment today consisting of resting of the foot, icing of the foot, elevation of the foot as needed for swelling. She was advised that she may experience swelling in the foot for weeks after her injury. She was advised to continue bobby taping the toes if it feels good comfortable. I recommended that she wear a stiff soled sneaker or sandal, if she is unable to wear the surgical shoe. She was advised that her symptoms should continue to improve over the next few weeks. She would like to return as needed. All questions and concerns were addressed. 12/20/2024 Type 1 diabetes mellitus without complication (ICD-10 - E10.9) Diabetic foot education was discussed including the nature of increased risk of developing foot problems due to the damage nerves and vessels of the feet caused by diabetes. The importance of daily self foot exams was stressed. Additionally, the patient was encouraged to control the blood sugar as well as possible and I explained the direct correlation between the incidence of diabetic foot complications and how well the blood sugar is controlled. Literature regarding diabetic foot care was dispensed. 12/20/2024 Right foot pain (ICD-10 - M79.671) Plan Of Treatment No Information Insurance Providers Payer Name Payer Address Payer Phone Subscriber Number Group Number Insured Name Patient Relationship to Insured Coverage Start Date Coverage End Date To [employer] [id number] [place] [phone] [id number] Inna Werner Self - patient is the insured Medical (General) History Medical History History ICD Code type I diabetes Surgical History Surgery Date(Month/Year) Shoulder surgery
--- OUTSIDE RECORDS SUMMARY | 2025-02-17 02:34 | XMS_ITS | Data Portability ---
Author Organization [employer], [facility] Address [address] [address] Assessment No assessment recorded. Plan of Treatment [...] Updated DateTime 05/08/2022 170.18 cm 26.6 kg/m2 50536.7 g 80 /min 147/82 mm[Hg] [employer] 05/08/2022 14:10:24 Date Recorded Body height Body mass index (BMI) Body weight Heart rate Systolic And Diastolic Provider Name and Address Organization Details Last Updated DateTime 08/06/2022 170.18 cm 26.6 kg/m2 33345.7 g 93 /min 148/84 mm[Hg] [employer], [facility] 08/06/2022 16:10:55 Date Recorded Body height Body mass index (BMI) Body weight Heart rate Systolic And Diastolic Provider Name and Address Organization Details Last Updated DateTime 08/27/2022 170.18 cm 26.6 kg/m2 01400.7 g 73 /min 139/85 mm[Hg] Michael [employer] [facility] 08/27/2022 12:26:33 Social History None recorded. Functional Status None recorded. Mental Status None recorded. Family History Nothing Reported. Medical History Condition Response Other Cancer N Coronary Artery Disease N HIV or AIDS N Gout N Kidney Stones N Hyperthyroidism N Breast Cancer N Head Trauma/Injury N Hernia N Lung Cancer N COPD N Depression N Blood Clots N Lung Disease N Hypothyroidism N Pacemaker N Parkinson's N Anxiety Disorder N Multiple Sprains N Arthritis N Alcohol / Substance Abuse N Kidney Cancer N Cancer N Stroke N Melanoma N Neck Injury N Leg or Foot Ulcers N High Cholesterol N Skin Cancer N Liver Disease N Rheumatoid Arthritis N Fibromyalgia N Headaches N Concussion N Kidney Disease N Heart Problems N Scoliosis N Chronic use of Pain Medication N Prostate Cancer N Migraines N Thyroid Problems N Alzheimers N Autoimmune Disorder N Anemia N Multiple Sclerosis N Tendon Tear N Ulcers N Heart Attack (NV) N Osteopenia N Diabetes Y Bleeding Disorder [...] Diagnosis SNOMED-CT Code Diagnosis ICD10 Code Diagnosis IMO Codes Diagnosis Note [id number] Bruno Moses MD [facility] [address] [place] [address] 05/08/2022 13:47:09 05/08/2022 15:50:37 [id number] Bruno Moses MD [facility] [address] [place] [address] 08/06/2022 16:01:17 08/07/2022 10:28:52 [id number] Bruno Moses MD [facility] [address] [place] [address] 08/27/2022 12:00:43 08/27/2022 15:23:37 Health Concerns Section Related Observation LastModified by Organization Detai ls LastModified Time None Recorded Concern Status LastModified by Organization Details LastModified Time None Recorded Advance Directives Directive None Recorded Payers Insurance Date Sequence Insurance Name Policy Number Policy Alves Covered Member ID Alves Member ID Guarantor Name 09/03/2022 1 BC[employer]: [employer] [place] - PREFERRED CARE BLUE (PPO) [id number] Reginald Werner [id number] Inna Werner OBDarrion Episode No OBEpisode recorded.
--- OUTSIDE RECORDS SUMMARY | 2025-02-17 02:34 | XMS_ITS | Clinical Summary ---
Author Organization [facility] Address [address] [place] [address] Care Team Providers Care Plasma Processor Name Role Phone Keven, Nas Anival Primary Care Provide r Solo Garcia MD Unavailable [phone] Allergies Active Allergy Reactions Criticality Noted Date Comments Metronidazole Itching Low 04/01/2024 Itching of face, mouth, chest and whole body per patient Succinylcholine Other (See comments) High 09/04/2018 Family history of pseudocholinesterase deficiency, so prolonged time of action with succinylcholine administration for her, if given. Medications blood-glucose meter,continuous ([employer] Consultant) misc 1 Device by Not Applicable route [...] Encounters Date Type Department Care Team Description 12/17/2024 9:50 PM CDT - 12/17/2024 10:53 PM CDT Emergency [facility] Emergency Department [address] [place] [id number] Right forearm pain (Primary Dx); Cellulitis of right upper extremity Discharge Disposition: Discharge to home or self care 12/07/2024 10:04 AM CDT - 12/07/2024 11:[address] [facility] Emergency Department [address] [place] [address] Closed nondisplaced fracture of phalanx of toe of right foot, unspecified toe, initial encounter (Primary Dx) Discharge Disposition: Discharge to home or self care from Last 3 Months Immunizations Immunization Administration Dates Next Due Influenza, Quadrivalent, Spl it, Preservative Free, Intramuscular 05/18/2020 Tdap 06/02/2022,09/18/2018 Surgical History Surgery Date Site/Laterality Comments SHOULDER SURGERY 06/24/2022 Right Medical History Medical History Date Comments Diabetes mellitus Diabetes mellitus type I Pseudocholinesterase deficiency pt's family member had prolonged [...] Never Tobacco Cessation:Counseling Given: Not Answered [facility] Utilities Answer Date Recorded In the past 12 months has e [employer], gas, oil, or water [employer] threatened to shut off services in your home? No 04/09/2024 Social Connection and Isolation Panel Answer Date Recorded In a typical week, how many times do you talk on the phone with family, friends, or neighbors? More than three times a week 04/09/2024 How often do you get togethe r with friends or relatives? More than three times a week 04/09/2024 How often do you attend chur ch or scientologist services? Never 04/09/2024 Do you belong to any clubs o r organizations such as jew groups, unions, fraternal or athletic groups, or [...] time in the past 12 m [facility], were you homeless or living in a prison (including now)? No 04/09/2024 Personal Safety Answer Date Recorded Have you ever been in or are you currently in a harmful physical or emotional relationship or is someone making you feel afraid or unsafe? Denies 12/17/2024 Comments No Sex and Gender Information Value Date Recorded Sex Assigned at Not on file Legal Sex Female 9:33 AM CDT Gender Identity Female 05/19/2024 6:51 AM [employer] Sexual Orientation Straight 05/19/2024 6: 51 AM [employer] Obstetrics History Para Term AB IAB SAB Ectopic Multiple Livin g Live Births 2 2 1 1 Date Outcome GA Total Labor Labor/2nd/3rd Weight Sex Type Anes PTL Rosangela A1 A5 Name Clin Term 019 34w 5d 4h 56m 4h 51m/0h 05m 3.975 kg (8 lb 12.2 oz) F Vag-S pont Epidur al Y 5 9 Estrellita Ornelas MD Complications:Intraamniotic Infection Delivery Location:[facility] Comments:Heart murmur Last Filed Vital Signs Vital Sign Reading Time Taken Comments Blood Pressure 150/89 12/17/2024 10:45 PM CDT Pulse 89 12/17/2024 9:00 PM CDT Temperature 36.8 C (98.3 F) 12/17/2024 9:00 PM CDT Respiratory Rate 18 12/17/2024 10:45 PM CDT Oxygen Saturation 100% 12/17/2024 10:45 PM CDT Inhaled Oxygen Concentration - - Weight 79.9 kg (176 lb 2.4 oz) 12/17/2024 9:00 P M CDT Height 170.2 cm (5' 7) 12/17/2024 9:00 PM CDT Body Mass Index 27.59 12/17/2024 9:00 PM CDT Plan of Treatment Health Maintenance Due Date Last Done Comments Albumin Creatinine Ratio, Urine 1989 Depression Screening 1989 Foot Exam 1989 Hepatitis C Screening 1989 Dilated Eye Exam 1999 Varicella Vaccines (1 of 2 - 13+ 2-dose series) 2002 Hepatitis B Screening 2007 Pneumococcal vaccine <65 (1 of 2 - PCV) 02/09/2008 HPV Vaccines (1 - 3-dose SCD M series) 02/09/2016 Hemoglobin A1C 08/21/2020 02/21/2020 Cervical Cancer Screening 11/15/2023 11/14/2022 Regular Well Visit/Exam 18-64 11/15/2023 11/14/2022 Covid-19 Vaccine (3 - 2024-2 6 season) 2024 07/19/2020, 06/30/2020 Influenza Vaccine (#1) 2024 05/18/2020 Lipid Panel 08/30/2025 08/30/2024, 04/0 04/2023, 05/04/2019, Additional history exists TSH Level 08/30/2025 08/30/2024, 04/0 04/2023, 05/07/2017 eGFR 12/17/2025 12/17/2024, 03/28, 04/02/2024, Additional history exists DTaP/Tdap/Td Vaccine (3 - Td or Tdap) 06/02/2032 06/02/2022, 09/18/2018 Procedures Procedure Name Priority Date/Time Associated Diagnosis Comments XR RADIUS ULNA RIGHT 2 VIEWS ED 12/17/2024 9:17 PM CDT EGFR STAT 12/17/2024 9:12 PM CDT DIFFERENTIAL AUTO STAT 12/17/2024 9:1 2 PM CDT D-DIMER, QUANTITATIVE STAT 12/17/2024 9:12 PM CDT LACTATE STAT 12/17/2024 9:12 PM CDT COMPREHENSIVE METABOLIC PANEL STAT 12/17/2024 9:12 PM CDT CBC WITH AUTO DIFFERENTIAL STAT 12/17/2024 9:12 PM CDT XR FOOT RIGHT 3 OR MORE VIEWS ED 12/07/2024 10:28 AM CDT PAP WITH REFLEX TO HIGH RISK HPV Routine 11/14/2022 11:49 AM CDT Well female exam with routine gynecological exam from Last 3 Months or Most Recently Relevant to Health Maintenance Results * XR Radius Ulna Right 2 Views (12/17/2024 9:17 PM CDT) Anatomical Region Laterality Modality Upper Extremities, Forearm Right Compu raman Radiography 12/17/2024 9:46 PM CDT Narrative 12/17/2024 9:47 PM CDT EXAM DESCRIPTION: XR RADIUS ULNA RIGHT 2 VIEWS REASON FOR STUDY: pain/swelling Had outpt procedure x Friday with IV insertion to right anterior wrist. Since then swelling, redness up arm and warmth to forearm noted. TECHNIQUE: 2 radiographic view(s) of the right forearm . COMPARISON: None available FINDINGS: The alignment is normal. There is no fracture. No radiographic evidence of osteomyelitis. Joint spaces are normal. No focal bone lesions or erosions. No radiodense foreign bodies. Mild forearm soft tissue swelling. IMPRESSION: No acute osseous abnormality. THIS IS AN ELECTRONICALLY VERIFIED FINAL REPORT 12/17/2024 9:47 PM - Electronically signed by Viet Silveira M.D. AT: AT Report ID: [id number] Reading Location: [place] [address] Procedure Note Viet Silveira MD - 12/17/2024 EXAM DESCRIPTION: XR RADIUS ULNA RIGHT 2 VIEWS REASON FOR STUDY: pain/swelling Had outpt procedure x Friday with IV insertion to right anterior wrist. Since then swelling, redness up arm and warmth to forearm noted. TECHNIQUE: 2 radiographic view(s) of the right forearm . COMPARISON: None available FINDINGS: The alignment is normal. There is no fracture. No radiographic evidence of osteomyelitis. Joint spaces are normal. No focal bonelesions or erosions. No radiodense foreign bodies. Mild forearm soft tissueswelling. IMPRESSION: No acute osseous abnormality. THIS IS AN ELECTRONICALLY VERIFIED FINAL REPORT 12/17/2024 9:47 PM - Electronically signed by Viet Silveira M.D. AT: AT Report ID: [id number] Reading Location: [id number] Joo Funes Jr., MD IMG XR PROCEDURES [place] l Result * Lactate (12/17/2024 9:12 PM CDT) Lactate 0.9 0.7 - 2.0 mmol/L Comment:Testing performed by : [address] [address] Blood 12/17/2024 9:12 PM CDT 12/17/2024 9:17 PM CDT Joo Funes Jr., MD LAB BLOOD ORDERABLES F inal Result Performing Organization Address [facility] Co de Phone Number NURIA [facility] [place] [address] * eGFR (12/17/2024 9:12 PM CDT) Pathologist [facility] eGFR >90 >=60 mL/min/1. 73 m2 Comment: [...] Current interpretive data was last reviewed 2021. Testing performed by: [facility], [address] [place] [address]., [address] Blood 12/17/2024 9:12 PM CDT 12/17/2024 9:17 PM CDT us Joo Funes Jr., MD LAB BLOOD ORDERABLES F inal Result Performing Organization Address City/[facility]/ZIP Co de Phone Number NURIA [address] [facility] Department [place] [address] * Differential, auto (12/17/2024 9:12 PM CDT) Neutrophil abs 3.79 1.50 - 6.50 K/cumm Comment:Testing performed by : [address] [address] Imm gran abs 0.01 0.00 - 0.10 K/cumm NURIA Comment:Testing performed by : [address] [address] Lymphocyte abs 1.86 0.80 - 3.30 K/cumm NURIA Comment:Testing performed by : [address] [address] Monocyte abs 0.48 0.20 - 0.80 K/cumm NURIA Comment:Testing performed by : [address] [address] Eosinophil abs 0.10 0.00 - 0.50 K/cumm NURIA Comment:Testing performed by : [address] [address] Basophil abs 0.05 0.00 - 0.10 K/cumm NURIA Comment:Testing performed by : [address] [address] Neutrophil pct 60.2 % NURIA Comment: Interpretive Data Percent cell count reference ranges are not reported, since discordance with absolute values may lead to misinterpretation of CBC data. Current Interpretive Data was last revised on 2017. Testing performed by: [address] [address] Imm gran pct 0.2 % NUIRA Comment: Interpretive Data Percent cell count reference ranges are not reported, since discordance with absolute values may lead to misinterpretation of CBC data. Current Interpretive Data was last revised on 2017. Testing performed by: [address] [address] Lymphocyte pct 29.6 % NURIA Comment: Interpretive Data Percent cell count reference ranges are not reported, since discordance with absolute values may lead to misinterpretation of CBC data. Current Interpretive Data was last revised on 2017. Testing performed by: [address] [address] Monocyte pct 7.6 % NURIA Comment: Interpretive Data Percent cell count reference ranges are not reported, since discordance with absolute values may lead to misinterpretation of CBC data. Current Interpretive Data was last revised on 2017. Testing performed by: [address] [address] Eosinophil pct 1.6 % NURIA Comment: Interpretive Data Percent cell count reference ranges are not reported, since discordance with absolute values may lead to misinterpretation of CBC data. Current Interpretive Data was last revised on 2017. Testing performed by: [address] [address] Basophil pct 0.8 % NURIA Comment: Interpretive Data Percent cell count reference ranges are not reported, since discordance with absolute values may lead to misinterpretation of CBC data. Current Interpretive Data was last revised on 2017. Testing performed by: [address] [address] Blood 12/17/2024 9:12 PM CDT 12/17/2024 9:17 PM CDT us Joo Funes Jr., MD LAB BLOOD ORDERABLES F inal Result [facility] [address] [facility] Department [place] [address] * (ABNORMAL) CBC with auto differential (12/17/2024 9:12 PM CDT) WBC 6.29 3.80 - 9.90 K/cumm Comment:Testing performed by : [address] [address] Hgb 10.6(L) 11.9 - 15.5 g/dL NURIA Comment:Testing performed by : [address] [address] Hct 33.3(L) 35.6 - 45.5 % NURIA Comment:Testing performed by : [address], [address] Plt 238 150 - 400 K/cumm NURIA Comment:Testing performed by : [address] [address] MPV 10.7 9.1 - 12.3 fL NURIA Comment:Testing performed by : [address], [address] RBC 4.38 3.90 - 5.20 M/cumm NURIA Comment:Testing performed by : [address] [address] MCV 76.0(L) 81.3 - 96.4 fL NURIA Comment:Testing performed by : [address] [address] MCH 24.2(L) 27.1 - 33.3 pg NURIA Comment:Testing performed by : [address], [address] MCHC 31.8(L) 32.3 - 35.7 g/dL NURIA Comment:Testing performed by : [address], [address] RDW CV 14.2 11.1 - 14.9 % NURIA Comment:Testing performed by : [address], [address] RDW SD 38.8 35.7 - 48.1 fL NURIA Comment:Testing performed by : [address], [address] NRBC abs 0.00 0.00 - 0.01 K/cumm NURIA Comment:Testing performed by : [address], [address] Blood 12/17/2024 9:12 PM CDT 12/17/2024 9:17 PM CDT Joo Funes Jr., MD LAB BLOOD ORDERABLES F inal Result NURIA [address] Department [place] [address] * D-dimer, quantitative (12/17/2024 9:12 PM CDT) [facility] D-Dimer 430 <=499 ng/mL FEU Comment: Interpretive data FDA approved the D-dimer, in conjunction with a low or moderate pretest probability score, to exclude venous thromboembolic events (VTE) (PE and DVT) in outpatients when the D-dimer result is < 500 ng/ml FEU. Evidence supports using an age-adjusted D-dimer cut-off for outpatients older than 50 (age x 10) to improve specificity without sacrificing sensitivity. Example: age 68, VTE cut-off 680 ng/ml FEU. References; Schoutjaquan HT et al. Brit Med J. 2013;346:f2492. Nas SHELTON et al. Annals Int Med. 2015;163:701-11. Current interpretive data was last revised on 2019. Testing performed by: [address] [address] Blood 12/17/2024 9:12 PM CDT 12/17/2024 9:17 PM CDT Joo Funes Jr., MD LAB BLOOD ORDERABLES F inal Result NURIA [address] [facility] [place] [address] * Comprehensive metabolic panel (12/17/2024 9:12 PM CDT) [facility] Sodium 137 135 - 145 mmol/L Comment:Testing performed by : [address] [address] Potassium, pl 3.7 3.3 - 4.9 mmol/L NURIA LU Comment:Testing performed by : [address] [address] Chloride 102 97 - 110 mmol/L NURIA LU Comment:Testing performed by : [address] [address] CO2 23 22 - 32 mmol/L NURIA LU Comment:Testing performed by : [address] [address] Anion gap 12 2 - 15 mmol/L NURIA Comment:Testing performed by : [address] [address] BUN 10 6 - 25 mg/dL NURIA Comment:Testing performed by : [address], [place]., [address] Creatinine 0.79 0.60 - 1.10 mg/dL NURIA Comment:Testing performed by : [address] [address] Glucose 170 70 - 199 mg/dL NURIA Comment: Interpretive Data Fasting glucose >/= 126 mg/dl is diagnostic for diabetes. Fasting is defined as no caloric intake for at least 8 hours. Fasting glucose between 100 mg/dl to 125 mg/dl is diagnostic of prediabetes. In a patient with classic symptoms of hyperglycemia or hyperglycemic crisis, a random glucose >/= 200 mg/dl is diagnostic for diabetes. In the absence of unequivocal hyperglycemia, results should be confirmed by repeat testing. The classification and Diagnosis of Diabetes Diabetes Care 202; 46: S19-S40. Current interpretive data was last revised 2022. Testing performed by: [address] [address] Calcium 9.3 8.5 - 10.3 mg/dL NURIA Comment:Testing performed by : [address] [address] Bilirubin, total 0.4 0.1 - 1.2 mg/dL NURIA Comment:Testing performed by : [address] [address] Protein, pl 7.3 6.5 - 8.5 g/dL NURIA Comment:Testing performed by : [address] [address] Albumin 4.4 3.5 - 5.0 g/dL NURIA Comment:Testing performed by : [address] [address] Alk phos 73 40 - 130 Units/L NURIA Comment:Testing performed by : [address] [place]., [address] ALT 12 7 - 45 Units/L NURIA Comment:Testing performed by : [facility], [address] [place] [address]., [address] AST 15 10 - 45 Units/L NURIA LU Comment:Testing performed by : [facility], [address] [place] [address]., [address] Blood 12/17/2024 9:12 PM CDT 12/17/2024 9:17 PM CDT us Joo Funes Jr., MD LAB BLOOD ORDERABLES F inal Result NURIA [address] [facility] Department [place] [address] * XR Foot Right 3 or More Views (12/07/2024 10:28 AM CDT) Anatomical Region Laterality Modality Lower Extremities, Foot Right Computed Radiography 12/07/2024 11:1 8 AM CDT Narrative 12/07/2024 11:20 AM CDT EXAM DESCRIPTION: XR FOOT RIGHT 3 OR MORE VIEWS REASON FOR STUDY: pain Pt was walking down steps and on the last step slipped due to it being wet . Has right foot pain hard to walk on it her for eval has ice pack on it TECHNIQUE: Three views COMPARISON: 10/09/2023 FINDINGS: Nondisplaced fracture base of 4th and 5th proximal phalanges. No angulation. No extent to articular surface as best visualized. Overlying soft tissue swelling is suggested. Other bony elements are unremarkable. Other soft tissues are unremarkable. IMPRESSION: Nondisplaced fractures base of 4th and 5th proximal phalanges. THIS IS AN ELECTRONICALLY VERIFIED FINAL REPORT 12/07/2024 11:20 AM - Electronically signed by Jevon Coronado M.D. RB: YURIDIA Report ID: [id number] Reading Location: [id number] Procedure Note Jevon Coronado MD - 12/07/2024 EXAM DESCRIPTION: XR FOOT RIGHT 3 OR MORE VIEWS REASON FOR STUDY: pain Pt was walking down steps and on the last step slipped due to it being wet. Has right foot pain hard to walk on it her for eval has ice pack on it TECHNIQUE: Three views COMPARISON: 10/09/2023 FINDINGS: Nondisplaced fracture base of 4th and 5th proximal phalanges. Noangulation. No extent to articular surface as best visualized. Overlying soft tissue swelling is suggested. Other bony elements are unremarkable. Other soft tissues are unremarkable. IMPRESSION: Nondisplaced fractures base of 4th and 5th proximalphalanges. THIS IS AN ELECTRONICALLY VERIFIED FINAL REPORT 12/07/2024 11:20 AM - Electronically signed by Jevon Coronado M.D. RB: YURIDIA Report ID: [id number] Reading Location: [place] [address] [facility] George CHRISTOPHER IMG XR PROCEDURES Final Result * Pap with reflex to High Risk HPV and Genotyping (Cytology Component) (11/14/2022 11:49 AM CDT) Thin prep (Pap test) 11/14/2022 11:49 AM CDT 11/18/2022 11:49 AM CDT Narrative PATHOLOGY [facility] - 11/21/2022 1:17 PM CDT [facility] Department of Pathology [address] [place] [address] Final Report Note to Patients: This report [...] the details. Patient Name: KHALIF RIVERA Address: [facility] [address], [place] [address] Gender: F : 1990 (Age: 32) Service: Location: N : [id number] [facility] #: [id number] Patient Type: [facility] SPECIMEN Taken: 11/14/2022 Received: 11/18/2022 Accessioned:: 11/19/2022 Reported: 11/21/2022 Physician(s): Jocelyn Flores [facility] Diagnosis: SOURCE OF SPECIMEN Imaged Thinprep Pap Test w/ Reflex HPV - State Attorney Cytologic Material: STATEMENT OF ADEQUACY - Satisfactory for evaluation; endocervical/transformation zone component present GENERAL CATEGORIZATION: - Negative for intraepithelial lesion or malignancy MARLINE Christianson(ASCP) Report Electronically Reviewed and Signed Out By MARLINE Christianson(ASCP) 11/21/2022 13:17:29Specimen(s) Received: A: Imaged Thinprep Pap Test w/ Reflex HPV - State Attorney Cytologic Material Clinical History: Last Menstrual Period: [...] determined by the Surgical Pathology Department at [facility] as part of an ongoing quality control checker program and in compliance with federally mandated [...] characteristics determined by the Surgical Pathology Department [facility]. It has not been cleared or approved by the U. S. Food and Drug Administration. Jocelyn Mark CN LAB CYTOLOGY ORDERABLES Final Result PATHOLOGY [facility] from Last 3 Months or Most Recently Relevant to Health Maintenance Insurance [facility] [place] [facility] OPEN ACCESS [facility] [place] [facility] Advance Directives For more information, please contact: [phone] * Full Code (Latest Code Status on File) Date Activated Date Inactivated Comments 04/08/2024 7:40 PM 04/10/2024 5:40 PM * Full Code Date Activated Date Inactivated Comments 04/01/2024 1:49 PM 04/04/2024 7:09 PM Care Teams Plasma Processor Relationship Specialty Start Date End Date [place] [address] [place] [address] PCP - General Family Medicine 06/27/23 Solo Garcia MD [address] [address] Referring Physician Endocrinology Diabetes & Metabolism 08/11/24
[2025-02-17 10:18] VITALS: BP 136/89; PULSE 118; RESP 16; TEMP 37.7; O2SAT 100; BMI 26.7
[2025-02-17] MEDS: LACTATED RINGERS 1,000 ML 150 ML IV CONT (10:43)
--- NOTE | 2025-02-17 10:45 | SUR.PREOP ---
Blood sugar 142 per pt's dexcom
[2025-02-17 10:46] LABS: BEDSIDEPREGUCG Negative (Negative)
--- NOTE | 2025-02-17 10:55 | WPDHPUPDATE1 ---
History and Physical Update Update Date/Time: 02/17/25 10:55 History and Physical has been reviewed, including an updated exam of the patient. There are NO changes in the patient's condition. Risks, benefits, and alternatives have been discussed and questions answered. Patient agrees to proceed with procedure.
--- NOTE | 2025-02-17 10:55 | WPDANESEPPF ---
Anes - Initial Pre Proc Eval Procedure: Operation Date: 02/17/25 11:30 Proposed Procedures p Flexible Sigmoidoscopy - Neymar Martinez MD s [facility] Hemorrhoid Treatment - Neymar Martinez MD Date/Time: 02/17/25 10:55 Surgeon: Neymar Martinez MD Pre Op Diagnosis: Hemorrhage of anus and rectum Patient Data Age: 35 Gender: F Height: 1.7 m Weight: 77.4 kg Last Vital Signs Temp 99.8 F H 02/17/25 10:18 Pulse 118 H 02/17/25 10:18 Resp 16 02/17/25 10:18 BP 136/89 02/17/25 10:18 Pulse Ox 100 02/17/25 10:18 O2 Del Method Room Air 02/17/25 10:18 Allergies Allergy/AdvReac Type Severity Reaction Status Date / Time No Known Allergies Allergy Verified 02/17/25 10:26 Home Medications ?Medication ?Instructions ?Recorded ?Confirmed ?Type insulin aspart U-100 100 unit/mL 1 sliding scale dose subcut 04/06/24 02/17/25 History (3 mL) subcutaneous pen (Novolog USEASDIRECTD FlexPen U-100 Insulin aspart) omeprazole 40 mg capsule,delayed 40 mg PO DAILY 4 weeks #28 caps 02/09/25 02/17/25 Rx release Laboratory Tests 02/17/25 10:44 POC Urine HCG, Qual Negative (Negative) Patient hx anesthesia problems: none Family hx anesthesia problems: none Results Review: All pre-operative results and documents have been reviewed as part of the pre-operative evaluation. [facility] Past Medical History Medical History Succinylcholine adverse reaction positive blood test and multiple family members positive Ovarian cyst Left History of Helicobacter pylori infection Positive stool culture E coli Diabetes type 1 Surgical History Surgical History History of colonoscopy 2023 History of esophagogastroduodenoscopy (EGD) 2023 H/O shoulder surgery Family History Family History Father Heart disease Hypertension Social History Social History Smoking status: Never smoker Alcohol intake: never Substance use: never Substance use type: does not use Living arrangements: with family Additional living arrangements comments: with raisa Aguilera Final PreProcedure Day of Procedure 02/17/25 10:55 Patient weight: overweight Lungs: normal air movement Airway: Mallampati scale class II Neurological: alert and oriented Last oral intake: >/= 8 hours ASA classification: III Emergent: no Anesthetic plan: proceed Anesthesia type and monitoring: general GIVS and standard monitoring Results Review: All pre-operative results and documents have been reviewed as part of the pre-operative evaluation. DM 1, CGM 142 in preop, overall good functional status. Informed Consent: The patient's anesthetic plan and its attendant risks and benefits were discussed with the patient/family/POA. Questions were solicited and answers provided to the satisfaction of the patient/family/POA.
--- NOTE | 2025-02-17 11:07 | SUR.OPER ---
Per Dr. Pike, no IRC will be completed at this time.
[2025-02-17 11:14] VITALS: BP 115/60; PULSE 98; RESP 22; O2SAT 100
--- NOTE | 2025-02-17 11:23 | SUR.PHASEII ---
Glucose 138 in recovery per patient's dexcom.
[2025-02-17 11:24] VITALS: BP 118/75; PULSE 95; RESP 22; O2SAT 100
[2025-02-17 11:34] VITALS: BP 134/79; PULSE 87; RESP 19; O2SAT 100
== END 2025-02-17 12:00 | disposition home or self-care (01) ==
PROVIDERS: Anesthesiology; Referring Provider Nurse Practitioner; Visit Provider Internal Medicine Gastroenterology
PROC: 0DJD8ZZ Inspection of Lower Intestinal Tract, Via Natural or Artificial Opening Endoscopic (ICD-10-PCS; CPT 45330; principal; 2025-02-17 11:30)
DX: K92.1 Melena (principal); K58.9 Irritable bowel syndrome, unspecified; Z86.19 Personal history of other infectious and parasitic diseases
CPT/HCPCS: 45330; J2003; J2704; J7120

== ENCOUNTER 2025-03-18 09:27 | Outpatient (CLI) | payer OTHER, SELFPAY ==
--- NOTE | ~2025-03-18 | NM_ITS ---
EXAM/PROCEDURE: NM_HEPATWP_NM HISTORY: atypical cp COMPARISON: None available. TECHNIQUE: Hepatobiliary scan Dose: 5.2 mCi technetium 99m Choletec. 1.5 mcg of administered slow push intravenously after visualization of small bowel. FINDINGS: Prompt homogeneous liver uptake noted. The gallbladder is seen at approximately 50 minutes. Gallbladder ejection fraction calculated at 5%. IMPRESSION: No evidence of cystic duct obstruction. Marked abnormally low gallbladder ejection fraction which could be associated with chronic cholecystitis. Reviewed, dictated and finalized at location A. REPAIR CLERK IMPRESSION: No evidence of cystic duct obstruction. Marked abnormally low gallbladder eject ion fraction which could be associated with chronic cholecystitis.
--- OUTSIDE RECORDS SUMMARY | 2025-03-18 09:34 | XMS_ITS | Encounter Summary ---
Author Organization [facility] Address [address] [facility] [place] [address] Care Team Providers Care Food Production Associate Name Role Phone Dewayne Weathers MD Primary Care Provider Kaleb Mccurdy MD Primary Care Provider Breanna laura López Jr., MD, Willis Randle Primary Care Provid er Nas Baca DO Primary Care Provider Encounter Details Date Type Department Care Team (Late Contact Info) Description 11/16/2007 [facility] Outpatient Visit [address] [id number] Roxanna Glover MD Social History Tobacco Use Types Packs/Day Years Used Date Smoking Tobacco: Never Assessed Comments Unknown Sex and Gender Information Value Date Recorded Sex Assigned at Not on file Legal Sex Female 6:55 AM CHEMICAL PUMPER Gender Identity Not on file Sexual Orientation Not on file documented as of this encounter Plan of Treatment Upcoming Encounters Date Type Department Care Team (Late Contact Info) Description 05/05/2025 1:00 PM CHEMICAL PUMPER Office Visit [facility] - Endocrinology [address] [place] [phone] Solo Garcia MD [address] [facility] [address] [place] [address] documented as of this encounter Visit Diagnoses Not on filedocumented in this encounter Care Teams Food Production Associate Relationship Specialty Start Date End Date Dewayne Weathers MD [address] [place], [place] [phone] PCP - General 03/28/08 08/18/10 Kaleb Mccurdy MD PCP - General 08/19/10 05/06/17 Willis López [place] [address] [address] [facility] [address] [place] [address] PCP - General 03/30/18 12/03/22 Nas Baca DO [address] [phone] PCP - General Family Medicine 07/28/23 documented as of this encounter
--- OUTSIDE RECORDS SUMMARY | 2025-03-18 09:34 | XMS_ITS | Encounter Summary ---
Author Organization [facility] Address [address] [place] [address] Care Team Providers Care Guest Services Director Name Role Phone Dewayne Weathers MD Primary Care Provider Kaleb Mccurdy MD Primary Care Provider Breanna laura López Jr., MD, Willis Randle Primary Care Provid er Nas Baca DO Primary Care Provider [phone] Encounter Details Date Type Department Care Team (Late Contact Info) Description 05/06/2007 [facility] Outpatient Visit [address] [id number] Roxanna Glover MD Social History Tobacco Use Types Packs/Day Years Used Date Smoking Tobacco: Never Assessed Comments Unknown Sex and Gender Information Value Date Recorded Sex Assigned at Not on file Legal Sex Female 6:55 AM PRINT MACHINE OPERATOR Gender Identity Not on file Sexual Orientation Not on file documented as of this encounter Plan of Treatment Upcoming Encounters Date Type Department Care Team (Late Contact Info) Description 05/05/2025 1:00 PM PRINT MACHINE OPERATOR Office Visit [facility] - Endocrinology [address] [place] [phone] Solo Garcia MD [address] [facility] [address] [place] [address] documented as of this encounter Visit Diagnoses Not on filedocumented in this encounter Care Teams Guest Services Director Relationship Specialty Start Date End Date Dewayne Weathers MD [address] [place], [place] [phone] PCP - General 03/28/08 08/18/10 Kaleb Mccurdy MD PCP - General 08/19/10 05/06/17 Willis Ló[place] [address] [address] [facility] 100 [place] [address] PCP - General 03/30/18 12/03/22 Nas Baca DO [address] [phone] PCP - General Family Medicine 07/28/23 documented as of this encounter
--- OUTSIDE RECORDS SUMMARY | 2025-03-18 09:34 | XMS_ITS | Encounter Summary ---
Author Organization [facility] Address [address] [facility] [place] [address] Care Team Providers Care Distribution Systems Superintendent Name Role Phone Dewayne Weathers MD Primary Care Provider [phone] Kaleb Mccurdy MD Primary Care Provider Breanna laura López Jr., MD, Willis Randle Primary Care Provid er Nas Baca DO Primary Care Provider [phone] Encounter Details Date Type Department Care Team (Late Contact Info) Description 01/13/2008 [facility] Outpatient Visit [facility] DEFAULT [address] [place], [place] [phone] Ru Shelton MD Retired Social History Tobacco Use Types Packs/Day Years Used Date Smoking Tobacco: Never Assessed Comments Unknown Sex and Gender Information Value Date Recorded Sex Assigned at Not on file Legal Sex Female 6:55 AM SPECIAL PROCEDURE TECH Gender Identity Not on file Sexual Orientation Not on file documented as of this encounter Plan of Treatment Upcoming Encounters Date Type Department Care Team (Late Contact Info) Description 05/05/2025 1:00 PM SPECIAL PROCEDURE TECH Office Visit [facility] - Endocrinology [address] [place] [address], [address] [place] [address] Solo Garcia MD [address] [facility] [address] [place] [address] documented as of this encounter Visit Diagnoses Not on filedocumented in this encounter Care Teams Distribution Systems Superintendent Relationship Specialty Start Date End Date Dewayne Weathers MD [address] [place], [place] [phone] PCP - General 03/28/08 08/18/10 Kaleb Mccurdy MD PCP - General 08/19/10 05/06/17 Willis Ló[place] [address] [address] [facility] 100 [place] [address] PCP - General 03/30/18 12/03/22 Nas Baca DO [address] [phone] PCP - General Family Medicine 07/28/23 documented as of this encounter
--- OUTSIDE RECORDS SUMMARY | 2025-03-18 09:34 | XMS_ITS | Patient Health Record ---
Author Organization 1 OF Santy pepe [facility] Address [address] [facility] 100 [place] [address] Care Team Providers Care Cracking And Fanning Machine Operator Name Role Phone Dr. Nas Baca DO Primary Care Provider Un available Keyur Mala Unavailable [phone] Allergies No Known Allergies Reason For Referral [...] Problem Type I diabetes mellitus without complication ([id number]) Type 1 diabetes mellitus without complication (E10.9) Active confirmed Vital Signs Height 67 in 12/20/2024 Weight 170 lbs 12/20/2024 BMI 26.62 kg/m2 12/20/2024 Encounters Encounter Location Date Provider Diagnosis 1 OF Santy Borges [facility] [address] [facility] 100 [place] [address] 12/20/2024 Mala Baer Type 1 diabetes mellitus without complication E10.9 ; Closed nondisplaced fracture of proximal phalanx of lesser toe of right foot, initial encounter S92.514A and Right foot pain M79.671 1 OF Santy Borges [facility] [address] [facility] 100 [place] [address] 12/08/2024 Mala Baer Assessments Encounter Date Diagnosis [...] Start Date Coverage End Date To NAV[employer]TE [id number] [place] [phone] [id number] Inna Werner Self - patient is the insured Medical (General) History Medical History History ICD Code type I diabetes Surgical History Surgery Date(Month/Year) Shoulder surgery
--- OUTSIDE RECORDS SUMMARY | 2025-03-18 09:34 | XMS_ITS | Encounter Summary ---
Author Organization [facility] Address [address] [facility] [place] [address] Care Team Providers Care Refund Clerk Name Role Phone Dewayne Weathers MD Primary Care Provider Kaleb Mccurdy MD Primary Care Provider Breanna laura López Jr., MD, Willis Randle Primary Care Provid er Nas Baca DO Primary Care Provider [phone] Encounter Details Date Type Department Care Team (Late Contact Info) Description 05/29/2006 [facility] Outpatient Visit [address] [address] Kandace Billingsley, MEAT CLERK-MACHINE OPERATOR PICKER Retired Social History Tobacco Use Types Packs/Day Years Used Date Smoking Tobacco: Never Assessed Comments Unknown Sex and Gender Information Value Date Recorded Sex Assigned at Not on file Legal Sex Female 6:55 AM INBOUND SALES MANAGER Gender Identity Not on file Sexual Orientation Not on file documented as of this encounter Plan of Treatment Upcoming Encounters Date Type Department Care Team (Late Contact Info) Description 05/05/2025 1:00 PM INBOUND SALES MANAGER [facility] Visit [facility] - Endocrinology [address] [place] [address], [address] [place] [phone] Solo Garcia MD [address] [facility] 206 [place] [address] documented as of this encounter Visit Diagnoses Not on filedocumented in this encounter Care Teams Refund Clerk Relationship Specialty Start Date End Date Dewayne Weathers MD [address] [place], [place] [phone] PCP - General 03/28/08 08/18/10 Kaleb Mccurdy MD PCP - General 08/19/10 05/06/17 Willis Ló[place] [address] [address] [facility] 100 [place] [address] PCP - General 03/30/18 12/03/22 Nas Baca DO [address] [address] PCP - General Family Medicine 07/28/23 documented as of this encounter
--- OUTSIDE RECORDS SUMMARY | 2025-03-18 09:34 | XMS_ITS | Clinical Summary ---
Author Organization [facility] Address [address] [place] [address] Care Team Providers Care Spiral Winder Name Role Phone KevenNas DO Primary Care Provider Source Comments [facility] [employer] [facility],non-owned Affiliates and Associated Physician Practices is amultiple site organization consisting of ambulatory clinics and hospital sitesin [place], [place], [place] and [place]. This disclosure is being madepursuant to the Care Everywhere program and may not contain all information available regarding this patient. Last updated 18.[facility] [employer] [facility] Allergies No known active allergies Medications * Be aware that medications may not be up to date on this document. Alwaysverify current medications with the patient. insulin glargine (LANTUS SOLOSTAR) pen Inject 16 Units subcutaneously at bedtime 2 Pen 1 11/09/19 20 Active Additional Information Patient not taking.Reported on 12/21/2024 insulin pen needle (NOVOFINE 31) 31G X 5 MM needle 1 Each 4 times daily 50 Each 11/09/19 20 Active Needle, Disp, (HYPODERMIC NEEDLE 26GX1/2) 26G X 1/2 MISCIndications: Type 1 diabetes mellitus on insulin therapy (HCC),Insulin pump status Use 1 Each once daily 90 Each 3 04/30/19 Active OneTouch Ultra test strip USE FOUR TIMES DAILY 400 strip 04/17/20 22 Active Insulin Infusion Pump Supplies (Tandem Mobi AutoSoft 30 Kit) MISCIndications: Type 1 diabetes mellitus without complication (HCC) Use 1 Each once daily 90 Each 3 09/02/19 25 Active Continuous Glucose Sensor (Dexcom G7 Sensor) MISCIndications: Type 1 diabetes mellitus without complication (HCC) Use 1 Each every 10 days 9 Each 3 09/02/19 25 Active glucagon (Glucagen) injection Inject 1 (one) mg into muscle as directed 1 Each 12/22/19 25 Active insulin lispro (HumaLOG) 100 UNIT/ML vial Inject up to 60 units daily via insulin pump 20 mL 3 01/25/20 25 Active insulin aspart (NovoLOG) vial Inject up to 60 units daily via insulin pump 20 mL 2 01/28/20 25 Active Active Problems Problem Noted Date Diagnosed Date Breast pain, right 06/29/2020 Assessment & Plan (06/29/2020 4:48 PM CERTIFIED HEALTH EDUCATION SPECIALIST): Exam is normal. I discussed that breast [...] Type 1 diabetes mellitus without complication Overview (01/26/2025): Diagnosed at age 2 On pump since 2000 IMO 01/26/2025 Childhood asthma Overview (06/04/2018): as a toddler, [...] Encounters Date Type Department Care Team Description 01/24/2025 Refill [facility] - Endocrinology [address] [facility], [address] [place] [address] Solo Garcia MD MEDICATION REFILL 12/21/2024 2:40 PM CDT Office Visit [facility] - Endocrinology [address], [address] [place] [address] Solo Garcia MD Type 1 diabetes mellitus without complication (HCC) (Primary Dx); Insulin pump status; Dyslipidemia from Last 3 Months Immunizations Immunization Administration Dates Next Due Badoo primary monoval ent 12+ yr 0.3mL Purple [...] Date Smoking Tobacco: Former Cigarettes 1 8 2017 Smokeless Tobacco: Never Tobacco Cessation:Counseling Given: Not Answered Alcohol Use Standard Drinks/Week Comments Yes 0 (1 standard drink = 0.6 oz pur e alcohol) once weekly Comments No Sex and Gender Information Value Date Recorded Sex Assigned at Not on file Legal Sex Female 6:55 AM CERTIFIED HEALTH EDUCATION SPECIALIST Gender Identity Not on file Sexual Orientation Not on file 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 Not on file Not on file Last Filed Vital Signs Vital Sign Reading Time Taken Comments Blood Pressure 118/60 12/21/2024 2:41 PM CDT Pulse 88 09/02/2019 1:05 PM CDT Temperature 37.1 C (98.7 F) 11/23/2018 11:02 AM CDT Respiratory Rate 18 11/02/2018 12:05 PM CDT Oxygen Saturation 98% 11/02/2018 12:05 PM CDT Inhaled Oxygen Concentration - - Weight 77.1 kg (170 lb) 12/21/2024 2:41 PM CDT Height 170.2 cm (5' 7) 12/21/2024 2:41 PM CDT Body Mass Index 26.63 12/21/2024 2:41 PM CDT Plan of Treatment Upcoming Encounters Date Type Department Care Team (Late st Contact Info) Description 05/05/2025 1:00 PM CERTIFIED HEALTH EDUCATION SPECIALIST Office Visit [facility] - Endocrinology [address] [place] [address], [address] [place] [address] Solo Garcia MD [address] [facility] [address] [place] [address] Health Maintenance Due Date Last Done Comments HEPATITIS C SCREENING 02/04/2007 HEPATITIS B VACCINE (1 of 3 - 19+ 3-dose series) 02/09/2008 PNEUMOCOCCAL VACCINE (1 of 2 - PCV) 02/09/2008 HPV VACCINE (1 - 3-dose SCDM series) 02/09/2016 DIABETES RETINOPATHY SCREENING 05/07/2017 PAP with HPV 2019 DEPRESSION SCREENING 04/28/2024 COVID-19 VACCINE ( season) 2024 07/19/2020, 06/30/2020 INFLUENZA VACCINE (#1) 2024 05/18/2020 DIABETES-HGB A1C 06/23/2025 12/21/2024, 08/2024, 01/01/2024, Additional history exists DIABETES - URINE PROTEIN SCREENING 08/30/2025 08/30/2024, 07/28/2023, 05/22/2021, Additional history exists DIABETES-SERUM CREATININE 08/30/20252024, 07/28/2023, 05/22/2021, Additional history exists Cervical Cancer Screening 11/14/2025 PAP SMEAR 11/14/2025 11/14/2022, 04/24/2018 DIABETES-FOOT EXAM WITH MONOFILAMENT 12/21/2025 12/21/2024 DTAP/TDAP/TD VACCINES (3 - Td or Tdap) [...] A1C - POINT OF CARE (AMB) Routine 12/21/2024 2:50 PM CDT Type 1 diabetes mellitus without complication (HCC) GLUCOSE (EXT RESULT ENTRY) Routine 12/21/2024 MICROALB/CREAT RATIO URINE RANDOM PANEL Routine 08/30/2024 3:09 PM CDT Type 1 diabetes mellitus without complication (HCC) COMPREHENSIVE METABOLIC PANEL Routine 08/30/2024 3:09 PM CDT Type 1 diabetes mellitus without complication (HCC) HIV-1 HIV-2 ANTIBODY + HIV P24 AG PANEL Routine 09/18/2018 11:03 AM CDT , unspecified gestational age PAP IMAGE-GUIDED RFLX HPV+CT/NG Routine 04/24/2018 11:22 AM CERTIFIED HEALTH EDUCATION SPECIALIST , unspecified gestational age Screening for cervical cancer from Last 3 Months or Most Recently Relevant to Health Maintenance Results * HEMOGLOBIN A1C - POINT OF CARE (AMB) (12/21/2024 2:50 PM CDT) Hemoglobin A1c POCT 7.1 % [facility] Expiration Date [facility] Lot # [id number] [facility] QC Verified Yes Yes [facility] Blood BLOOD SPECIMEN / Unknown 12/21/2024 2:50 PM CDT Solo Garcia MD LAB - POINT OF CARE ORDERAB LES Final Result [facility] [address] [address], [facility] [phone] * GLUCOSE (EXT RESULT ENTRY) (12/21/2024) Glucose (EXTERNAL RESULT) 175 MG/DL Blood BLOOD SPECIMEN / Unknown 12/21/2024 Historical Provider LAB - CHEMISTRY ORDERABLE S Final Result * MICROALB/CREAT RATIO URINE RANDOM PANEL (08/30/2024 3:09 PM CDT) Creatinine Urine 93.26 mg/dL LAB [facility] ACCOUNT BILL Microalbumin Urine 0.9 mg/dL [facility] ACCOUNT BILL Microalbumin/Crea tinine Ratio 9 <30 mg/g [facility] ACCOUNT BILL Urine URINE SPECIMEN OBTAINED BY CLEAN CATCH PROCEDURE / Unknown 08/30/2024 3:09 PM CDT 08/30/2024 Narrative [facility] ACCOUNT BILL - 08/31/2024 3:06 AM CDT Performed at: [address] [place] [id number] Sock Liner: [address], Phone: [phone] Solo Garcia MD LAB - URINE CHEMISTRY ORDER MATHIEU Final Result [facility] ACCOUNT BILL [address] [place] [address] * (ABNORMAL) COMPREHENSIVE METABOLIC PANEL (08/30/2024 3:09 [...] - 08/31/2024 3:06 AM CDT Performed at: [address] [place] [id number] Sock Liner: [address], Phone: [phone] us Solo Garcia MD LAB - CHEMISTRY ORDERABLES Final Result [facility] ACCOUNT BILL [address] [place] [address] * HIV-1 HIV-2 ANTIBODY + HIV P24 AG PANEL (09/18/2018 11:03 AM CDT) [facility] HIV Screen 4th Generation w Reflex [...] purpose. For additional information please refer to http://education.[employer]/faq/MZF080 (This link is being provided for informational/ educational purposes only.) The performance of this assay has not been clinically validated in patients less than 2 years old. Test Performed at: [facility] [employer] [address] [place] [address] DALTON WOOD DO,MPH Blood BLOOD SPECIMEN / Unknown 09/18/2018 11:03 AM CDT 09/18/2018 11:04 AM CDT us Iain J Rosenbaum MD LAB - CHEMISTRY ORDERABLES Fin al Result [facility] [id number] [place] [address] * PAP IMAGE-GUIDED LIQUID BASE RFLX HPV+CT/NG (04/24/2018 11:22 AM CERTIFIED HEALTH EDUCATION SPECIALIST) Case Report Gynecologic Cytology Report Case: [id number] Authorizing Provider: Jocelyn Sharma MD Collected: 04/24/2018 11:22 AM Ordering Location: [facility] Obstetrics Received: 04/27/2018 11:22 AM [facility] First Screen: Dewayne Perez Specimen: THINPREP - IMAGE GUIDED, Cervix/Endocervix 04/29/2018 1:22 PM CERTIFIED HEALTH EDUCATION SPECIALIST [facility] LMP 04/29/2018 1:22 PM CERTIFIED HEALTH EDUCATION SPECIALIST [facility] Menstrual Status 04/29/19 19 1:22 PM CERTIFIED HEALTH EDUCATION SPECIALIST [facility] Specimen Adequacy Satisfactory for evaluation, endocervical/trans formation zone component present. 04/29/2018 1:22 PM CERTIFIED HEALTH EDUCATION SPECIALIST [facility] Categorization Negative for intraepithelial lesion or malignancy. 04/29/2018 1:22 PM CERTIFIED HEALTH EDUCATION SPECIALIST [facility] Interpretation ALLOPATHIC DOCTOR Negative for intraepithelial lesion or malignancy. 04/29/2018 1:22 PM [facility] PATH[facility]Y LAB at [address] CERTIFIED HEALTH EDUCATION SPECIALIST Pap Footnote This specimen was evaluated by the ThinPrep Imaging System along with the an additional manual rescreening by a insulation blanket maker and/or pathologist. 04/29/2018 1:22 PM CERTIFIED HEALTH EDUCATION SPECIALIST [facility] Embedded Images 9 1:22 PM CERTIFIED HEALTH EDUCATION SPECIALIST [facility] Pathology/Cytolo gy MISCELLANEOUS SAMPLES / Unknown 04/24/2018 11:22 AM CERTIFIED HEALTH EDUCATION SPECIALIST 04/27/2018 11:22 AM CERTIFIED HEALTH EDUCATION SPECIALIST Jocelyn Sharma MD LAB - PATHOLOGY/CYTOLOGY OR DERABLES Final Result [facility] [address] [facility] [place] [address], [facility] [phone] from Last 3 Months or Most Recently Relevant to Health Maintenance Insurance [facility] SELF PAY NO INSURANCE Member Subscriber Plan / Payer (Ef fective for All Dates) Name:Khalif Rivera Member ID:Not on file Relation to Subscriber:Not on file Name:KHALIF LOZANO Subscriber ID:Not on file Date of :1990 (Home) Address: [address] [place] [address] Payer ID:Not on file Group ID:Not on file Type:Self Pay Address: [place], [place] [facility] Address: [address] [place] [address] [employer] [facility] Advance Directives * Full Code (Latest Code Status on File) Date Activated Date Inactivated Comments 10/30/2018 12:56 PM 11/02/2018 5:30 PM * Full Code Date Activated Date Inactivated Comments 09/04/2018 3:48 PM 09/05/2018 10:56 PM Care Teams Spiral Winder Relationship Specialty Start Date End Date Nas Baca DO [address] [phone] PCP - General Family Medicine 07/28/23
--- OUTSIDE RECORDS SUMMARY | 2025-03-18 09:34 | XMS_ITS | Encounter Summary ---
Author Organization [facility] Health Address [address] [facility] [place] [address] Care Team Providers Care Eap Consultant Name Role Phone Dewayne Weathers MD Primary Care Provider Kaleb Mccurdy MD Primary Care Provider Breanna laura López Jr., MD, Willis Randle Primary Care Provid er Nas Baca DO Primary Care Provider Encounter Details Date Type Department Care Team (Late Contact Info) Description 01/19/2008 [facility] Outpatient Visit [facility] DEFAULT [address] [place], [place] [phone] [place] [address] [place] [address] Social History Tobacco Use Types Packs/Day Years Used Date Smoking Tobacco: Never Assessed Comments Unknown Sex and Gender Information Value Date Recorded Sex Assigned at Not on file Legal Sex Female 6:55 AM SPECIAL SERVICES DIRECTOR Gender Identity Not on file Sexual Orientation Not on file documented as of this encounter Plan of Treatment Upcoming Encounters Date Type Department Care Team (Late Contact Info) Description 05/05/2025 1:00 PM SPECIAL SERVICES DIRECTOR Office Visit [facility] - Endocrinology [address], [address] [place] [phone] Solo Garcia MD [address] [place] [address] documented as of this encounter Visit Diagnoses Not on filedocumented in this encounter Care Teams Eap Consultant Relationship Specialty Start Date End Date Dewayne Weathers MD [address] [place], [place] [phone] PCP - General 03/28/08 08/18/10 Kaleb Mccurdy MD PCP - General 08/19/10 05/06/17 Willis López [place] [address] [address] [facility] [address] [place] [phone] PCP - General 03/30/18 12/03/22 Nas Baca DO [address] [phone] PCP - General Family Medicine 07/28/23 documented as of this encounter
--- OUTSIDE RECORDS SUMMARY | 2025-03-18 09:34 | XMS_ITS | Encounter Summary ---
Author Organization [facility] Address [address] [place] [address] Care Team Providers Care Surgical Brace Maker Name Role Phone Dewayne Weathers MD Primary Care Provider Kaleb Mccurdy MD Primary Care Provider Breanna laura López Jr., MD, Willis Randle Primary Care Provid er Nas Baca DO Primary Care Provider Encounter Details Date Type Department Care Team (Late Contact Info) Description 01/13/2008 [facility] Outpatient Visit [facility] DEFAULT [address] [place] [address] Nasrin Matthews APRN-CNP Social History Tobacco Use Types Packs/Day Years Used Date Smoking Tobacco: Never Assessed Comments Unknown Sex and Gender Information Value Date Recorded Sex Assigned at Not on file Legal Sex Female 6:55 AM DYNAMIC BALANCER Gender Identity Not on file Sexual Orientation Not on file documented as of this encounter Plan of Treatment Upcoming Encounters Date Type Department Care Team (Late Contact Info) Description 05/05/2025 1:00 PM DYNAMIC BALANCER Office Visit [facility] - Endocrinology [address] [place] [address], [address] [place] [address] Solo Garcia MD [address] [facility] [address] [place] [address] documented as of this encounter Visit Diagnoses Not on filedocumented in this encounter Care Teams Surgical Brace Maker Relationship Specialty Start Date End Date Dewayne Weathers MD [address] [place], [place] [phone] PCP - General 03/28/08 08/18/10 Kaleb Mccurdy MD PCP - General 08/19/10 05/06/17 Willis López [place] [address] [address] [facility] [address] [place] [address] PCP - General 03/30/18 12/03/22 Nas Baca DO [address] [phone] PCP - General Family Medicine 07/28/23 documented as of this encounter
--- OUTSIDE RECORDS SUMMARY | 2025-03-18 09:34 | XMS_ITS | Data Portability ---
Author Organization [facility] Address [address] [address] Assessment No assessment recorded. Plan of Treatment [...] Updated DateTime 05/08/2022 170.18 cm 26.6 kg/m2 86958.7 g 80 /min 147/82 mm[Hg] [employer] 05/08/2022 14:10:24 Date Recorded Body height Body mass index (BMI) Body weight Heart rate Systolic And Diastolic Provider Name and Address Organization Details Last Updated DateTime 08/06/2022 170.18 cm 26.6 kg/m2 12822.7 g 93 /min 148/84 mm[Hg] [email or web address], [facility] 08/06/2022 16:10:55 Date Recorded Body height Body mass index (BMI) Body weight Heart rate Systolic And Diastolic Provider Name and Address Organization Details Last Updated DateTime 08/27/2022 170.18 cm 26.6 kg/m2 35313.7 g 73 /min 139/85 mm[Hg] Michael [email or web address] [facility] 08/27/2022 12:26:33 Social History None recorded. Functional Status None recorded. Mental Status None recorded. Family History Nothing Reported. Medical History Condition Response Other Cancer N HIV or AIDS N Coronary Artery Disease N Gout N Kidney Stones N Hyperthyroidism N Breast Cancer N Head Trauma/Injury N Hernia N Lung Cancer N Blood Clots N COPD N Depression N Hypothyroidism N Lung Disease N Pacemaker N Parkinson's N Anxiety Disorder [...] Tendon Tear N Ulcers N Heart Attack ([place]) N Osteopenia N Diabetes Y Bleeding Disorder [...] ICD10 Code Diagnosis IMO Codes Diagnosis Note [id number] Bruno Moses MD [facility] [address] [phone] 05/08/2022 13:47:09 05/08/2022 15:50:37 [id number] Bruno Moses MD [facility] [address] [address] [phone] 08/06/2022 16:01:17 08/07/2022 10:28:52 [id number] Bruno Moses MD [facility] [address] [address] [id number] 08/27/2022 12:00:43 08/27/2022 15:23:37 Health Concerns Section Related Observation LastModified by Organization Detai ls LastModified Time None Recorded Concern Status LastModified by Organization Details LastModified Time None Recorded Advance Directives Directive None Recorded Payers Insurance Date Sequence Insurance Name Policy Number Policy Alves Covered Member ID Alves Member ID Guarantor Name 09/03/2022 1 [employer]: BS [facility] (PPO) [id number] Reginald Werner [id number] Inna Werner OBDarrion Episode No OBEpisode recorded.
--- OUTSIDE RECORDS SUMMARY | 2025-03-18 09:34 | XMS_ITS | Encounter Summary ---
Author Organization [facility] Address [address] [facility] [place] [address] Care Team Providers Care Tower Equipment Installer Name Role Phone Dewayne Weathers MD Primary Care Provider Kaleb Mccurdy MD Primary Care Provider Breanna laura López Jr., MD, Willis Randle Primary Care Provid er Nas Baca DO Primary Care Provider [phone] Encounter Details Date Type Department Care Team (Late Contact Info) Description 09/25/2006 [facility] Outpatient Visit [address] [phone] Roxanan Glover MD Social History Tobacco Use Types Packs/Day Years Used Date Smoking Tobacco: Never Assessed Comments Unknown Sex and Gender Information Value Date Recorded Sex Assigned at Not on file Legal Sex Female 6:55 AM AUTOCAD TECHNICIAN Gender Identity Not on file Sexual Orientation Not on file documented as of this encounter Plan of Treatment Upcoming Encounters Date Type Department Care Team (Late Contact Info) Description 05/05/2025 1:00 PM AUTOCAD TECHNICIAN Office Visit [facility] - Endocrinology [address] [place] [phone] Solo Garcia MD [address] [facility] [address] [place] [address] documented as of this encounter Visit Diagnoses Not on filedocumented in this encounter Care Teams Tower Equipment Installer Relationship Specialty Start Date End Date Dewayne Weathers MD [address] [place], [place] [phone] PCP - General 03/28/08 08/18/10 Kaleb Mccurdy MD PCP - General 08/19/10 05/06/17 Willis Ló[place] [address] [address] [facility] [address] [place] [address] PCP - General 03/30/18 12/03/22 Nas Baca DO [address] [phone] PCP - General Family Medicine 07/28/23 documented as of this encounter
--- OUTSIDE RECORDS SUMMARY | 2025-03-18 09:34 | XMS_ITS | Clinical Summary ---
Author Organization [facility] ospital Address [address] [place] [address] Care Team Providers Care Telemetry Technician Name Role Phone Keven, Nas Anival Primary Care Provide r Solo Garcia MD Unavailable [phone] Allergies Active Allergy Reactions Criticality Noted Date Comments Metronidazole Itching Low 04/01/2024 Itching of face, mouth, chest and whole body per patient Succinylcholine Other (See comments) High 09/04/2018 Family history of pseudocholinesterase deficiency, so prolonged time of action with succinylcholine administration for her, if given. Medications blood-glucose meter,continuous (Dexcom G6 Hand Inserter Operator) misc 1 Device by Not Applicable route 0 Active blood-glucose transmitter (Dexcom G6 Transmitter) device 1 Units by Not Applicable route every 3 (three) months 0 Active pen needle, diabetic 31 gauge x 3/16 needle 1 each 0 Active insulin aspart (NovoLOG) 100 unit/mL vial for injection Inject under the skin continuous (use w/insulin pump) Active omeprazole (PriLOSEC) 40 mg capsule Take 1 capsule (40 mg total) by mouth daily Active INSULIN SUBCUTANEOUS PUMP, HUMALOG, 100 UNITS/ML INSULIN PUMP INFUSION (HumaLOG) 025 Discontin ued(Patie nt Reported) Omnipod 5 G6 Pods, Gen 5, cartridge 4 025 Discontin ued(Patie nt Reported) colestipoL (COLESTID) 1 gram tablet Take 1 tablet (1 g total) by mouth daily with dinner 025 Discontin ued(Patie nt Reported) prochlorperazine (COMPAZINE) 10 mg tablet Take 1 tablet (10 mg total) by mouth 3 (three) times a day as needed for nausea or vomiting 025 Discontin ued(Patie nt Reported) metoclopramide (REGLAN) 10 mg tablet Take 1 tablet (10 mg total) by mouth every 6 (six) hours as needed (nausea) 30 tablet 4 025 Discontin ued(Patie nt Reported) scopolamine 1 mg over 3 days patch [address] 1 patch on the skin every third day 10 patch 4 025 Discontin ued(Patie nt Reported) Active Problems Problem Noted Date Diagnosed Date Tongue lesion 03/16/2025 Assessment & Plan (03/16/2025 8:28 PM TANK ASSEMBLER): I did a mirror exam and I do not find anything worrisome at the base of tongue or epiglottis level. Rest of the hypopharynx is also normal. I reassured her of this. I think that what they found at the base of tongue on the CT scan may have been artifact. I do not think there is any need for further intervention. She understands. She is relieved. She will follow up as needed. Intractable nausea and vomiting 04/09/2024 Nausea and [...] Encounters Date Type Department Care Team Description 03/16/2025 3:30 PM TANK ASSEMBLER Office Visit [facility] [address] [place] [phone] Jah Stack MD Tongue lesion (Primary Dx) 02/28/2025 8:30 AM TANK ASSEMBLER Office Visit [facility] [address] [place] [phone] Bela Gold MD Type 1 diabetes mellitus without complications (Primary Dx); Insulin pump status 12/17/2024 9:50 PM CDT - 12/17/2024 10:53 PM CDT Emergency [facility] Emergency Department [address] [place] [id number] Right forearm pain (Primary Dx); Cellulitis of right upper extremity Discharge Disposition: Discharge to home or self care from Last 3 Months Immunizations Immunization Administration Dates Next Due Influenza, Quadrivalent, Spl it, Preservative Free, Intramuscular 05/18/2020 Tdap 06/02/2022,09/18/2018 Surgical History Surgery Date Site/Laterality Comments SHOULDER SURGERY 06/24/2022 Right OTHER SURGICAL HISTORY AC joint repair BICEPS TENDON REPAIR Medical History Medical History Date Comments Diabetes mellitus Diabetes mellitus type I Pseudocholinesterase deficiency pt's family member had prolonged intubation post 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 Throat pain Ear problems GERD (gastroesophageal reflux disease) Family History Medical History Relation Name Comments Heart disease Father Breast cancer Father's Sister Cyn Dawn Cancer Paternal Grandfather Ovarian cancer Neg Hx Uterine cancer Neg Hx Relation Name Status Comments Father Father's Sister Cyn Dawn Alive Paternal Grandfather Social History Tobacco Use Types Packs/Day Years Used Date Smoking Tobacco: Former Cigarettes Smokeless Tobacco: Never Tobacco Cessation:Counseling Given: Not Answered [facility] Utilities Answer Date Recorded In the past 12 months has [employer], gas, oil, or water [employer] threatened to shut off services in your [...] week 04/09/2024 How often do you attend [facility] ch or taoist services? Never 04/09/2024 Do you belong to any clubs o r organizations such as synagogue groups, unions, fraternal or athletic groups, or [...] and heating? Not hard at all 04/09/2024 PHQ-2 Answer Date Recorded PHQ-2 Total Score (If total score is 3 or more points, staff should administer the PHQ-9) 0 02/28/2025 Hunger Vital Sign Answer Date Recorded Within [...] any time in the past 12 m [facility], were you homeless or living in [...] CDT Gender Identity Female 05/19/2024 6:51 AM TANK ASSEMBLER Sexual Orientation Straight 05/19/2024 6: 51 AM TANK ASSEMBLER Obstetrics History Para Term AB IAB SAB Ectopic Multiple Livin g Live Births 1 1 0 1 Date Outcome GA Total Labor Labor/2nd/3rd Weight Sex Type Anes PTL Rosangela A1 A5 Name Clin 019 34w 5d 4h 56m 4h 51m/0h 05m 3.975 kg (8 lb 12.2 oz) F Vag-S pont Epidur al Y 5 9 Estrellita Ornelas MD Complications:Intraamniotic Infection Delivery Location:[facility] [place] Comments:Heart murmur Last Filed Vital Signs Vital Sign Reading Time Taken Comments Blood Pressure 118/84 02/28/2025 8:40 AM TANK ASSEMBLER Pulse 89 12/17/2024 9:00 PM CDT Temperature 36.8 C (98.3 F) 12/17/2024 9:00 PM CDT Respiratory Rate 17 03/16/2025 3:57 PM TANK ASSEMBLER Oxygen Saturation 100% 12/17/2024 10:45 PM CDT Inhaled Oxygen Concentration - - Weight 77.1 kg (170 lb) 03/16/2025 3:57 PM TANK ASSEMBLER Height 170.2 cm (5' 7) 03/16/2025 3:57 PM TANK ASSEMBLER Body Mass Index 26.63 03/16/2025 3:57 PM TANK ASSEMBLER Plan of Treatment Health Maintenance Due Date Last Done Comments Albumin Creatinine Ratio, Urine 1990 Foot Exam 1990 Hepatitis C Screening [...] 08/30/2024, 04/0 04/2023, 05/04/2019, Additional history exists eGFR 12/17/2025 12/17/2024, 03/28, 04/02/2024, Additional history exists Depression Screening 02/28/2026 02/28/2025 TSH Level 03/07/2026 03/07/2025, 05/0 08/2024, 07/28/2023, Additional history exists DTaP/Tdap/Td Vaccine (3 - [...] AUTO DIFFERENTIAL STAT 12/17/2024 9:12 PM CDT PAP WITH REFLEX TO HIGH RISK [...] Viet Silveira M.D. AT: AT Report ID: [id number] Reading Location: [id number] Procedure Note Viet Silveira MD - 12/17/2024 [...] Viet Silveira M.D. AT: AT Report ID: [id number] Reading Location: [id number] Joo Funes Jr., MD IMG XR PROCEDURES [place] l Result * Lactate (12/17/2024 9:12 PM CDT) Lactate 0.9 0.7 - 2.0 mmol/L Comment:Testing performed by : [facility], [address] [place] [address]., [address] Blood 12/17/2024 9:12 PM CDT 12/17/2024 9:17 PM CDT Joo Funes Jr., MD LAB BLOOD ORDERABLES F inal Result [facility] [address] [facility] Department [place] [address] * eGFR (12/17/2024 9:12 PM CDT) eGFR >90 >=60 mL/min/1. 73 m2 Comment: [...] was last reviewed 2021. Testing performed by: [address] [address] Blood 12/17/2024 9:12 PM CDT 12/17/2024 9:17 PM CDT us Joo Funes Jr., MD LAB BLOOD ORDERABLES F inal Result [facility] [address] [facility] Department of Laboratories [place], [place] [id number] * Differential, auto (12/17/2024 9:12 PM CDT) Pathologist [facility] Neutrophil abs 3.79 1.50 - 6.50 K/cumm Comment:Testing performed by : [address] [address] Imm gran abs 0.01 0.00 - 0.10 K/cumm NURIA Comment:Testing performed by : [address] [address] Lymphocyte abs 1.86 0.80 - 3.30 K/cumm NURIA Comment:Testing performed by : [address] [address] Monocyte abs 0.48 0.20 - 0.80 K/cumm [facility] Comment:Testing performed by : [address] [address] Eosinophil abs 0.10 0.00 - 0.50 K/cumm [facility] Comment:Testing performed by : [address] [address] Basophil abs 0.05 0.00 - 0.10 K/cumm [facility] Comment:Testing performed by : [address] [address] Neutrophil pct 60.2 % [facility] Comment: Interpretive Data Percent cell count reference ranges are not reported, since discordance with absolute values may lead to misinterpretation of CBC data. Current Interpretive Data was last revised on 2017. Testing performed by: [address] [address] Imm gran pct 0.2 % [facility] Comment: Interpretive Data Percent cell count reference ranges are not reported, since discordance with absolute values may lead to misinterpretation of CBC data. Current Interpretive Data was last revised on 2017. Testing performed by: [address] [address] Lymphocyte pct 29.6 % [facility] Comment: Interpretive Data Percent cell count reference ranges are not reported, since discordance with absolute values may lead to misinterpretation of CBC data. Current Interpretive Data was last revised on 2017. Testing performed by: [address] [address] Monocyte pct 7.6 % [facility] Comment: Interpretive Data Percent cell count reference ranges are not reported, since discordance with absolute values may lead to misinterpretation of CBC data. Current Interpretive Data was last revised on 2017. Testing performed by: [address] [address] Eosinophil pct 1.6 % [facility] Comment: Interpretive Data Percent cell count reference ranges are not reported, since discordance with absolute values may lead to misinterpretation of CBC data. Current Interpretive Data was last revised on 2017. Testing performed by: [address] [address] Basophil pct 0.8 % [facility] Comment: Interpretive Data Percent cell count reference ranges are not reported, since discordance with absolute values may lead to misinterpretation of CBC data. Current Interpretive Data was last revised on 2017. Testing performed by: [address] [address] Blood 12/17/2024 9:12 PM CDT 12/17/2024 9:17 PM CDT us Joo Funes Jr., MD LAB BLOOD ORDERABLES F inal Result [facility] Department [place] [address] * (ABNORMAL) CBC with auto differential (12/17/2024 9:12 PM CDT) WBC 6.29 3.80 - 9.90 K/cumm Comment:Testing performed by : [address] [address] Hgb 10.6(L) 11.9 - 15.5 g/dL [facility] Comment:Testing performed by : [address] [address] Hct 33.3(L) 35.6 - 45.5 % [facility] Comment:Testing performed by : [address] [address] Plt 238 150 - 400 K/cumm [facility] Comment:Testing performed by : [address] [address] MPV 10.7 9.1 - 12.3 fL [facility] Comment:Testing performed by : [address] [address] RBC 4.38 3.90 - 5.20 M/cumm [facility] Comment:Testing performed by : [address] [address] MCV 76.0(L) 81.3 - 96.4 fL [facility] Comment:Testing performed by : [facility], [address] [place] [address]., [address] MCH 24.2(L) 27.1 - 33.3 pg NURIA Comment:Testing performed by : [address] [address] MCHC 31.8(L) 32.3 - 35.7 g/dL N[facility] Comment:Testing performed by : [address] [address] RDW CV 14.2 11.1 - 14.9 % N[facility]IA Comment:Testing performed by : [address] [address] RDW SD 38.8 35.7 - 48.1 fL [facility]IA Comment:Testing performed by : [address], [place]., [address] NRBC abs 0.00 0.00 - 0.01 K/cumm N[facility]IA Comment:Testing performed by : [address] [address] Blood 12/17/2024 9:12 PM CDT 12/17/2024 9:17 PM CDT Joo Funes Jr., MD LAB BLOOD ORDERABLES F inal Result [facility] [address] [facility] Department of Laboratories [place], [place] [id number] * D-dimer, quantitative (12/17/2024 9:12 PM CDT) D-Dimer 430 <=499 ng/mL FEU Comment: Interpretive [...] 68, VTE cut-off 680 ng/ml FEU. References; Reji WALKER et al. Brit Med J. 2013;346:f2492. Nas et al. Annals Int Med. 2015;163:701-11. Current interpretive data was last revised on 2019. Testing performed by: [address] [address] Blood 12/17/2024 9:12 PM CDT 12/17/2024 9:17 PM CDT us Joo Funes Jr., MD LAB BLOOD ORDERABLES F inal Result [facility] [address] [facility] Department [place] [address] * Comprehensive metabolic panel (12/17/2024 9:12 PM CDT) Sodium 137 135 - 145 mmol/L Comment:Testing performed by : [address] [address] Potassium, pl 3.7 3.3 - 4.9 mmol/L NURIA Comment:Testing performed by : [address] [address] Chloride 102 97 - 110 mmol/L NURIA Comment:Testing performed by : [address] [address] CO2 23 22 - 32 mmol/L NURIA Comment:Testing performed by : [address] [address] Anion gap 12 2 - 15 mmol/L NURIA Comment:Testing performed by : [address] [address] BUN 10 6 - 25 mg/dL NURIA Comment:Testing performed by : [address] [address] Creatinine 0.79 0.60 - 1.10 mg/dL N[facility]IA Comment:Testing performed by : [address] [address] Glucose 170 70 - 199 mg/dL NURIA [...] classification and Diagnosis of Diabetes Diabetes Care 2021; 46: S19-S40. Current interpretive data was last revised 2022. Testing performed by: [address] [address] Calcium 9.3 8.5 - 10.3 mg/dL NURIA Comment:Testing performed by : [address] [address] Bilirubin, total 0.4 0.1 - 1.2 mg/dL NURIA Comment:Testing performed by : [address] [address] Protein, pl 7.3 6.5 - 8.5 g/dL NURIA Comment:Testing performed by : [address] [address] Albumin 4.4 3.5 - 5.0 g/dL NURIA Comment:Testing performed by : [address] [address] Alk phos 73 40 - 130 Units/L NURIA Comment:Testing performed by : [address] [address] ALT 12 7 - 45 Units/L NURIA Comment:Testing performed by : [address] [address] AST 15 10 - 45 Units/L N[facility]IA Comment:Testing performed by : [address] [address] Blood 12/17/2024 9:12 PM CDT 12/17/2024 9:17 PM CDT us Joo Funes Jr., MD LAB BLOOD ORDERABLES F inal Result [facility] [address] [facility] Department [place] [address] * Pap with reflex to High Risk HPV and Genotyping (Cytology Component) (11/14/2022 11:49 AM CDT) Thin prep (Pap test) 11/14/2022 11:49 AM CDT 11/18/2022 11:49 AM CDT Narrative PATHOLOGY [facility] - 11/21/2022 1:17 PM CDT [facility] Department of Pathology [address] [place] [address] Final Report Note to Patients: This report [...] the details. Patient Name: KHALIF RIVERA Address: [address] [place] [address] [place] [address] Gender: F : 1990 (Age: 32) Service: Location: [facility] #: [id number] Patient Type: [facility] SPECIMEN Taken: 11/14/2022 Received: 11/18/2022 Accessioned:: 11/19/2022 Reported: 11/21/2022 Physician(s): Jocelyn Flores [facility] Diagnosis: SOURCE OF SPECIMEN Imaged Thinprep Pap Test w/ Reflex HPV - It Data Architect Cytologic Material: STATEMENT OF ADEQUACY - Satisfactory for evaluation; endocervical/transformation zone component present GENERAL CATEGORIZATION: - Negative for intraepithelial lesion or malignancy MRALINE Christianson(ASCP) Report Electronically Reviewed and Signed Out By MARLINE Christianson(ASCP) 11/21/2022 13:17:29Specimen(s) Received: A: Imaged Thinprep Pap Test w/ Reflex HPV - It Data Architect Cytologic Material Clinical History: Last Menstrual Period: [...] determined by the Surgical Pathology Department at [facility] as part of an ongoing it quality analyst program and in compliance with federally mandated [...] characteristics determined by the Surgical Pathology Department [facility]. It has not been cleared or approved by the U. S. Food and Drug Administration. Jocelyn Flores CNM LAB CYTOLOGY ORDERABLES Final Result [facility] from Last 3 Months or Most Recently Relevant to Health Maintenance Insurance [employer] OPEN ACCESS [facility] OPEN ACCESS Advance Directives For more information, please contact: [phone] * Full Code (Latest Code Status on File) Date Activated Date Inactivated Comments 04/08/2024 7:40 PM 04/10/2024 5:40 PM * Full Code Date Activated Date Inactivated Comments 04/01/2024 1:49 PM 04/04/2024 7:09 PM Care Teams Telemetry Technician Relationship Specialty Start Date End Date Nas [place] [address] PCP - General Family Medicine 06/27/23 [place] [address] [place] [address] Referring Physician Endocrinology Diabetes & Metabolism 08/11/24
--- OUTSIDE RECORDS SUMMARY | 2025-03-18 09:34 | XMS_ITS | Clinical Summary ---
Author Organization [facility] [address] [place] [address] [place] [phone] Care Team Providers Care Ecological Risk Assessor Name Role Phone Leena Mathur DO Primary Care Provid er Allergies Active Allergy Reactions Criticality Noted Date Comments Succinylcholine Other (See Comments) High 09/04/2018 Family history of malignant hyperthermia Medications Dexcom G6 Director Non Profit USE DEVICE UTD 0 Active Blood-Glucose Meter,Continuous (Dexcom G6 Director Non Profit) 1 Device by NOT APPLICABLE route. 0 Active Insulin Dexter, Disposable, (Pen Needle) 31 gauge x 3/16 [...] COVID-19 VACCINE - EMERGENCY USE AUTHORIZATION, MRNA, [id number](PF) 30 MCG/0.3 ML IM SUSP 07/19/2020,06/30/2020 INFLUENZA [...] Years Used Date Smoking Tobacco: Former Cigarettes 7 2017 Smokeless Tobacco: Never Alcohol Use Standard [...] d or Tdap) 06/02/2032 06/02/2022, 09/18/[address] [place] [address] [place] [address] PREFERRED RX [facility] Member Subscriber Plan / Payer (Ef fective 2022-Present) Name:WernerInna Relation to Subscriber:Self Name:Inna Werner Subscriber ID:Not on file Payer ID:Not on file Group ID:[id number] Type:RX Commercial Address: [address] Care Teams Ecological Risk Assessor Relationship Specialty Start Date End Date Leena Mathur DO PCP - General Family Practice 05/18/20
== END 2025-03-18 09:28 | disposition home or self-care (01) ==
LOC: ANHIMG 09:32
PROVIDERS: Visit Provider Nurse Practitioner
DX: K82.8 Other specified diseases of gallbladder (principal); R07.89 Other chest pain
CPT/HCPCS: 78227; A9537; J2805

== ENCOUNTER 2025-03-30 08:31 | Outpatient (CLI) | payer OTHER, SELFPAY ==
--- NOTE | ~2025-03-30 | US_ITS ---
ULTRASOUND ABDOMEN LIMITED (RIGHT UPPER QUADRANT) Clinical History: K82.8 - Other specified diseases of gallbladder Comparison: CT abdomen pelvis 11/16/2024 Nuclear medicine biliary scan 03/18/2025 Technique: Right upper quadrant sonography Findings: Liver: Normal size. Normal echotexture. No intrahepatic biliary ductal dilatation. Normal hepatopedal flow main portal vein. Common Duct: Normal caliber. 4 mm. Gallbladder: No stones. No wall thickening. No pericholecystic fluid. Negative sonographic Mendoza's sign per technologist report. Pancreas: Unremarkable. IMPRESSION: 1. No acute findings. Reviewed, dictated and finalized at location R. USION TECHNICIAN IMPRESSION: 1. No acute findings.
--- OUTSIDE RECORDS SUMMARY | 2025-03-30 08:57 | XMS_ITS | Clinical Summary ---
Author Organization [facility] Address [address] [facility] [place] [address] Care Team Providers Care Technical Analyst Name Role Phone KevenNas DO Primary Care Provider [phone] Source Comments [facility],non-owned Affiliates and Associated Physician Practices is amultiple site organization consisting of ambulatory clinics and hospital sitesin [place], [place], [place] and [place]. This disclosure is being madepursuant to the Care Everywhere program and may not contain all information available regarding this patient. Last updated 18.[facility] Allergies No known active allergies Medications * [...] 06/29/2020 Assessment & Plan (06/29/2020 4:48 PM FOOD SERVICE MANAGER): Exam is normal. I discussed that breast [...] Type Department Care Team Description 01/24/2025 Refill [facility] - Endocrinology [address] [facility] [address] [facility], [address] [place] [address] Solo Garcia MD MEDICATION REFILL from Last 3 Months Immunizations Immunization Administration Dates Next Due Covid WeVideo primary monoval ent 12+ yr 0.3mL Purple [...] Tobacco: Former Cigarettes 1 8 2 010 2017 Smokeless Tobacco: Never Tobacco Cessation:Counseling Given: Not Answered Alcohol Use Standard Drinks/Week Comments Yes 0 (1 standard drink = 0.6 oz pur e alcohol) once weekly Comments No Sex and Gender Information Value Date Recorded Sex Assigned at Not on file Legal Sex Female 6:55 AM FOOD SERVICE MANAGER Gender Identity Not on file Sexual [...] st Contact Info) Description 05/05/2025 1:00 PM FOOD SERVICE MANAGER Office Visit [facility] - Endocrinology [address], [address] [place] [address] Solo Garcia MD [address] [facility] [address] [place] [address] Health Maintenance Due Date Last Done Comments HEPATITIS C SCREENING 02/04/2007 HEPATITIS B VACCINE (1 of 3 - 19+ 3-dose series) 02/09/2008 PNEUMOCOCCAL VACCINE (1 of 2 - PCV) 02/09/2008 HPV VACCINE (1 - 3-dose SCDM series) 02/09/2016 DIABETES RETINOPATHY SCREENING 05/07/2017 PAP with HPV 2019 DEPRESSION SCREENING 04/28/2024 COVID-19 VACCINE (3 - 2024- season) 2024 07/19/2020, 06/30/2020 INFLUENZA VACCINE (#1) [...] IMAGE-GUIDED RFLX HPV+CT/NG Routine 04/24/2018 11:22 AM FOOD SERVICE MANAGER , unspecified gestational age Screening for cervical cancer from Last 3 Months or Most Recently Relevant to Health Maintenance Results * HEMOGLOBIN A1C - POINT OF CARE (AMB) (12/21/2024 2:50 PM CDT) Pathologist [facility] Hemoglobin A1c POCT 7.1 % [facility] Expiration Date [facility] Lot # [id number] [facility] QC Verified Yes [facility] Blood BLOOD SPECIMEN / Unknown 12/21/2024 2:50 PM CDT Solo Garcia MD LAB - POINT OF CARE ORDERAB LES Final Result [facility] [address] [address] [place] [address], [facility] [phone] * MICROALB/CREAT RATIO URINE RANDOM PANEL (08/30/2024 3:09 PM CDT) Creatinine Urine 93.26 mg/dL [facility] ACCOUNT BILL Microalbumin Urine 0.9 mg/dL [facility] ACCOUNT BILL Microalbumin/Crea tinine Ratio 9 <30 mg/g [facility] ACCOUNT BILL Urine URINE SPECIMEN OBTAINED BY CLEAN CATCH PROCEDURE / Unknown 08/30/2024 3:09 PM CDT 08/30/2024 Narrative [facility] ACCOUNT BILL - 08/31/2024 3:06 AM CDT Performed at: [address] [place] [address] [id number] Television Announcer: Jack Hernandez Dr, Phone: [phone] us Solo Garcia MD LAB - URINE CHEMISTRY ORDER MATHIEU Final Result [facility] ACCOUNT BILL [address] [place] [address] * (ABNORMAL) COMPREHENSIVE METABOLIC PANEL (08/30/2024 3:09 PM CDT) Pathologist [facility] Glucose 135(H) 70 - 99 mg/dL [facility] [...] - 08/31/2024 3:06 AM CDT Performed at: [address] [place] [address] [id number] Television Announcer: Jack Hernandez Dr, Phone: [phone] us Solo Garcia MD LAB - CHEMISTRY ORDERABLES Final Result [facility] ACCOUNT BILL [address] [address] * HIV-1 HIV-2 ANTIBODY + HIV P24 AG PANEL (09/18/2018 11:03 AM CDT) HIV Screen 4th Generation w Reflex NON-REACT ROSIBEL NON-REACT ROSIBEL [employer] Cremation Comment: HIV-1 antigen and HIV-1/HIV-2 antibodies were [...] purpose. For additional information please refer to http://education.[employer]/faq/PCP995 (This link is being provided for informational/ educational purposes only.) The performance of this assay has not been clinically validated in patients less than 2 years old. Test Performed at: [facility] [address] [place] [address] DALTON WOOD DO,MPH Blood BLOOD SPECIMEN / Unknown 09/18/2018 11:03 AM CDT 09/18/2018 11:04 AM CDT us Iain Rosenbaum MD LAB - CHEMISTRY ORDERABLES Fin al Result Performing Organization Address City/State/[facility] Co de Phone Number [facility] [address] [place] [address] * PAP IMAGE-GUIDED LIQUID BASE RFLX HPV+CT/NG (04/24/2018 11:22 AM FOOD SERVICE MANAGER) Pathologist [facility] Case Report Gynecologic Cytology Report Case: [id number] Authorizing Provider: Jocelyn Sharma MD Collected: 04/24/2018 11:22 AM Ordering Location: [facility] Obstetrics Received: 04/27/2018 11:22 AM [facility] Screen: Dewayne Perez Specimen: THINPREP - IMAGE GUIDED, Cervix/Endocervix 04/29/2018 1:22 PM FOOD SERVICE MANAGER [facility] LMP 04/29/2018 1:22 PM FOOD SERVICE MANAGER [facility] Menstrual Status 04/29/19 19 1:22 PM FOOD SERVICE MANAGER [facility] Specimen Adequacy Satisfactory for evaluation, endocervical/trans formation zone component present. 04/29/2018 1:22 PM FOOD SERVICE MANAGER [facility] Categorization Negative for intraepithelial lesion or malignancy. 04/29/2018 1:22 PM FOOD SERVICE MANAGER [facility] Interpretation HERB GROWER Negative for intraepithelial lesion or malignancy. 04/29/2018 1:22 PM FOOD SERVICE MANAGER [facility] at 1322 FOOD SERVICE MANAGER Pap Footnote This specimen was evaluated by the theDropPrep Imaging System along with the an additional manual rescreening by a lending advisor and/or pathologist. 04/29/2018 1:22 PM [facility] Embedded Images 9 1:22 PM [facility] Pathology/Cytolo gy MISCELLANEOUS SAMPLES / Unknown 04/24/2018 11:22 AM FOOD SERVICE MANAGER 04/27/2018 11:22 AM FOOD SERVICE MANAGER Jocelyn Sharma MD LAB - PATHOLOGY/CYTOLOGY OR DERABLES Final Result Performing Organization Address City/State/[facility] Co de Phone Number [facility] [address] [facility] [place] [address], [facility] [phone] from Last 3 Months or Most Recently Relevant to Health Maintenance Insurance SELF PAY NO INSURANCE Member Subscriber Plan / Payer (Ef fective for All Dates) Name:Khalif Rivera Member ID:Not on file Relation to Subscriber:Not on file Name:MARTAKHALIF Subscriber ID:Not on file Date of :1990 (Home) Address: [address] [place] [id number] Payer ID:Not on file Group ID:Not on file Type:Self Pay Address: [facility] Address: [facility] [address] [place] [address] [facility] Advance Directives * Full Code (Latest Code Status on File) Date Activated Date Inactivated Comments 10/30/2018 12:56 PM 11/02/2018 5:30 PM * Full Code Date Activated Date Inactivated Comments 09/04/2018 3:48 PM 09/05/2018 10:56 PM Care Teams Technical Analyst Relationship Specialty Start Date End Date Nas Baca DO [address] [phone] PCP - General Family Medicine 07/28/23
--- OUTSIDE RECORDS SUMMARY | 2025-03-30 08:57 | XMS_ITS | Encounter Summary ---
Author Organization [facility] Address [address] [place] [address] Care Team Providers Care Apple Checker Name Role Phone Nas Baca DO Primary Care Provider [phone] Encounter Details Date Type Department Care Team (Late st Contact Info) Description 07/09/2023 Agency Systemst Message Enc [facility] Family Medicine - [address] [place] [address] Nas Baca DO [place], [place] [id number] Todays Visit/Lab Visit Social History Tobacco Use Types Packs/Day Years Used Date Smoking Tobacco: Former Cigarettes Smokeless Tobacco: Never Alcohol Use Standard Drinks/Week Comments Not Currently 0 (1 standard drink = 0.6 oz pur e alcohol) PHQ-2 Answer Date Recorded Patient Health Questionnaire-2 Score 0 01/30/2023 Comments No Sex and Gender Information Value Date Recorded Sex Assigned at Female 06/18/2024 12:33 PM PSYCHOLOGY TECHNICIAN Legal Sex Female 11:47 AM CDT Gender Identity Female 01/20/2025 9:20 AM CDT Sexual Orientation Not on file documented as of this encounter Plan of Treatment Not on file documented as of this encounter Visit Diagnoses Not on filedocumented in this encounter Additional Health Concerns Infection Onset Date Last Indicated Resolved Time Respiratory Rule Out 03/07/2025 03/07/2025 025 8:51 PM PSYCHOLOGY TECHNICIAN documented as of this encounter Care Teams Apple Checker Relationship Specialty Start Date End Date Nas [place] [place] [address] PCP - General FAMILY PRACTICE 01/30/23 documented as of this encounter
--- OUTSIDE RECORDS SUMMARY | 2025-03-30 08:57 | XMS_ITS | Encounter Summary ---
Author Organization [facility] Address [address] [place] [address] Care Team Providers Care Supervisor Riprap Placing Name Role Phone Nas Baca DO Primary Care Provider [phone] Reason for Referral * Imaging (Routine) - New Request Specialty Diagnoses / Procedures Referred By Kieran parikh Referred To Contact RADIOLOGY Diagnoses Right lower lobe pulmonary nodule Procedures CT CHEST WO CON Nas Baca DO [address] [place] [address] Phone: tel: fax: Referral ID Status Reason Start Date Expiration Date V isits Requested Visits Authorized [id number] New Request 03/14/2025 03/15/2026 1 1 CHING MACHINE OPERATOR Encounter Details Date Type Department Care Team (Late st Contact Info) Description 03/14/2025 Results Follow-Up [facility] Family Medicine - [address] [address] Nas Baca DO [address] [place] [address] CT SOFT TISSUE NECK W CON Social History Tobacco Use Types Packs/Day Years Used Date Smoking Tobacco: Former Cigarettes Passive Smoke Exposure: Past Smokeless Tobacco: Never Alcohol Use Standard Drinks/Week Comments Yes 0 (1 standard drink = 0.6 oz pur e alcohol) rare use PHQ-2 Answer Date Recorded Patient Health Questionnaire-2 Score 0 2025 Comments No Sex and Gender Information Value Date Recorded Sex Assigned at Female 06/18/2024 12:33 PM CLINCHING MACHINE OPERATOR Legal Sex Female 11:47 AM CDT Gender Identity Female 01/20/2025 9:20 AM CDT Sexual Orientation Not on file documented as of this encounter Plan of Treatment Scheduled Orders Name Type Priority Associated Diagnoses Orde r Schedule CT CHEST WO CON CT Routine Right lower lobe pulmonary nodule Expected: 06/14/2025, Expires: 09/11/2025 documented as of this encounter Visit Diagnoses Diagnosis Right lower lobe pulmonary nodule- Primary documented in this encounter Additional Health Concerns Assessment Noted Time PHQ-9 Depression Total Score: 0 04/16/20 24 1:39 PM CLINCHING MACHINE OPERATOR documented as of this encounter Care Teams Supervisor Riprap Placing Relationship Specialty Start Date End Date Nas Baca DO [address] [place] [address] PCP - General FAMILY PRACTICE 01/30/23 documented as of this encounter
--- OUTSIDE RECORDS SUMMARY | 2025-03-30 08:57 | XMS_ITS | Encounter Summary ---
Author Organization [facility] Address [address] [place] [address] Care Team Providers Care General Helper Name Role Phone Nas Baca DO Primary Care Provider [phone] Encounter Details Date Type Department Care Team (Late st Contact Info) Description 12/04/2023 Zero Motorcyclest Message Enc [facility] Medical [facility] Family Medicine [address] [address] Nas Baca DO [address] [place] [address] Positive Covid Social History Tobacco Use Types Packs/Day Years Used Date Smoking Tobacco: Former Cigarettes Smokeless Tobacco: Never Alcohol Use Standard Drinks/Week Comments Not Currently 0 (1 standard drink = 0.6 oz pur e alcohol) occas. PHQ-2 Answer Date Recorded Patient Health Questionnaire-2 Score 0 07/22/2023 Comments No Sex and Gender Information Value Date Recorded Sex Assigned at Female 06/18/2024 12:33 PM CONTENT CHECKER Legal Sex Female 11:47 AM CDT Gender [...] Rule Out 03/07/2025 03/07/2025 025 8:51 PM CONTENT CHECKER documented as of this encounter Care Teams General Helper Relationship Specialty Start Date End Date Nas [place] [address] PCP - General FAMILY PRACTICE 01/30/23 documented as of this encounter
--- OUTSIDE RECORDS SUMMARY | 2025-03-30 08:57 | XMS_ITS | Encounter Summary ---
Author Organization [facility] Address [address] [place] [address] Care Team Providers Care Podiatric Physician Name Role Phone Nas Baca DO Primary Care Provider [phone] Encounter Details Date Type Department Care Team (Late st Contact Info) Description 01/26/2025 Results Follow-Up [facility] Family Medicine - [address] [address] Nas Baca DO [address] [place] [id number] TB INTRADERMAL TEST (BACK OFFICE) Social History [...] Sex Assigned at Female 06/18/2024 12:33 PM CUT ROLL MACHINE OPERATOR Legal Sex Female 11:47 AM CDT Gender Identity Female 01/20/2025 9:20 AM CDT Sexual Orientation Not on file documented as of this encounter Functional Status * Over the past 2 weeks, how often have you been bothered by any of the following problems? Question Answer Date of Assessment Author Status Little interest or pleasure in doing things Not at all 2025 10:26 AM CDT Ashley Velazco M A Active Feeling down, depressed, or hopeless Not at all 2025 10:26 AM Ashley Torres MA Active Patient Health Questionnaire-2 Score 0 2025 10:26 AM Ashley Torres MA A ctive * Calculated C-SSRS Risk Score (Lifetime/Recent) Answer Date of Assessment Author Status No Risk Indicated 03/07/2025 6:26 PM CUT ROLL MACHINE OPERATOR Katelyn Nicole RN Active * If you checked off any problems on this questionnaire so far, Question Answer Date of Assessment Author Status How difficult have these problems made it for you to do your work, take care of things at home, or get along with other people? Not difficult at all 2025 10:26 AM Ashley Torres MA Active * [place] Suicide Severity Rating Scale (Screener/Recent Self-Report) Question Answer Date of Assessment Author Status 1. Wish to be (Past 1 Month) No 03/07/2025 6:26 PM CUT ROLL MACHINE OPERATOR Maddie Nicole RN Act ricardo 2. Non-Specific Active Suicidal Thoughts (Past 1 Month) No 03/07/2025 6:26 PM CUT ROLL MACHINE OPERATOR Maddie Nicole RN Act ricardo 6. Suicidal Behavior (Lifetime) No 03/07/2025 6:26 PM CUT ROLL MACHINE OPERATOR Maddie Nicole RN Act ricardo documented as of this encounter Plan of Treatment Not on file documented as of this encounter Visit Diagnoses Not on filedocumented in this encounter Additional Health Concerns Infection Onset Date Last Indicated Resolved Time Respiratory Rule Out 03/07/2025 03/07/2025 025 8:51 PM CUT ROLL MACHINE OPERATOR Assessment Noted Time PHQ-9 Depression Total Score: 0 04/16/20 24 1:39 PM CUT ROLL MACHINE OPERATOR documented as of this encounter Care Teams Podiatric Physician Relationship Specialty Start Date End Date [place] [address] [address] [place] [address] PCP - General FAMILY PRACTICE 01/30/23 documented as of this encounter
--- OUTSIDE RECORDS SUMMARY | 2025-03-30 08:57 | XMS_ITS | Clinical Summary ---
Author Organization [employer] [address] [place] [address] [place] [address] Care Team Providers Care Diesel Truck Mechanic Name Role Phone Leena Mathur DO Primary Care Provid er Allergies Active Allergy Reactions Criticality Noted Date Comments Succinylcholine Other (See Comments) High 09/04/2018 Family history of malignant hyperthermia Medications Dexcom G6 Body And Fender Mechanic Apprentice USE DEVICE UTD 0 Active Blood-Glucose Meter,Continuous (Dexcom G6 Body And Fender Mechanic Apprentice) 1 Device by NOT APPLICABLE route. 0 Active Insulin Winterset, Disposable, (Pen Needle) 31 gauge x 3/16 [...] COVID-19 VACCINE - EMERGENCY USE AUTHORIZATION, MRNA, [id number]) 30 MCG/0.3 ML IM SUSP 07/19/2020,06/30/2020 INFLUENZA [...] d or Tdap) 06/02/2032 06/02/2022, 09/18/[address] [place] [place] [address] PREFERRED RX [facility] Member Subscriber Plan / Payer (Ef fective 2022-Present) Name:WernerInna Relation to Subscriber:Self Name:Inna Werner Subscriber ID:Not on file Payer ID:Not on file Group ID:[id number] Type:RX Commercial Address: [address] Care Teams Diesel Truck Mechanic Relationship Specialty Start Date End Date Leena Mathur DO PCP - General Family Practice 05/18/20
--- OUTSIDE RECORDS SUMMARY | 2025-03-30 08:57 | XMS_ITS | Clinical Summary ---
Author Organization [facility] Address [facility] [place] [address] Care Team Providers Care Umbrella Repairer Name Role Phone Keven, Derick Dipti DO Primary Care Provider [phone] Allergies Active Allergy Reactions Criticality Noted Date Comments Metronidazole Itching Low 04/01/2024 Itching of face, mouth, chest and whole body per patient Succinylcholine Other (see comment) High 09/04/2018 Family history of malignant hyperthermia Family history of pseudocholinesterase deficiency, so prolonged time of action with succinylcholine administration for her, if given. Medications glucagon 1 mg/mL injection Inject 1 mg into the skin as needed. 1 each 1 08/06/19 22 Active insulin aspart (NOVOLOG) 100 UNIT/ML injection (VIAL) USE 60 UNITS DAILY PER INSULIN PUMP 01/22/20 23 Active Iron, Ferrous Sulfate, 325 (65 Fe) MG TabIndications: Iron deficiency anemia, unspecified iron deficiency anemia type Take 1 tablet by mouth daily. May take every other day if constipating. 90 tablet 3 07/11/19 24 Active Additional Information Patient not taking.Reported on 03/07/2025 Continuous Glucose Sensor (DEXCOM G7 SENSOR) Misc 01/29/20 25 Active pantoprazole EC (PROTONIX) 40 MG tablet 03/01/20 25 Active nystatin (MYCOSTATIN) 641960 UNIT/ML suspensionIndic ations:Thrush Take 5 mLs (500,000 Units total) by mouth 4 (four) times daily for 10 days. 200 mL 02/29/20 25 025 Discontinu ed(Reorder ) lidocaine viscous (XYLOCAINE) 2 % solutionIndicat ions:Pharyngiti s, unspecified etiology Take 15 mLs by mouth as needed for Pain. 100 mL 1 03/03/20 025 Additional Information Patient not taking.Reported on 03/07/2025 nystatin (MYCOSTATIN) 427052 UNIT/ML suspensionIndic ations:Thrush Take 5 mLs (500,000 Units total) by mouth 4 (four) times daily. 03/03/20 025 amoxicillin-cla vulanate (AUGMENTIN) 875-125 MG tablet Take 1 tablet (875 mg total) by mouth 2 (two) times daily for 7 days. 14 tablet 03/08/20 025 Active Problems Problem Noted Date Diagnosed Date [...] Encounters Date Type Department Care Team Description 03/14/2025 3:30 PM MASTER CRAFTSMAN - 03/14/2025 11:59 PM MASTER CRAFTSMAN Hospital Encounter [facility] [address] [place] [address] Derick Baca, DO Discharge Disposition: Home or Self Care (Routine Discharge) 03/14/2025 Results Follow-Up [address] [address] Derick Baca, DO CT SOFT TISSUE NECK W CON 03/14/2025 Travel 03/07/2025 6:57 PM MASTER CRAFTSMAN - 03/07/2025 9:30 PM MASTER CRAFTSMAN Emergency [facility] [place] [address] Sotero Cool, DO Flu Like Symptoms Discharge Disposition: Home or Self Care (Routine Discharge) 03/07/2025 5:23 PM MASTER CRAFTSMAN - 03/07/2025 6:01 PM MASTER CRAFTSMAN Hospital Encounter [facility] [address] [place] [address] Dakota Mantilla, GOOD Sore Throat; Pleuritic Chest Pain Discharge Disposition: Transfer to Acute Care Hospital 03/07/2025 Travel 03/05/2025 MyChart Message Enc [address] [address] Derick Baca, Still sick 03/05/2025 Results Follow-Up [facility] Medicine Services [place], [place] [id number] Derick Baca, DO STREP A RAPID, CULTURE STREP A 03/03/2025 12:40 PM MASTER CRAFTSMAN Office Visit [address] [address] Derick Baca, DO Sore Throat (Throat is still sore from since last visit. Feels like lump in her throat.) 03/03/2025 Travel 02/28/2025 2:40 PM MASTER CRAFTSMAN Office Visit [address] [address] Derick Baca, DO Sore Throat (Patient c/o ongoing sore throat, feels like something is stuck in her throat, has difficulty swallowing. Patient seen by Ivonne Marin NP on 02/15, strep rapid and culture negative. //Patient was also seen 02/08, treated for thrush w/ nystatin and abx. Did not finish abx d/t GI prep nurse telling patient to not finish if sx were gone.) 02/28/2025 Travel 02/17/2025 Scan [employer] INFO SRVCS Scanned, [facility] FLEX SIG (SCAN) 02/16/2025 Results Follow-Up [address] [address] Ivonne Marin, GOOD XR ABD KUB, URINALYSIS AUTO DIP, STREP A RAPID, Additional followed-up results: 3 02/15/2025 3:42 PM CDT - 02/15/2025 11:59 PM CDT Hospital Encounter [facility] Diagnostic Imaging [facility] [place] [address] Ivonne Marin, PAVING PLANT OPERATOR Discharge Disposition: Home or Self Care (Routine Discharge) 02/15/2025 2:00 PM CDT Office Visit [address] [address] Ivonne Marin, GOOD General Illness (Patient c/o nausea, L side flank pain, and L side abdominal pain, and feeling feverish at night x2 days. Patient denies dysuria, frequency, decreased urine output, hematuria.) 02/15/2025 - 02/15/2025 3:41 PM CDT Hospital Encounter [facility] [place] [address] Ivonne Marin, GOOD Discharge Disposition: Home or Self Care (Routine Discharge) 02/15/2025 Travel 2025 10:20 AM CDT Office Visit [address] [address] Ivonne Marin NP Mouth/Lip Problem (Patient presents today with a sore on her lip and a white coating on tongue since starting omeprazole 3 days ago. ) 2025 Travel 01/26/2025 8:20 AM CDT Allied Health/Nurse Visit [address] [phone] Derick Baca, DO Tuberculosis (TB reading/) 01/26/2025 Results Follow-Up [address] [phone] Derick Baca, DO TB INTRADERMAL TEST (BACK OFFICE) 01/26/2025 Travel 01/24/2025 8:20 AM CDT Allied Health/Nurse Visit [address] [phone] Derick Baca, DO Tuberculosis (Testing to be foster foster parents\) 01/24/2025 Travel 01/20/2025 9:20 AM CDT Office Visit [address] [phone] Derick Baca, DO Physical; Wrist Pain (Pt states she had some testing done that messed up her veins on the right wrist) 01/20/2025 Travel from Last 3 Months Immunizations Immunization Administration Dates Next Due Influenza Adult (Generic) 05/18/2020 PFIZER COVID-19 (ORIGINAL FO RMULATION, PURPLE CAP) mRNA, LNP-S, PF, 30 MCG/0.3 ML DOSE 07/19/2020,06/30/2020 Tdap (Generic) 06/02/2022,09/18/2018 Family History Medical History Relation Comments Heart Disease Father Heart Attack in 40's No Known Problems Mother Relation Status Comments Brother Alive Daughter Alive [...] Sex Assigned at Female 06/18/2024 12:33 PM MASTER CRAFTSMAN Legal Sex Female 11:47 AM CDT Gender Identity Female 01/20/2025 9:20 AM CDT Sexual Orientation Not on file Last Filed Vital Signs Vital Sign Reading Time Taken Comments Blood Pressure 153/101 03/07/2025 9:10 PM MASTER CRAFTSMAN Pulse 85 03/07/2025 9:10 PM MASTER CRAFTSMAN Temperature 37.2 C (98.9 F) 03/07/2025 6:26 PM MASTER CRAFTSMAN Respiratory Rate 18 03/07/2025 9:10 PM MASTER CRAFTSMAN Oxygen Saturation 99% 03/07/2025 9:10 PM MASTER CRAFTSMAN Inhaled Oxygen Concentration - - Weight 77.1 kg (170 lb) 03/07/2025 6:26 PM MASTER CRAFTSMAN Height 170.2 cm (5' 7) 03/07/2025 6:26 PM MASTER CRAFTSMAN Body Mass Index 26.63 03/07/2025 6:26 PM MASTER CRAFTSMAN Plan of Treatment Health Maintenance Due Date [...] 30 to 64) Every 5 Years 2019 Lipid Panel 05/22/2022 05/22/2021 COVID-19 Vaccine ( season) 2024 07/19/2020, 06/30/2020 Influenza Adult (#1) 2025 05/18/2020 Hemoglobin A1C 06/23/2025 12/21/2024, 08/2 09/2024, 08/30/2024, Additional history exists Cervical Cancer Screening Pap Smear (Age 30 to 64) Every 3 Years 11/14/2025 11/14/2022, 04/24/2018 Cervical Cancer Screening with HPV 11/14/2025 Annual Physical 01/20/2026 01/20/2025 DTaP, Tdap and Td Vaccines (3 - Td or Tdap) 06/02/2032 06/02/2022, 09/18/2018 PHQ-2 (Physician [facility]) Completed 2025 Hepatitis A Vaccines Aged Out [...] Procedure Name Priority Date/Time Associated Diagnosis Comments CT SOFT TISSUE NECK W CON STAT 03/14/2025 4:07 PM MASTER CRAFTSMAN Throat pain URINALYSIS STAT 03/07/2025 7:41 PM MASTER CRAFTSMAN ECG 12-LEAD Routine 03/07/2025 7:32 PM MASTER CRAFTSMAN XR CHEST PORTABLE STAT 03/07/2025 7:2 5 PM MASTER CRAFTSMAN STREP A, DNA STAT 03/07/2025 7:14 PM MASTER CRAFTSMAN RESPIRATORY PCR PNL LIMITED STAT 03/07/2025 7:14 PM MASTER CRAFTSMAN POCT URINE (BACK OFFICE) STAT 03/07/2025 7:03 PM MASTER CRAFTSMAN TSH W/REFLEX Routine 03/07/2025 7:03 PM MASTER CRAFTSMAN TROPONIN, QUANT STAT 03/07/2025 7:03 PM MASTER CRAFTSMAN COMPREHENSIVE METABOLIC PANEL STAT 03/07/2025 7:03 PM MASTER CRAFTSMAN HC CBC AUTO W/AUTO DIFF STAT 03/07/2025 7:03 PM MASTER CRAFTSMAN POCT GLUCOSE - DOCKED DEVICE Routine 03/07/2025 6:25 PM MASTER CRAFTSMAN ECG 12-LEAD STAT 03/07/2025 5:38 PM MASTER CRAFTSMAN CULTURE STREP A Routine 03/03/2025 1:12 PM MASTER CRAFTSMAN Pharyngitis, unspecified etiology STREP A RAPID Routine 03/03/2025 Pharyngitis, unspecified etiology FLEX SIG (SCAN ORDER) 02/17/2025 XR ABD KUB Routine 02/15/2025 3:53 PM CDT Acute low back pain, unspecified back pain laterality, unspecified whether sciatica present Nausea CULTURE STREP A Routine 02/15/2025 2:47 PM CDT Sore throat URINE BACTERIA CULTURE Routine 2:19 PM CDT Abnormal urine findings STREP A RAPID Routine 02/15/2025 Sore throat TEST URINE Routine 02/15/2025 Nausea URINALYSIS AUTO DIP Routine 02/15/2025 Acute low back pain, unspecified back pain laterality, unspecified whether sciatica present Nausea TB INTRADERMAL TEST (BACK OFFICE) Routine 01/24/2025 8:32 AM CDT TB (pulmonary tuberculosis) HEMOGLOBIN, GLYCOSYLATED Routine 12/21/2024 from Last 3 Months or Most Recently Relevant to Health Maintenance Results * CT SOFT TISSUE NECK W CON (03/14/2025 4:07 PM MASTER CRAFTSMAN) Anatomical Region Laterality Modality Neck Computed Tomogra phy 03/14/2025 4:27 PM MASTER CRAFTSMAN Impressions 03/14/2025 4:34 PM MASTER CRAFTSMAN IMPRESSION: 1. No acute abnormalities identified in the neck. No overt inflammatory changes or fluid collections identified in the neck soft tissues. 2. Mildly prominent upper jugular chain lymph nodes, possibly reactive, but nonspecific. 3. Approximate 13 x 10 mm hyperdense lesion along the inferior midline tongue, possibly small focus of lingual thyroid tissue. 4. Indeterminate 12 x 6 mm right lower lobe nodule. In the absence of comparison exams, could consider follow-up chest CT in 3 months for further evaluation with PET/CT. Ordered By: DERICK BACA Interpreted By: Jose Elias Quiroz MD, 03/14/2025 4:27 PM Narrative 03/14/2025 4:34 PM MASTER CRAFTSMAN [address] [address] DATE: 03/14/2025 3:36 PM INDICATION: Neck pain. Feeling of something stuck in throat. Treated with antibiotics with persistent symptoms. EXAMINATION: CT neck with contrast. TECHNIQUE: CT examination of the neck was performed after administration of 100mL IOPAMIDOL 76 % IV SOLN without adverse event with axial and multiplanar reformatted images obtained. A dose lowering technique was used for this procedure, which may include, but is not limited to, dose reduction technique, automated exposure control, the use of iterative reconstruction, and ALARA (As Low As Reasonably Achievable) / Image Gently techniques. COMPARISON: None FINDINGS: Dental-related streak artifact somewhat obscures assessment. There is a 13 x 10 mm ovoid hyperdense lesion situated along the inferior midline tongue. Findings could reflect small focus of lingual thyroid tissue. The thyroid gland itself is normal in anatomic position and appearance. The visualized oral cavity, nasopharynx, oropharynx, hypopharynx, and larynx are unremarkable. No intratonsillar, peritonsillar, parapharyngeal, or retropharyngeal collections. Mildly prominent upper jugular chain lymph nodes, possibly reactive, but nonspecific. Major salivary glands are unremarkable. Major neck vascular structures are patent. No overt inflammatory changes within the neck soft tissues. Partially imaged portions of the intracranial compartment reveal no acute findings. Mastoid air cells are clear. Minimal paranasal sinus mucosal thickening and tiny retention cysts. Visualized orbits unremarkable. Imaged portions of the upper chest reveal no acute findings. Approximately 12 x 6 mm right lower lobe subpleural nodule. Degenerative changes noted in the spine. Procedure Note Jose Elias Quiroz MD - 03/14/[address] [address] DATE: 03/14/2025 3:36 PM INDICATION: Neck pain. Feeling of something stuck in throat. Treated withantibiotics with persistent symptoms. EXAMINATION: CT neck with contrast. TECHNIQUE: CT examination of the neck was performed after administration of 100mLIOPAMIDOL 76 % IV SOLN without adverse event with axial and multiplanarreformatted images obtained. A dose lowering technique was used for this procedure, which may include,but is not limited to, dose reduction technique, automated exposurecontrol, the use of iterative reconstruction, and ALARA (As Low AsReasonably Achievable) / Image Gently techniques. COMPARISON: None FINDINGS: Dental-related streak artifact somewhat obscures assessment. There is a 13x 10 mm ovoid hyperdense lesion situated along the inferior midlinetongue. Findings could reflect small focus of lingual thyroid tissue. Thethyroid gland itself is normal in anatomic position and appearance. Thevisualized oral cavity, nasopharynx, oropharynx, hypopharynx, and larynxare unremarkable. No intratonsillar, peritonsillar, parapharyngeal, orretropharyngeal collections. Mildly prominent upper jugular chain lymphnodes, possibly reactive, but nonspecific. Major salivary glands areunremarkable. Major neck vascular structures are patent. No overtinflammatory changes within the neck soft tissues. Partially imaged portions of the intracranial compartment reveal no acutefindings. Mastoid air cells are clear. Minimal paranasal sinus mucosalthickening and tiny retention cysts. Visualized orbits unremarkable. Imaged portions of the upper chest reveal no acute findings. [id number] x 6 mm right lower lobe subpleural nodule. Degenerative changes noted in the spine. IMPRESSION: 1. No acute abnormalities identified in the neck. No overt inflammatorychanges or fluid collections identified in the neck soft tissues. 2. Mildly prominent upper jugular chain lymph nodes, possibly reactive,but nonspecific. 3. Approximate 13 x 10 mm hyperdense lesion along the inferior midlinetongue, possibly small focus of lingual thyroid tissue. 4. Indeterminate 12 x 6 mm right lower lobe nodule. In the absence ofcomparison exams, could consider follow-up chest CT in 3 months forfurther evaluation with PET/CT. Ordered By: DERICK BACA Interpreted By: Jose Elias Quiroz MD, 03/14/2025 4:27 PM us Derick Baca DO CT Final Resul t * URINALYSIS (03/07/2025 7:41 PM MASTER CRAFTSMAN) SPECIMEN TYPE URINE CLEAN CATCH 03/07/2025 7:41 PM MASTER CRAFTSMAN [facility] COLOR (U) LIGHT YELLOW 03/07/2025 7:54 PM MASTER CRAFTSMAN [facility] TRANSPARENCY CLEAR 03/07/2025 7:54 PM [facility] SPECIFIC GRAVITY (U) 1.015 1.001 - 1.030 03/07/2025 7:54 PM MASTER CRAFTSMAN [facility] U PH 6.0 5.0 - 9.0 03/07/2025 7:54 PM [facility] LEUKOCYTES (U) NEGATIVE NEGATIVE 03/07/2025 7:54 PM [facility] NITRITES NEGATIVE NEGATIVE 03/07/2025 7:54 PM [facility] PROTEIN RANDOM (U) NEGATIVE <30 MG/DL 03/07/2025 7:54 PM [facility] GLUCOSE (U) NORMAL NORMAL MG/DL 03/07/2025 7:54 PM [facility] KETONES MG/DL (U) NEGATIVE NEGATIVE MG/DL 03/07/2025 7:54 PM [facility] UROBILINOGEN NORMAL NORMAL MG/DL 03/07/2025 7:54 PM [facility] BILIRUBIN (U) NEGATIVE NEGATIVE MG/DL 03/07/2025 7:54 PM [facility] BLOOD (U) NEGATIVE NEGATIVE 03/07/2025 7:54 PM MASTER CRAFTSMAN [facility] URINE URINE SPECIMEN OBTAINED BY CLEAN CATCH PROCEDURE / Unknown 03/07/2025 7:41 PM MASTER CRAFTSMAN us Sotero Cool DO URINE ORDERABLES Final Result [facility] [address] [place] [address], * ECG 12 lead (03/07/2025 7:32 PM MASTER CRAFTSMAN) Only the most recent of2 resultswithin the time period is included. 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 ER CRAFTSMAN Procedure Note Anival Madison MD - 03/08/[address] [employer] Test Date: 2025-03-07 Pat Name: KHALIF RIVERA Department: 41 Room: [facility] Gender: Female Electrician Third: [id number] : 1990 Requested By: EMILE GONSALEZ Order Number: [id number] Reading MD: Anival Madison Measurements Intervals [place] Rate: 83 P: 61 VA: 166 QRS: 54 QRSD: 84 T: 55 QT: 341 QTc: 401 Interpretive Statements SINUS RHYTHM Compared to ECG 03/07/2025 17:38:18 No significant changes No ischemic changes Preliminary EKG Interpretation by Osmar Tejeda M.D. ER CRAFTSMAN us [facility] ECG ORDERABLES Final Result [facility] ([facility]) RAD * XR CHEST PORTABLE (03/07/2025 7:25 PM MASTER CRAFTSMAN) Anatomical Region Laterality Modality Chest Radiographic Aidee ging 03/07/2025 7:27 PM MASTER CRAFTSMAN Impressions 03/07/2025 7:32 PM MASTER CRAFTSMAN Impression: No acute findings. Referred By: Interpreted By: Margarito Anthony MD, 03/07/2025 7:27 PM Narrative 03/07/2025 7:32 PM MASTER CRAFTSMAN [address] [address] Examination: Chest 1 view portable History: Chest pain DATE/TIME: 03/07/2025 7:15 PM Comparison: None Technique: AP upright portable view of the chest was obtained. Findings: Heart size, mediastinal contours and pulmonary vasculature are within normal limits. No pulmonary consolidation, pleural effusion or pneumothorax. No acute osseous abnormality. Procedure Note Margarito Anthony MD - 03/07/2025 [facility] [address] [place], [place] [address] Examination: Chest 1 view portable History: Chest pain DATE/TIME: 03/07/2025 7:15 PM Comparison: None Technique: AP upright portable view of the chest was obtained. Findings: Heart size, mediastinal contours and pulmonary vasculature arewithin normal limits. No pulmonary consolidation, pleural effusion orpneumothorax. No acute osseous abnormality. Impression: No acute findings. Referred By: Interpreted By: Margarito Anthony MD, 03/07/2025 7:27 PM [facility] Final Result * STREP A, DNA (PREVIOUSLY RAPID STREP A) (03/07/2025 7:14 PM MASTER CRAFTSMAN) SPECIMEN SOURCE THROAT 03/07/2025 7:06 PM MASTER CRAFTSMAN [facility] STREP A MOLECULAR NOT DETECTED NOT DETECTED 03/07/2025 7:56 PM MASTER CRAFTSMAN [facility] SWAB STRUCTURE OF ANTERIOR REGION OF NECK / Unknown 03/07/2025 7:14 PM MASTER CRAFTSMAN Sotero Cool DO MICROBIOLOGY - GENERAL ORDERAB LES Final Result [facility] [address] [place] [address], * RESPIRATORY PCR PNL LIMITED (FLU A/FLU B/RSV/COVID) (03/07/2025 7:14 PM MASTER CRAFTSMAN) SPEC DESCRIPTION NASOPHARYNGEAL SWAB 03/07/2025 7:06 PM MASTER CRAFTSMAN [facility] CORONAVIRUS SARS COV 2 PCR (RESP) NEGATIVE NEGATIVE 03/07/2025 8:50 PM MASTER CRAFTSMAN [facility] INFLUENZA A PCR (RESP) NEGATIVE NEGATIVE 03/07/2025 8:50 PM MASTER CRAFTSMAN [facility] INFLUENZA B PCR (RESP) NEGATIVE NEGATIVE 03/07/2025 8:50 PM MASTER CRAFTSMAN [facility] RSV PCR (RESP) NEGATIVE NEGATIVE 03/07/2025 8:50 PM MASTER CRAFTSMAN [facility] SWAB NASOPHARYNGEAL STRUCTURE / Unknown 03/07/2025 7:14 PM MASTER CRAFTSMAN Sotero Cool DO MICROBIOLOGY - GENERAL ORDERAB LES Final Result Performing Organization Address [facility]/ZIP Co de Phone Number [facility] [address] [place] [address], [place] [phone] * TROPONIN, QUANT (03/07/2025 7:03 PM MASTER CRAFTSMAN) TROPONIN I HIGH SENSITIVITY <3 <54 ng/L 03/07/2025 7:54 PM MASTER CRAFTSMAN [facility] Comment: HIGH DOSES OF BIOTIN, TROPONIN-SPECIFIC AUTOANTIBODIES, AND ANTIBODY THERAPY CONTAINING HAMA MAY INTERFERE WITH THIS TEST RESULT. CORRELATION TO CLINICAL HISTORY AND PRESENTATION RECOMMENDED. BLOOD VENOUS BLOOD SPECIMEN / Unknown 03/07/2025 7:03 PM MASTER CRAFTSMAN us [facility] Final Result Performing Organization Address City/[facility]/ZIP Co de Phone Number [facility] [address] [place] [address], [place] [phone] * (ABNORMAL) COMPREHENSIVE METABOLIC PANEL (03/07/2025 7:03 PM MASTER CRAFTSMAN) GLUCOSE 111(H) 70 - 99 MG/DL 03/07/2025 7:54 PM MASTER CRAFTSMAN [facility] BUN 10 7 - 18 MG/DL 03/07/2025 7:54 PM MASTER CRAFTSMAN [facility] CREATININE S/P/B 0.88 0.55 - 1.02 MG/DL 03/07/2025 7:54 PM MASTER CRAFTSMAN [facility] SODIUM S/P/B 141 136 - 145 MMOL/L 03/07/2025 7:54 PM [facility] POTASSIUM S/P/B 3.8 3.5 - 5.1 MMOL/L 03/07/2025 7:54 PM [facility] CHLORIDE S/P/B 107 97 - 115 MMOL/L 03/07/2025 7:54 PM [facility] CO2 28.6 21 - 32 MMOL/L 03/07/2025 7:54 PM [facility] CALCIUM S/P/B 9.4 8.5 - 10.1 MG/DL 03/07/2025 7:54 PM [facility] BILIRUBIN TOTAL S/P/B 0.4 0.2 - 1.2 MG/DL 03/07/2025 7:54 PM [facility] Comment: THIS ASSAY IS NOT RECOMMENDED FOR PATIENTS UNDERGOING TREATMENT WITH ELTROMBOPAG DUE TO THE POTENTIAL FOR FALSELY ELEVATED RESULTS. TOTAL PROTEIN S/P/B 7.9 6.4 - 8.2 G/DL 03/07/2025 7:54 PM [facility] ALBUMIN S/P/B 4.2 3.4 - 5.0 G/DL 03/07/2025 7:54 PM [facility] AST 11(L) 15 - 37 U/L 03/07/2025 7:54 PM [facility] ALT 20 14 - 55 U/L 03/07/2025 7:54 PM [facility] ALKALINE PHOSPHATASE S/P/B 59 50 - 136 U/L 03/07/2025 7:54 PM [facility] ANION GAP 5.4 2 - 10 MMOL/L 03/07/2025 7:54 PM [facility] BUN CREATININE RATIO 11.3 6 - 26 03/07/2025 7:54 PM [facility] A/G RATIO 1.1 1.0 - 2.0 RATIO 03/07/2025 7:54 PM [facility] GFR ESTIMATE 87(L) >90 ML/MIN/1.7 3 M2 03/07/2025 7:54 PM [facility] Comment: NOTE: eGFR is not calculated for patients <18 years of age or gender unknown. This is an estimated GFR calculation using the new CKD EPI creatinine equation without race and so does not require a correction factor for race. This estimated GFR should not be used for calculating drug doses. BLOOD VENOUS BLOOD SPECIMEN / Unknown 03/07/2025 7:03 PM MASTER CRAFTSMAN [facility] Final Result [facility] [address] [place] [address], [place] [phone] * (ABNORMAL) CBC W/DIFF AUTOMATED (03/07/2025 7:03 PM MASTER CRAFTSMAN) WBC 4.81 4.5 - 11.0 x10'3/uL 03/07/2025 7:31 PM [facility] RBC 4.58 4.20 - 5.40 x10'6/uL 03/07/2025 7:31 PM [facility] HGB 11.2(L) 12.0 - 16.0 G/DL 03/07/2025 7:31 PM [facility] HCT 35.5(L) 38.0 - 48.0 % 03/07/2025 7:31 PM [facility] MCV 77.5(L) 81.0 - 99.0 FL 03/07/2025 7:31 PM [facility] MCH 24.5(L) 27.0 - 31.0 PG 03/07/2025 7:31 PM [facility] MCHC 31.5(L) 32.0 - 36.0 G/DL 03/07/2025 7:31 PM [facility] RDW 15.4(H) 11.5 - 14.5 % 03/07/2025 7:31 PM [facility] PLT 241 130 - 400 x10'3/uL 03/07/2025 7:31 PM [facility] MPV 11.5 9.3 - 12.2 FL 03/07/2025 7:31 PM [facility] DIFFERENTIAL TYPE AUTOMATED DIFFERENTIAL 03/07/2025 7:31 PM [facility] NEUTROPHILS % 53.1 % 03/07/2025 7:31 PM [facility] LYMPHOCYTES % 36.2 % 03/07/2025 7:31 PM [facility] MONOCYTES % 8.5 % 03/07/2025 7:31 PM [facility] EOSINOPHILS 1.0 % 03/07/2025 7:31 PM [facility] BASOPHILS 1.0 % 03/07/2025 7:31 PM [facility] IMMATURE GRANS % 0.2 % 03/07/20 7:31 PM [facility] ABS. NEUTROPHILS 2.55 1.80 - 7.70 x10'3/uL 03/07/2025 7:31 PM [facility] ABS. LYMPHOCYTES 1.74 1.00 - 4.80 x10'3/uL 03/07/2025 7:31 PM [facility] ABS. MONOCYTES 0.41 0.24 - 0.86 x10'3/uL 03/07/2025 7:31 PM MASTER CRAFTSMAN [facility] ABS. EOSINOPHILS 0.05 0.04 - 0.36 x10'3/uL 03/07/2025 7:31 PM MASTER CRAFTSMAN [facility] ABS. BASOPHILS 0.05 0.01 - 0.08 x10'3/uL 03/07/2025 7:31 PM MASTER CRAFTSMAN [facility] ABS. IMMATURE GRANULOCYTES 0.01 0.00 - 0.49 x10'3/uL 03/07/2025 7:31 PM MASTER CRAFTSMAN [facility] BLOOD VENOUS BLOOD SPECIMEN / Unknown 03/07/2025 7:03 PM MASTER CRAFTSMAN Emile JOHNSTON LABORATORY Final Result [facility] [address] [place] [address], [place] [phone] * TSH W/REFLEX (03/07/2025 7:03 PM MASTER CRAFTSMAN) TSH 1.900 0.358 - 3.74 uIU/ML 03/07/2025 8:22 PM MASTER CRAFTSMAN [facility] Comment: HIGH DOSES OF BIOTIN MAY INTERFERE WITH THIS TEST RESULT. CORRELATION TO CLINICAL HISTORY AND PRESENTATION RECOMMENDED. FREE T4 NOT INDICATED BLOOD VENOUS BLOOD SPECIMEN / Unknown 03/07/2025 7:03 PM MASTER CRAFTSMAN Sotero Cool DO LABORATORY Final Result [facility] [address] [place] [address], [place] [phone] * POCT urine (03/07/2025 7:03 PM MASTER CRAFTSMAN) URINE HCG TEST NEGATIVE NEGATIVE Internal Control: VALID VALID URINE URINE SPECIMEN OBTAINED BY CLEAN CATCH PROCEDURE / Unknown 03/07/2025 7:03 PM MASTER CRAFTSMAN Emile JOHNSTON POINT OF CARE TEST ORDERABLE S Final Result * (ABNORMAL) POCT glucose (03/07/2025 6:25 PM MASTER CRAFTSMAN) GLUCOSE POC 65(L) 70 - 99 mg/dL 03/07/2025 6:27 PM MASTER CRAFTSMAN [facility] 03/07/2025 6:25 PM MASTER CRAFTSMAN Attending Physician Emergency MD POCT ORDERABLES - DEVICE Final Result [facility] [address] [place] [address], [place] [phone] * CULTURE STREP A (03/03/2025 1:12 PM MASTER CRAFTSMAN) Only the most recent of2 resultswithin the time period is included. Pathologist [facility] THROAT CULTURE STREP A ONLY Negative for Group A Streptococci Negative for Group A Streptococci 03/04/2025 6:50 PM MASTER CRAFTSMAN [facility] STRUCTURE OF ANTERIOR REGION OF NECK / Unknown 03/03/2025 1:12 PM MASTER CRAFTSMAN Derick Baca DO MICROBIOLOGY - GENERAL ORDE RABLES Final Result [facility] [address] [place] [address], [place] [phone] * STREP A RAPID (03/03/2025) Only the most recent of2 resultswithin the time period is included. RAPID STREP TEST NEGATIVE NEGATIVE [facility] Internal Control: VALID VALID [facility] STRUCTURE OF ANTERIOR REGION OF NECK / Unknown 03/03/2025 Derick Baca DO MICROBIOLOGY - GENERAL ORDE JUAN Final Result [facility] [place] [address] [place] [address], [place] [phone] * FLEX SIG (SCAN ORDER) (02/17/2025) 02/17/2025 us Doc Med Group Scanned SCANNING Final Resu lt * XR ABD KUB (02/15/2025 3:53 PM CDT) Anatomical Region Laterality Modality Abdomen Radiographic Aidee ging 02/15/2025 3:55 PM CDT Impressions 02/15/2025 3:55 PM CDT IMPRESSION: No acute findings Ordered By: IVONNE MARIN Interpreted By: Tanner Hall MD, 02/15/2025 3:55 PM Narrative 02/15/2025 3:55 PM CDT [place] [address] Two VIEW(s) OF THE ABDOMEN History: Pain Comparison:None 2 views of the abdomen demonstrate a normal overall bowel gas pattern. No pathologic intra-abdominal calcifications are seen. The bony elements appear normal Procedure Note Tanner Hall MD - 02/15/2025 [place] [address] Two VIEW(s) OF THE ABDOMEN History: Pain Comparison:None 2 views of the abdomen demonstrate a normal overall bowel gas pattern. Nopathologic intra-abdominal calcifications are seen. The bony elementsappear normal IMPRESSION: No acute findings Ordered By: IVONNE MARIN Interpreted By: Tanner Hall MD, 02/15/2025 3:55 PM Ivonne Marin PAVING PLANT OPERATOR GENERAL IMAGING Final Resul t * URINE BACTERIA CULTURE (02/15/2025 2:19 PM CDT) SPEC DESCRIPTION URINE CLEAN CATCH 02/15/2025 2:20 PM CDT [facility] SPECIAL REQUESTS NO SPECIAL REQUEST 02/15/2025 2:20 PM CDT [facility] CULTURE RESULT FEW CONTAMINANTS 01/27 12:07 PM CDT [facility] URINE SPECIMEN OBTAINED BY CLEAN CATCH PROCEDURE / Unknown 02/15/2025 2:19 PM CDT 02/15/2025 8:50 PM CDT Ivonne Marin PAVING PLANT OPERATOR MICROBIOLOGY - GENERAL ORDE [facility] Final Result Performing Organization Address City/[facility]/ZIP Co de Phone Number [facility] [address] [place] [address], [place] [phone] * TEST URINE (02/15/2025) URINE HCG TEST NEGATIVE NEGATIVE [facility] Internal Control: VALID VALID [facility] URINE SPECIMEN FROM URETHRA / Unknown 02/15/2025 Ivonne Marin PAVING PLANT OPERATOR URINE ORDERABLES Final Resu lt Performing Organization Address [facility] Co de Phone Number [facility] [address] [place] [address], [place] [phone] * (ABNORMAL) URINALYSIS AUTO DIP (02/15/2025) COLOR (U) PALE YELLOW YELLOW N[facility]I G [facility] TRANSPARENCY CLEAR CLEAR -LUDW IG [facility] GLUCOSE (U) NEGATIVE NEGATIVE MG/DL [facility] [place] BILIRUBIN (U) NEGATIVE NEGATIVE -EDE WIG [facility], [place] KETONES MG/DL (U) 5 (TRACE)(A) NEGATIVE MG/DL [facility] [place] SPECIFIC GRAVITY (U) 1.010 1.001 - 1.035 [facility] BLOOD (U) NEGATIVE NEGATIVE [facility] U PH 6.5 5.0 - 9.0 [facility] PROTEIN (U) NEGATIVE NEGATIVE mg/dL [facility] UROBILINOGEN 0.2 0.2 - 1.0 EU/dL = mg/dL [facility] NITRITES NEGATIVE NEGATIVE MG/DL [facility] [place] LEUKOCYTES (U) NEGATIVE NEGATIVE [facility] URINE SPECIMEN OBTAINED BY CLEAN CATCH PROCEDURE / Unknown 02/15/2025 Ivonne Marin PAVING PLANT OPERATOR URINE ORDERABLES Final Resu lt [facility] [address] [place] [address], [place] [phone] * TB INTRADERMAL TEST (BACK OFFICE) (01/24/2025 8:32 AM CDT) PPD SKIN TEST negative NOT REQUIRED 01/24/2025 8:32 AM CDT Derick Baca DO MICROBIOLOGY - GENERAL ORDE RABLES Final Result * HEMOGLOBIN, GLYCOSYLATED (12/21/2024) HGB A1C 7.1 % 12/21/2024 Default History Genericprovider LABORATORY Final Result from Last 3 Months or Most Recently Relevant to Health Maintenance Insurance [facility] Care Teams Umbrella Repairer Relationship Specialty Start Date End Date Derick [place] [address] PCP - General FAMILY PRACTICE 01/30/23
--- OUTSIDE RECORDS SUMMARY | 2025-03-30 08:57 | XMS_ITS | Encounter Summary ---
Author Organization [facility] Address [address] [place] [address] Care Team Providers Care Meter Mechanic Name Role Phone Nas Baca DO Primary Care Provider [phone] Encounter Details Date Type Department Care Team (Late st Contact Info) Description 12/21/2024 Abstract [facility] BUSINESS OFFICE [facility] [place] [address] Abstract, Doc Med Group Social History Tobacco Use Types Packs/Day Years [...] Sex Assigned at Female 06/18/2024 12:33 PM TAIL EDGER Legal Sex Female 11:47 AM CDT Gender [...] hopeless Not at all 2025 10:26 AM CDT Ashley Velazco MA Active Patient Health Questionnaire-2 Score 0 2025 10:26 AM CDT Ashley Velazco MA A ctive * Calculated C-SSRS Risk Score (Lifetime/Recent) Answer Date of Assessment Author Status No Risk Indicated 03/07/2025 6:26 PM Katelyn [place] RN Active * If you checked off any problems on this questionnaire so far, Question Answer Date of Assessment Author Status How difficult have these problems made it for you to do your work, take care of things at home, or get along with other people? Not difficult at all 2025 10:26 AM CDT Ashley Velazco MA Active * Teller Suicide Severity Rating Scale (Screener/Recent Self-Report) Question Answer Date of Assessment Author Status 1. Wish to be (Past 1 Month) No 03/07/2025 6:26 PM Maddie Davis RN Act ricardo 2. Non-Specific Active Suicidal Thoughts (Past 1 Month) No 03/07/2025 6:26 PM Maddie Davis RN Act ricardo 6. Suicidal Behavior (Lifetime) No 03/07/2025 6:26 PM Maddie Dvais RN Act ricardo documented as of this encounter Plan of Treatment Not on file documented as of this encounter Procedures Procedure Name Priority Date/Time Associated Diagnosis Comments HEMOGLOBIN, GLYCOSYLATED Routine 12/21/2024 documented in this encounter Results * HEMOGLOBIN, GLYCOSYLATED (12/21/2024) HGB A1C 7.1 % 12/21/2024 us Default History Genericprovider LABORATORY Final Result documented in this encounter Visit Diagnoses Not on filedocumented in this encounter Additional Health Concerns Infection Onset Date Last Indicated Resolved Time Respiratory Rule Out 03/07/2025 03/07/2025 025 8:51 PM TAIL EDGER Assessment Noted Time PHQ-9 Depression Total Score: 0 04/16/20 24 1:39 PM TAIL EDGER documented as of this encounter Care Teams Meter Mechanic Relationship Specialty Start Date End Date Nas [place] [address] [place] [address] PCP - General FAMILY PRACTICE 01/30/23 documented as of this encounter
--- OUTSIDE RECORDS SUMMARY | 2025-03-30 08:57 | XMS_ITS | Encounter Summary ---
Author Organization [facility] Address [address] [place] [address] Care Team Providers Care Partnership Manager Name Role Phone Nas Baca DO Primary Care Provider [phone] Encounter Details Date Type Department Care Team (Late st Contact Info) Description 07/14/2023 MyChart Message Enc [facility] Medical Group Family Medicine - [place] [address] [place] [address] Nas Baca DO [address] [place] [phone] EBV Results Social History Tobacco Use Types Packs/Day Years Used Date Smoking Tobacco: Former Cigarettes Smokeless Tobacco: Never Alcohol Use Standard Drinks/Week Comments Not Currently 0 (1 standard drink = 0.6 oz pur e alcohol) PHQ-2 Answer Date Recorded Patient Health Questionnaire-2 Score 0 01/30/2023 Comments No Sex and Gender Information Value Date Recorded Sex Assigned at Female 06/18/2024 12:33 PM WEBMASTER Legal Sex Female 11:47 AM CDT Gender Identity Female 01/20/2025 9:20 AM CDT Sexual Orientation Not on file documented as of this encounter Plan of Treatment Not on file documented as of this encounter Visit Diagnoses Not on filedocumented in this encounter Additional Health Concerns Infection Onset Date Last Indicated Resolved Time Respiratory Rule Out 03/07/2025 03/07/2025 025 8:51 PM WEBMASTER documented as of this encounter Care Teams Partnership Manager Relationship Specialty Start Date End Date Nas Baca [place] [address] PCP - General FAMILY PRACTICE 01/30/23 documented as of this encounter
--- OUTSIDE RECORDS SUMMARY | 2025-03-30 08:57 | XMS_ITS | Encounter Summary ---
Author Organization [facility] Address [address] [place] [address] Care Team Providers Care Adobe Developer Name Role Phone Nas Baca DO Primary Care Provider [phone] Encounter Details Date Type Department Care Team (Late st Contact Info) Description 07/23/2023 RivalSoftt Message Enc [facility] Medical Group Family Medicine - [place] [address] [place] [address] Nas Baca DO [address] [place] [address] [phone] Following Yesterday s Visit Social History Tobacco [...] Sex Assigned at Female 06/18/2024 12:[address] PRODUCTION GENERAL MANAGER Legal Sex Female 11:47 AM CDT Gender Identity Female 01/20/2025 9:20 AM CDT Sexual Orientation Not on file documented as of this encounter Plan of Treatment Not on file documented as of this encounter Visit Diagnoses Not on filedocumented in this encounter Additional Health Concerns Infection Onset Date Last Indicated Resolved Time Respiratory Rule Out 03/07/2025 03/07/2025 025 8:[address] PRODUCTION GENERAL MANAGER documented as of this encounter Care Teams Adobe Developer Relationship Specialty Start Date End Date Nas [place] [address] PCP - General FAMILY PRACTICE 01/30/23 documented as of this encounter
--- OUTSIDE RECORDS SUMMARY | 2025-03-30 08:57 | XMS_ITS | Clinical Summary ---
Author Organization [facility] Address [address] [place] [address] Care Team Providers Care Manager Of Sales Name Role Phone Keven, Nas Anival Primary Care Provide r Solo Garcia MD Unavailable [phone] Allergies Active Allergy Reactions Criticality Noted Date Comments Metronidazole Itching Low 04/01/2024 Itching of face, mouth, chest and whole body per patient Succinylcholine Other (See comments) High 09/04/2018 Family history of pseudocholinesterase deficiency, so prolonged time of action with succinylcholine administration for her, if given. Medications blood-glucose meter,continuous (Dexcom G6 Secondary School Teacher Librarian) misc 1 Device by Not Applicable route [...] 03/16/2025 Assessment & Plan (03/16/2025 8:28 PM MAINTENANCE SUPERVISOR 2ND SHIFT): I did a mirror exam and I [...] Department Care Team Description 03/16/2025 3:30 PM MAINTENANCE SUPERVISOR 2ND SHIFT Office Visit [facility] Otol[facility]ology [address] [place] [address] Jah Stack MD Tongue lesion (Primary Dx) 02/28/2025 8:30 AM MAINTENANCE SUPERVISOR 2ND SHIFT [facility] [address] [address] Bela Gold MD Type 1 diabetes mellitus without complications (Primary Dx); Insulin pump status from Last 3 Months Immunizations Immunization Administration [...] Tobacco Cessation:Counseling Given: Not Answered [facility] Utilities Answer Date Recorded In the past 12 months has e electric, gas, oil, or water company threatened to [...] often do you attend chur ch or presybeterian services? Never 04/09/2024 Do you belong to [...] any time in the past 12 m [facility], were you homeless or living [...] CDT Gender Identity Female 05/19/2024 6:51 AM MAINTENANCE SUPERVISOR 2ND SHIFT Sexual Orientation Straight 05/19/2024 6: 51 AM MAINTENANCE SUPERVISOR 2ND SHIFT Obstetrics History Para Term AB IAB SAB Ectopic Multiple Livin g Live Births 1 1 0 1 Date Outcome GA Total Labor Labor/2nd/3rd Weight Sex Type Anes PTL Rosangela A1 A5 Name Clin 019 34w 5d 4h 56m 4h 51m/0h 05m 3.975 kg (8 lb 12.2 oz) F Vag-S pont Epidur al Y 5 9 Estrellita Ornelas MD Complications:Intraamniotic Infection Delivery [facility] Comments:Heart murmur Last Filed Vital Signs Vital Sign Reading Time Taken Comments Blood Pressure 118/84 02/28/2025 8:40 AM MAINTENANCE SUPERVISOR 2ND SHIFT Pulse 89 12/17/2024 9:00 PM CDT Temperature 36.8 C (98.3 F) 12/17/2024 9:00 PM CDT Respiratory Rate 17 03/16/2025 3:57 PM MAINTENANCE SUPERVISOR 2ND SHIFT Oxygen Saturation 100% 12/17/2024 10:45 PM CDT Inhaled Oxygen Concentration - - Weight 77.1 kg (170 lb) 03/16/2025 3:57 PM MAINTENANCE SUPERVISOR 2ND SHIFT Height 170.2 cm (5' 7) 03/16/2025 3:57 PM MAINTENANCE SUPERVISOR 2ND SHIFT Body Mass Index 26.63 03/16/2025 3:57 PM MAINTENANCE SUPERVISOR 2ND SHIFT Plan of Treatment Health Maintenance Due Date [...] Priority Date/Time Associated Diagnosis Comments EGFR STAT 12/17/2024 9:12 PM CDT PAP WITH REFLEX TO HIGH RISK HPV Routine 11/14/2022 11:49 AM CDT Well female exam with routine gynecological exam from Last 3 Months or Most Recently Relevant to Health Maintenance Results * eGFR (12/17/2024 9:12 PM CDT) eGFR [...] reviewed 2021. Testing performed by: [facility], [address] [place] [address]., [id number] Blood 12/17/2024 9:12 PM CDT 12/17/2024 9:17 PM CDT us Joo Funes Jr., MD LAB BLOOD ORDERABLES F inal Result [facility] [address] [facility] Department [place] [address] * Pap with reflex to High Risk HPV and Genotyping (Cytology Component) (11/14/2022 11:49 AM CDT) Thin prep (Pap test) 11/14/2022 11:49 AM CDT 11/18/2022 11:49 AM CDT Narrative PATHOLOGY [facility] - 11/21/2022 1:17 PM CDT [facility] Department of Pathology [address] [place], [place] [phone] Final Report Note to Patients: This report [...] the details. Patient Name: KHALIF RIVERA Address: [address] [place] [address] [place] [address] Gender: F : 1990 (Age: 32) Service: Location: N : [id number] [facility] #: [id number] Patient Type: [facility] SPECIMEN Taken: 11/14/2022 Received: 11/18/2022 Accessioned:: 11/19/2022 Reported: 11/21/2022 Physician(s): Jocelyn Flores [facility] Diagnosis: SOURCE OF SPECIMEN Imaged Thinprep Pap Test w/ Reflex HPV - [place] Machine Feeder Cytologic Material: STATEMENT OF ADEQUACY - Satisfactory for evaluation; endocervical/transformation zone component present GENERAL CATEGORIZATION: - Negative for intraepithelial lesion or malignancy MARLINE Christianson(ASCP) Report Electronically Reviewed and Signed Out By MARLINE Christianson(ASCP) 11/21/2022 13:17:29Specimen(s) Received: A: Imaged Thinprep Pap Test w/ Reflex HPV - [place] Machine Feeder Cytologic Material Clinical History: Last Menstrual Period: [...] the Surgical Pathology Department at [facility] as part of an ongoing quality internship program and in compliance with federally mandated [...] characteristics determined by the Surgical Pathology Department [facility]. It has not been cleared or approved by the U. S. Food and Drug Administration. Jocelyn Flores CNM LAB CYTOLOGY ORDERABLES Final Result PATHOLOGY [facility] from Last 3 Months or Most Recently Relevant to Health Maintenance Insurance [employer] OPEN ACCESS [employer] OPEN ACCESS Advance Directives For more information, please contact: [phone] * Full Code (Latest Code Status on File) Date Activated Date Inactivated Comments 04/08/2024 7:40 PM 04/10/2024 5:40 PM * Full Code Date Activated Date Inactivated Comments 04/01/2024 1:49 PM 04/04/2024 7:09 PM Care Teams Manager Of Sales Relationship Specialty Start Date End Date Nas B[place] [address] PCP - General Family Medicine 06/27/23 Solo Garcia MD [address] [address] Referring Physician Endocrinology Diabetes & Metabolism 08/11/24
--- OUTSIDE RECORDS SUMMARY | 2025-03-30 08:58 | XMS_ITS | Encounter Summary ---
Author Organization [facility] Health Address [address] [facility] [place] [address] Care Team Providers Care Marker Machine Attendant Name Role Phone Dewayne Weathers MD Primary Care Provider [phone] Kaleb Mccurdy MD Primary Care Provider Breanna laura López Jr., MD, Willis Randle Primary Care Provid er Nas Baca DO Primary Care Provider Encounter Details Date Type Department Care Team (Late Contact Info) Description 01/19/2008 [facility] Outpatient Visit [facility] DEFAULT [address] [place], [place] [phone] [place] [address] [place] [address] Social History Tobacco Use Types Packs/Day Years Used Date Smoking Tobacco: Never Assessed Comments Unknown Sex and Gender Information Value Date Recorded Sex Assigned at Not on file Legal Sex Female 6:55 AM IC DESIGN MANAGER Gender Identity Not on file Sexual Orientation Not on file documented as of this encounter Plan of Treatment Upcoming Encounters Date Type Department Care Team (Late Contact Info) Description 05/05/2025 1:00 PM IC DESIGN MANAGER Office Visit [facility] Health Medical Group - Endocrinology [address], [address] [place] [phone] Solo Garcia MD [address] [place] [address] documented as of this encounter Visit Diagnoses Not on filedocumented in this encounter Care Teams Marker Machine Attendant Relationship Specialty Start Date End Date Dewayne Weathers MD [address] [place], [place] [phone] PCP - General 03/28/08 08/18/10 Kaleb Mccurdy MD PCP - General 08/19/10 05/06/17 Willis Ló[place] [address] [address] [facility] [address] [place] [phone] PCP - General 03/30/18 12/03/22 Nas Baca DO [address] [phone] PCP - General Family Medicine 07/28/23 documented as of this encounter
--- OUTSIDE RECORDS SUMMARY | 2025-03-30 08:58 | XMS_ITS | Encounter Summary ---
Author Organization [facility] Address [address] [place] [address] Care Team Providers Care Facility Assistant Name Role Phone Dewayne Weathers MD Primary Care Provider Kaleb Mccurdy MD Primary Care Provider Breanna laura López Jr., MD, Willis Randle Primary Care Provid er Nas Baca DO Primary Care Provider Encounter Details Date Type Department Care Team (Late Contact Info) Description 11/16/2007 [facility] Outpatient Visit [address] [phone] Roxanna Glover MD Social History Tobacco Use Types Packs/Day Years Used Date Smoking Tobacco: Never Assessed Comments Unknown Sex and Gender Information Value Date Recorded Sex Assigned at Not on file Legal Sex Female 6:55 AM EDUCATION COURSES SALES REPRESENTATIVE Gender Identity Not on file Sexual Orientation Not on file documented as of this encounter Plan of Treatment Upcoming Encounters Date Type Department Care Team (Late Contact Info) Description 05/05/2025 1:00 PM EDUCATION COURSES SALES REPRESENTATIVE Office Visit [facility] - Endocrinology [address] [place] [phone] Solo Garcia MD [address] [facility] [address] [place] [address] documented as of this encounter Visit Diagnoses Not on filedocumented in this encounter Care Teams Facility Assistant Relationship Specialty Start Date End Date Dewayne Weathers MD [address] [place], [place] [phone] PCP - General 03/28/08 08/18/10 Kaleb Mccurdy MD PCP - General 08/19/10 05/06/17 Willis López [place] [address] [address] [facility] [address] [place] [address] PCP - General 03/30/18 12/03/22 aNs Baca DO [address] [phone] PCP - General Family Medicine 07/28/23 documented as of this encounter
--- OUTSIDE RECORDS SUMMARY | 2025-03-30 08:58 | XMS_ITS | Encounter Summary ---
Author Organization [facility] Address [address] [facility] [place] [address] Care Team Providers Care Animal Physiology Teacher Name Role Phone Dewayne Weathers MD Primary Care Provider Kaleb Mccurdy MD Primary Care Provider Breanna laura López Jr., MD, Willis Randle Primary Care Provid er Nas Baca DO Primary Care Provider Encounter Details Date Type Department Care Team (Late Contact Info) Description 05/06/2007 [facility] Outpatient Visit [address] [id number] Roxanna Glover MD Social History Tobacco Use Types Packs/Day Years Used Date Smoking Tobacco: Never Assessed Comments Unknown Sex and Gender Information Value Date Recorded Sex Assigned at Not on file Legal Sex Female 6:55 AM MUSIC MINISTER Gender Identity Not on file Sexual Orientation Not on file documented as of this encounter Plan of Treatment Upcoming Encounters Date Type Department Care Team (Late Contact Info) Description 05/05/2025 1:00 PM MUSIC MINISTER Office Visit [facility] - Endocrinology [address] [place] [phone] Solo Garcia MD [address] [facility] [address] [place] [address] documented as of this encounter Visit Diagnoses Not on filedocumented in this encounter Care Teams Animal Physiology Teacher Relationship Specialty Start Date End Date Dewayne Weathers MD [address] [place], [place] [phone] PCP - General 03/28/08 08/18/10 Kaleb Mccurdy MD PCP - General 08/19/10 05/06/17 Willis Ló[place] [address] [address] [facility] [address] [place] [address] PCP - General 03/30/18 12/03/22 Nas Baca DO [address] [phone] PCP - General Family Medicine 07/28/23 documented as of this encounter
--- OUTSIDE RECORDS SUMMARY | 2025-03-30 08:58 | XMS_ITS | Encounter Summary ---
Author Organization [facility] Address [address] [place] [address] Care Team Providers Care Ear Nose Throat Surgeon Name Role Phone Nas Baca DO Primary Care Provider [phone] Encounter Details Date Type Department Care Team (Late st Contact Info) Description 03/05/2025 Results [facility]-Up [facility] [place], [place] [phone] Nas Baca DO [address] [place] [address] [place], [place] [phone] STREP A RAPID, CULTURE STREP A Social History Tobacco Use Types Packs/Day Years Used Date Smoking Tobacco: Former Cigarettes Passive Smoke Exposure: Past Smokeless Tobacco: Never Alcohol Use Standard Drinks/Week Comments Yes 0 (1 standard drink = 0.6 oz pur e alcohol) occas. PHQ-2 Answer Date Recorded Patient Health Questionnaire-2 Score 0 2025 Comments No Sex and Gender Information Value Date Recorded Sex Assigned at Female 06/18/2024 12:33 PM [employer]DER [employer] Legal Sex Female 11:47 AM CDT Gender Identity Female 01/20/2025 9:20 AM CDT Sexual Orientation Not on file documented as of this encounter Functional Status * Calculated C-SSRS Risk Score (Lifetime/Recent) Answer Date of Assessment Author Status No Risk Indicated 03/07/2025 6:26 PM [employer] Katelyn Nicole RN Active * [place] Suicide Severity Rating Scale (Screener/Recent Self-Report) Question Answer Date of Assessment Author Status 1. Wish to be (Past 1 Month) No 03/07/2025 6:26 PM [employer] Maddie Nicole RN Act ricardo 2. Non-Specific Active Suicidal Thoughts (Past 1 Month) No 03/07/2025 6:26 PM [employer] Maddie Nicole RN Act ricardo 6. Suicidal Behavior (Lifetime) No 03/07/2025 6:26 PM [employer] Maddie Nicole RN Act ricardo documented as of this encounter Plan of Treatment Not on file documented as of this encounter Visit Diagnoses Not on filedocumented in this encounter Additional Health Concerns Infection Onset Date Last Indicated Resolved Time Respiratory Rule Out 03/07/2025 03/07/2025 025 8:51 PM W[employer] Assessment Noted Time PHQ-9 Depression Total Score: 0 04/16/20 24 1:39 PM [employer]DER [employer] documented as of this encounter Care Teams Ear Nose Throat Surgeon Relationship Specialty Start Date End Date Nas [place] [address] PCP - General FAMILY PRACTICE 01/30/23 documented as of this encounter
--- OUTSIDE RECORDS SUMMARY | 2025-03-30 08:58 | XMS_ITS | Encounter Summary ---
Author Organization [facility] Address [address] [facility] [place] [address] Care Team Providers Care Scrap Handler Name Role Phone Dewayne Weathers MD Primary Care Provider Kaleb Mccurdy MD Primary Care Provider Breanna laura López Jr., MD, Willis Randle Primary Care Provid er Nas Baca DO Primary Care Provider [phone] Encounter Details Date Type Department Care Team (Late Contact Info) Description 01/13/2008 [facility] Outpatient Visit [facility] DEFAULT [address] [place], [place] [phone] Ru Shelton MD Retired Social History Tobacco Use Types Packs/Day Years Used Date Smoking Tobacco: Never Assessed Comments Unknown Sex and Gender Information Value Date Recorded Sex Assigned at Not on file Legal Sex Female 6:55 AM WHITE METAL CASTER Gender Identity Not on file Sexual Orientation Not on file documented as of this encounter Plan of Treatment Upcoming Encounters Date Type Department Care Team (Late Contact Info) Description 05/05/2025 1:00 PM WHITE METAL CASTER Office Visit [facility] - Endocrinology [address] [place] [address], [address] [place] [address] Solo Garcia MD [address] [facility] [address] [place] [address] documented as of this encounter Visit Diagnoses Not on filedocumented in this encounter Care Teams Scrap Handler Relationship Specialty Start Date End Date Dewayne Weathers MD [address] [place], [place] [phone] PCP - General 03/28/08 08/18/10 Kaleb Mccurdy MD PCP - General 08/19/10 05/06/17 Willis Ló[place] [address] El[address] Alejandre [facility] [address] [place] [address] PCP - General 03/30/18 12/03/22 Nas Baca DO [address] [phone] PCP - General Family Medicine 07/28/23 documented as of this encounter
--- OUTSIDE RECORDS SUMMARY | 2025-03-30 08:58 | XMS_ITS | Encounter Summary ---
Author Organization [facility] Address [address] [place] [address] Care Team Providers Care Personal Care Worker Name Role Phone Dewayne Weathers MD Primary Care Provider Kaleb Mccurdy MD Primary Care Provider Breanna laura López Jr., MD, Willis Randle Primary Care Provid er Nas Baca DO Primary Care Provider [phone] Encounter Details Date Type Department Care Team (Late Contact Info) Description 09/25/2006 [facility] Outpatient Visit [address] [phone] Roxanna Glover MD Social History Tobacco Use Types Packs/Day Years Used Date Smoking Tobacco: Never Assessed Comments Unknown Sex and Gender Information Value Date Recorded Sex Assigned at Not on file Legal Sex Female 6:55 AM COSMETOLOGY EDUCATOR Gender Identity Not on file Sexual Orientation Not on file documented as of this encounter Plan of Treatment Upcoming Encounters Date Type Department Care Team (Late Contact Info) Description 05/05/2025 1:00 PM COSMETOLOGY EDUCATOR Office Visit [facility] - Endocrinology [address] [place] [phone] Solo Garcia MD [address] [facility] [address] [place] [address] documented as of this encounter Visit Diagnoses Not on filedocumented in this encounter Care Teams Personal Care Worker Relationship Specialty Start Date End Date Dewayne Weathers MD [address] [place], [place] [phone] PCP - General 03/28/08 08/18/10 Kaleb Mccurdy MD PCP - General 08/19/10 05/06/17 Willis López Jr[place] [address] [address]jandre [facility] [address] [place] [address] PCP - General 03/30/18 12/03/22 Nas Baca DO [address] [phone] PCP - General Family Medicine 07/28/23 documented as of this encounter
--- OUTSIDE RECORDS SUMMARY | 2025-03-30 08:58 | XMS_ITS | Encounter Summary ---
Author Organization [facility] Address [address] [facility] [place] [address] Care Team Providers Care Publications Editor Name Role Phone Dewayne Weathers MD Primary Care Provider Kaleb Mccurdy MD Primary Care Provider Breanna laura López Jr., MD, Willis Randle Primary Care Provid er Nas Baca DO Primary Care Provider Encounter Details Date Type Department Care Team (Late Contact Info) Description 01/13/2008 [facility] Outpatient Visit [facility] DEFAULT [address] [place] [address] Nasrin Matthews APRN-CNP Social History Tobacco Use Types Packs/Day Years Used Date Smoking Tobacco: Never Assessed Comments Unknown Sex and Gender Information Value Date Recorded Sex Assigned at Not on file Legal Sex Female 6:55 AM LINE CONTROLLER Gender Identity Not on file Sexual Orientation Not on file documented as of this encounter Plan of Treatment Upcoming Encounters Date Type Department Care Team (Late Contact Info) Description 05/05/2025 1:00 PM LINE CONTROLLER Office Visit [facility] - Endocrinology [address] [place] [address], [address] [place] [address] Solo Garcia MD [address] [facility] [address] [place] [address] documented as of this encounter Visit Diagnoses Not on filedocumented in this encounter Care Teams Publications Editor Relationship Specialty Start Date End Date Dewayne Weathers MD [address] [place], [place] [phone] PCP - General 03/28/08 08/18/10 Kaleb Mccurdy MD PCP - General 08/19/10 05/06/17 Willis Ló[place] [address] Elsy Alejandre [facility] [address] [place] [address] PCP - General 03/30/18 12/03/22 Nas Baca DO [address] [phone] PCP - General Family Medicine 07/28/23 documented as of this encounter
--- OUTSIDE RECORDS SUMMARY | 2025-03-30 08:58 | XMS_ITS | Encounter Summary ---
Author Organization [facility] Address [address] [facility] [place] [address] Care Team Providers Care Electronic Parts Designer Name Role Phone Dewayne Weathers MD Primary Care Provider [phone] Kaleb Mccurdy MD Primary Care Provider Breanna laura López Jr., MD, Willis Randle Primary Care Provid er Nas Baca DO Primary Care Provider [phone] Encounter Details Date Type Department Care Team (Late Contact Info) Description 05/29/2006 [facility] Outpatient Visit [address] [address] Kandace Billingsley, SENIOR ACCOUNT CLERK-DATA DELIVERABLES MANAGER Retired Social History Tobacco Use Types Packs/Day Years Used Date Smoking Tobacco: Never Assessed Comments Unknown Sex and Gender Information Value Date Recorded Sex Assigned at Not on file Legal Sex Female 6:55 AM CUSTOMER ACCOUNT ADMINISTRATOR Gender Identity Not on file Sexual Orientation Not on file documented as of this encounter Plan of Treatment Upcoming Encounters Date Type Department Care Team (Late Contact Info) Description 05/05/2025 1:00 PM CUSTOMER ACCOUNT ADMINISTRATOR Office Visit [facility] - Endocrinology [address] [place] [address], [address] [place] [phone] Solo Garcia MD [address] [address] [place] [address] documented as of this encounter Visit Diagnoses Not on filedocumented in this encounter Care Teams Electronic Parts Designer Relationship Specialty Start Date End Date Dewayne Weathers MD [address] [place], [place] [phone] PCP - General 03/28/08 08/18/10 Kaleb Mccurdy MD PCP - General 08/19/10 05/06/17 Willis López [place] [address] Elsy Alejandre [facility] [address] [place] [address] PCP - General 03/30/18 12/03/22 Nas Baca DO [address] [address] PCP - General Family Medicine 07/28/23 documented as of this encounter
== END 2025-03-30 08:32 | disposition home or self-care (01) ==
PROVIDERS: Visit Provider Nurse Practitioner
DX: K82.8 Other specified diseases of gallbladder (principal); R07.89 Other chest pain
CPT/HCPCS: 76705

== ENCOUNTER 2025-04-25 02:03 | Day surgery (SDC) | payer OTHER, SELFPAY ==
[2025-04-18 11:17] VITALS: BMI 26.6
--- NOTE | 2025-04-18 11:25 | PC.NURSE ---
[facility] has started construction of its new state of the art ER which will open Spring 2026. With this, we anticipate parking may be a challenge for some our surgical patients and families. Parking spaces are limited but are available for all Surgical, obstetrics, and ER patients sharing this lot. If you arrive and find you are having a hard time finding a parking space, please note that we understand the challenges, please drive around the hospital and park near Hospital Entrance 1. When you enter this entrance, you can ask a volunteer to direct or take you back to the surgical waiting area to check in. We appreciate everyone?s understanding of these expected challenges while we build for your future. Report to the Outpatient Waiting Room, entrance under the green pavilion located off [address], at time _1000_ on date _[phone]_. Planned Procedure Time: _1200_.? Time changes happen often and if your time is changed the preop area will call you the afternoon before. - You and your visitor will be asked to self-screen and do not enter if you have any COVID symptoms. Please call surgeon if you need to reschedule. - A mask is optional within the hospital at this time. Patients may have clear liquids (water, carbonated beverages, clear teas, apple juice) until 3 hours prior to surgery with a maximum of 20 ounces. - No food from midnight until time of surgery and no smoking, or chewing tobacco (or any form of nicotine). No chewing gum, candy or mints. Take only the following medications with a SIP of water on the morning of surgery: ___Continue insulin pump. If problems call [phone] to speak with preop nurse.____ DO NOT STOP ANY OF YOUR OTHER PRESCRIPTION MEDICATIONS PRIOR TO SURGERY EXCEPT THE FOLLOWING Hold all vitamins and supplements for 3 days per anesthesiologist. Medications to discontinue per physician Date to take last dose Please no make-up, nail macedonian, hairspray, perfume, deodorant, or body powder the day of surgery.? No jewelry (including any body piercings) or valuables the day of surgery, leave them at home.? Please take a shower or bath the night before, or the morning of, surgery with an antibacterial soap.? Wear comfortable, loose fitting clothing.? - Jewelry must be removed prior to entering the operating room.? Rings and piercings that are not removed may be cut off. - The hospital will not accept responsibility for valuables.? - Please leave all valuables, including medications, at home the day of surgery. If you are going home after surgery, a licensed jinriksha driver must drive you home.? - NO public transportation without another adult if you receive anesthesia. - We recommend that an adult stay with you for 24 hours following discharge. - We also recommend that you do not drive, make important decision, drink alcoholic beverages, or take any drugs that were not prescribed by your health care provider for at least 24 hours after your discharge time. Follow any additional instructions given to you from your surgeon. Telephone instructions given to __Inna__and asked if any additional questions and then verbalized understanding. Patient advised to call surgeon office or pre surgery nurse liaison [phone] if any additional questions.
[2025-04-25] VITALS (10 sets, daily range): BP systolic 115–149; BP diastolic 65–86; PULSE 75–94; RESP 14–19; TEMP 36.6–36.9; O2SAT 99–100; BMI 26.9
--- OUTSIDE RECORDS SUMMARY | 2025-04-25 02:06 | XMS_ITS | Clinical Summary ---
Author Organization [facility] Address [facility] [place] [address] Care Team Providers Care Web Production Assistant Name Role Phone Keven, Derick Dipti DO Primary Care Provider [phone] Allergies Active Allergy Reactions Criticality Noted Date [...] UNITS DAILY PER INSULIN PUMP 3 Active Iron, Ferrous Sulfate, 325 (65 Fe) MG TabIndications:I zeeshan deficiency anemia, unspecified iron deficiency anemia type Take 1 tablet by mouth daily. May take every other day if constipating. 90 tablet 3 4 Active Additional Information Patient not taking.Reported on 03/07/2025 Continuous Glucose Sensor (DEXCOM G7 SENSOR) Misc 5 Active pantoprazole EC (PROTONIX) 40 MG tablet 5 Active Active Problems Problem Noted Date Diagnosed [...] Encounters Date Type Department Care Team Description 04/19/2025 1:45 PM BULL GANG WORKER - 04/19/2025 11:59 PM BULL GANG WORKER Hospital Encounter [facility] [place] [address] Non-Staff, Provider Discharge Disposition: Home or Self Care (Routine Discharge) 04/18/2025 3:25 PM BULL GANG WORKER - 04/18/2025 11:59 PM BULL GANG WORKER Hospital Encounter [facility] [place] [address] Neto Benson MD Discharge Disposition: Home or Self Care (Routine Discharge) 04/18/2025 Orders Only [facility] [place] [address] Neto Benson MD 04/18/2025 Travel 03/14/2025 3:30 PM BULL GANG WORKER - 03/14/2025 11:59 PM BULL GANG WORKER Hospital Encounter [facility] [address] [place] [address] Derick Terry, DO Discharge Disposition: Home or Self Care (Routine Discharge) 03/14/2025 Results Follow-Up [address] [phone] Derick Terry, DO CT SOFT TISSUE NECK W CON 03/14/2025 Travel 03/07/2025 6:57 PM BULL GANG WORKER - 03/07/2025 9:30 PM BULL GANG WORKER Emergency [facility] [place] [address] Sotero Cool, DO Flu Like Symptoms Discharge Disposition: Home or Self Care (Routine Discharge) 03/07/2025 5:23 PM BULL GANG WORKER - 03/07/2025 6:01 PM BULL GANG WORKER Hospital Encounter [facility] [address] [place] [address] Dakota Mantilla, GOLF CART MECHANIC Sore Throat; Pleuritic Chest Pain Discharge Disposition: Transfer to Acute Care Hospital 03/07/2025 Travel 03/05/2025 MyChart Message Enc [address] [phone] Derick Terry, DO Still sick 03/05/2025 Results Follow-Up [facility] [place] [address] Derick Terry, DO STREP A RAPID, CULTURE STREP A 03/03/2025 12:40 PM BULL GANG WORKER Office Visit [address] [phone] Derick Terry, DO Sore Throat (Throat is still sore from since last visit. Feels like lump in her throat.) 03/03/2025 Travel 02/28/2025 2:40 PM BULL GANG WORKER Office Visit [address] [phone] Derick Terry, DO Sore Throat (Patient c/o ongoing sore throat, feels like something is stuck in her throat, has difficulty swallowing. Patient seen by Ivonne Bliss NP on 02/15, strep rapid and culture negative. //Patient was also seen 02/08, treated for thrush w/ nystatin and abx. Did not finish abx d/t GI prep nurse telling patient to not finish if sx were gone.) 02/28/2025 Travel 02/17/2025 Scan [facility] Scanned, [facility] FLEX SIG (SCAN) 02/16/2025 Results Follow-Up [address] [phone] Ivonne Bliss, GOLF CART MECHANIC XR ABD KUB, URINALYSIS AUTO DIP, STREP A RAPID, Additional followed-up results: 3 02/15/2025 3:42 PM CDT - 02/15/2025 11:59 PM CDT Hospital Encounter [facility] [place] [address] Ivonne Bliss, GOLF CART MECHANIC Discharge Disposition: Home or Self Care (Routine Discharge) 02/15/2025 2:00 PM CDT Office Visit [address] [phone] Ivonne Bliss, GOOD General Illness (Patient c/o nausea, L side flank pain, and L side abdominal pain, and feeling feverish at night x2 days. Patient denies dysuria, frequency, decreased urine output, hematuria.) 02/15/2025 - 02/15/2025 3:41 PM CDT Hospital Encounter [facility] [address] [place] [address] Ivonne Bliss, GOLF CART MECHANIC Discharge Disposition: Home or Self Care (Routine Discharge) 02/15/2025 Travel 2025 10:20 AM CDT Office Visit [address] [phone] Ivonne Bliss, GOLF CART MECHANIC Mouth/Lip Problem (Patient presents today with a sore on her lip and a white coating on tongue since starting omeprazole 3 days ago. ) 2025 Travel 01/26/2025 8:20 AM CDT Allied Health/Nurse Visit [address] [phone] Derick Terry, DO Tuberculosis (TB reading/) 01/26/2025 Results Follow-Up [address] [phone] Derick Terry, DO TB INTRADERMAL TEST (BACK OFFICE) 01/26/2025 Travel 01/24/2025 8:20 AM CDT Allied Health/Nurse Visit [address] [phone] Derick Terry, DO Tuberculosis (Testing to be foster foster parents\) 01/24/2025 Travel from Last 3 Months Immunizations Immunization [...] Sex Assigned at Female 06/18/2024 12:33 PM BULL GANG WORKER Legal Sex Female 11:47 AM CDT Gender Identity Female 01/20/2025 9:20 AM CDT Sexual Orientation Not on file Last Filed Vital Signs Vital Sign Reading Time Taken Comments Blood Pressure 153/101 03/07/2025 9:10 PM BULL GANG WORKER Pulse 85 03/07/2025 9:10 PM BULL GANG WORKER Temperature 37.2 C (98.9 F) 03/07/2025 6:26 PM BULL GANG WORKER Respiratory Rate 18 03/07/2025 9:10 PM BULL GANG WORKER Oxygen Saturation 99% 03/07/2025 9:10 PM BULL GANG WORKER Inhaled Oxygen Concentration - - Weight 77.1 kg (170 lb) 03/07/2025 6:26 PM BULL GANG WORKER Height 170.2 cm (5' 7) 03/07/2025 6:26 PM BULL GANG WORKER Body Mass Index 26.63 03/07/2025 6:26 PM BULL GANG WORKER Plan of Treatment Health Maintenance Due Date [...] 05/18/2020 Hemoglobin A1C 06/23/2025 12/21/2024, 08/2 09/2024, 12/01/2024, Additional history exists Cervical Cancer Screening Pap Smear (Age 30 to 64) Every 3 Years 11/14/2025 11/14/2022, 04/24/2018 Cervical Cancer Screening with HPV 11/14/2025 Annual Physical 01/20/2026 01/20/2025 DTaP, Tdap and Td Vaccines (3 - Td or Tdap) 06/02/2032 06/02/2022, 09/18/2018 PHQ-2 (Physician [place]) Completed 2025 Hepatitis A Vaccines Aged Out [...] Procedure Name Priority Date/Time Associated Diagnosis Comments ECG 12-LEAD Routine 04/19/2025 2:17 PM BULL GANG WORKER Diabetes ([facility]HS/HCC) BASIC METABOLIC PANEL Routine 04/18/2025 3:37 PM BULL GANG WORKER Diabetes ([facility] HHS/HCC) CT SOFT TISSUE NECK W CON STAT 03/14/2025 4:07 PM BULL GANG WORKER Throat pain URINALYSIS STAT 03/07/2025 7:41 PM BULL GANG WORKER ECG 12-LEAD Routine 03/07/2025 7:32 PM BULL GANG WORKER XR CHEST PORTABLE STAT 03/07/2025 7:2 5 PM BULL GANG WORKER STREP A, DNA STAT 03/07/2025 7:14 PM BULL GANG WORKER RESPIRATORY PCR PNL LIMITED STAT 03/07/2025 7:14 PM BULL GANG WORKER POCT URINE (BACK OFFICE) STAT 03/07/2025 7:03 PM BULL GANG WORKER TSH W/REFLEX Routine 03/07/2025 7:03 PM BULL GANG WORKER TROPONIN, QUANT STAT 03/07/2025 7:03 PM BULL GANG WORKER COMPREHENSIVE METABOLIC PANEL STAT 03/07/2025 7:03 PM BULL GANG WORKER HC CBC AUTO W/AUTO DIFF STAT 03/07/2025 7:03 PM BULL GANG WORKER POCT GLUCOSE - DOCKED DEVICE Routine 03/07/2025 6:25 PM BULL GANG WORKER ECG 12-LEAD STAT 03/07/2025 5:38 PM BULL GANG WORKER CULTURE STREP A Routine 03/03/2025 1:12 PM BULL GANG WORKER Pharyngitis, unspecified etiology STREP A ASSAY W/OPTIC Routine 03/03/2025 Pharyngitis, unspecified etiology FLEX SIG (SCAN ORDER) 02/17/2025 XR ABD KUB Routine 02/15/2025 3:53 PM CDT Acute low back pain, unspecified back pain laterality, unspecified whether sciatica present Nausea CULTURE STREP A Routine 02/15/2025 2:47 PM CDT Sore throat URINE BACTERIA CULTURE Routine 2:19 PM CDT Abnormal urine findings STREP A ASSAY W/OPTIC Routine 02/15/2025 Sore throat TEST URINE Routine 02/15/2025 Nausea URINALYSIS, AUTO, W/O SCOPE Routine 02/15/2025 Acute low back pain, unspecified back pain laterality, unspecified whether sciatica present Nausea TB INTRADERMAL TEST (BACK OFFICE) Routine 01/24/2025 8:32 AM CDT TB (pulmonary tuberculosis) HEMOGLOBIN, GLYCOSYLATED Routine 12/21/2024 from Last 3 Months or Most Recently Relevant to Health Maintenance Results * ECG 12 lead (04/19/2025 2:17 PM BULL GANG WORKER) Only the most recent of3 resultswithin the time period is included. ECG QT 342 [facility] ECG QTC [facility] 04/19/2025 2:1 7 PM BULL GANG WORKER Narrative [facility] ([facility] RAD - 04/20/2025 10:[address] [facility] [facility] Test Date: 2025-04-19 Pat Name: KHALIF RIVERA Department: 40 Room: Gender: Female Substation Operator Apprentice: GISELA : 1990 Requested By: PROVIDER NON-STAFF Order Number: [id number] Reading MD: Velia Mc Measurements Intervals [place] Rate: 83 P: 66 IN: 144 QRS: 62 QRSD: 79 T: 56 QT: 342 QTc: 402 Interpretive Statements SINUS RHYTHM Compared to ECG 03/07/2025 19:32:55 No significant changes GANG WORKER Procedure Note Velia Mc MD - 04/20/2025 [facility] [address] Test Date: 2025-04-19 Pat Name: KHALIF HOBBSW Department: 40 Room: Gender: Female Substation Operator Apprentice: GISELA : 1990 Requested By: PROVIDER NON-STAFF Order Number: [id number] Reading : Velia Mc Measurements Intervals [place] Rate: 83 P: 66 IN: 144 QRS: 62 QRSD: 79 T: 56 QT: 342 QTc: 402 Interpretive Statements SINUS RHYTHM Compared to ECG 03/07/2025 19:32:55 No significant changes GANG WORKER Provider Non-Staff ECG ORDERABLES Final Result [facility] ([facility] RAD * (ABNORMAL) BASIC METABOLIC PANEL (04/18/2025 3:37 PM BULL GANG WORKER) [facility] GLUCOSE 311(H) 70 - 99 MG/DL 04/18/2025 4:06 PM BULL GANG WORKER [facility] BUN 11 7 - 18 MG/DL 04/18/2025 4:06 PM [facility] CREATININE S/P/B 0.82 0.55 - 1.02 MG/DL 04/18/2025 4:06 PM [facility] SODIUM S/P/B 135(L) 136 - 145 MMOL/L 04/18/2025 4:06 PM [facility] POTASSIUM S/P/B 4.3 3.5 - 5.1 MMOL/L 04/18/2025 4:06 PM [facility] CHLORIDE S/P/B 105 97 - 115 MMOL/L 04/18/2025 4:06 PM [facility] CO2 24.8 21 - 32 MMOL/L 04/18/2025 4:06 PM [facility] CALCIUM S/P/B 8.8 8.5 - 10.1 MG/DL 04/18/2025 4:06 PM [facility] ANION GAP 5.2 2 - 10 MMOL/L 04/18/2025 4:06 PM [facility] BUN CREATININE RATIO 13.4 6 - 26 04/18/2025 4:06 PM [facility] GFR ESTIMATE >90 >90 ML/MIN/1.7 3 M2 04/18/2025 4:06 PM [facility] Comment: NOTE: eGFR is not calculated for patients <18 years of age or gender unknown. This is an estimated GFR calculation using the new CKD EPI creatinine equation without race and so does not require a correction factor for race. This estimated GFR should not be used for calculating drug doses. BLOOD VENOUS BLOOD SPECIMEN / Unknown 04/18/2025 3:37 PM BULL GANG WORKER Neto Benson MD LABORATORY Final Result [facility] [address] [place] [address], [place] [phone] * CT SOFT TISSUE NECK W CON (03/14/2025 4:07 PM BULL GANG WORKER) Anatomical Region Laterality Modality Neck Computed Tomogra phy 03/14/2025 4:27 PM BULL GANG WORKER Impressions 03/14/2025 4:34 PM BULL GANG WORKER IMPRESSION: 1. No acute abnormalities identified in [...] further evaluation with PET/CT. Ordered By: DERICK TERRY Interpreted By: Jose Elias Quiroz MD, 03/14/2025 4:27 PM Narrative 03/14/2025 4:34 PM BULL GANG WORKER [address] [address] DATE: 03/14/2025 3:36 PM INDICATION: Neck pain. [...] Note Jose Elias Quiroz MD - 03/14/[address] [address] DATE: 03/14/2025 3:36 PM INDICATION: Neck pain. [...] the upper chest reveal no acute findings. [id number] x 6 mm right lower lobe subpleural [...] forfurther evaluation with PET/CT. Ordered By: DERICK TERRY Interpreted By: Jose Elias Quiroz MD, 03/14/2025 4:27 PM Derick Terry DO CT Final Resul t * URINALYSIS (03/07/2025 7:41 PM BULL GANG WORKER) SPECIMEN TYPE URINE CLEAN CATCH 03/07/2025 7:41 PM BULL GANG WORKER [facility] COLOR (U) LIGHT YELLOW 03/07/2025 7:54 PM BULL GANG WORKER [facility] TRANSPARENCY CLEAR 03/07/2025 7:54 PM [facility] SPECIFIC GRAVITY (U) 1.015 1.001 - 1.030 03/07/2025 7:54 PM [facility] U PH 6.0 5.0 - 9.0 03/07/2025 7:54 PM BULL GANG WORKER [facility] LEUKOCYTES (U) NEGATIVE NEGATIVE 03/07/2025 7:54 PM [facility] NITRITES NEGATIVE NEGATIVE 03/07/2025 7:54 PM [facility] PROTEIN RANDOM (U) NEGATIVE <30 MG/DL 03/07/2025 7:54 PM [facility] GLUCOSE (U) NORMAL NORMAL MG/DL 03/07/2025 7:54 PM BULL GANG WORKER [facility] KETONES MG/DL (U) NEGATIVE NEGATIVE MG/DL 03/07/2025 7:54 PM BULL GANG WORKER [facility] UROBILINOGEN NORMAL NORMAL MG/DL 03/07/2025 7:54 PM BULL GANG WORKER [facility] BILIRUBIN (U) NEGATIVE NEGATIVE MG/DL 03/07/2025 7:54 PM BULL GANG WORKER [facility] BLOOD (U) NEGATIVE NEGATIVE 03/07/2025 7:54 PM BULL GANG WORKER [facility] URINE URINE SPECIMEN OBTAINED BY CLEAN CATCH PROCEDURE / Unknown 03/07/2025 7:41 PM BULL GANG WORKER Sotero Cool DO URINE ORDERABLES Final Result [facility] [address] [place] [address], * XR CHEST PORTABLE (03/07/2025 7:25 PM BULL GANG WORKER) Anatomical Region Laterality Modality Chest Radiographic Aidee ging 03/07/2025 7:27 PM BULL GANG WORKER Impressions 03/07/2025 7:32 PM BULL GANG WORKER Impression: No acute findings. Referred By: Interpreted By: Margarito Anthony MD, 03/07/2025 7:27 PM Narrative 03/07/2025 7:32 PM BULL GANG WORKER [facility] [address] [place], [place] [address] Examination: Chest 1 view portable History: Chest pain DATE/TIME: 03/07/2025 7:15 PM Comparison: None Technique: AP upright portable view of the chest was obtained. Findings: Heart size, mediastinal contours and pulmonary vasculature are within normal limits. No pulmonary consolidation, pleural effusion or pneumothorax. No acute osseous abnormality. Procedure Note Margarito Anthony MD - 03/07/2025 [facility] [address] [place], [place] [address] Examination: Chest 1 view portable History: Chest pain DATE/TIME: 03/07/2025 7:15 PM Comparison: None Technique: AP upright portable view of the chest was obtained. Findings: Heart size, mediastinal contours and pulmonary vasculature arewithin normal limits. No pulmonary consolidation, pleural effusion orpneumothorax. No acute osseous abnormality. Impression: No acute findings. Referred By: Interpreted By: Margarito Anthony MD, 03/07/2025 7:27 PM [facility] Final Result * STREP A, DNA (PREVIOUSLY RAPID STREP A) (03/07/2025 7:14 PM BULL GANG WORKER) SPECIMEN SOURCE THROAT 03/07/2025 7:06 PM BULL GANG WORKER [facility] STREP A MOLECULAR NOT DETECTED NOT DETECTED 03/07/2025 7:56 PM BULL GANG WORKER [facility] SWAB STRUCTURE OF ANTERIOR REGION OF NECK / Unknown 03/07/2025 7:14 PM BULL GANG WORKER Sotero Cool DO MICROBIOLOGY - GENERAL ORDERAB LES Final Result [facility] [address] [place] [address], [place] [phone] * RESPIRATORY PCR PNL LIMITED (FLU A/FLU B/RSV/COVID) (03/07/2025 7:14 PM BULL GANG WORKER) SPEC DESCRIPTION NASOPHARYNGEAL SWAB 03/07/2025 7:06 PM BULL GANG WORKER [facility] CORONAVIRUS SARS COV 2 PCR (RESP) NEGATIVE NEGATIVE 03/07/2025 8:50 PM BULL GANG WORKER [facility] INFLUENZA A PCR (RESP) NEGATIVE NEGATIVE 03/07/2025 8:50 PM BULL GANG WORKER [facility] INFLUENZA B PCR (RESP) NEGATIVE NEGATIVE 03/07/2025 8:50 PM BULL GANG WORKER [facility] RSV PCR (RESP) NEGATIVE NEGATIVE 03/07/2025 8:50 PM BULL GANG WORKER [facility] SWAB NASOPHARYNGEAL STRUCTURE / Unknown 03/07/2025 7:14 PM BULL GANG WORKER Sotero Cool DO MICROBIOLOGY - GENERAL ORDERAB LES Final Result Performing Organization Address City/[facility]/ZIP Co de Phone Number [facility] [address] [place] [address], [place] [phone] * TROPONIN, QUANT (03/07/2025 7:03 PM BULL GANG WORKER) TROPONIN I HIGH SENSITIVITY <3 <54 ng/L 03/07/2025 7:54 PM BULL GANG WORKER [facility] Comment: HIGH DOSES OF BIOTIN, TROPONIN-SPECIFIC AUTOANTIBODIES, AND ANTIBODY THERAPY CONTAINING HAMA MAY INTERFERE WITH THIS TEST RESULT. CORRELATION TO CLINICAL HISTORY AND PRESENTATION RECOMMENDED. BLOOD VENOUS BLOOD SPECIMEN / Unknown 03/07/2025 7:03 PM BULL GANG WORKER us [facility] Final Result [facility] [address] [place] [address], [place] [phone] * (ABNORMAL) COMPREHENSIVE METABOLIC PANEL (03/07/2025 7:03 PM BULL GANG WORKER) GLUCOSE 111(H) 70 - 99 MG/DL 03/07/2025 7:54 PM BULL GANG WORKER [facility] BUN 10 7 - 18 MG/DL 03/07/2025 7:54 PM [facility] CREATININE S/P/B 0.88 0.55 - 1.02 MG/DL 03/07/2025 7:54 PM [facility] SODIUM S/P/B 141 136 - 145 MMOL/L 03/07/2025 7:54 PM [facility] POTASSIUM S/P/B 3.8 3.5 - 5.1 MMOL/L 03/07/2025 7:54 PM [facility] CHLORIDE S/P/B 107 97 - 115 MMOL/L 03/07/2025 7:54 PM [facility] CO2 28.6 21 - 32 MMOL/L 03/07/2025 7:54 PM [facility] CALCIUM S/P/B 9.4 8.5 - 10.1 MG/DL 03/07/2025 7:54 PM [facility] BILIRUBIN TOTAL S/P/B 0.4 0.2 - 1.2 MG/DL 03/07/2025 7:54 PM [facility] Comment: THIS ASSAY IS NOT RECOMMENDED FOR PATIENTS UNDERGOING TREATMENT WITH ELTROMBOPAG DUE TO THE POTENTIAL FOR FALSELY ELEVATED RESULTS. TOTAL PROTEIN S/P/B 7.9 6.4 - 8.2 G/DL 03/07/2025 7:54 PM [facility] ALBUMIN S/P/B 4.2 3.4 - 5.0 G/DL 03/07/2025 7:54 PM [facility] AST 11(L) 15 - 37 U/L 03/07/2025 7:54 PM [facility] ALT 20 14 - 55 U/L 03/07/2025 7:54 PM [facility] ALKALINE PHOSPHATASE S/P/B 59 50 - 136 U/L 03/07/2025 7:54 PM BULL GANG WORKER [facility] ANION GAP 5.4 2 - 10 MMOL/L 03/07/2025 7:54 PM [facility] BUN CREATININE RATIO 11.3 6 - 26 03/07/2025 7:54 PM [facility] A/G RATIO 1.1 1.0 - 2.0 RATIO 03/07/2025 7:54 PM [facility] GFR ESTIMATE 87(L) >90 ML/MIN/1.7 3 M2 03/07/2025 7:54 PM [facility] Comment: NOTE: eGFR is not calculated for patients <18 years of age or gender unknown. This is an estimated GFR calculation using the new CKD EPI creatinine equation without race and so does not require a correction factor for race. This estimated GFR should not be used for calculating drug doses. BLOOD VENOUS BLOOD SPECIMEN / Unknown 03/07/2025 7:03 PM BULL GANG WORKER [facility] Final Result [facility] [address] [place] [address], * (ABNORMAL) CBC W/DIFF AUTOMATED (03/07/2025 7:03 PM BULL GANG WORKER) WBC 4.81 4.5 - 11.0 x10'3/uL 03/07/2025 7:31 PM [facility] RBC 4.58 4.20 - 5.40 x10'6/uL 03/07/2025 7:31 PM [facility] HGB 11.2(L) 12.0 - 16.0 G/DL 03/07/2025 7:31 PM [facility] HCT 35.5(L) 38.0 - 48.0 % 03/07/2025 7:31 PM [facility] MCV 77.5(L) 81.0 - 99.0 FL 03/07/2025 7:31 PM [facility] MCH 24.5(L) 27.0 - 31.0 PG 03/07/2025 7:31 PM [facility] MCHC 31.5(L) 32.0 - 36.0 G/DL 03/07/2025 7:31 PM [facility] RDW 15.4(H) 11.5 - 14.5 % 03/07/2025 7:31 PM [facility] PLT 241 130 - 400 x10'3/uL 03/07/2025 7:31 PM [facility] MPV 11.5 9.3 - 12.2 FL 03/07/2025 7:31 PM [facility] DIFFERENTIAL TYPE AUTOMATED DIFFERENTIAL 03/07/2025 7:31 PM [facility] NEUTROPHILS % 53.1 % 03/07/2025 7:31 PM [facility] LYMPHOCYTES % 36.2 % 03/07/2025 7:31 PM [facility] MONOCYTES % 8.5 % 03/07/2025 7:31 PM [facility] EOSINOPHILS 1.0 % 03/07/2025 7:31 PM [facility] BASOPHILS 1.0 % 03/07/2025 7:31 PM [facility] IMMATURE GRANS % 0.2 % 03/07/20 7:31 PM [facility] ABS. NEUTROPHILS 2.55 1.80 - 7.70 x10'3/uL 03/07/2025 7:31 PM [facility] ABS. LYMPHOCYTES 1.74 1.00 - 4.80 x10'3/uL 03/07/2025 7:31 PM BULL GANG WORKER [facility] ABS. MONOCYTES 0.41 0.24 - 0.86 x10'3/uL 03/07/2025 7:31 PM BULL GANG WORKER [facility] ABS. EOSINOPHILS 0.05 0.04 - 0.36 x10'3/uL 03/07/2025 7:31 PM BULL GANG WORKER [facility] ABS. BASOPHILS 0.05 0.01 - 0.08 x10'3/uL 03/07/2025 7:31 PM BULL GANG WORKER [facility] ABS. IMMATURE GRANULOCYTES 0.01 0.00 - 0.49 x10'3/uL 03/07/2025 7:31 PM BULL GANG WORKER [facility] BLOOD VENOUS BLOOD SPECIMEN / Unknown 03/07/2025 7:03 PM BULL GANG WORKER [facility] Final Result [facility] [address] [place] [address], * TSH W/REFLEX (03/07/2025 7:03 PM BULL GANG WORKER) TSH 1.900 0.358 - 3.74 uIU/ML 03/07/2025 8:22 PM BULL GANG WORKER [facility] Comment: HIGH DOSES OF BIOTIN MAY INTERFERE WITH THIS TEST RESULT. CORRELATION TO CLINICAL HISTORY AND PRESENTATION RECOMMENDED. FREE T4 NOT INDICATED BLOOD VENOUS BLOOD SPECIMEN / Unknown 03/07/2025 7:03 PM BULL GANG WORKER Sotero Cool DO LABORATORY Final Result [facility] [address] [place] [id number], [place] [phone] * POCT urine (03/07/2025 7:03 PM BULL GANG WORKER) Pathologist [facility] URINE HCG TEST NEGATIVE NEGATIVE Internal Control: VALID VALID URINE URINE SPECIMEN OBTAINED BY CLEAN CATCH PROCEDURE / Unknown 03/07/2025 7:03 PM B[employer] GANG WORKER Matilda JOHNSTON POINT OF CARE TEST ORDERABLE S Final Result * (ABNORMAL) POCT glucose (03/07/2025 6:25 PM BULL GANG WORKER) [facility] GLUCOSE POC 65(L) 70 - 99 mg/dL 03/07/2025 6:27 PM [employer] G[employer] WORK[employer] [facility] 03/07/2025 6:25 PM BULL GANG WORKER Attending Physician Emergency MD POCT ORDERABLES - DEVICE Final Result [facility] [address] [place] [address], [place] [phone] * CULTURE STREP A (03/03/2025 1:12 PM BULL GANG WORKER) Only the most recent of2 resultswithin the time period is included. [facility] THROAT CULTURE STREP A ONLY Negative for Group A Streptococci Negative for Group A Streptococci 03/04/2025 6:50 PM BULL GANG WORKER [facility] STRUCTURE OF ANTERIOR REGION OF NECK / Unknown 03/03/2025 1:12 PM B[employer] GANG WORKER Derick Terry DO MICROBIOLOGY - GENERAL ORDE RABLES Final Result [facility] [address] [place] [address], [place] [phone] * STREP A RAPID (03/03/2025) Only the most recent of2 resultswithin the time period is included. Pathologist [facility] RAPID STREP TEST NEGATIVE NEGATIVE [facility] Internal Control: VALID VALID [facility] [place] STRUCTURE OF ANTERIOR REGION OF NECK / Unknown 03/03/2025 Derick Terry DO MICROBIOLOGY - GENERAL ORDE [facility] Final Result [facility] [place] [address] [place] [address], * FLEX SIG (SCAN ORDER) (02/17/2025) 02/17/2025 [facility] Scanned SCANNING Final Resu lt * XR ABD KUB (02/15/2025 3:53 PM CDT) Anatomical Region Laterality Modality Abdomen Radiographic Aidee ging 02/15/2025 3:55 PM CDT Impressions 02/15/2025 3:55 PM CDT IMPRESSION: No acute findings Ordered By: IVONNE BLISS Interpreted By: Tanner Hall MD, 02/15/2025 3:55 PM Narrative 02/15/2025 3:55 PM CDT [place] [id number] Two VIEW(s) OF THE ABDOMEN History: Pain Comparison:None 2 views of the abdomen demonstrate a normal overall bowel gas pattern. No pathologic intra-abdominal calcifications are seen. The bony elements appear normal Procedure Note Tanner Hall MD - 02/15/2025 [place] [address] Two VIEW(s) OF THE ABDOMEN History: Pain Comparison:None 2 views of the abdomen demonstrate a normal overall bowel gas pattern. Nopathologic intra-abdominal calcifications are seen. The bony elementsappear normal IMPRESSION: No acute findings Ordered By: IVONNE BLISS Interpreted By: Tanner Hall MD, 02/15/2025 3:55 PM us Ivonne Bliss GOLF CART MECHANIC GENERAL IMAGING Final Resul t * URINE BACTERIA CULTURE (02/15/2025 2:19 PM CDT) SPEC DESCRIPTION URINE CLEAN CATCH 02/15/2025 2:20 PM CDT [facility] SPECIAL REQUESTS NO SPECIAL REQUEST 02/15/2025 2:20 PM CDT [facility] CULTURE RESULT FEW CONTAMINANTS 01/27 12:07 PM CDT [facility] URINE SPECIMEN OBTAINED BY CLEAN CATCH PROCEDURE / Unknown 02/15/2025 2:19 PM CDT 02/15/2025 8:50 PM CDT us Ivonne Bliss GOLF CART MECHANIC MICROBIOLOGY - GENERAL ORDE RABLES Final Result [facility] [address] [place] [address], [place] [phone] * TEST URINE (02/15/2025) URINE HCG TEST NEGATIVE NEGATIVE [facility] Internal Control: VALID VALID [facility] URINE SPECIMEN FROM URETHRA / Unknown 02/15/2025 us Ivonne Bliss GOLF CART MECHANIC URINE ORDERABLES Final Resu lt Performing Organization Address City/[facility]/ZIP Co de Phone Number [facility] [address] [place] [address], [place] [phone] * (ABNORMAL) URINALYSIS AUTO DIP (02/15/2025) COLOR (U) PALE YELLOW YELLOW -LUDWI G [facility] [place] TRANSPARENCY CLEAR CLEAR MG-LUDW IG [facility] [place] GLUCOSE (U) NEGATIVE NEGATIVE MG/DL [facility] [place] BILIRUBIN (U) NEGATIVE NEGATIVE MG-EDE WIG [facility] [place] KETONES MG/DL (U) 5 (TRACE)(A) NEGATIVE MG/DL [facility] [place] SPECIFIC GRAVITY (U) 1.010 1.001 - 1.035 [facility] [place] BLOOD (U) NEGATIVE NEGATIVE MG-[facility] [place] U PH 6.5 5.0 - 9.0 [facility] [place] PROTEIN (U) NEGATIVE NEGATIVE mg/dL [facility] [place] UROBILINOGEN 0.2 0.2 - 1.0 EU/dL = mg/dL [facility] [place] NITRITES NEGATIVE NEGATIVE MG/DL [facility] [place] LEUKOCYTES (U) NEGATIVE NEGATIVE MG-CHARAN DWIG [facility] [place] URINE SPECIMEN OBTAINED BY CLEAN CATCH PROCEDURE / Unknown 02/15/2025 Ivonne Bliss GOLF CART MECHANIC URINE ORDERABLES Final Resu lt [facility] S[facility]AN[facility], [place] [address] [place] [address], * TB INTRADERMAL TEST (BACK OFFICE) (01/24/2025 8:32 AM CDT) Pathologist [facility] PPD SKIN TEST negative NOT REQUIRED 01/24/2025 8:32 AM CDT Derick Terry DO MICROBIOLOGY - GENERAL ORDE RABLES Final Result * HEMOGLOBIN, GLYCOSYLATED (12/21/2024) Pathologist [facility] HGB A1C 7.1 % 12/21/2024 Default History Genericprovider LABORATORY Final Result from Last 3 Months or Most Recently Relevant to Health Maintenance Insurance [facility] Care Teams Web Production Assistant Relationship Specialty Start Date End Date Derick [place] [address] PCP - General FAMILY PRACTICE 01/30/23
--- OUTSIDE RECORDS SUMMARY | 2025-04-25 02:06 | XMS_ITS | Encounter Summary ---
Author Organization [facility] Health Address [address] [place] [address] Care Team Providers Care Border Measurer And Cutter Name Role Phone Dewayne Weathers MD Primary Care Provider Kaleb Mccurdy MD Primary Care Provider Breanna laura López Jr., MD, Willis Randle Primary Care Provid er Nas Baca DO Primary Care Provider Encounter Details Date Type Department Care Team (Late Contact Info) Description 01/19/2008 [facility] Outpatient Visit [facility] DEFAULT [address] [place], [place] [phone] [place] [address] [place] [address] Social History Tobacco Use Types Packs/Day Years Used Date Smoking Tobacco: Never Assessed Comments Unknown Sex and Gender Information Value Date Recorded Sex Assigned at Not on file Legal Sex Female 6:55 AM HELP DESK MANAGER Gender Identity Not on file Sexual Orientation Not on file documented as of this encounter Plan of Treatment Upcoming Encounters Date Type Department Care Team (Late Contact Info) Description 05/05/2025 1:00 PM HELP DESK MANAGER Office Visit [facility] - Endocrinology [address], [address] [place] [phone] Solo Garcia MD [address] [place] [address] documented as of this encounter Visit Diagnoses Not on filedocumented in this encounter Care Teams Border Measurer And Cutter Relationship Specialty Start Date End Date Dewayne Weathers MD [address] [facility] [facility] [address] [place], [place] [phone] PCP - General 03/28/08 08/18/10 Kaleb Mccurdy MD PCP - General 08/19/10 05/06/17 Willis López [place] [address] [address] [facility] [address] [place] [phone] PCP - General 03/30/18 12/03/22 Nas Baca DO [address] [phone] PCP - General Family Medicine 07/28/23 documented as of this encounter
--- OUTSIDE RECORDS SUMMARY | 2025-04-25 02:06 | XMS_ITS | Encounter Summary ---
Author Organization [facility] Address [address] [place] [address] Care Team Providers Care Sustainable Communities Designer Name Role Phone Nas Baca DO Primary Care Provider [phone] Encounter Details Date Type Department Care Team (Late st Contact Info) Description 03/05/2025 Results Follow-Up [facility] [place] [address] Nas Baca DO [address] [place], [place] [phone] STREP A RAPID, CULTURE STREP A Social [...] Sex Assigned at Female 06/18/2024 12:33 PM FRUIT HARVEST WORKER Legal Sex Female 11:47 AM CDT Gender Identity Female 01/20/2025 9:20 AM CDT Sexual Orientation Not on file documented as of this encounter Plan of Treatment Not on file documented as of this encounter Visit Diagnoses Not on filedocumented in this encounter Additional Health Concerns Infection Onset Date Last Indicated Resolved Time Respiratory Rule Out 03/07/2025 03/07/2025 025 8:51 PM FRUIT HARVEST WORKER Assessment Noted Time PHQ-9 Depression Total Score: 0 04/16/20 24 1:39 PM FRUIT HARVEST WORKER documented as of this encounter Care Teams Sustainable Communities Designer Relationship Specialty Start Date End Date Nas Baca DO [address] [place] [address] PCP - General FAMILY PRACTICE 01/30/23 documented as of this encounter
--- OUTSIDE RECORDS SUMMARY | 2025-04-25 02:06 | XMS_ITS | Clinical Summary ---
Author Organization [email or web address] [address] [place] [address] [place] [phone] Care Team Providers Care Dental Office Coordinator Name Role Phone Leena Mathur DO Primary Care Provid er Allergies Active Allergy Reactions Criticality Noted Date Comments Succinylcholine Other (See Comments) High 09/04/2018 Family history of malignant hyperthermia Medications Dexcom G6 Specialist Physician USE DEVICE UTD 0 Active Blood-Glucose Meter,Continuous (Dexcom G6 Specialist Physician) 1 Device by NOT APPLICABLE route. 0 Active Insulin [place], Disposable, (Pen Needle) 31 gauge x 3/16 [...] COVID-19 VACCINE - EMERGENCY USE AUTHORIZATION, MRNA, [id number](PF) 30 MCG/0.3 ML IM SUSP 07/19/2020,06/30/2020 INFLUENZA [...] T d or Tdap) 06/02/2032 06/02/2022, 09/18/2018 HPV VACCINES (No Doses Required) Completed Insurance [facility] Member Subscriber Plan / Payer (Ef fective 2022-Present) Name:WernerInna Relation to Subscriber:Self Name:Inna Werner Subscriber ID:Not on file Payer ID:Not on file Group ID:[id number] Type:RX Commercial Address: [address] [place] [address] Care Teams Dental Office Coordinator Relationship Specialty Start Date End Date Leena Mathur DO PCP - General Family Practice 05/18/20
--- OUTSIDE RECORDS SUMMARY | 2025-04-25 02:06 | XMS_ITS | Clinical Summary ---
Author Organization [facility] Address [address] [place] [address] Care Team Providers Care Communications Supervisor Name Role Phone KevenNas DO Primary Care Provider Source Comments [facility],non-owned Affiliates and Associated Physician Practices is amultiple site organization consisting of ambulatory clinics and hospital sitesin [place], [place], [place] and [place]. This disclosure is being madepursuant to the Care Everywhere program and may not contain all information available regarding this patient. Last updated 18.[facility] Allergies No known active allergies Medications * [...] 06/29/2020 Assessment & Plan (06/29/2020 4:48 PM PERFORMANCE IMPROVEMENT ANALYST): Exam is normal. I discussed that breast [...] Type Department Care Team Description 01/24/2025 Refill [facility] Medical [facility] - Endocrinology [address] [facility], [address] [place] [address] Solo Garcia MD MEDICATION REFILL from Last 3 Months Immunizations Immunization Administration Dates Next Due Covid jigl primary monoval ent 12+ yr 0.3mL Purple [...] on file Legal Sex Female 6:55 AM PERFORMANCE IMPROVEMENT ANALYST Gender Identity Not on file Sexual Orientation [...] st Contact Info) Description 05/05/2025 1:00 PM PERFORMANCE IMPROVEMENT ANALYST Office Visit [facility] - Endocrinology [address] [place] [address] Solo Garcia MD [address] [facility] [address] [place] [address] Health Maintenance Due Date Last Done Comments HEPATITIS C SCREENING 02/04/2007 HEPATITIS B VACCINE (1 of 3 - 19+ 3-dose series) 02/09/2008 PNEUMOCOCCAL VACCINE (1 of 2 - PCV) 02/09/2008 HPV VACCINE (1 - 3-dose SCDM series) 02/09/2016 DIABETES RETINOPATHY SCREENING 05/07/2017 DEPRESSION SCREENING 04/28/2024 COVID-19 VACCINE (3 - 2024- season) 2024 07/19/2020, 06/30/2020 INFLUENZA VACCINE (#1) 2024 05/18/2020 DIABETES-HGB A1C 06/23/2025 12/21/2024, 08/2024, 01/01/2024, Additional history exists DIABETES - URINE PROTEIN SCREENING 08/30/2025 08/30/2024, 07/28/2023, 05/22/2021, Additional history exists DIABETES-SERUM CREATININE 08/30/20252024, 07/28/2023, 05/22/2021, Additional history exists PAP SMEAR 11/14/2025 11/14/2022, 04/24/2018 DIABETES-FOOT EXAM [...] IMAGE-GUIDED RFLX HPV+CT/NG Routine 04/24/2018 11:22 AM PERFORMANCE IMPROVEMENT ANALYST , unspecified gestational age Screening for cervical cancer from Last 3 Months or Most Recently Relevant to Health Maintenance Results * HEMOGLOBIN A1C - POINT OF CARE (AMB) (12/21/2024 2:50 PM CDT) Hemoglobin A1c POCT 7.1 % [facility] Ex[facility] Date [facility] Lot # [id number] [facility] QC Verified Yes Yes [facility] Blood BLOOD SPECIMEN / Unknown 12/21/2024 2:50 PM CDT Solo Garcia MD LAB - POINT OF CARE ORDERAB LES Final Result [facility] [address] [address], [facility] [phone] * MICROALB/CREAT RATIO URINE RANDOM PANEL (08/30/2024 3:09 PM CDT) Creatinine Urine 93.26 mg/dL [facility] ACCOUNT BILL Microalbumin Urine 0.9 mg/dL [facility] ACCOUNT BILL Microalbumin/Crea tinine Ratio 9 <30 mg/g [facility] ACCOUNT BILL Urine URINE SPECIMEN OBTAINED BY CLEAN CATCH PROCEDURE / Unknown 08/30/2024 3:09 PM CDT 08/30/2024 Narrative [facility] ACCOUNT BILL - 08/31/2024 3:06 AM CDT Performed at: [address] [place] [id number] Deputy Director Of Public Works: Jack Hernandez Dr, Phone: [phone] us Solo Garcia MD LAB - URINE CHEMISTRY ORDER MATHIEU Final Result [facility] ACCOUNT BILL [address] [place] [address] * (ABNORMAL) COMPREHENSIVE METABOLIC PANEL (08/30/2024 3:09 [...] - 08/31/2024 3:06 AM CDT Performed at: [address] [place] [id number] Deputy Director Of Public Works: Jack Hernandez Dr, Phone: [phone] us Solo Garcia MD LAB - CHEMISTRY ORDERABLES Final Result [facility] ACCOUNT BILL [address] [place] [address] * HIV-1 HIV-2 ANTIBODY + HIV P24 AG PANEL (09/18/2018 11:03 AM CDT) HIV Screen 4th Generation w Reflex NON-REACT ROSIBEL NON-REACT ROSIBEL [facility] Comment: HIV-1 antigen and HIV-1/HIV-2 antibodies were [...] purpose. For additional information please refer to http://education.[employer]/faq/JKL077 (This link is being provided for informational/ educational purposes only.) The performance of this assay has not been clinically validated in patients less than 2 years old. Test Performed at: [facility] [address] [place] [address] DALTON WOOD DO,MPH Blood BLOOD SPECIMEN / Unknown 09/18/2018 11:03 AM CDT 09/18/2018 11:04 AM CDT Iain Rosenbaum MD LAB - CHEMISTRY ORDERABLES Fin al Result Performing Organization Address City/State/[facility] Co de Phone Number [facility] [address] [place] [address] * PAP IMAGE-GUIDED LIQUID BASE RFLX HPV+CT/NG (04/24/2018 11:22 AM PERFORMANCE IMPROVEMENT ANALYST) Pathologist [facility] [place] Case Report Gynecologic Cytology Report Case: [id number] Authorizing Provider: Jocelyn Sharma MD Collected: 04/24/2018 11:22 AM Ordering Location: [facility] Obstetrics Received: 04/27/2018 11:22 AM [facility] First Screen: Dewayne Perez Specimen: THINPREP - IMAGE GUIDED, Cervix/Endocervix 04/29/2018 1:22 PM PERFORMANCE IMPROVEMENT ANALYST [facility] LMP 04/29/2018 1:22 PM PERFORMANCE IMPROVEMENT ANALYST [facility] Menstrual Status 04/29/19 1:22 PM PERFORMANCE IMPROVEMENT ANALYST [facility] Specimen Adequacy Satisfactory for evaluation, endocervical/trans formation zone component present. 04/29/2018 1:22 PM PERFORMANCE IMPROVEMENT ANALYST [facility] Categorization Negative for intraepithelial lesion or malignancy. 04/29/2018 1:22 PM PERFORMANCE IMPROVEMENT ANALYST [facility] Interpretation MANAGER BANQUET Negative for intraepithelial lesion or malignancy. 04/29/2018 1:22 PM PERFORMANCE IMPROVEMENT ANALYST [facility] at [address]2 PERFORMANCE IMPROVEMENT ANALYST Pap Footnote This specimen was evaluated by the [employer] along with the an additional manual rescreening by a reinsurance clerk and/or pathologist. 04/29/2018 1:22 PM [facility] Embedded Images 9 1:22 PM [facility] Pathology/Cytolo gy MISCELLANEOUS SAMPLES / Unknown 04/24/2018 11:22 AM PERFORMANCE IMPROVEMENT ANALYST 04/27/2018 11:22 AM PERFORMANCE IMPROVEMENT ANALYST Jocelyn Sharma MD LAB - PATHOLOGY/CYTOLOGY OR DERABLES Final Result Performing Organization Address City/State/[facility] Co de Phone Number [facility] [address] [facility] [place] [address], [facility] [phone] from Last 3 Months or Most Recently Relevant to Health Maintenance [place] [address] [place] [address] SELF PAY NO INSURANCE Member Subscriber Plan / Payer (Ef fective for All Dates) Name:Khalif Werner Member ID:Not on file Relation to Subscriber:Not on file Name:MARTAKHALIF Subscriber ID:Not on file Date of :1990 (Home) Address: [address] [place] [id number] Payer ID:Not on file Group ID:Not on file Type:Self Pay Address: [facility] Address: [facility] [address] [place] [address] [facility] Advance Directives * Full Code (Latest Code Status on File) Date Activated Date Inactivated Comments 10/30/2018 12:56 PM 11/02/2018 5:30 PM * Full Code Date Activated Date Inactivated Comments 09/04/2018 3:48 PM 09/05/2018 10:56 PM Care Teams Communications Supervisor Relationship Specialty Start Date End Date Nas Baca DO [address] [phone] PCP - General Family Medicine 07/28/23
--- OUTSIDE RECORDS SUMMARY | 2025-04-25 02:06 | XMS_ITS | Encounter Summary ---
Author Organization [facility] Address [address] [facility] [place] [place] [address] Care Team Providers Care Stem Cutter Name Role Phone Dewayne Weathers MD Primary Care Provider Kaleb Mccurdy MD Primary Care Provider Breanna laura López Jr., MD, Willis Randle Primary Care Provid er Nas Baca DO Primary Care Provider Encounter Details Date Type Department Care Team (Late Contact Info) Description 09/25/2006 [facility] Outpatient Visit [address] [phone] Roxanna Glover MD Social History Tobacco Use Types Packs/Day Years Used Date Smoking Tobacco: Never Assessed Comments Unknown Sex and Gender Information Value Date Recorded Sex Assigned at Not on file Legal Sex Female 6:55 AM BEHAVIORAL SCIENCES INSTRUCTOR Gender Identity Not on file Sexual Orientation Not on file documented as of this encounter Plan of Treatment Upcoming Encounters Date Type Department Care Team (Late Contact Info) Description 05/05/2025 1:00 PM BEHAVIORAL SCIENCES INSTRUCTOR Office Visit [facility] - Endocrinology [address] [place] [phone] Solo Garcia MD [address] [facility] [address] [place] [address] documented as of this encounter Visit Diagnoses Not on filedocumented in this encounter Care Teams Stem Cutter Relationship Specialty Start Date End Date Dewayne Weathers MD [address] [place], [place] [phone] PCP - General 03/28/08 08/18/10 Kaleb Mccurdy MD PCP - General 08/19/10 05/06/17 Willis López [place] [address] [address] [facility] [address] [place] [address] PCP - General 03/30/18 12/03/22 Nas Baca DO [address] [phone] PCP - General Family Medicine 07/28/23 documented as of this encounter
--- OUTSIDE RECORDS SUMMARY | 2025-04-25 02:06 | XMS_ITS | Encounter Summary ---
Author Organization [facility] Address [address] [place] [address] Care Team Providers Care Reliability Technicians Name Role Phone Nas Baca DO Primary Care Provider [phone] Encounter Details Date Type Department Care Team (Late st Contact Info) Description 07/14/2023 MyChart Message Enc [facility] Medical Group Family Medicine [employer] [address] [place] [address] Nas Baca DO [address] [place], [place] [phone] EBV Results Social History Tobacco Use Types Packs/Day Years Used Date Smoking Tobacco: Former Cigarettes Smokeless Tobacco: Never Alcohol Use Standard Drinks/Week Comments Not Currently 0 (1 standard drink = 0.6 oz pur e alcohol) PHQ-2 Answer Date Recorded Patient Health Questionnaire-2 Score 0 01/30/2023 Comments No Sex and Gender Information Value Date Recorded Sex Assigned at Female 06/18/2024 12:33 PM STUDENT SUCCESS ADVISOR Legal Sex Female 11:47 AM CDT Gender Identity Female 01/20/2025 9:20 AM CDT Sexual Orientation Not on file documented as of this encounter Plan of Treatment Not on file documented as of this encounter Visit Diagnoses Not on filedocumented in this encounter Additional Health Concerns Infection Onset Date Last Indicated Resolved Time Respiratory Rule Out 03/07/2025 03/07/2025 025 8:51 PM STUDENT SUCCESS ADVISOR documented as of this encounter Care Teams Reliability Technicians Relationship Specialty Start Date End Date [place] Baca [place] [address] PCP - General FAMILY PRACTICE 01/30/23 documented as of this encounter
--- OUTSIDE RECORDS SUMMARY | 2025-04-25 02:06 | XMS_ITS | Encounter Summary ---
Author Organization [facility] Address [address] [facility] [place] [address] Care Team Providers Care Manager Solution Name Role Phone Dewayne Weathers MD Primary Care Provider Kaleb Mccurdy MD Primary Care Provider Breanna laura López Jr., MD, Willis Randle Primary Care Provid er Nas Baca DO Primary Care Provider Encounter Details Date Type Department Care Team (Late Contact Info) Description 05/06/2007 [facility] Outpatient Visit [address] [phone] Roxanna Glover MD Social History Tobacco Use Types Packs/Day Years Used Date Smoking Tobacco: Never Assessed Comments Unknown Sex and Gender Information Value Date Recorded Sex Assigned at Not on file Legal Sex Female 6:55 AM MINESWEEPING OFFICER Gender Identity Not on file Sexual Orientation Not on file documented as of this encounter Plan of Treatment Upcoming Encounters Date Type Department Care Team (Late Contact Info) Description 05/05/2025 1:00 PM MINESWEEPING OFFICER Office Visit [facility] - Endocrinology [address] [place] [phone] Solo Garcia MD [address] [facility] [address] [place] [address] documented as of this encounter Visit Diagnoses Not on filedocumented in this encounter Care Teams Manager Solution Relationship Specialty Start Date End Date Dewayne Weathers MD [address] [place], [place] [phone] PCP - General 03/28/08 08/18/10 Kaleb Mccurdy MD PCP - General 08/19/10 05/06/17 Willis López Jr[place] [address] [address] [facility] [address] [place] [address] PCP - General 03/30/18 12/03/22 Nas Baca DO [address] [phone] PCP - General Family Medicine 07/28/23 documented as of this encounter
--- OUTSIDE RECORDS SUMMARY | 2025-04-25 02:06 | XMS_ITS | Encounter Summary ---
Author Organization [facility] Address [address] [facility] [place] [address] Care Team Providers Care Lost Charge Card Clerk Name Role Phone Dewayne Weathers MD Primary Care Provider [phone] Kaleb Mccurdy MD Primary Care Provider Breanna laura López Jr., MD, Willis Randle Primary Care Provid er Nas Baca DO Primary Care Provider Encounter Details Date Type Department Care Team (Late Contact Info) Description 05/29/2006 [facility] Outpatient Visit [address] [address] Kandace Billingsley, CONTROL ROOM TENDER-UNIVERSITY SERVICES PROGRAM ASSOCIATE Retired Social History Tobacco Use Types Packs/Day Years Used Date Smoking Tobacco: Never Assessed Comments Unknown Sex and Gender Information Value Date Recorded Sex Assigned at Not on file Legal Sex Female 6:55 AM WOOD PATTERNMAKER Gender Identity Not on file Sexual Orientation Not on file documented as of this encounter Plan of Treatment Upcoming Encounters Date Type Department Care Team (Late Contact Info) Description 05/05/2025 1:00 PM WOOD PATTERNMAKER Office Visit [facility] - Endocrinology [address] [place] [address], [address] [place] [phone] Solo Garcia MD [address] [facility] [address] [place] [address] documented as of this encounter Visit Diagnoses Not on filedocumented in this encounter Care Teams Lost Charge Card Clerk Relationship Specialty Start Date End Date Dewayne Weathers MD [address] [place], [place] [phone] PCP - General 03/28/08 08/18/10 Kaleb Mccurdy MD PCP - General 08/19/10 05/06/17 Willis López [place] [address] El[address] Alejandre [facility] [address] [place] [address] PCP - General 03/30/18 12/03/22 Nas Baca DO [address] [address] PCP - General Family Medicine 07/28/23 documented as of this encounter
--- OUTSIDE RECORDS SUMMARY | 2025-04-25 02:06 | XMS_ITS | Clinical Summary ---
Author Organization [facility] Address [address] [place] [address] Care Team Providers Care Manager Of Security Name Role Phone Keven, Nas Anival Primary Care Provide r Solo Garcia MD Unavailable [phone] Allergies Active Allergy Reactions Criticality Noted Date Comments Metronidazole Itching Low 04/01/2024 Itching of face, mouth, chest and whole body per patient Succinylcholine Other (See comments) High 09/04/2018 Family history of pseudocholinesterase deficiency, so prolonged time of action with succinylcholine administration for her, if given. Medications blood-glucose meter,continuous (Dexcom G6 Revenue Cycle Analyst) misc 1 Device by Not Applicable route [...] (40 mg total) by mouth daily Active Active Problems Problem Noted Date Diagnosed Date Tongue lesion 03/16/2025 Assessment & Plan (03/16/2025 8:28 PM METAL GAUGE MAKER): I did a mirror exam and I [...] Department Care Team Description 03/16/2025 3:30 PM METAL GAUGE MAKER Office Visit [facility] Otolaryngology [address] [place] [address] Jah Stack MD Tongue lesion (Primary Dx) 02/28/2025 8:30 AM METAL GAUGE MAKER Office Visit [facility] [address] [address] Bela Gold MD Type 1 [...] Tobacco: Never Tobacco Cessation:Counseling Given: Not Answered [facility] Utilities Answer Date Recorded In the past 12 months has e [employer], gas, oil, or water company threatened to [...] often do you attend chur ch or jehovah's witness services? Never 04/09/2024 Do you belong to [...] CDT Gender Identity Female 05/19/2024 6:51 AM METAL GAUGE MAKER Sexual Orientation Straight 05/19/2024 6: 51 AM METAL GAUGE MAKER Obstetrics History Para Term AB IAB SAB Ectopic Multiple Livin g Live Births 1 1 0 1 Date Outcome GA Total Labor Labor/2nd/3rd Weight Sex Type Anes PTL Rosangela A1 A5 Name Clin 019 34w 5d 4h 56m 4h 51m/0h 05m 3.975 kg (8 lb 12.2 oz) F Vag-S pont Epidur al Y 5 9 Estrellita Ornelas MD Complications:Intraamniotic Infection Delivery Location:[facility] Comments:Heart murmur Last Filed Vital Signs Vital Sign Reading Time Taken Comments Blood Pressure 118/84 02/28/2025 8:40 AM METAL GAUGE MAKER Pulse 89 12/17/2024 9:00 PM CDT Temperature 36.8 C (98.3 F) 12/17/2024 9:00 PM CDT Respiratory Rate 17 03/16/2025 3:57 PM METAL GAUGE MAKER Oxygen Saturation 100% 12/17/2024 10:45 PM CDT Inhaled Oxygen Concentration - - Weight 77.1 kg (170 lb) 03/16/2025 3:57 PM METAL GAUGE MAKER Height 170.2 cm (5' 7) 03/16/2025 3:57 PM METAL GAUGE MAKER Body Mass Index 26.63 03/16/2025 3:57 PM METAL GAUGE MAKER Plan of Treatment Health Maintenance Due Date [...] Testing performed by: [facility], [address] [place] [address]., [address] Blood 12/17/2024 9:12 PM CDT 12/17/2024 9:17 PM CDT Joo Funes Jr., MD LAB BLOOD ORDERABLES F inal Result NURIA [address] [facility] Department [place] [address] * Pap with reflex to High Risk HPV and Genotyping (Cytology Component) (11/14/2022 11:49 AM CDT) Thin prep (Pap test) 11/14/2022 11:49 AM CDT 11/18/2022 11:49 AM CDT Narrative PATHOLOGY [facility] - 11/21/2022 1:17 PM CDT [facility] Department of Pathology [address] [place] [address] Final Report Note to Patients: This report [...] the details. Patient Name: KHALIF RIVERA Address: [address] [place] [address] [place] [address] Gender: F : 1990 (Age: 32) Service: Location: [facility] #: [id number] Patient Type: [facility] SPECIMEN Taken: 11/14/2022 Received: 11/18/2022 Accessioned:: 11/19/2022 Reported: 11/21/2022 [facility] Diagnosis: SOURCE OF SPECIMEN Imaged Thinprep Pap Test w/ Reflex HPV - Senior Devops Engineer Cytologic Material: STATEMENT OF ADEQUACY - Satisfactory for evaluation; endocervical/transformation zone component present GENERAL CATEGORIZATION: - Negative for intraepithelial lesion or malignancy MARLINE Christianson(ASCP) Report Electronically Reviewed and Signed Out By MARLINE Christianson(ASCP) 11/21/2022 13:17:29Specimen(s) Received: A: Imaged Thinprep Pap Test w/ Reflex HPV - Senior Devops Engineer Cytologic Material Clinical History: Last Menstrual [...] determined by the Surgical Pathology Department at [facility] as part of an ongoing quality system manager program and in compliance with federally [...] Flores CNM LAB CYTOLOGY ORDERABLES Final Result [facility] from Last 3 Months or Most Recently Relevant to Health Maintenance Insurance [facility] OPEN ACCESS [facility] Advance Directives For more information, please contact: [phone] * Full Code (Latest Code Status on File) Date Activated Date Inactivated Comments 04/08/2024 7:40 PM 04/10/2024 5:40 PM * Full Code Date Activated Date Inactivated Comments 04/01/2024 1:49 PM 04/04/2024 7:09 PM Care Teams Manager Of Security Relationship Specialty Start Date End Date Nas [place] [address] [place] [address] PCP - General Family Medicine 06/27/23 Solo Garcia MD [facility] [address] Referring Physician Endocrinology Diabetes & Metabolism 08/11/24
--- OUTSIDE RECORDS SUMMARY | 2025-04-25 02:06 | XMS_ITS | Encounter Summary ---
Author Organization [facility] Address [address] [place] [address] Care Team Providers Care Chart Reader Name Role Phone Nas Baca DO Primary Care Provider [phone] Reason for Referral * Imaging (Routine) - New Request Specialty Diagnoses / Procedures Referred By Kieran parikh Referred To Contact RADIOLOGY Diagnoses Right lower lobe pulmonary nodule Procedures CT CHEST WO CON Nas Baca DO [address] [place] [address] Phone: tel: fax: Referral ID Status Reason Start Date Expiration Date V isits Requested Visits Authorized [id number] New Request 03/14/2025 03/15/2026 1 1 DARY APPRENTICE Encounter Details Date Type Department Care Team (Late st Contact Info) Description 03/14/2025 Results Follow-Up [facility] Family Medicine [facility] 5 [place] [address] Nas Baca [place] [address] CT SOFT TISSUE NECK W CON Social [...] Sex Assigned at Female 06/18/2024 12:33 PM LAPIDARY APPRENTICE Legal Sex Female 11:47 AM CDT Gender [...] Total Score: 0 04/16/20 24 1:39 PM LAPIDARY APPRENTICE documented as of this encounter Care Teams Chart Reader Relationship Specialty Start Date End Date Nas Baca DO [address] [place] [address] PCP - General FAMILY PRACTICE 01/30/23 documented as of this encounter
--- OUTSIDE RECORDS SUMMARY | 2025-04-25 02:06 | XMS_ITS | Encounter Summary ---
Author Organization [facility] Address [address] [facility] [place] [address] Care Team Providers Care Plumbing Instructor Name Role Phone Dewayne Weathers MD Primary Care Provider Kaleb Mccurdy MD Primary Care Provider Breanna laura López Jr., MD, Willis Randle Primary Care Provid er Nas Baca DO Primary Care Provider Encounter Details Date Type Department Care Team (Late Contact Info) Description 01/13/2008 [facility] Outpatient Visit [facility] DEFAULT [address] [place], [place] [id number] Ru Shelton MD Retired Social History Tobacco Use Types Packs/Day Years Used Date Smoking Tobacco: Never Assessed Comments Unknown Sex and Gender Information Value Date Recorded Sex Assigned at Not on file Legal Sex Female 6:55 AM ADMISSIONS OFFICER Gender Identity Not on file Sexual Orientation Not on file documented as of this encounter Plan of Treatment Upcoming Encounters Date Type Department Care Team (Late Contact Info) Description 05/05/2025 1:00 PM ADMISSIONS OFFICER Office Visit [facility] - Endocrinology [address] [place] [address], [address] [place] [address] Solo Garcia MD [address] [facility] [address] [place] [address] documented as of this encounter Visit Diagnoses Not on filedocumented in this encounter Care Teams Plumbing Instructor Relationship Specialty Start Date End Date Dewayne Weathers MD [address] [place], [place] [phone] PCP - General 03/28/08 08/18/10 Kaleb Mccurdy MD PCP - General 08/19/10 05/06/17 Willis López [place] [address] Elsy Alejandre [facility] [address] [place] [address] PCP - General 03/30/18 12/03/22 Nas Baca DO [address] [phone] PCP - General Family Medicine 07/28/23 documented as of this encounter
--- OUTSIDE RECORDS SUMMARY | 2025-04-25 02:06 | XMS_ITS | Encounter Summary ---
Author Organization [facility] Address [address] [place] [address] Care Team Providers Care Correctional Sergeant Name Role Phone Nas Baca DO Primary Care Provider [phone] Encounter Details Date Type Department Care Team (Late st Contact Info) Description 12/04/2023 MyCFreeDrivet Message Enc [facility] Family Medicine [facility] 5 [place] [address] Nas Baca DO [address] [place] [phone] Positive Covid Social History Tobacco Use Types Packs/Day Years Used Date Smoking Tobacco: Former Cigarettes Smokeless Tobacco: Never Alcohol Use Standard Drinks/Week Comments Not Currently 0 (1 standard drink = 0.6 oz pur e alcohol) occas. PHQ-2 Answer Date Recorded Patient Health Questionnaire-2 Score 0 07/22/2023 Comments No Sex and Gender Information Value Date Recorded Sex Assigned at Female 06/18/2024 12:33 PM CONTROL SYSTEMS DEVELOPER Legal Sex Female 11:47 AM CDT Gender [...] Rule Out 03/07/2025 03/07/2025 025 8:51 PM CONTROL SYSTEMS DEVELOPER documented as of this encounter Care Teams Correctional Sergeant Relationship Specialty Start Date End Date Nas Baca DO [address] [place] [address] PCP - General FAMILY PRACTICE 01/30/23 documented as of this encounter
--- OUTSIDE RECORDS SUMMARY | 2025-04-25 02:06 | XMS_ITS | Encounter Summary ---
Author Organization [facility] Address [address] [place] [address] Care Team Providers Care Film Numberer Name Role Phone Nas Baca DO Primary Care Provider [phone] Encounter Details Date Type Department Care Team (Late st Contact Info) Description 07/23/[address] [facility] Family Medicine - [place] [address] [place] [address] Nas Baca DO [address] [place] [address] Following Yesterday s Visit Social History Tobacco [...] Sex Assigned at Female 06/18/2024 12:33 PM RAT EXTERMINATOR Legal Sex Female 11:47 AM CDT Gender Identity Female 01/20/2025 9:20 AM CDT Sexual Orientation Not on file documented as of this encounter Plan of Treatment Not on file documented as of this encounter Visit Diagnoses Not on filedocumented in this encounter Additional Health Concerns Infection Onset Date Last Indicated Resolved Time Respiratory Rule Out 03/07/2025 03/07/2025 025 8:51 PM RAT EXTERMINATOR documented as of this encounter Care Teams Film Numberer Relationship Specialty Start Date End Date Nas Baca DO [address] [place] [address] PCP - General FAMILY PRACTICE 01/30/23 documented as of this encounter
--- OUTSIDE RECORDS SUMMARY | 2025-04-25 02:06 | XMS_ITS | Data Portability ---
Author Organization [employer], [facility] Address [address] [address] Assessment No assessment recorded. Plan of Treatment [...] Updated DateTime 05/08/2022 170.18 cm 26.6 kg/m2 70121.7 g 80 /min 147/82 mm[Hg] [employer] 05/08/2022 14:10:24 Date Recorded Body height Body mass index (BMI) Body weight Heart rate Systolic And Diastolic Provider Name and Address Organization Details Last Updated DateTime 08/06/2022 170.18 cm 26.6 kg/m2 91756.7 g 93 /min 148/84 mm[Hg] [employer], [facility] 08/06/2022 16:10:55 Date Recorded Body height Body mass index (BMI) Body weight Heart rate Systolic And Diastolic Provider Name and Address Organization Details Last Updated DateTime 08/27/2022 170.18 cm 26.6 kg/m2 12761.7 g 73 /min 139/85 mm[Hg] Michael Guop5 [facility] [facility] 08/27/2022 12:26:33 Social History None recorded. Functional Status None recorded. Mental Status None recorded. Family History Nothing Reported. Medical History Condition Response HIV or AIDS N Coronary Artery Disease N Other Cancer N Gout N Kidney Stones N Hyperthyroidism N Breast Cancer N Head Trauma/Injury N Hernia N Lung Cancer N Lung Disease N Hypothyroidism N Depression N Blood Clots N COPD [...] ICD10 Code Diagnosis IMO Codes Diagnosis Note [id number] Bruno Moses MD [facility] [address] [place] [phone] 05/08/2022 13:47:09 05/08/2022 15:50:37 [id number] Bruno Moses MD [facility] [address] [place] [phone] 08/06/2022 16:01:17 08/07/2022 10:28:52 [id number] Bruno Moses MD [facility] [address] [place] [phone] 08/27/2022 12:00:43 08/27/2022 15:23:37 Health Concerns Section Related Observation LastModified by Organization Detai ls LastModified Time None Recorded Concern Status LastModified by Organization Details LastModified Time None Recorded Advance Directives Directive None Recorded Payers Insurance Date Sequence Insurance Name Policy Number Policy Alves Covered Member ID Alves Member ID Guarantor Name 09/03/2022 1 [employer]: BS [facility] BLUE (PPO) [id number] Reginald Werner [id number] Inna Werner OBDarrion Episode No OBEpisode recorded.
--- OUTSIDE RECORDS SUMMARY | 2025-04-25 02:06 | XMS_ITS | Encounter Summary ---
Author Organization [facility] Address [address] [facility] [place] [address] Care Team Providers Care District Adviser Name Role Phone Dewayne Weathers MD Primary Care Provider Kaleb Mccurdy MD Primary Care Provider Breanna laura López Jr., MD, Willis Randle Primary Care Provid er Nas Baca DO Primary Care Provider Encounter Details Date Type Department Care Team (Late Contact Info) Description 11/16/2007 [facility] Outpatient Visit [address] [phone] Roxanna Glover MD Social History Tobacco Use Types Packs/Day Years Used Date Smoking Tobacco: Never Assessed Comments Unknown Sex and Gender Information Value Date Recorded Sex Assigned at Not on file Legal Sex Female 6:55 AM SALESPERSON MEATS Gender Identity Not on file Sexual Orientation Not on file documented as of this encounter Plan of Treatment Upcoming Encounters Date Type Department Care Team (Late Contact Info) Description 05/05/2025 1:00 PM SALESPERSON MEATS Office Visit [facility] - Endocrinology [address] [place] [phone] Solo Garcia MD [address] [facility] [address] [place] [address] documented as of this encounter Visit Diagnoses Not on filedocumented in this encounter Care Teams District Adviser Relationship Specialty Start Date End Date Dewayne Weathers MD [address] [place], [place] [phone] PCP - General 03/28/08 08/18/10 Kaleb Mccurdy MD PCP - General 08/19/10 05/06/17 Willis López [place] [address] El[address] Alejandre [facility] [address] [place] [address] PCP - General 03/30/18 12/03/22 Nas Baca DO [address] [phone] PCP - General Family Medicine 07/28/23 documented as of this encounter
--- OUTSIDE RECORDS SUMMARY | 2025-04-25 02:06 | XMS_ITS | Encounter Summary ---
Author Organization [facility] Address [address] [place] [address] Care Team Providers Care Biomedical Field Service Engineer Name Role Phone Dewayne Weathers MD Primary Care Provider Kaleb Mccurdy MD Primary Care Provider Breanna laura López Jr., MD, Willis Randle Primary Care Provid er Nas Baca DO Primary Care Provider Encounter Details Date Type Department Care Team (Late Contact Info) Description 01/13/2008 [facility] Outpatient Visit [facility] DEFAULT [address] [place] [address] Nasrin Matthews APRN-CNP Social History Tobacco Use Types Packs/Day Years Used Date Smoking Tobacco: Never Assessed Comments Unknown Sex and Gender Information Value Date Recorded Sex Assigned at Not on file Legal Sex Female 6:55 AM SENIOR DB2 SYSTEMS PROGRAMMER Gender Identity Not on file Sexual Orientation Not on file documented as of this encounter Plan of Treatment Upcoming Encounters Date Type Department Care Team (Late Contact Info) Description 05/05/2025 1:00 PM SENIOR DB2 SYSTEMS PROGRAMMER Office Visit [facility] - Endocrinology [address] [place] [address], [address] [place] [address] Solo Garcia MD [address] [facility] [address] [place] [address] documented as of this encounter Visit Diagnoses Not on filedocumented in this encounter Care Teams Biomedical Field Service Engineer Relationship Specialty Start Date End Date Dewayne Weathers MD [address] [place], [place] [phone] PCP - General 03/28/08 08/18/10 Kaleb Mccurdy MD PCP - General 08/19/10 05/06/17 Willis López [place] [address] Elsy Alejandre [facility] [address] [place] [address] PCP - General 03/30/18 12/03/22 Nas Baca DO [address] [phone] PCP - General Family Medicine 07/28/23 documented as of this encounter
[2025-04-25] MEDS: LACTATED RINGERS 1,000 ML 30 ML IV CONT ×2 (10:57→14:04)
[2025-04-25 11:07] LABS: Alanine Aminotransferase 16 U/L (6-35); Albumin Level 4.3 g/dL (3.5-5.1); Alkaline Phosphatase 74 U/L (38-126); Amylase 74 U/L (30-110); Aspartate Amino Transferase 23 U/L (14-36); Bilirubin,Total 0.4 mg/dL (0.2-1.3); Lipase 80 U/L (23-300); Total Protein 7.6 g/dL (6.3-8.2)
[2025-04-25] MEDS: KETOROLAC 15 MG/ML VIAL (*BKC) IV PUSH (11:13)
[2025-04-25] MEDS: ACETAMINOPHEN 500 MG TABLET 1000 MG PO (11:13)
--- NOTE | 2025-04-25 11:52 | P.PNAN_ITS ---
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 Home Medications ?Medication ?Instructions ?Recorded ?Confirmed ?Type blood-glucose sensor (Dexcom G6 04/05/25 04/18/25 His tory Sensor device) subcutaneous insulin pump (Tandem 04/05/25 04/18/25 H istory Mobi System) insulin aspart U-100 100 unit/mL 0.1 unit subcut .cont inuous 04/18/25 04/18/25 History subcutaneous solution (Novolog U-100 Insulin aspart) Laboratory Tests 04/25/25 04/25/25 10:27 10:54 POC Capillary Glucose 110 H mg/dl (65-105) Total Bilirubin 0.4 mg/dL (0.2-1.3) Direct Bilirubin 0.0 mg/dL (0-0.3) AST 23 U/L (14-36) ALT 16 U/L (6-35) Alkaline Phosphatase 74 U/L (38-126) Total Protein 7.6 g/dL (6.3-8.2) Albumin 4.3 g/dL (3.5-5.1) Amylase 74 U/L (30-110) Lipase 80 U/L (23-300) Patient hx anesthesia problems: none Family hx anesthesia problems: none Results Review: All pre-operative results and documents have been reviewed as part of the pre- operative evaluation. [facility] Past Medical History Medical History Succinylcholine adverse reaction positive blood test and multiple family members positive Ovarian cyst Left History of Helicobacter pylori infection Positive stool culture E coli Diabetes type 1 Surgical History Surgical History History of colonoscopy 2023 History of esophagogastroduodenoscopy (EGD) 2023 H/O shoulder surgery Family History Family History Father Heart disease Hypertension Grandparent Cerebrovascular accident Social History Social History Years smoked: 7 Smoking status: Former smoker Tobacco type: cigarettes Smoking end date: 04/18/17 Alcohol intake: never Substance use: never Substance use type: does not use Living arrangements: with family Additional living arrangements comments: with sp Occupation/Education: occupation Spiritual care concerns: No Anes - Eval Final PreProcedure Day of Procedure 04/25/25 11:52 Patient weight: overweight Heart: regular rate and rhythm Lungs: clear to auscultation Airway: Mallampati scale class II Neurological: alert and oriented Last oral intake: >/= 8 hours ASA classification: III Emergent: no Anesthetic plan: proceed Anesthesia type and monitoring: general ETT and standard monitoring Results Review: All pre-operative results and documents have been reviewed as part of the pre-operative evaluation. Informed Consent: The patient's anesthetic plan and its attendant risks and benefits were discussed with the patient/family/POA. Questions were solicited and answers provided to the satisfaction of the patient/family/POA.
--- NOTE | 2025-04-25 12:14 | WPDHPUPDATE1 ---
History and Physical Update Update Date/Time: 04/25/25 12:14 History and Physical has been reviewed, including an updated exam of the patient. There are NO changes in the patient's condition. Risks, benefits, and alternatives have been discussed and questions answered. Patient agrees to proceed with procedure.
[2025-04-25] MEDS: ceFAZolin 2 GM in SODIUM CHLORIDE 0.9% IV 50 ML 100 ML IVPB (12:20)
--- NOTE | 2025-04-25 12:39 | S_PTH ---
PATIENT: Inna Werner LOC: [facility] U#:[id number] AGE/SX: 35/F ROOM: RE04/25/[address]: Tere Ernst MD : 1990 BED: DIS: 04/25/2025 SPEC #: [id number] RECD: 04/25/25 13:38 STATUS: MAGALY REVi #: [id number] ABIGAIL: 04/25/25 12:[address]: Tere Ernst DEPT: [facility] Surgical RECD BY: Lakeisha Owens Tissues: A - Gallbladder Procedures: Hematoxylin and Eosin Stain Gross and Microscopic Level 3
--- NOTE | 2025-04-25 13:08 | W.PM.PROC2 ---
Procedure Note - Detailed Date of Procedure 04/25/25 Pre-op Diagnosis Chronic cholecystitis Post-op Diagnosis Same Procedure Performed Laparoscopic cholecystectomy Surgeon Tere Ernst MD Anesthesia General Indications 35-year-old female presented to the office complaining of postprandial right upper quadrant abdominal pain associated with nausea and vomiting. Workup including imaging significant for chronic cholecystitis. Findings chronic cholecystitis Description of Procedure The patient was taken to the operating room placed in the supine position. After adequate induction of general anesthesia, the patient was prepped and draped in normal sterile fashion. A time-out was then performed to verify the patient's identity as well as the procedure being performed. I then made a 5 mm incision in the infraumbilical region. Through this, a Veress needle was placed into the peritoneal cavity and CO2 gas was then insufflated. After adequate pneumoperitoneum was achieved, the Veress needle was removed and a 5 mm optiview trocar was placed through this incision under direct visualization. I then placed the laparoscope through this trocar site and under direct visualization placed a further 12 mm subxiphoid port as well as 2 additional 5 mm ports in the right upper abdomen. The gallbladder was then identified and was noted to be moderately inflamed, distended. I was able to place a grasper at the dome of the gallbladder and this was retracted anterior and cephalad up over the liver. A 2nd retractor was then placed at the infundibulum and retracted laterally, this allowed visualization of the triangle of Calot. I then was able to visualize the cystic duct in its entirety from its proximal insertion into the gallbladder, to its distal junction with the common hepatic/common bile duct junction. At this point, I carefully skeletonized the proximal cystic duct with the [place] dissector. I then clipped and transected the proximal cystic duct. Next I visualized the cystic artery. Again the artery was skeletonized, clipped, and transected. I then used the Bovie cautery to take down the peritoneal attachments of the gallbladder off the liver bed. Once the gallbladder specimen was completely detached, an endo-pouch was placed through the 12 mm port site. I then placed the gallbladder specimen into the Endo pouch and removed the endo-pouch from the 12 mm port site. The specimen will now be sent to pathology for further review. I then copiously irrigated the right upper quadrant. Hemostasis was noted in the liver bed, the clips were noted to be in good position on both the cystic duct stump and the cystic artery stump. No other pathology was noted in the right upper quadrant. I then moved the laparoscope to the subxiphoid port. No iatrogenic injury or other pathology was noted in the lower abdomen. I then closed the 12 mm trocar site under direct visualization using the Jorge Alberto cone and 0 Vicryl suture. At this point, the abdomen was desufflated and all ports removed. All port sites were then closed with 4.O Monocryl subcuticular sutures. Dermabond was placed on each incision. The patient tolerated the procedure well, was extubated in the operating room postoperative and will be transferred to the recovery room in stable condition Estimated Blood Loss 5 Drains No Packing No Pathology Yes Complications No immediate complications Condition Stable Disposition PACU [facility] Billing Surgery - Charge Forward: Surgery Billing
[2025-04-25] MEDS: ONDANSETRON INJ 4 MG/2 ML VIAL IV PUSH (13:50)
[2025-04-25] MEDS: fentaNYL CITRATE INJ (*CRX) 100 MCG/2 ML VIAL 25 MCG IV PUSH ×2 (14:06→14:08)
[2025-04-25] MEDS: oxyCODONE HCL (*CRX) 5 MG TAB IR PO (14:45)
== END 2025-04-25 15:43 | disposition home or self-care (01) ==
PROVIDERS: Visit Provider Surgery
PROC: 0FT44ZZ Resection of Gallbladder, Percutaneous Endoscopic Approach (ICD-10-PCS; CPT 47562; principal; 2025-04-25 12:00)
DX: K81.1 Chronic cholecystitis (principal); E10.9 Type 1 diabetes mellitus without complications; Z87.891 Personal history of nicotine dependence
CPT/HCPCS: 47562; 36415; 80076; 82150; 82948; 83690; 88304; J0690; A9270; J1100; J1885; J2003; J2250; J2405; J2704; J3010; J7120